=== PATIENT | male | born 1940 | race Caucasian/White ===

== ENCOUNTER 2023-10-11 22:02 | Emergency (ER) | payer OTHER, MEDICARE, BC, SELFPAY ==
[2023-10-11] VITALS (17 sets, daily range): BP systolic 117–148; BP diastolic 44–71; PULSE 60–65; RESP 18–20; TEMP 36.6; O2SAT 95–98; BMI 27.8
--- NOTE | 2023-10-11 22:11 | US_ITS ---
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 Patient ID:?[id number] Site Patient ID:?[id number] Site :?[id number] Study:?US-Extremity LEFT GROIN ARTERIAL-10/12/2023 12:01:57 AM Ordering Physician:Pedro Cast MD Final Report: INDICATION: Bleeding from puncture site. TECHNIQUE: Grayscale and color imaging of the left inguinal region was performed with 2D and spectral analysis and color Doppler Imaging of the femoral vessels. COMPARISON: None. FINDINGS/IMPRESSION: No sonographic evidence of pseudoaneurysm, arteriovenous fistula, or hematoma in the left inguinal region. Triphasic waveforms in the left common femoral, proximal superficial femoral, and proximal deep femoral arteries. No evidence of deep venous thrombosis in the left common femoral and deep femoral veins. Dictated by Tuan Phelps MD @ 10/12/2023 12:51:03 AM Signed by:?Tuan Phelps MD @10/12/2023 12:51:03 AM (Electronic Signature)
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
[2023-10-11 22:39] LABS: Basophils Absolute Auto 0.01 K/uL (0.00-0.30); Basophils Percent Auto 0.1 % (0.0-3.0); Eosinophils Absolute Auto 0.15 K/uL (0.00-0.50); Eosinophils Percent Auto 2.2 % (0.0-7.0); Hematocrit 38.4 % (37.0-53.0); Hemoglobin* 12.3 gm/dL (13.5-17.5); Immature Granulocytes Abs Auto 0.05 K/uL (0.00-0.30); Immature Granulocytes Pct Auto 0.7 %; Lymphocytes Absolute Auto 2.32 K/uL (0.90-2.90); Lymphocytes Percent Auto 34.5 % (20-44); Mean Corpuscular HGB Conc 32 gm/dL (32-36); Mean Corpuscular Hemoglobin 30 pg (26-34); Mean Corpuscular Volume 93 fL (80-100); Monocytes Percent Auto 7.7 % (0.0-11.0); Neutrophils Absolute Auto 3.67 K/uL (1.7-7.0); Neutrophils Percent Auto 54.8 % (42.0-72.0); Platelet Count* 142 K/uL (140-440); RDW Coefficient of Variation % 13.1 % (11.5-15.5); Red Blood Count 4.12 m/uL (4.30-5.90); Slide Review Reflex No; White Blood Count* 6.72 K/uL (4.50-11.00)
--- OUTSIDE RECORDS SUMMARY | 2023-10-11 23:42 | XMS_ITS | Clinical Summary ---
Author Name Unknown Organization [facility] Address [place], [place] [address] Care Team Providers Care Trimmer Climber Name Role Phone Val Leyva MD Primary Care Provider [phone] Allergies Active Allergy Reactions Criticality Noted Date Comments Atorvastatin Myalgia Low 05/18/2007 Clindamycin *Unknown Medium 10/05/2020 Reported per pt (has list with verified allergies) - thought this may have been the one that stopped his heart. Metoprolol Dizziness,*Unknown - Pt Doesn't Remember Medium 05/01/2019 Reported per pt list of verified allergies. Pravastatin Myalgia Low 10/09/2021 Simvastatin Myalgia Low 03/13/2012 Tolerates rosuvastatin, taking currently. Medications Medication Sig Dispensed Refills Start Date End Date Status insulin glargine, U-100, 100 unit/mL (3 mL) pen Inject 16 units subcutaneous once daily. 05/03/2021 Active amiodarone (Pacerone) 200 mg tablet Take 1 Tablet by mouth once daily. 11/06/2021 Active isosorbide mononitrate (IMDUR) 60 mg extended release tablet 24 hour 60 mg. 10/24/2021 Active rosuvastatin (CRESTOR) 20 mg tablet 10 mg. 10/24/2021 Active methotrexate (RHEUMATREX) 2.5 mg tablet 25 mg. 11/01/2021 Active aspirin 81 mg cap aspirin Active folic acid 1 mg tablet Take 1 Tablet by mouth once daily. 11/01/2021 Active hydrOXYchloroQUINE (PLAQUENIL) 200 mg tablet 200 mg. 11/01/2021 Active cholecalciferol (VITAMIN D3) 1,000 unit tablet Take 2,000 units by mouth. Active apixaban (ELIQUIS) 5 mg tablet Take 5 mg by mouth 2 times daily. 10/25/2021 Active acetaminophen (TYLENOL) 325 mg tablet Take 975 mg by mouth. 10/10/2021 Act paul HYDROcodone-acetami nophen (NORCO) 5-325 mg per tablet TAKE 1 TABLET BY MOUTH TWICE A DAY NEEDED FOR SEVERE PAIN *DO NOT EXCEED 4000MG OF ACETAMINOPHEN IN 24 HOURS FROM ALL SOURCES-- 10/24/2021 Active Active Problems Problem Noted Date Diagnosed Date DEPRESSION 03/10/2003 HYPERLIPIDEMIA 06/05/2002 DIABETES TYPE II WITHOUT COMPLICATIONS OR UNSPEC IFIED 06/13/2001 Social History Tobacco Use Types Packs/Day Years Used Date Smoking Tobacco: Former Smokeless Tobacco: Never Tobacco Cessation:Counseling Given: Yes Alcohol Use Standard Drinks/Week Comments Not Currently 0 (1 standard drink = 0.6 oz pur e alcohol) Alcoholic Drinks/day: 0 Social Connections Answer Date Recorded Frequency of Communication with Friends and Fami ly Not on file 11/13/2021 Sex and Gender Information Value Date Recorded Sex Assigned at Not on file Gender Identity Not on file Sexual Orientation Not on file Obstetrics History Last Filed Vital Signs Vital Sign Reading Time Taken Comments Blood Pressure 135/67 11/13/2021 1:07 PM CDT Pulse 53 11/13/2021 1:07 PM CDT Temperature 36.4 ??C (97.5 ??F) 11/13/2021 1:07 PM CD T Respiratory Rate - - Oxygen Saturation 99% 11/13/2021 1:07 PM CDT Inhaled Oxygen Concentration - - Weight 95.1 kg (209 lb 9.6 oz) 11/13/2021 1:07 P M CDT Height 180.3 cm (5' 11) 05/30/2001 12:00 AM 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
--- OUTSIDE RECORDS SUMMARY | 2023-10-11 23:42 | XMS_ITS | Continuity of Care Document ---
Author Name [facility] Organization [facility] Care Team Providers Care Sagger Soak Name Role Phone [facility] Unavailable Unavailable Problems Combined list of problems from Department of Defense and Veterans Affairs facilities. It does not include entries that were removed or entered in error. Problem Status Onset Date Problem Type Date of Resolution Comments Source Exposure to potentially hazardous substance ([facility] [id number]) Active 09/12/19 24 Condition Sep 12, 2023 Entered By: AMARILIS RAMIREZ Comment: [facility] [place] Documentation Initiative [facility] Acute bronchitis Active Condition [facility] Aneurysm of iliac artery Active Condition [facility] Arthritis Active Condition [facility] Atrial Fibrillation Active Condition [facility] Atrial fibrillation (SNOMED CT 88036506) Active Condition [facility] Atrial Fibrillation * (ICD-9-CM 427.31) Active Condition ISATU Olivo Sravani [facility] Benign hypertension (SNOMED CT 93914293) Active Condition [facility] Chronic kidney disease (SNOMED CT 840555238) Active Condition [facility] 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 Dec 12 Entered By: NEYMAR HONG Comment: -microalbuminur ia, BP not tolerating MARCELLO-I 2021 [facility] Coronary artery disease (SNOMED CT 67765269) Active Condition [facility] 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 (SNOMED CT 9646183741291) Active Condition [facility] Essential tremor Active Condition [facility] Gout Active Condition [facility] Hyperlipidemia (SNOMED CT 26909786) Active Condition [facility] insulin pump present Active Condition [facility] intermediate manager methotrexate user Active Condition [facility] Long-term current use of anticoagulant (SNOMED CT 554371667) Active Condition [facility] Obstructive sleep apnea syndrome Active Condition [facility] Rheumatoid arthritis (SNOMED CT 80989567) Active Condition [facility] Steatosis of liver Active Condition [facility] Type 2 diabetes mellitus well controlled Active Condition [facility] Dysfunction of Eustachian tube (ICD-9-CM 381.81) Inactive Condition 11/26/2017 [facility] Diagnosis: ICD-10-CM I48.91 Unspecified atrial fibrillation Active Diagnosis [facility] Diagnosis: ICD-10-CM Z01.818 Encounter for other preprocedural examination Active Diagnosis [facility] Diagnosis: ICD-10-CM Z13.6 Encounter for screening for cardiovascular disorders Active Diagnosis [facility] Diagnosis: ICD-10-CM 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, right eye, with actv chrdl neovas Active Diagnosis [facility] Diagnosis: ICD-10-CM Z46.1 Encounter for fitting and adjustment of hearing aid Active Diagnosis [facility] Diagnosis: ICD-10-CM L30.9 Dermatitis, unspecified Active Diagnosis [facility] Diagnosis: ICD-10-CM L98.9 Disorder of the skin and subcutaneous tissue, unspecified Active Diagnosis [facility] Diagnosis: ICD-10-CM Z79.01 intermediate manager (current) use of anticoagulants Active Diagnosis [facility] Diagnosis: ICD-10-CM M06.9 Rheumatoid arthritis, unspecified Active Diagnosis [facility] Diagnosis: ICD-10-CM H35.3193 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, unsp, adv atrpc w/o sbfvl invl Active Diagnosis [facility] Diagnosis: ICD-10-CM 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 [facility] Diagnosis: ICD-10-CM I12.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 Active Diagnosis [facility] Diagnosis: ICD-10-CM G25.0 Essential tremor Active Diagnosis [facility] Diagnosis: ICD-10-CM E11.40 Type 2 diabetes mellitus with diabetic neuropathy, unsp Active Diagnosis [facility] Diagnosis: ICD-10-CM Z79.899 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 Medication Details Route Status Patient Instructions Prescription Expires Prescription Number Last Dispense Date Ordering Provider Order Date Source AMIODARONE HCL (PACERONE) 200MG TAB TAKE ONE TABLET BY MOUTH EVERY DAY FOR HEART RHYTHM ORALLY ACTIVE 04/16/2024 [id number] DESIRAE MCCARTY 2022 [facility] AMIODARONE HCL (PACERONE) 200MG TAB TAKE ONE TABLET BY MOUTH EVERY DAY ORALLY 04/10/2023 [id number] 3 DESIRAE MCCARTY 2021 [facility] APIXABAN 2.5MG TAB TAKE ONE TABLET BY MOUTH EVERY 12 HOURS TO PREVENT STROKES ORALLY SUSPEND ED 02/29/2024 [id number] 4 DIANE DONG 2022 [facility] APIXABAN 2.5MG TAB TAKE ONE TABLET BY MOUTH EVERY 12 HOURS TO PREVENT STROKES ORALLY DISCONT INUED 03/20/2023 [id number] 3 IRENE MIKE 2021 [facility] CAMPHOR 0.5%/MENTHO L 0.5% LOTION APPLY THIN LAYER TOPICALL Y FOUR TIMES A DAY NEEDED FOR ITCHING TOPICA LLY 07/18/2023 [id number] 3 MICHAEL CHO 2022 [facility] CHOLECALCIF LAURA 25MCG (1,000UNIT) TAB TAKE ONE TABLET BY MOUTH EVERY DAY ORALLY ACTIVE CASH KONG 2018 [facility] DICLOFENAC NA 1% GEL,TOP APPLY 4 GRAMS FOUR TIMES A DAY NEEDED FOR PAIN -USE DOSE CARD IN BOX TO MEASURE DOSE -MAXIMUM OF 32 TOTAL GRAMS PER DAY. ACTIVE 01/03/2024 [id number] 3 MARITZA HONG 2022 [facility] DICLOFENAC NA 1% GEL,TOP APPLY 4 GRAMS FOUR TIMES A DAY NEEDED FOR PAIN -USE DOSE CARD IN BOX TO MEASURE DOSE -MAXIMUM OF 32 TOTAL GRAMS PER DAY. DISCONT INUED 12/13/2022 [id number] [address] [facility] FOLIC ACID 1MG TAB TAKE ONE TABLET BY MOUTH DAILY ORALLY DISCONT INUED 11/02/2022 [id number] [address] JO[address]AM[address]IA [address] [facility] GABAPENTIN 100MG CAP TAKE ONE CAPSULE BY MOUTH TWICE A DAY FOR [facility] TREMOR ORALLY ACTIVE 01/03/2024 [id number] [address] [facility] HYDROXYCHLO ROQUINE SO4 200MG TAB TAKE ONE TABLET BY MOUTH TWICE A DAY FOR RHEUMATO ID ARTHRITI S ORALLY DISCONT INUED 05/10/2023 [id number] [address] [facility] INSULIN,GLA RGINE-YFGN 100UNIT/ML INJ PEN,3ML INJECT 9 UNITS UNDER THE SKIN EVERY DAY FOR DIABETES SUBCUT ANEOUS ACTIVE 10/30/2023 [id number] 4 MELISSA-MONICA G,NACIDE [address] [facility] ISOSORBIDE MONONITRATE 60MG TAB,SA TAKE ONE TABLET BY MOUTH EVERY DAY FOR CHEST PAIN ORALLY ACTIVE 01/03/2024 [id number] [address] [facility] ISOSORBIDE MONONITRATE 60MG TAB,SA TAKE ONE TABLET BY MOUTH EVERY DAY FOR CHEST PAIN ORALLY DISCONT INUED 10/26/2023 [id number] [address] [facility] ISOSORBIDE MONONITRATE 60MG TAB,SA TAKE ONE TABLET BY MOUTH EVERY DAY FOR CHEST PAIN ORALLY DISCONT INUED 10/25/2022 [id number] [address] [facility] LIRAGLUTIDE (VICTOZA) 6MG/ML INJ,SOLN,PE N,3ML INJECT 0.6 MG UNDER THE SKIN EVERY DAY FOR DIABETES SUBCUT ANEOUS SUSPEND ED 03/28/2024 [id number] 4 [facility]ELAND [facility] LIRAGLUTIDE (VICTOZA) 6MG/ML INJ,SOLN,PE N,3ML INJECT 0.6 MG UNDER THE SKIN EVERY DAY FOR DIABETES SUBCUT ANEOUS DISCONT INUED 01/03/2024 [id number] 3 MARITZA HONG 2022 [facility] LIRAGLUTIDE (VICTOZA) 6MG/ML INJ,SOLN,PE N,3ML INJECT 0.6 MG UNDER THE SKIN EVERY DAY FOR DIABETES SUBCUT ANEOUS DISCONT INUED 03/26/2023 [id number] 3 ANABELL BLISS 2021 [facility] LORATADINE 10MG TAB TAKE ONE TABLET BY MOUTH EVERY DAY FOR ALLERGIE S ORALLY ACTIVE 01/03/2024 [id number] 4 MARITZA HONG 2022 [facility] LORATADINE 10MG TAB TAKE ONE TABLET BY MOUTH EVERY DAY FOR ALLERGIE S ORALLY DISCONT INUED 10/25/2022 [id number] 3 MARITZA HONG 2021 [facility] MULTIVIT/OP HTH AREDS2/LUTE IN/ZEAXANTH IN CAP/TAB TAKE 1 CAP/TAB BY MOUTH TWICE A DAY FOR EYE HEALTH ORALLY ACTIVE 04/16/2024 [id number] 4 PORTER CLEANING 2022 [facility] PANTOPRAZOL E NA 40MG TAB,EC TAKE ONE TABLET BY MOUTH EVERY DAY FOR HEARTBUR N POST ATRIAL FIBRILLA TION ABLATION . ORALLY ACTIVE 11/10/2023 [id number] ANABELL MAS ARMA B 2023 [facility] POLYETHYLEN E GLYCOL 3350 PWDR,ORAL TAKE 17 GRAMS BY MOUTH EVERY DAY WHILE USING NARCOTIC *MIX IN 4 TO 8 OUNCES OF LIQUID DIRECTED *USE COVER TO MEASURE POWDER* ORALLY 12/13/2022 [id number] 3 MARITZA HONG 2021 [facility] ROSUVASTATI N CA 20MG TAB TAKE ONE-HALF TABLET BY MOUTH EVERY DAY FOR CHOLESTE ROL (DO NOT CONVERT/ APPROVED 04/2013) ORALLY ACTIVE 01/03/2024 [id number] 4 HONGMARITZA 2022 [facility] ROSUVASTATI N CA 20MG TAB TAKE ONE-HALF TABLET BY MOUTH EVERY DAY FOR CHOLESTE ROL (DO NOT CONVERT/ APPROVED 04/2013) ORALLY DISCONT INUED 10/26/2023 [id number] 3 HONGMARITZA 2022 [facility] ROSUVASTATI N CA 20MG TAB TAKE ONE-HALF TABLET BY MOUTH EVERY DAY FOR CHOLESTE ROL (DO NOT CONVERT/ APPROVED 04/2013) ORALLY DISCONT INUED 10/25/2022 [id number] 3 HONGMARITZA 2021 [facility] Allergies, Adverse Reactions, Alerts Combined list of allergies from Department of [facility] and Veterans [facility] facilities. It does not include entries that were removed or entered in error. Substance Category Reaction Severity Reaction type Status Date Reported Comments Source ATORVASTATIN Propensity to adverse reactions to drug (finding) Muscle pain active 7 [facility] CLINDAMYCIN Propensity to adverse reactions to drug (finding) active 1 [facility] HYDROXYCHLOR OQUINE Propensity to adverse reactions to drug (finding) Retinal disorder MODERATE active 3 [facility] METOPROLOL Propensity to adverse reactions to drug (finding) Dizziness active 9 [facility] SIMVASTATIN Propensity to adverse reactions to drug (finding) Muscle pain active 2 [facility] Immunizations Combined list of available immunizations from the Department of [facility] and Veterans Affairs facilities. Immunization Series Date Given Administered By Site Reaction Lot Number CVX Code Drug Oxidation Operator Status Comments Source INFLUENZA, HIGH DOSE SEASONAL 2015 135 complet ed [facility] PNEUMOCOCCAL CONJUGATE PCV 13 2015 133 complet ed Wytanvir [id number] 12/22 [facility] INFLUENZA, HIGH DOSE SEASONAL 2014 135 complet ed [facility] INFLUENZA, UNSPECIFIED FORMULATION 2013 88 complet ed [facility] INFLUENZA, UNSPECIFIED FORMULATION 2012 88 complet ed [facility] TDAP 2012 115 complet ed [place] Lot# Exp [facility] INFLUENZA, UNSPECIFIED FORMULATION 2011 88 complet ed [facility] INFLUENZA, UNSPECIFIED FORMULATION 2010 88 complet ed [facility] INFLUENZA, UNSPECIFIED FORMULATION 2009 88 complet ed [facility] NOVEL INFLUENZA-H1N 1-09, ALL FORMULATIONS 2008 128 complet ed [facility] TD(ADULT) UNSPECIFIED FORMULATION 2008 139 complet ed [facility] INFLUENZA, UNSPECIFIED FORMULATION 2008 88 complet ed [facility] ZOSTER LIVE 2008 121 complet ed [place] INFLUENZA, UNSPECIFIED FORMULATION 2007 88 complet ed [facility] INFLUENZA, UNSPECIFIED FORMULATION 2006 88 complet ed [facility] PNEUMOCOCCAL, UNSPECIFIED FORMULATION 2006 109 complet ed [facility] PNEUMOCOCCAL POLYSACCHARID E PPV23 2006 33 complet ed [facility] TD (ADULT), 2 LF TETANUS TOXOID, PRESERVATIVE FREE, ADSORBED 2003 09 complet ed [facility] TD(ADULT) UNSPECIFIED FORMULATION 1999 139 complet ed [facility] Results Combined list of recent chemistry, hematology and other laboratory results from Department of Defense and Veterans Affairs, ranging from 15 months to all on record, depending upon the facility. Order Name Results Value Reference Range Date Interpretation Specimen Comments Source POC ACT ACTIVATED CLOTTING TIME (ACT) OF BLOOD BY COAGULATION ASSAY 199 84 - 139 10/10 H Specimen Type: BLOOD No comment entered. Ordering Provider: AIDA HONG Report Released Date/Time: Oct 11, 2023 12:32 PM Reporting Lab: [facility] [address] Performing Lab: [facility] [address] [facility] POC ACT ACTIVATED CLOTTING TIME (ACT) OF BLOOD BY COAGULATION ASSAY 384 84 - 139 10/10 H Specimen Type: BLOOD No comment entered. Ordering Provider: AIDA HONG Report Released Date/Time: Oct 11, 2023 12:20 PM Reporting Lab: [facility] [address] Performing Lab: [facility] [address] [place] [facility] FINGERSTI CK GLUCOSE GLUCOSE [MASS/VOLUM E] IN CAPILLARY BLOOD 161 70 - 100 10/10 H Specimen Type: BLOOD No comment entered. Ordering Provider: AIDA HONG Report Released Date/Time: Oct 11, 2023 01:30 PM Reporting Lab: [facility] [address] Performing Lab: [facility] [address] [place] [facility] POC ACT ACTIVATED CLOTTING TIME (ACT) OF BLOOD BY COAGULATION ASSAY 407 84 - 139 10/10 H Specimen Type: BLOOD No comment entered. Ordering Provider: AIDA HONG Report Released Date/Time: Oct 11, 2023 12:00 PM Reporting Lab: [facility] [address] Performing Lab: [place] [address] [place] [facility] POC ACT ACTIVATED CLOTTING TIME (ACT) OF BLOOD BY COAGULATION ASSAY 345 84 - 139 10/10 H Specimen Type: BLOOD No comment entered. Ordering Provider: AIDA HONG Report Released Date/Time: Oct 11, 2023 11:47 AM Reporting Lab: [facility] [address] Performing Lab: [facility] [address] [place] [facility] FINGERSTI CK GLUCOSE GLUCOSE [MASS/VOLUM E] IN CAPILLARY BLOOD 167 70 - 100 10/10 H Specimen Type: BLOOD No comment entered. Ordering Provider: AIDA HONG Report Released Date/Time: Oct 11, 2023 01:30 PM Reporting Lab: [facility] [address] Performing Lab: [facility] [address] [place] [facility] POC ACT ACTIVATED CLOTTING TIME (ACT) OF BLOOD BY COAGULATION ASSAY 334 84 - 139 10/10 H Specimen Type: BLOOD No comment entered. Ordering Provider: AIDA HONG Report Released Date/Time: Oct 11, 2023 11:20 AM Reporting Lab: [facility] [address] Performing Lab: [facility] [address] [place] [facility] POC ACT ACTIVATED CLOTTING TIME (ACT) OF BLOOD BY COAGULATION ASSAY 310 84 - 139 10/10 H Specimen Type: BLOOD No comment entered. Ordering Provider: AIDA HONG Report Released Date/Time: Oct 11, 2023 11:04 AM Reporting Lab: [facility] [address] Performing Lab: [facility] [address] [place] [facility] POC ABG/ELECT ROLYTES PH OF ARTERIAL BLOOD 7.396 7.35 - 7.45 10/10 Specimen Type: ARTERIAL BLOOD Comment: FIO2 = 55% Patient Temp: 35.5 C Sample Type = ARTERIAL Ordering Provider: AIDA HONG Report Released Date/Time: Oct 11, 2023 01:20 PM Reporting Lab: [facility] [address] Performing Lab: [facility] [address] [place] [facility] POC ABG/ELECT ROLYTES CARBON DIOXIDE [PARTIAL PRESSURE] IN ARTERIAL BLOOD 36.1 35.00 - 45.00 10/10 Specimen Type: ARTERIAL BLOOD Comment: FIO2 = 55% Patient Temp: 35.5 C Sample Type = ARTERIAL Ordering Provider: AIDA HONG Report Released Date/Time: Oct 11, 2023 01:20 PM Reporting Lab: [facility] [address] Performing Lab: [facility] [address] [place] [facility] POC ABG/ELECT ROLYTES OXYGEN [PARTIAL PRESSURE] IN ARTERIAL BLOOD 222 80.0 - 105.0 10/10 H Specimen Type: ARTERIAL BLOOD Comment: FIO2 = 55% Patient Temp: 35.5 C Sample Type = ARTERIAL Ordering Provider: AIDA HONG Report Released Date/Time: Oct 11, 2023 01:20 PM Reporting Lab: [facility] [address] Performing Lab: [facility] [address] [place] [facility] POC ABG/ELECT ROLYTES CARBON DIOXIDE, TOTAL [MOLES/VOLU ME] IN ARTERIAL BLOOD 23 23.0 - 27.0 10/10 Specimen Type: ARTERIAL BLOOD Comment: FIO2 = 55% Patient Temp: 35.5 C Sample Type = ARTERIAL Ordering Provider: AIDA HONG Report Released Date/Time: Oct 11, 2023 01:20 PM Reporting Lab: [facility] [address] Performing Lab: [facility] [address] [place] [facility] POC ABG/ELECT ROLYTES BICARBONATE [MOLES/VOLU ME] IN ARTERIAL BLOOD 22.1 22.0 - 26.0 10/10 Specimen Type: ARTERIAL BLOOD Comment: FIO2 = 55% Patient Temp: 35.5 C Sample Type = ARTERIAL Ordering Provider: AIDA HONG Report Released Date/Time: Oct 11, 2023 01:20 PM Reporting Lab: [facility] [address] Performing Lab: [facility] [address] [place] [facility] POC ABG/ELECT ROLYTES BASE EXCESS IN ARTERIAL BLOOD BY CALCULATION -3 - 2 10/10 L Specimen Type: ARTERIAL BLOOD Comment: FIO2 = 55% Patient Temp: 35.5 C Sample Type = ARTERIAL Ordering Provider: AIDA HONG Report Released Date/Time: Oct 11, 2023 01:20 PM Reporting Lab: [facility] [address] Performing Lab: [facility] [address] [place] [facility] POC ABG/ELECT ROLYTES FRACTIONAL OXYHEMOGLOB IN IN ARTERIAL BLOOD 100 95 - 98 10/10 H Specimen Type: ARTERIAL BLOOD Comment: FIO2 = 55% Patient Temp: 35.5 C Sample Type = ARTERIAL Ordering Provider: AIDA HONG Report Released Date/Time: Oct 11, 2023 01:20 PM Reporting Lab: [facility] [address] Performing Lab: [facility] [address] [place] [facility] POC ABG/ELECT ROLYTES SODIUM [MOLES/VOLU ME] IN ARTERIAL BLOOD 138 138.0 - 146.0 10/10 Specimen Type: ARTERIAL BLOOD Comment: FIO2 = 55% Patient Temp: 35.5 C Sample Type = ARTERIAL Ordering Provider: AIDA HONG Report Released Date/Time: Oct 11, 2023 01:20 PM Reporting Lab: [facility] [address] Performing Lab: [facility] [address] [place] [facility] POC ABG/ELECT ROLYTES POTASSIUM [MOLES/VOLU ME] IN ARTERIAL BLOOD 4.9 3.50 - 4.90 10/10 Specimen Type: ARTERIAL BLOOD Comment: FIO2 = 55% Patient Temp: 35.5 C Sample Type = ARTERIAL Ordering Provider: AIDA HONG Report Released Date/Time: Oct 11, 2023 01:20 PM Reporting Lab: [facility] [address] Performing Lab: [facility] [address] [place] [facility] POC ABG/ELECT ROLYTES HEMOGLOBIN [MASS/VOLUM E] IN ARTERIAL BLOOD 10.9 12.00 - 17.00 10/10 L Specimen Type: ARTERIAL BLOOD Comment: FIO2 = 55% Patient Temp: 35.5 C Sample Type = ARTERIAL Ordering Provider: AIDA HONG Report Released Date/Time: Oct 11, 2023 01:20 PM Reporting Lab: [facility] [address] Performing Lab: [facility] [address] [place] [facility] POC ABG/ELECT ROLYTES HEMATOCRIT [VOLUME FRACTION] OF ARTERIAL BLOOD 32 38.0 - 51.0 10/10 L Specimen Type: ARTERIAL BLOOD Comment: FIO2 = 55% Patient Temp: 35.5 C Sample Type = ARTERIAL Ordering Provider: AIDA HONG Report Released Date/Time: Oct 11, 2023 01:20 PM Reporting Lab: [facility] [address] Performing Lab: [facility] [address] [place] [facility] POC ABG/ELECT ROLYTES CALCIUM.ION IZED [MOLES/VOLU ME] IN ARTERIAL BLOOD 4.7 4.50 - 5.30 10/10 Specimen Type: ARTERIAL BLOOD Comment: FIO2 = 55% Patient Temp: 35.5 C Sample Type = ARTERIAL Ordering Provider: AIDA HONG Report Released Date/Time: Oct 11, 2023 01:20 PM Reporting Lab: [facility] [address] Performing Lab: [facility] [address] [place] [facility] POC ABG/ELECT ROLYTES PH OF ARTERIAL BLOOD ADJUSTED TO PATIENT'S ACTUAL TEMPERATURE 7.418 7.35 - 7.45 10/10 Specimen Type: ARTERIAL BLOOD Comment: FIO2 = 55% Patient Temp: 35.5 C Sample Type = ARTERIAL Ordering Provider: AIDA HONG Report Released Date/Time: Oct 11, 2023 01:20 PM Reporting Lab: [facility] [address] Performing Lab: [facility] [address] [facility] [facility] POC ABG/ELECT ROLYTES CARBON DIOXIDE [PARTIAL PRESSURE] ADJUSTED TO PATIENT'S ACTUAL TEMPERATURE IN ARTERIAL BLOOD 33.8 35.00 - 45.00 10/10 L Specimen Type: ARTERIAL BLOOD Comment: FIO2 = 55% Patient Temp: 35.5 C Sample Type = ARTERIAL Ordering Provider: AIDA HONG Report Released Date/Time: Oct 11, 2023 01:20 PM Reporting Lab: [facility] [address] Performing Lab: [facility] [address] [facility] [facility] POC ABG/ELECT ROLYTES OXYGEN [PARTIAL PRESSURE] ADJUSTED TO PATIENT'S ACTUAL TEMPERATURE IN ARTERIAL BLOOD 215 80.0 - 105.0 10/10 H Specimen Type: ARTERIAL BLOOD Comment: FIO2 = 55% Patient Temp: 35.5 C Sample Type = ARTERIAL Ordering Provider: AIDA HONG Report Released Date/Time: Oct 11, 2023 01:20 PM Reporting Lab: [facility] [address] Performing Lab: [facility] [address] [place] [facility] CK GLUCOSE GLUCOSE [MASS/VOLUM E] IN CAPILLARY BLOOD 163 70 - 100 10/10 H Specimen Type: BLOOD No comment entered. Ordering Provider: AIDA HONG Report Released Date/Time: Oct 11, 2023 01:30 PM Reporting Lab: [facility] [address] Performing Lab: [facility] [address] [facility] [address] [place] [facility] Vital Signs Combined list of inpatient and outpatient Vital Signs from Department of Defense and Veterans Affairs, ranging from 12 months to all on record, depending upon the facility. Vital Sign Value Date Comments Source SYSTOLIC BLOOD PRESSURE 117 10/11/2023 14:44:00 [facility]CS DIASTOLIC BLOOD PRESSURE 61 10/11/2023 14:44:00 [facility] PULSE OXIMETRY 97 10/11/2023 14:44:00 [facility] PAIN 0 10/11/2023 14:44:00 [facility] TEMPERATURE 97.5 10/11/2023 14:44:00 [facility] PULSE 59 10/11/2023 14:44:00 [facility] RESPIRATION 18 10/11/2023 14:44:00 [facility] SYSTOLIC BLOOD PRESSURE 106 06/18/2023 10:32:26 [facility] DIASTOLIC BLOOD PRESSURE 59 06/18/2023 10:32:26 [facility] PULSE OXIMETRY 98% 06/18/2023 10:32:26 [facility] WEIGHT 209.3 06/18/2023 10:32:26 [facility] BMI 29kg/m2 06/18/2023 10:32:26 [facility] PAIN 0 06/18/2023 10:32:26 [facility] TEMPERATURE 97.5 06/18/2023 10:32:26 [facility] PULSE 54 06/18/2023 10:32:26 [facility] RESPIRATION 16 06/18/2023 10:32:26 [facility] SYSTOLIC BLOOD PRESSURE 156 04/17/2023 10:19:01 [facility]CS DIASTOLIC BLOOD PRESSURE 69 04/17/2023 10:19:01 [facility] PULSE OXIMETRY 98% 04/17/2023 10:19:01 [facility] WEIGHT 211.8 04/17/2023 10:19:01 [facility] BMI 30kg/m2 04/17/2023 10:19:01 [facility] PAIN 0 04/17/2023 10:19:01 [facility] TEMPERATURE 97.9 04/17/2023 10:19:01 [facility] PULSE 57 04/17/2023 10:19:01 [facility] RESPIRATION 16 04/17/2023 10:19:01 [facility] SYSTOLIC BLOOD PRESSURE 102 03/28/2023 09:57:29 [facility] DIASTOLIC BLOOD PRESSURE 58 03/28/2023 09:57:29 [facility] PULSE OXIMETRY 95% 03/28/2023 09:57:29 [facility] WEIGHT 209.7 03/28/2023 09:57:29 [facility] BMI 29kg/m2 03/28/2023 09:57:29 [facility] TEMPERATURE 97 03/28/2023 09:57:29 [facility] PULSE 55 03/28/2023 09:57:29 [facility] RESPIRATION 16 03/28/2023 09:57:29 [facility] SYSTOLIC BLOOD PRESSURE 103 03/18/2023 14:01:19 [facility] DIASTOLIC BLOOD PRESSURE 55 03/18/2023 14:01:19 [facility] PULSE OXIMETRY 96% 03/18/2023 14:01:19 [facility] WEIGHT 210.5 03/18/2023 14:01:19 [facility] BMI 29kg/m2 03/18/2023 14:01:19 [facility] PAIN 0 03/18/2023 14:01:19 [facility] PULSE 57 03/18/2023 14:01:19 [facility] RESPIRATION 18 03/18/2023 14:01:19 [facility] Encounters Combined list of: 1) Encounters from Department of Veterans Affairs facilities going back up to thelast 18 months. 2) Encounters from the Department of Defense facilities going back up to 280 months. Location Location Details Encounter Type Encounter Number Reason For Visit Attending Provider ADM Date DC Date Status Disposition Source [facility] Outpatient Encounter [id number] ARELIS ALVAREZ SA 04/12 [place] [facility] CONFORMITY EVALUATION [id number] Diagnos is: ICD-10- CM Z46.1 Encount er for fitting and adjustm ent of hearing aid<br/ > JOSE DAVIDSON 04/24 [facility] Outpatient Encounter [id number] 05/07 [facility] HEMOGLOBIN [id number] Diagnos is: ICD-10- CM I48.91 Unspeci fied atrial fibrill ation<b r/> SALENA CHILDS E 05/07 [facility] OFFICE O/P EST MOD 30-39 MIN [id number] Diagnos is: ICD-10- CM M06.9 Rheumat oid arthrit is, unspeci fied
MERCEDES,ROSE RRY A 05/09 [facility] Outpatient Encounter [id number] Diagnos is: ICD-10- CM I48.91 Unspeci fied atrial fibrill ation<b r/> Teofilo MCCARTY 05/11 [facility] QNHP OL DIG ASSMT&MGMT 05-27 [id number] Diagnos is: ICD-10- CM Z79.01 [facility] (curren t) use of anticoa gulants
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
GURU BLISS 10/18 [facility] ELECTROCAR DIOGRAM COMPLETE [id number] Diagnos is: ICD-10- CM Z13.6 Encount er for screeni ng for cardiov ascular disorde rs
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
Anastacio ROWLEY M 10/22 [facility] DIABETIC MANAGEMENT PROGRAM, [id number] Diagnos is: ICD-10- CM E11.9 Type 2 diabete s mellitu s without complic ations< br/> SYLVIA HARRIS 10/29 [place] [facility] [place] [facility] OFFICE O/P NEW HI 60-74 MIN [id number] [id number] Diagnos is: ICD-10- CM I12.9 Hyperte nsive chronic kidney disease w stg 1-4/uns p chr kdny
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
Teofilo CLEANING 11/15 [place] [facility] Outpatient Encounter [id number] KARLEY BEAN SA 11/16 [place] [facility] [place] [facility] Outpatient Encounter [id number] 11/20 [place] [facility] OFFICE O/P EST MOD 30-39 MIN [id number] Diagnos is: ICD-10- CM M06.9 Rheumat oid arthrit is, unspeci fied
ROBERT TINOCO T 11/21 [facility] PRO PHONE CALL 5-10 MIN [id number] Diagnos is: ICD-10- CM M06.9 Rheumat oid arthrit is, unspeci fied
GREGTeofilo MANGO 12/06 [facility] OFFICE O/P EST HI 40-54 MIN [id number] [id number] Diagnos is: ICD-10- CM E11.40 Type 2 diabete s mellitu s with diabeti c neuropa thy, unsp
RANDY HONG W 01/02 [facility] OT EVAL LOW COMPLEX 30 MIN [id number] [id number] Diagnos is: ICD-10- CM G25.0 Essenti al tremor< br/> HARPER MEDINA B 02/11 [facility] IS [facility] Outpatient Encounter [id number] 02/27 [facility] ELECTROCAR DIOGRAM COMPLETE [id number] [id number] Diagnos is: ICD-10- CM Z13.6 Encount er for screeni ng for cardiov ascular disorde rs
KASHIF FAUSTY S 03/18 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
MAXIME KONG 03/18 [facility] OFFICE O/P EST MOD 30-39 MIN [id number] [id number] Diagnos is: ICD-10- CM I48.91 Unspeci fied atrial fibrill ation<b r/> GURU MAS [facility] B 03/18 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
MICHEL SARGENT 03/28 [facility] Outpatient Encounter [id number] Diagnos is: ICD-10- CM Z01.818 Encount er for other preproc edural examina tion
NAYA GUILLEN 04/03 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
ARMBRUST,K AREN R 04/16 [facility] Outpatient Encounter [id number] REENA SHAH 04/16 [facility] OFFICE O/P EST LOW 20-29 MIN [id number] [id number] Diagnos is: ICD-10- CM M06.9 Rheumat oid arthrit is, unspeci fied
ROBERT TINOCO 04/17 [facility] QNHP OL DIG ASSMT&MGMT 11-20 [id number] [id number] Diagnos is: ICD-10- CM Z79.01 [facility] (curren t) use of anticoa gulants
IRENE MIKE 04/23 [facility] Outpatient Encounter [id number] 06/11 [facility] Outpatient Encounter [id number] DEVORA BERNABE 06/17 [facility] OFFICE O/P EST LOW 20-29 MIN [id number] Diagnos is: ICD-10- CM L98.9 Disorde r of the skin and subcuta neous tissue, unspeci fied
BONILLA CHO 06/18 [facility] UNLISTED SPEC DERM SVC/PX [id number] [id number] Diagnos is: ICD-10- CM L98.9 Disorde r of the skin and subcuta neous tissue, unspeci fied
PARAMJIT HARRY 06/18 [facility] Outpatient Encounter [id number] Diagnos is: ICD-10- CM L30.9 Dermati tis, unspeci fied
WILBUR KNAPP RA 06/20 [facility] Outpatient Encounter [id number] Elsa NICOLE 07/04 [place] [facility] HEARING AID CHECK BOTH EARS [id number] [id number] Diagnos is: ICD-10- CM Z46.1 Encount er for fitting and adjustm ent of hearing aid<br/ > ROSE CAPPS 07/10 [place] [facility] Outpatient Encounter [id number] 10/06 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, right eye, with actv chrdl neovas< br/> BLACKK AREN R 10/07 [facility] [place] [facility] Outpatient Encounter [id number] 10/07 [place] [facility] [place] [facility] Outpatient Encounter [id number] 10/08 [place] [facility] [place] [facility] Outpatient Encounter [id number] 10/10 [place] [facility] [place] [facility] ELECTROCAR DIOGRAM REPORT [id number] Diagnos is: ICD-10- CM Z13.6 Encount er for screeni ng for cardiov ascular disorde rs
Jacqueline SNEED 10/10 [facility] [place] [facility] Outpatient Encounter [id number] Mohamud [place] 10/10 [place] [facility] [place] [facility] Outpatient Encounter [id number] 10/10 [facility] [place] [facility] OFFICE O/P NEW LOW 30 MIN [id number] Diagnos is: ICD-10- CM Z01.818 Encount er for other preproc edural examina tion
FAITH,TO RY L 10/10 [facility] [place] [facility] Outpatient Encounter [id number] CUEVAS,TO RY L 10/10 [place] [facility] [place] [facility] Outpatient Encounter [id number] 10/10 [facility] [place] [facility] Outpatient Encounter [id number] SYSTEM,CIS -ARK 10/10 [facility] [place] [facility] OFFICE O/P EST MOD 30 MIN [id number] Diagnos is: ICD-10- CM I48.91 Unspeci fied atrial fibrill ation<b r/> KATTEL,SHA RMA B 10/10 [facility] [place] [facility] INSERTION CATHETER ARTERY [id number] Diagnos is: ICD-10- CM I48.91 Unspeci fied atrial fibrill ation<b r/> CUEVAS,TO RY L 10/10 [facility] [place] [facility] CLOSURE DEV, VASC [id number] Diagnos is: ICD-10- CM I48.91 Unspeci fied atrial fibrill ation<b r/> KATTEL,SHA RMA B 10/10 [facility] ANESTH CARDIAC ELECTROPHY S [id number] Diagnos is: ICD-10- CM I48.91 Unspeci fied atrial fibrill ation<b r/> CUEVAS,TO RY L 10/10 [facility] [place] [facility] Outpatient Encounter [id number] 10/10 [facility] [place] [facility] Outpatient Encounter [id number] 10/10 [facility] [place] [facility] Outpatient Encounter [id number] MARTHA JOYNER 10/10 [facility] Social History Combined list of available smoking, tobacco, and other 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 Social History Type Response Date Comment Sourc e Tobacco smoking status [place] FOR[place] US[place] 01/02/2023 [facility] History of tobacco use [place] QU[place] 1 5 YRS OR MORE 01/02/2023 [facility] History of tobacco use [place] QUIT 1 5 YRS OR MORE 10/24/2021 [facility] History of tobacco use [place] FORMER US[place] 04/27/2020 [facility] History of tobacco use INPT NO TOBACCO U SE IN LAST 30 DAYS 04/23/2019 [facility] History of tobacco use [place]-TO[place] QUIT 1 5 YRS OR MORE 10/15/2018 [facility] History of tobacco use FORMER TOBACCO US ER 7Y OR GREATER 11/13/2017 [facility] History of tobacco use FORMER TOBACCO US ER 7Y OR GREATER 11/22/2016 [facility] History of tobacco use FORMER TOBACCO US ER 7Y OR GREATER 10/21/2015 [facility] History of tobacco use FORMER TOBACCO US ER 7Y OR GREATER 10/21/2014 [facility] History of tobacco use FORMER TOBACCO US ER 7Y OR GREATER 10/29/2013 [facility] History of tobacco use FORMER TOBACCO US ER 7Y OR GREATER 03/11/2007 [facility] Plan of Care List of future care activities from Department of [facility] Affairs facilities. Additional future care activities may be listed in the Assessment and Plan section. Date/Time Care Activity Care Activity Detail Facili ty 10/11/2023 AMBULATORY - NONE AMBULATORY - NONE [facility] 10/11/2023 AMBULATORY - MEDICINE AMBULATORY - MEDICI NE [facility] 10/11/2023 AMBULATORY - MEDICINE AMBULATORY - MEDICI [facility] 10/11/2023 AMBULATORY - MEDICINE AMBULATORY - MEDICI [facility] 10/11/2023 AMBULATORY - NONE AMBULATORY - NONE [facility] 10/11/2023 AMBULATORY - MEDICINE AMBULATORY - MEDICI [facility] 10/28/2023 AMBULATORY - MEDICINE AMBULATORY - MEDICI [facility] 10/28/2023 AMBULATORY - MEDICINE AMBULATORY - MEDICI [facility] 11/18/2023 AMBULATORY - SURGERY AMBULATORY - SURGERY [facility] 11/28/2023 AMBULATORY - MEDICINE AMBULATORY - MEDICI [facility] 12/16/2023 AMBULATORY - SURGERY AMBULATORY - SURGERY [facility] 12/16/2023 AMBULATORY - SURGERY AMBULATORY - SURGERY [facility] 09/15/2023 Laboratory - Chemistry Order KING CTROLYTES/ANION GAP PLASMA SP ONCE [facility] 09/15/2023 Laboratory - Chemistry Order CRE ATININE(INCLUDES EGFR) PLASMA SP [facility] 09/15/2023 Laboratory - Chemistry Order CALCIUM PLAS MA SP [facility] 09/15/2023 Laboratory - Chemistry Order URE A NITROGEN PLASMA SP ONCE [facility] 09/15/2023 Laboratory - Chemistry Order PHOSPHORUS P LASMA SP [facility] 09/15/2023 Laboratory - Chemistry Order ALBUMIN PLAS MA SP [facility] 09/15/2023 Laboratory - Chemistry Order CBC BLOOD SP [facility] 09/15/2023 Laboratory - Chemistry Order PTH-N-TACT P LASMA SP [facility] 09/15/2023 Laboratory - Chemistry Order GLUCOSE PLAS MA [facility] 10/11/2023 Laboratory - Blood B ank Order ABO/RH - LAB BLOOD [facility] 10/11/2023 Laboratory - Blood B ank Order TYPE and SCREEN - LAB BLOOD [facility]
--- OUTSIDE RECORDS SUMMARY | 2023-10-11 23:45 | XMS_ITS | Encounter Summary ---
Author Name [facility] Organization [facility] Address [address] [place] [address] Support Name Relationship Address Phone JOHN STOCKTONINE Next of Kin [address] [place] [phone] JUDE STOCKTON Emergency Contact [address] [address] JUDE STOCKTON Next of Kin [address] [place] [phone] JUDE STOCKTON Emergency Contact [address] [place] [address] Insurance Providers: All historical and current Section Date Range: From patient's date of to the date document was created. This section includes the names of all active insurance providers for the patient. Insurance Provider Type of Coverage Plan Name Start of Policy Coverage End of Policy Coverage Group Number Member ID Insurance Provider's Telephone Number Policy Dinero's Name Patient's Relationship to Policy Dinero [place] SUPPLEGANESH MAHAN IDU Jul 08, 2016 [id number] [phone] KRISTOFER STOCKTON PATIENT MEDICARE (WNR) MEDICARE (M) PART B Jun 07, 2007 PART B [id number] [phone] KRISTOFER STOCKTON PATIENT MEDICARE (WNR) MEDICARE (M) PART B Jun 07, 2007 PART B [id number] [phone] KRISTOFER STOCKTON PATIENT MEDICARE (WNR) MEDICARE (M) PART B Jun 07, 2007 PART B [id number] [phone] KRISTOFER STOCKTON PATIENT MEDICARE (WNR) MEDICARE (M) PART B Jun 07, 2007 PART B [id number] [phone] KRISTOFER STOCKTON PATIENT MEDICARE (WNR) MEDICARE (M) PART A Mar 08, 2007 PART A [id number] [phone] KRISTOFER STOCKTON PATIENT MEDICARE (WNR) MEDICARE (M) PART A Mar 08, 2007 PART A [id number] [phone] KRISTOFER STOCKTON PATIENT MEDICARE (WNR) MEDICARE (M) PART A Mar 08, 2007 PART A [id number] [phone] KRISTOFER STOCKTON PATIENT MEDICARE (WNR) MEDICARE (M) PART A Mar 08, 2007 PART A [id number] KRISTOFER STOCKTON PATIENT Selected Encounter This section includes the information on record at [place] for the Encounter. Date/Time Encounter Type Encounter Description Reason Pro vider Source Oct 11, 2023 07:30 AM Outpatient Encounter CARDIAC CATHETERIZATION Mohamud SOLOMON Encounter Template Text not used by [place] Plan of Treatment: Future Appointments (+ 6 months) and Future Tests (+/- 45 days) The Plan of Treatment section includes future care activities for the patient from all [place] [facility]. This section includes future appointments and future orders which are active, pending or scheduled. Future Appointments This section includes appointments that were scheduled to occur 6 months from the date of the Encounter, up to a maximum of 20 appointments. The data comes from all [facility]. Appointment Date/Time Appointment Type Appointme nt Facility Name Oct 28, 2023 02:15 PM AMBULATORY - MEDICINE [facility] Oct 28, 2023 03:30 PM AMBULATORY - MEDICINE [facility] November 18, 2023 12:40 PM AMBULATORY - SURGERY [facility] November 28, 2023 09:20 AM AMBULATORY - MEDICINE [facility] Dec 16, 2023 01:00 PM AMBULATORY - SURGERY [facility] Dec 16, 2023 02:00 PM AMBULATORY - SURGERY [facility] Active, Pending, and Scheduled Orders This section includes a listing of several types of active, pending, and scheduled orders, including clinic medications orders, diagnostic test orders, procedure orders and consult orders; where the start date of the order is 45 days before the date of the Encounter or 45 days after the date of theEncounter. The data comes from all [facility]. Test Date/Time Test Type Test Details Facility Name Sep 15, 2023 12:00 AM Laboratory - Chemi stry Order ELECTROLYTES/ANION GAP PLASMA SP ONCE [facility] Sep 15, 2023 12:00 AM Laboratory - Chemi stry Order CREATININE(INCLUDES EGFR) PLASMA [facility] Sep 15, 2023 12:00 AM Laboratory - Chemi stry Order CALCIUM PLASMA [facility] Sep 15, 2023 12:00 AM Laboratory - Chemi stry Order PHOSPHORUS PLASMA [facility] Sep 15, 2023 12:00 AM Laboratory - Chemi stry Order UREA NITROGEN PLASMA SP ONCE [facility] Sep 15, 2023 12:00 AM Laboratory - Chemi stry Order ALBUMIN PLASMA [facility] Sep 15, 2023 12:00 AM Laboratory - Chemi stry Order CBC BLOOD [facility] Sep 15, 2023 12:00 AM Laboratory - Chemi stry Order PTH-N-TACT PLASMA [facility] Sep 15, 2023 12:00 AM Laboratory - Chemi stry Order GLUCOSE PLASMA [facility] Oct 11, 2023 12:00 AM Laboratory - Blood Bank Order ABO/RH - LAB BLOOD [facility] Oct 11, 2023 06:45 AM Laboratory - Blood Bank Order TYPE & SCREEN - LAB BLOOD [facility] Lab Results: +/- 30 days of the encounter This section includes the Chemistry and Hematology Lab Results on record with [place] for the patient. Radiology Reports and Pathology Reports are provided separately, in subsequent sections. Lab Results This section contains the Chemistry/Hematology Results that were resulted 30 days before or 30 daysafter the date of the Encounter. Date/Time Source Result Type Result - Unit Interpretation Reference Range Comment Oct 11, 2023 12:27 PM [facility] POC ACT Specimen Type: BLOOD No comment entered. Ordering Provider: LORETO HONG Report Released Date/Time: Oct 11, 2023 12:32 PM Reporting Lab: [facility] [phone] Performing Lab: [facility] [address] POC ACT 199 H 84-139 Oct 11, 2023 12:13 PM [facility] POC ACT Specimen Type: BLOOD No comment entered. Ordering Provider: LORETO HONG Report Released Date/Time: Oct 11, 2023 12:20 PM Reporting Lab: [facility] [phone] Performing Lab: [facility] [address] POC ACT 384 H 84-139 Oct 11, 2023 11:50 AM [facility] POC ACT Specimen Type: BLOOD No comment entered. Ordering Provider: LORETO HONG Report Released Date/Time: Oct 11, 2023 12:00 PM Reporting Lab: [facility] [phone] Performing Lab: [facility] [address] POC ACT 407 H 84-139 Oct 11, 2023 11:50 AM [facility] FINGERSTICK GLUCOSE Specimen Type: BLOOD No comment entered. Ordering Provider: LORETO HONG Report Released Date/Time: Oct 11, 2023 01:30 PM Reporting Lab: [facility] [address] Performing Lab: [facility] [address] F[place]ERSTICK GLUCOSE 161 H 70-100 Oct 11, 2023 11:32 AM [facility] POC ACT Specimen Type: BLOOD No comment entered. Ordering Provider: LORETO HONG Report Released Date/Time: Oct 11, 2023 11:47 AM Reporting Lab: [facility] [address] Performing Lab: [facility] [address] POC ACT 345 H 84-139 Oct 11, 2023 11:11 AM [facility] POC ACT Specimen Type: BLOOD No comment entered. Ordering Provider: LORETO HONG Report Released Date/Time: Oct 11, 2023 11:20 AM Reporting Lab: [facility] [address] Performing Lab: [facility] [address] POC ACT 334 H 84-139 Oct 11, 2023 11:11 AM [facility] FINGERSTICK GLUCOSE Specimen Type: BLOOD No comment entered. Ordering Provider: LORETO HONG Report Released Date/Time: Oct 11, 2023 01:30 PM Reporting Lab: [facility] [phone] Performing Lab: [facility] [address] [place] GLUCOSE 167 H 70-100 Oct 11, 2023 10:56 AM [facility] POC ACT Specimen Type: BLOOD No comment entered. Ordering Provider: LORETO HONG Report Released Date/Time: Oct 11, 2023 11:04 AM Reporting Lab: [facility] [phone] Performing Lab: [facility] [address] POC ACT 310 H 84-139 Oct 11, 2023 10:40 AM [facility] POC ABG/ELECTROLYTES Specimen Type: ARTERIAL BLOOD Comment: FIO2 = 55% Patient Temp: 35.5 C Sample Type = ARTERIAL Ordering Provider: LORETO HONG Report Released Date/Time: Oct 11, 2023 01:20 PM Reporting Lab: [facility] [address] Performing Lab: [facility] [address] POC PH 7.396 7.35-7.45 POC PCO2 36.1 35.00-45.00 POC PO2 222 H 80.0-105.0 POC TCO2 23 23.0-27.0 POC HCO3 22.1 22.0-26.0 POC BE ECT -3 L -2-3 POC SO2 100 H 95-98 POC SODIUM 138 138.0-146.0 POC POTASSIUM 4.9 3.50-4.90 POC HGB 10.9 L 12.00-17.00 POC HCT 32 L 38.0-51.0 POC IONIZED CALCIUM 4.7 4.50-5.30 POC PH AT PAT TEMP 7.418 7.35-7.45 POC PCO2 AT PAT TEMP 33.8 L 35.00-45.00 POC PO2 AT PAT TEMP 215 H 80.0-105.0 Oct 11, 2023 10:37 AM [facility] FINGERSTICK GLUCOSE Specimen Type: BLOOD No comment entered. Ordering Provider: LORETO HONG Report Released Date/Time: Oct 11, 2023 01:30 PM Reporting Lab: [facility] [address] Performing Lab: [facility] [address] [place] GLUCOSE 163 H 70-100 Oct 11, 2023 10:36 AM [facility] POC ACT Specimen Type: BLOOD No comment entered. Ordering Provider: LORETO HONG Report Released Date/Time: Oct 11, 2023 10:41 AM Reporting Lab: [facility] [address] Performing Lab: [facility] [address] POC ACT 255 H 84-139 Oct 11, 2023 09:16 AM [facility] POC ABG/ELECTROLYTES Specimen Type: ARTERIAL BLOOD Comment: FIO2 = 56% Patient Temp: 35.2 C Sample Type = ARTERIAL Ordering Provider: LORETO HONG Report Released Date/Time: Oct 11, 2023 01:20 PM Reporting Lab: [facility] [address] Performing Lab: [facility] [address] POC PH 7.374 7.35-7.45 POC PCO2 38.9 35.00-45.00 POC PO2 371 H 80.0-105.0 POC TCO2 24 23.0-27.0 POC HCO3 22.7 22.0-26.0 POC BE ECT -2 -2-3 POC SO2 100 H 95-98 POC SODIUM 139 138.0-146.0 POC POTASSIUM 4.6 3.50-4.90 POC HGB 11.2 L 12.00-17.00 POC HCT 33 L 38.0-51.0 POC IONIZED CALCIUM 4.7 4.50-5.30 POC PH AT PAT TEMP 7.400 7.35-7.45 POC PCO2 AT PAT TEMP 36.0 35.00-45.00 POC PO2 AT PAT TEMP 361 H 80.0-105.0 Oct 11, 2023 09:15 AM [facility] FINGERSTICK GLUCOSE Specimen Type: BLOOD No comment entered. Ordering Provider: LORETO HONG Report Released Date/Time: Oct 11, 2023 01:30 PM Reporting Lab: [facility] [address] Performing Lab: [facility] [address] [place] GLUCOSE 170 H 70-100 Oct 11, 2023 09:10 AM [facility] POC ACT Specimen Type: BLOOD No comment entered. Ordering Provider: LORETO HONG Report Released Date/Time: Oct 11, 2023 09:16 AM Reporting Lab: [facility] [address] Performing Lab: [facility] [address] POC ACT 147 H 84-139 Oct 11, 2023 06:35 AM [facility] ACT PART THROMBO TIME Specimen Type: PLASMA No comment entered. Ordering Provider: RONALDO MAS Report Released Date/Time: Apr 16, 2023 01:48 PM Reporting Lab: [facility] [address] Performing Lab: [facility] [address] APTT 29.9 25.1-36.5 Oct 11, 2023 06:35 AM [facility] PROTHROMBIN TIME/INR Specimen Type: PLASMA No comment entered. Ordering Provider: RONALDO MAS Report Released Date/Time: Apr 16, 2023 01:48 PM Reporting Lab: [facility] [address] Performing Lab: [facility] [address] .INR 1.0 0.8-1.1 .PT 11.9 9.4-12.5 Oct 11, 2023 06:35 AM [facility] BASIC METABOLIC PANEL+MG Specimen Type: PLASMA No comment entered. Ordering Provider: RONALDO MAS Report Released Date/Time: Apr 16, 2023 01:48 PM Reporting Lab: [facility] [address] Performing Lab: [facility] [address] CREATININE 3.0 H 0.7-1.2 UREA NITROGEN 38 H 8-26 GLUCOSE 151 H 70-100 SODIUM 142 136-145 POTASSIUM 4.9 3.5-5.1 CHLORIDE 108 H 98-107 CO2 27 22-29 CALCIUM 8.8 8.4-10.2 MAGNESIUM 2.0 1.6-2.6 ANION GAP 7 5-15 .CREAT EGFR(CKD-EPI) 20 L >60 Oct 11, 2023 06:35 AM [facility] CBC Specimen Type: BLOOD No comment entered. Ordering Provider: RONALDO MAS Report Released Date/Time: Apr 16, 2023 01:48 PM Reporting Lab: [facility] [address] Performing Lab: [facility] [address] WBC 6.09 4.0-11.0 RBC 4.07 L 4.6-6.2 HGB 12.6 L 13.5-17.9 HCT 37.7 L 41-54 MCV 92.6 80-100 MCH 31.0 27-33 MCHC 33.4 32.0-37.5 PLT 144 L 150-400 MPV 10.7 H 7.4-10.4 RDW 13.2 11.5-14.5 Vital Signs: All taken on the encounter date This section contains inpatient and outpatient Vital Signs collected on the date of the Encounter. Date/Time Temperature Pulse Blood Pressure Respiratory Rate SP02 Pain Height Weight Body Mass Index Source Oct 11, 2023 03:15 PM 58 126/[address] [facility] Oct 11, 2023 03:00 PM 58 118/[address] [facility] Oct 11, 2023 02:45 PM 60 118/[address] [facility] Oct 11, 2023 02:44 PM 97.5 59 117/[address] [facility] Social History: Smoking Status (Most current) and Tobacco Use (All prior to encounter date) This section includes the most current, and the historical, smoking and tobacco- related health factors from the [place] facility where the Encounter took place. Current Smoking Status This section includes the most current smoking, or tobacco-related health factor, from the [place] facility where the Encounter took place. Date/Time Current Smoking Status Comment Facil ity Jan 02, 2023 01:15 PM VA-TOBACCO FORMER USER [facility] Tobacco Use History This section includes a history of the smoking, or tobacco-related health factors, that were collected on or before the date of the Encounter. The data comes from the [place] facility where the Encounter took place. Date/Time Smoking Status/Tobacco Use Comment F acility Jan 02, 2023 01:15 PM VA-TOBACCO QUIT 15 YRS OR MORE [facility] Oct 24, 2021 08:45 AM VA-TOBACCO FORMER USER [facility] Oct 24, 2021 08:45 AM VA-TOBACCO QUIT 15 YRS OR MORE [facility] Apr 27, 2020 03:00 PM VA-TOBACCO FORMER USER [facility] Apr 27, 2020 03:00 PM VA-TOBACCO QUIT 15 YRS OR MORE [facility] Apr 23, 2019 05:29 PM INPT NO TOBACCO USE IN LAST 30 D AYS [facility] Oct 15, 2018 09:08 AM VA-TOBACCO FORMER USER [facility] Oct 15, 2018 09:08 AM VA-TOBACCO QUIT 15 YRS OR MORE [facility] November 13, 2017 09:05 AM FORMER TOBACCO USER 7Y OR GREATE R [facility] November 22, 2016 03:15 PM FORMER TOBACCO USER 7Y OR [facility] Oct 21, 2015 08:37 AM FORMER TOBACCO USER 7Y OR [facility] Oct 21, 2014 01:32 PM FORMER TOBACCO USER 7Y OR [facility] Oct 29, 2013 08:29 AM FORMER TOBACCO USER 7Y OR [facility] Mar 11, 2007 08:07 AM FORMER TOBACCO USER 7Y OR [facility]
--- OUTSIDE RECORDS SUMMARY | 2023-10-11 23:46 | XMS_ITS | Encounter Summary ---
Author Name [facility] [employer] Organization [facility] Address [address] [place] [address] Support Name Relationship Address Phone JOHN STOCKTONINE Next of Kin [address] [place] [phone] JUDE STOCKTON Emergency Contact [id number] [place] [address] JUDE STOCKTON Next of Kin [address] [place] [phone] JUDE STOCKTON Emergency Contact [phone] [place], [place] [phone] Insurance Providers: All historical and current Section [...] MEDICARE SUPPLEGANESH MAHAN IDU Jul 08, 2016 [id number] [phone] KRISTOFER STOCKTON PATIENT MEDICARE (WNR) MEDICARE (M) PART B Jun 07, 2007 PART B [id number] KRISTOFER STOCKTON PATIENT MEDICARE (WNR) MEDICARE (M) PART B Jun 07, 2007 PART B [id number] [phone] KRISTOFER STOCKTON PATIENT MEDICARE (WNR) MEDICARE (M) PART B Jun 07, 2007 PART B [id number] KRISTOFER STOCKTON PATIENT MEDICARE (WNR) MEDICARE (M) PART B Jun 07, 2007 PART B [id number] KRISTOFER STOCKTON PATIENT MEDICARE (WNR) MEDICARE (M) PART A Mar 08, 2007 PART A [id number] KRISTOFER STOCKTON PATIENT MEDICARE (WNR) MEDICARE (M) PART A Mar 08, 2007 PART A [id number] KRISTOFER STOCKTON PATIENT MEDICARE (WNR) MEDICARE (M) PART A Mar 08, 2007 PART A [id number] KRISTOFER STOCKTON PATIENT MEDICARE (WNR) MEDICARE (M) PART A Mar 08, 2007 PART A [id number] KRISTOFER STOCKTON PATIENT Selected Encounter This section includes the information on record at [place] for the Encounter. Date/Time Encounter Type Encounter Description Reason Pro vider Source Oct 11, 2023 03:10 PM Outpatient Encounter GENERAL INTERNAL MEDICINE I[facility] Encounter Template Text not used by [place] Plan of Treatment: Future Appointments (+ 6 months) and Future Tests (+/- 45 days) The Plan of Treatment section includes future care activities for the [facility] [place] [facility] This section includes future appointments and future orders which are active, pending or scheduled. Future Appointments This section includes appointments that were scheduled to occur 6 months from the date of the Encounter, up to a maximum of 20 appointments. The data comes from all [facility]. Appointment Date/Time Appointment Type Appointme nt Facility Name Oct 28, 2023 02:15 PM AMBULATORY - MEDICINE [facility] Oct 28, 2023 03:30 PM AMBULATORY - MEDICINE [facility] November 18, 2023 12:40 PM AMBULATORY - SURGERY [facility] November 28, 2023 09:20 AM AMBULATORY - MEDICINE [facility] Dec 16, 2023 01:00 PM AMBULATORY - SURGERY [facility] Dec 16, 2023 02:00 PM AMBULATORY - SURGERY [facility] Active, Pending, and Scheduled Orders This section includes a listing of several types of active, pending, and scheduled orders, including clinic medications orders, diagnostic test orders, procedure orders and consult orders; where the start date of the order is 45 days before the date of the Encounter or 45 days after the date of theEncounter. The data comes from all [facility]. Test Date/Time Test Type Test Details Facility Name Sep 15, 2023 12:00 AM Laboratory - Chemi stry Order CREATININE(INCLUDES EGFR) PLASMA SP [facility] Sep 15, 2023 12:00 AM Laboratory - Chemi stry Order PHOSPHORUS PLASMA [facility] Sep 15, 2023 12:00 AM Laboratory - Chemi stry Order ELECTROLYTES/ANION GAP PLASMA SP ONCE [facility] Sep 15, 2023 12:00 AM Laboratory - Chemi stry Order CALCIUM PLASMA [facility] Sep 15, 2023 12:00 AM Laboratory - Chemi stry Order UREA NITROGEN PLASMA SP ONCE [facility] Sep 15, 2023 12:00 AM Laboratory - Chemi stry Order ALBUMIN PLASMA [facility] Sep 15, 2023 12:00 AM Laboratory - Chemi stry Order CBC BLOOD [facility] Sep 15, 2023 12:00 AM Laboratory - Chemi stry Order PTH-N-TACT PLASMA [facility] Sep 15, 2023 12:00 AM Laboratory - Chemi stry Order GLUCOSE PLASMA [facility] Oct 11, 2023 12:00 AM Laboratory - Blood Bank Order ABO/RH - LAB BLOOD [facility] Oct 11, 2023 06:45 AM Laboratory - Blood Bank Order TYPE & SCREEN - LAB BLOOD [facility] Lab Results: +/- 30 days of the encounter This section includes the Chemistry and Hematology Lab Results on record with [place] for the patient. Radiology Reports and Pathology Reports are provided separately, in subsequent sections. Lab Results This section contains the Chemistry/Hematology Results that were resulted 30 days before or 30 daysafter the date of the Encounter. Date/Time Source Result Type Result - Unit Interpretation Reference Range Comment Oct 11, 2023 12:27 PM [facility] POC ACT Specimen Type: BLOOD No comment entered. Ordering Provider: LORETO HONG Report Released Date/Time: Oct 11, 2023 12:32 PM Reporting Lab: [facility] [phone] Performing Lab: [facility] [phone] POC ACT 199 H 84-139 Oct 11, 2023 12:13 PM [facility] POC ACT Specimen Type: BLOOD No comment entered. Ordering Provider: LORETO HONG Report Released Date/Time: Oct 11, 2023 12:20 PM Reporting Lab: [facility] [phone] Performing Lab: [facility] [address] POC ACT 384 H 84-139 Oct 11, 2023 11:50 AM [facility] POC ACT Specimen Type: BLOOD No comment entered. Ordering Provider: LORETO HONG Report Released Date/Time: Oct 11, 2023 12:00 PM Reporting Lab: [facility] [address] Performing Lab: [facility] [phone] POC ACT 407 H 84-139 Oct 11, 2023 11:50 AM [facility] FINGERSTICK GLUCOSE Specimen Type: BLOOD No comment entered. Ordering Provider: LORETO HONG Report Released Date/Time: Oct 11, 2023 01:30 PM Reporting Lab: [facility] [phone] Performing Lab: [facility] [address] FINGERSTICK GLUCOSE 161 H 70-100 Oct 11, 2023 11:32 AM [facility] POC ACT Specimen Type: BLOOD No comment entered. Ordering Provider: LORETO HONG Report Released Date/Time: Oct 11, 2023 11:47 AM Reporting Lab: [facility] [address] Performing Lab: [facility] [address] POC ACT 345 H 84-139 Oct 11, 2023 11:11 AM [facility] POC ACT Specimen Type: BLOOD No comment entered. Ordering Provider: LORETO HONG Report Released Date/Time: Oct 11, 2023 11:20 AM Reporting Lab: [facility] [address] Performing Lab: [facility] [address] POC ACT 334 H 84-139 Oct 11, 2023 11:11 AM [facility] FINGERSTICK GLUCOSE Specimen Type: BLOOD No comment entered. Ordering Provider: LORETO HONG Report Released Date/Time: Oct 11, 2023 01:30 PM Reporting Lab: [facility] [phone] Performing Lab: [facility] [address] FINGERSTICK GLUCOSE 167 H 70-100 Oct 11, 2023 10:56 AM [facility] POC ACT Specimen Type: BLOOD No comment entered. Ordering Provider: LORETO HONG Report Released Date/Time: Oct 11, 2023 11:04 AM Reporting Lab: [facility] [address] Performing Lab: [facility] [address] POC ACT 310 H 84-139 Oct 11, 2023 10:40 AM [facility] POC ABG/ELECTROLYTES Specimen Type: ARTERIAL BLOOD Comment: FIO2 = 55% Patient Temp: 35.5 C Sample Type = ARTERIAL Ordering Provider: LORETO HONG Report Released Date/Time: Oct 11, 2023 01:20 PM Reporting Lab: [facility] [address] Performing Lab: [facility] [address] POC PH 7.396 7.35-7.45 POC PCO2 36.1 [...] H 80.0-105.0 Oct 11, 2023 10:37 AM [facility] FINGERSTICK GLUCOSE Specimen Type: BLOOD No comment entered. Ordering Provider: LORETO HONG Report Released Date/Time: Oct 11, 2023 01:30 PM Reporting Lab: [facility] [address] Performing Lab: [facility] [address] FINGERSTICK GLUCOSE 163 H 70-100 Oct 11, 2023 10:36 AM [facility] POC ACT Specimen Type: BLOOD No comment entered. Ordering Provider: LORETO HONG Report Released Date/Time: Oct 11, 2023 10:41 AM Reporting Lab: [facility] [phone] Performing Lab: [facility] [address] POC ACT 255 H 84-139 Oct 11, 2023 09:16 AM [facility] POC ABG/ELECTROLYTES Specimen Type: ARTERIAL BLOOD Comment: FIO2 = 56% Patient Temp: 35.2 C Sample Type = ARTERIAL Ordering Provider: LORETO HONG Report Released Date/Time: Oct 11, 2023 01:20 PM Reporting Lab: [facility] [address] Performing Lab: [facility] [address] POC PH 7.374 7.35-7.45 POC PCO2 38.9 [...] H 80.0-105.0 Oct 11, 2023 09:15 AM [facility] FINGERSTICK GLUCOSE Specimen Type: BLOOD No comment entered. Ordering Provider: LORETO HONG Report Released Date/Time: Oct 11, 2023 01:30 PM Reporting Lab: [facility] [address] Performing Lab: [facility] [address] FINGERSTICK GLUCOSE 170 H 70-100 Oct 11, 2023 09:10 AM [facility] POC ACT Specimen Type: BLOOD No comment entered. Ordering Provider: LORETO HONG Report Released Date/Time: Oct 11, 2023 09:16 AM Reporting Lab: [facility] [phone] Performing Lab: [facility] [address] POC ACT 147 H 84-139 Oct 11, 2023 06:35 AM [facility] PROTHROMBIN TIME/INR Specimen Type: PLASMA No comment entered. Ordering Provider: RONALDO MAS Report Released Date/Time: Apr 16, 2023 01:48 PM Reporting Lab: [facility] [address] Performing Lab: [facility] [address] .INR 1.0 0.8-1.1 .PT 11.9 9.4-12.5 Oct 11, 2023 06:35 AM [facility] ACT PART THROMBO TIME Specimen Type: PLASMA No comment entered. Ordering Provider: RONALDO MAS Report Released Date/Time: Apr 16, 2023 01:48 PM Reporting Lab: [facility] [address] Performing Lab: [facility] [address] APTT 29.9 25.1-36.5 Oct 11, 2023 06:35 AM [facility] CBC Specimen Type: BLOOD No comment entered. Ordering Provider: RONALDO MAS Report Released Date/Time: Apr 16, 2023 01:48 PM Reporting Lab: [facility] [address] Performing Lab: [facility] [address] WBC 6.09 4.0-11.0 RBC 4.07 L 4.6-6.2 HGB 12.6 L 13.5-17.9 HCT 37.7 L 41-54 MCV 92.6 80-100 MCH 31.0 27-33 MCHC 33.4 32.0-37.5 PLT 144 L 150-400 MPV 10.7 H 7.4-10.4 RDW 13.2 11.5-14.5 Oct 11, 2023 06:35 AM [facility] BASIC METABOLIC PANEL+MG Specimen Type: PLASMA No comment entered. Ordering Provider: RONALDO MAS Report Released Date/Time: Apr 16, 2023 01:48 PM Reporting Lab: [facility] [address] Performing Lab: [facility] [address] CREATININE 3.0 H 0.7-1.2 UREA NITROGEN 38 H 8-26 GLUCOSE 151 H 70-100 SODIUM 142 136-145 POTASSIUM 4.9 3.5-5.1 CHLORIDE 108 H 98-107 CO2 27 22-29 CALCIUM 8.8 8.4-10.2 MAGNESIUM 2.0 1.6-2.6 ANION GAP 7 5-15 .CREAT EGFR(CKD-EPI) 20 L >60 Vital Signs: All taken on the encounter date This section contains inpatient and outpatient Vital Signs collected on the date of the Encounter. Date/Time Temperature Pulse Blood Pressure Respiratory Rate SP02 Pain Height Weight Body Mass Index Source Oct 11, 2023 03:15 PM 58 126/61 96 [facility] Oct 11, 2023 03:00 PM 58 118/56 95 [facility] Oct 11, 2023 02:45 PM 60 118/62 97 [facility] Oct 11, 2023 02:44 PM 97.5 59 117/61 18 97 0 [facility] Social History: Smoking Status (Most current) and Tobacco Use (All prior to encounter date) This section includes the most current, and the historical, smoking and tobacco- related health factors from the [place] facility where the Encounter took place. Current Smoking Status This section includes the most current smoking, or tobacco-related health factor, from the [place] facility where the Encounter took place. Date/Time Current Smoking Status Comment Facil ity Jan 02, 2023 01:15 PM VA-TOBACCO FORMER USER [facility] Tobacco Use History This section includes a history of the smoking, or tobacco-related health factors, that were collected on or before the date of the Encounter. The data comes from the [place] facility where the Encounter took place. Date/Time Smoking Status/Tobacco Use Comment F acility Jan 02, 2023 01:15 PM VA-TOBACCO QUIT 15 YRS OR MORE [facility] Oct 24, 2021 08:45 AM VA-TOBACCO FORMER USER [facility] Oct 24, 2021 08:45 AM VA-TOBACCO QUIT 15 YRS OR MORE [facility] Apr 27, 2020 03:00 PM VA-TOBACCO FORMER USER [facility] Apr 27, 2020 03:00 PM VA-TOBACCO QUIT 15 YRS OR MORE [facility] Apr 23, 2019 05:29 PM INPT NO TOBACCO USE IN LAST 30 D AYS [facility] Oct 15, 2018 09:08 AM VA-TOBACCO FORMER USER [facility] Oct 15, 2018 09:08 AM VA-TOBACCO QUIT 15 YRS OR MORE [facility] November 13, 2017 09:05 AM FORMER TOBACCO USER 7Y OR GREATE R [facility] November 22, 2016 03:15 PM FORMER TOBACCO USER 7Y OR GREATE R [facility] Oct 21, 2015 08:37 AM FORMER TOBACCO USER 7Y OR [facility] Oct 21, 2014 01:32 PM FORMER TOBACCO USER 7Y OR [facility] Oct 29, 2013 08:29 AM FORMER TOBACCO USER 7Y OR [facility] Mar 11, 2007 08:07 AM FORMER TOBACCO USER 7Y OR [facility]
--- OUTSIDE RECORDS SUMMARY | 2023-10-11 23:46 | XMS_ITS | Encounter Summary ---
Author Name Department of Vetera Affairs Organization [employer] Address [address] [place] [address] Support Name Relationship Address Phone JUDE STOCKTON Next of Kin [address] [place] [phone] JUDE STOCKTON Emergency Contact [address] [place] [address] JUDE STOCKTON Next of Kin [address] [place] [phone] JUDE STOCKTON Emergency Contact [address] [place], [place] [phone] Insurance Providers: All historical and current Section [...] MEDICARE SUPPLEGANESH MAHAN IDU Jul 08, 2016 [id number] KRISTOFER STOCKTON PATIENT MEDICARE (WNR) MEDICARE (M) PART B Jun 07, 2007 PART B [id number] KRISTOFER STOCKTON PATIENT MEDICARE (WNR) MEDICARE (M) PART B Jun 07, 2007 PART B [id number] KRISTOFER STOCKTON PATIENT MEDICARE (WNR) MEDICARE (M) PART B Jun 07, 2007 PART B [id number] KRISTOFER STOCKTON PATIENT MEDICARE (WNR) MEDICARE (M) PART B Jun 07, 2007 PART B [id number] KRISTOFER STOCKTON PATIENT MEDICARE (WNR) MEDICARE (M) PART A Mar 08, 2007 PART A [id number] KRISTOFER STOCKTON PATIENT MEDICARE (WNR) MEDICARE (M) PART A Mar 08, 2007 PART A [id number] KRISTOFER STOCKTON PATIENT MEDICARE (WNR) MEDICARE (M) PART A Mar 08, 2007 PART A [id number] KRISTOFER STOCKTON PATIENT MEDICARE (WNR) MEDICARE (M) PART A Mar 08, 2007 PART A [id number] KRISTOFER STOCKTON PATIENT Selected Encounter This section includes the information on record at NE for the Encounter. Date/Time Encounter Type Encounter Description Reason Provider Source Oct 11, 2023 10:48 PM Outpatient Encounter TELEPHONE TRIAGE MENA JOYNER Encounter Template Text not used by NE Plan of Treatment: Future Appointments (+ 6 months) and Future Tests (+/- 45 days) The Plan of Treatment section includes future care activities for the patient from [facility]. This section includes future appointments and future orders which are active, pending or scheduled. Future Appointments This section includes appointments that were scheduled to occur 6 months from the date of the Encounter, up to a maximum of 20 appointments. The data comes from all [facility]. Appointment Date/Time Appointment Type Appointme nt Facility Name Oct 28, 2023 02:15 PM AMBULATORY - MEDICINE [facility] Oct 28, 2023 03:30 PM AMBULATORY - MEDICINE [facility] November 18, 2023 12:40 PM AMBULATORY - SURGERY [facility] November 28, 2023 09:20 AM AMBULATORY - MEDICINE [facility] Dec 16, 2023 01:00 PM AMBULATORY - SURGERY [facility] Dec 16, 2023 02:00 PM AMBULATORY - SURGERY [facility] Active, Pending, and Scheduled Orders This section includes a listing of several types of active, pending, and scheduled orders, including clinic medications orders, diagnostic test orders, procedure orders and consult orders; where the start date of the order is 45 days before the date of the Encounter or 45 days after the date of theEncounter. The data comes from all [facility]. Test Date/Time Test Type Test Details Facility Name Sep 15, 2023 12:00 AM Laboratory - Chemi stry Order ELECTROLYTES/ANION GAP PLASMA SP ONCE [facility] Sep 15, 2023 12:00 AM Laboratory - Chemi stry Order CREATININE(INCLUDES EGFR) PLASMA [facility] Sep 15, 2023 12:00 AM Laboratory - Chemi stry Order UREA NITROGEN PLASMA SP [facility] Sep 15, 2023 12:00 AM Laboratory - Chemi stry Order PHOSPHORUS PLASMA SP [facility] Sep 15, 2023 12:00 AM Laboratory - Chemi stry Order CALCIUM PLASMA SP [facility] Sep 15, 2023 12:00 AM Laboratory - Chemi stry Order ALBUMIN PLASMA [facility] Sep 15, 2023 12:00 AM Laboratory - Chemi stry Order GLUCOSE PLASMA [facility] Sep 15, 2023 12:00 AM Laboratory - Chemi stry Order PTH-N-TACT PLASMA [facility] Sep 15, 2023 12:00 AM Laboratory - Chemi stry Order CBC BLOOD [facility] Oct 11, 2023 12:00 AM Laboratory - Blood Bank Order ABO/RH - LAB BLOOD [facility] Oct 11, 2023 06:45 AM Laboratory - Blood Bank Order TYPE & SCREEN - LAB BLOOD [facility] Lab Results: +/- 30 days of the encounter This section includes the Chemistry and Hematology Lab Results on record with NE for the patient. Radiology Reports and Pathology Reports are provided separately, in subsequent sections. Lab Results This section contains the Chemistry/Hematology Results that were resulted 30 days before or 30 daysafter the date of the Encounter. Date/Time Source Result Type Result - Unit Interpretation Reference Range Comment Oct 11, 2023 12:27 PM [facility] POC ACT Specimen Type: BLOOD No comment entered. Ordering Provider: LORETO HONG Report Released Date/Time: Oct 11, 2023 12:32 PM Reporting Lab: [facility] [id number] Performing Lab: [facility] [address] POC ACT 199 H 84-139 Oct 11, 2023 12:13 PM [facility] POC ACT Specimen Type: BLOOD No comment entered. Ordering Provider: LORETO HONG Report Released Date/Time: Oct 11, 2023 12:20 PM Reporting Lab: [facility] [address] Performing Lab: [facility] [address] POC ACT 384 H 84-139 Oct 11, 2023 11:50 AM [facility] POC ACT Specimen Type: BLOOD No comment entered. Ordering Provider: LORETO HONG Report Released Date/Time: Oct 11, 2023 12:00 PM Reporting Lab: [facility] [address] Performing Lab: [facility] [address] POC ACT 407 H 84-139 Oct 11, 2023 11:50 AM [facility] FINGERSTICK GLUCOSE Specimen Type: BLOOD No comment entered. Ordering Provider: LORETO HONG Report Released Date/Time: Oct 11, 2023 01:30 PM Reporting Lab: [facility] [address] Performing Lab: [facility] [address] FINGERSTICK GLUCOSE 161 H 70-100 Oct 11, 2023 11:32 AM [facility] POC ACT Specimen Type: BLOOD No comment entered. Ordering Provider: LORETO HONG Report Released Date/Time: Oct 11, 2023 11:47 AM Reporting Lab: [facility] [address] Performing Lab: [facility] [address] POC ACT 345 H 84-139 Oct 11, 2023 11:11 AM [facility] POC ACT Specimen Type: BLOOD No comment entered. Ordering Provider: LORETO HONG Report Released Date/Time: Oct 11, 2023 11:20 AM Reporting Lab: [facility] [address] Performing Lab: [facility] [address] POC ACT 334 H 84-139 Oct 11, 2023 11:11 AM [facility] FINGERSTICK GLUCOSE Specimen Type: BLOOD No comment entered. Ordering Provider: LORETO HONG Report Released Date/Time: Oct 11, 2023 01:30 PM Reporting Lab: [facility] [address] Performing Lab: [facility] [address] FINGERSTICK GLUCOSE 167 H 70-100 Oct 11, 2023 10:56 AM [facility] POC ACT Specimen Type: BLOOD No comment entered. Ordering Provider: LORETO HONG Report Released Date/Time: Oct 11, 2023 11:04 AM Reporting Lab: [facility] [address] Performing Lab: [facility] [address] POC ACT 310 H 84-139 Oct 11, 2023 10:40 AM [facility] POC ABG/ELECTROLYTES Specimen Type: ARTERIAL BLOOD Comment: FIO2 = 55% Patient Temp: 35.5 C Sample Type = ARTERIAL Ordering Provider: LORETO HONG Report Released Date/Time: Oct 11, 2023 01:20 PM Reporting Lab: [facility] [address] Performing Lab: [facility] [address] POC PH 7.396 7.35-7.45 POC PCO2 36.1 [...] H 80.0-105.0 Oct 11, 2023 10:37 AM [facility] FINGERSTICK GLUCOSE Specimen Type: BLOOD No comment entered. Ordering Provider: LORETO HONG Report Released Date/Time: Oct 11, 2023 01:30 PM Reporting Lab: [facility] [address] Performing Lab: [facility] [address] FINGERSTICK GLUCOSE 163 H 70-100 Oct 11, 2023 10:36 AM [facility] POC ACT Specimen Type: BLOOD No comment entered. Ordering Provider: LORETO HONG Report Released Date/Time: Oct 11, 2023 10:41 AM Reporting Lab: [facility] [address] Performing Lab: [facility] [address] POC ACT 255 H 84-139 Oct 11, 2023 09:16 AM [facility] POC ABG/ELECTROLYTES Specimen Type: ARTERIAL BLOOD Comment: FIO2 = 56% Patient Temp: 35.2 C Sample Type = ARTERIAL Ordering Provider: LORETO HONG Report Released Date/Time: Oct 11, 2023 01:20 PM Reporting Lab: [facility] [address] Performing Lab: [facility] [address] POC PH 7.374 7.35-7.45 POC PCO2 38.9 [...] H 80.0-105.0 Oct 11, 2023 09:15 AM [facility] FINGERSTICK GLUCOSE Specimen Type: BLOOD No comment entered. Ordering Provider: LORETO HONG Report Released Date/Time: Oct 11, 2023 01:30 PM Reporting Lab: [facility] [address] Performing Lab: [facility] [address] FINGERSTICK GLUCOSE 170 H 70-100 Oct 11, 2023 09:10 AM [facility] POC ACT Specimen Type: BLOOD No comment entered. Ordering Provider: LORETO HONG Report Released Date/Time: Oct 11, 2023 09:16 AM Reporting Lab: [facility] [address] Performing Lab: [facility] [address] POC ACT 147 H 84-139 Oct 11, 2023 06:35 AM [facility] ACT PART THROMBO TIME Specimen Type: PLASMA No comment entered. Ordering Provider: RONALDO MAS Report Released Date/Time: Apr 16, 2023 01:48 PM Reporting Lab: [facility] [address] Performing Lab: [facility] [address] APTT 29.9 25.1-36.5 Oct 11, 2023 06:35 AM [facility] PROTHROMBIN TIME/INR Specimen Type: PLASMA No comment entered. Ordering Provider: RONALDO MAS Report Released Date/Time: Apr 16, 2023 01:48 PM Reporting Lab: [facility] [address] Performing Lab: [facility] [address] .INR 1.0 0.8-1.1 .PT 11.9 9.4-12.5 Oct 11, 2023 06:35 AM [facility] CBC Specimen Type: BLOOD No comment entered. Ordering Provider: RONALDO MAS Report Released Date/Time: Apr 16, 2023 01:48 PM Reporting Lab: [facility] [address] Performing Lab: [facility] [address] WBC 6.09 4.0-11.0 RBC 4.07 L 4.6-6.2 HGB 12.6 L 13.5-17.9 HCT 37.7 L 41-54 MCV 92.6 80-100 MCH 31.0 27-33 MCHC 33.4 32.0-37.5 PLT 144 L 150-400 MPV 10.7 H 7.4-10.4 RDW 13.2 11.5-14.5 Oct 11, 2023 06:35 AM [facility] BASIC METABOLIC PANEL+MG Specimen Type: PLASMA No comment entered. Ordering Provider: RONALDO MAS Report Released Date/Time: Apr 16, 2023 01:48 PM Reporting Lab: [facility] [address] Performing Lab: [facility] [address] CREATININE 3.0 H 0.7-1.2 UREA NITROGEN 38 [...] 11, 2023 03:15 PM 58 126/61 96 [facility] Oct 11, 2023 03:00 PM 58 118/56 95 [facility] Oct 11, 2023 02:45 PM 60 118/62 97 [facility] Oct 11, 2023 02:44 PM 97.5 59 117/61 18 97 0 [facility] Social History: Smoking Status (Most current) and Tobacco Use (All prior to encounter date) This section includes the most current, and the historical, smoking and tobacco- related health factors from the NE facility where the Encounter took place. Current Smoking Status This section includes the most current smoking, or tobacco-related health factor, from the NE facility where the Encounter took place. Date/Time Current Smoking Status Comment Facil ity Jan 02, 2023 01:15 PM VA-TOBACCO FORMER USER [facility] Tobacco Use History This section includes a history of the smoking, or tobacco-related health factors, that were collected on or before the date of the Encounter. The data comes from the NE facility where the Encounter took place. Date/Time Smoking Status/Tobacco Use Comment F acility Jan 02, 2023 01:15 PM VA-TOBACCO QUIT 15 YRS OR MORE [facility] Oct 24, 2021 08:45 AM VA-TOBACCO FORMER USER [facility] Oct 24, 2021 08:45 AM VA-TOBACCO QUIT 15 YRS OR MORE [facility] Apr 27, 2020 03:00 PM VA-TOBACCO FORMER USER [facility] Apr 27, 2020 03:00 PM VA-TOBACCO QUIT 15 YRS OR MORE [facility] Apr 23, 2019 05:29 PM INPT NO TOBACCO USE IN LAST 30 D AYS [facility] Oct 15, 2018 09:08 AM VA-TOBACCO FORMER USER [facility] Oct 15, 2018 09:08 AM VA-TOBACCO QUIT 15 YRS OR MORE [facility] November 13, 2017 09:05 AM FORMER TOBACCO USER 7Y OR GREATE R [facility] November 22, 2016 03:15 PM FORMER TOBACCO USER 7Y OR GREATE R [facility] Oct 21, 2015 08:37 AM FORMER TOBACCO USER 7Y OR GREATE R [facility] Oct 21, 2014 01:32 PM FORMER TOBACCO USER 7Y OR GREATE R [facility] Oct 29, 2013 08:29 AM FORMER TOBACCO USER 7Y OR GREATE R [facility] Mar 11, 2007 08:07 AM FORMER TOBACCO USER 7Y OR JOHNE R [facility] Encounter Notes: All associated encounter notes This section contains the clinical notes associated to the Encounter. Date/Time Encounter Note(s) Provider Source Oct 11, 2023 09:48 PM RN PROGRESS NOTE: LOCAL TITLE: CCC: CLINICAL TRIAGE STANDARD TITLE: RN PROGRESS NOTE DATE OF NOTE: OCT 11, 2023@21:48:34 ENTRY DATE: OCT 11, 2023@21:48:34 AUTHOR: MENA JOYNER EXP COSIGNER: URGENCY: STATUS: COMPLETED Patient Demographics Patient Name: KRISTOFER STOCKTON Patient Primary Address[address] [address] [place] [address] [place] [address] Patient Primary Phone: [phone] Patient : 1940 Patient Age: 83 Caller/Recipient Relation to Patient: Other If Other Describe Relation to Patient: spouse Caller Name: Mrs. Stockton Emergency Contact: JUDE STOCKTON Triage Summary Utilized the Triage Tool: No Nurse's Recommendation / WHEN: Now Nurse's Recommendation / WHERE: ED [place] Patient Disposition Patient/Caregiver agrees to plan of care: Yes Nursing Plan and Disposition Referred patient to higher level of care Instructed to go to Emergency Room (ER) Nurse Summary Nurse Summary: Call initiated by spouse Mrs. Stockton who reports the had an ablation done today. His procedure site on the left groin is bleeding through patch that was placed. was advised to hold pressure in which he was actively doing. Triage deferred, d/t continuous active bleeding. He was advised to be seen in the ER now. reports the VAER is 45 minutes away. He was advised to be seen in the nearest non-VAER. Dillon verbalized understanding. Non-Triage/Non-Symptom Call Generated msg to PACT/Provider-NonTriage Clinical Contact Center Codes Clinic/Location: 3 [facility] PHONE [facility] RN /igor/ MENA CISNEROS, RN Signed: 10/11/2023 21:48 Receipt Acknowledged By: * AWAITING SIGNATURE * DIMAS BARKSDALE * AWAITING SIGNATURE * NEYMAR HONG KEYWAINA A [facility]
--- OUTSIDE RECORDS SUMMARY | 2023-10-11 23:46 | XMS_ITS | Encounter Summary ---
Author Name Department of Vetera Affairs Organization [employer] of [employer] Address [address] [place] [address] Support Name Relationship Address Phone JUDE STOCKTON Next of Kin [address] [place] [phone] JUDE STOCKTON Emergency Contact [address] [address] JUDE STOCKTON Next of Kin [address] [place] [phone] JUDE STOCKTON Emergency Contact [phone] [place] [address] Insurance Providers: All historical and [...] Dinero's Name Patient's Relationship to Policy Dinero [facility] MEDICARE SUPPLEGANESH MAHAN IDU Jul 08, 2016 [id number] [phone] KRISTOFER STOCKTON PATIENT MEDICARE (WNR) MEDICARE (M) PART B Jun 07, 2007 PART B [id number] [phone] KRISTOFER STOCKTON PATIENT MEDICARE (WNR) MEDICARE (M) PART B Jun 07, 2007 PART B [id number] [phone] KRISTOFER STOCKTON PATIENT MEDICARE (WNR) MEDICARE (M) PART B Jun 07, 2007 PART B [id number] KRISTOFER STOCKTON PATIENT MEDICARE (WNR) MEDICARE (M) PART B Jun 07, 2007 PART B [id number] KRISTOFER STOCKTON PATIENT MEDICARE (WNR) MEDICARE (M) PART A Mar 08, 2007 PART A [id number] KRISTOFER STOCKTON PATIENT MEDICARE (WNR) MEDICARE (M) PART A Mar 08, 2007 PART A [id number] KRISTOFER STOCKTON PATIENT MEDICARE (WNR) MEDICARE (M) PART A Mar 08, 2007 PART A [id number] KRISTOFER STOCKTON PATIENT MEDICARE (WNR) MEDICARE (M) PART A Mar 08, 2007 PART A [id number] KRISTOFER STOCKTON PATIENT Selected Encounter This section includes the information on record at [place] for the Encounter. Date/Time Encounter Type Encounter Description Reason Provider Source Jul 04, 2023 11:17 AM Outpatient Encounter EYE TELE SCREENING CASSIE NICOLE Judah Encounter Template Text not used by [place] Plan of Treatment: Future Appointments (+ 6 months) and Future Tests (+/- 45 days) The Plan of Treatment section includes future care activities for the patient from all [facility] This section includes future appointments and future orders which are active, pending or scheduled. Future Appointments This section includes appointments that were scheduled to occur 6 months from the date of the Encounter, up to a maximum of 20 appointments. The data comes from all [place] treatment facilities. Appointment Date/Time Appointment Type Appointme nt Facility Name Jul 10, 2023 10:30 AM AMBULATORY - [facility]ICINE [facility] Oct 08, 2023 01:00 PM AMBULATORY - SURGERY [facility] Oct 11, 2023 06:45 AM [facility] Oct 11, 2023 07:15 AM AM[place]UL[place]IC[place] [facility] Oct 11, 2023 07:30 AM AMBUL[place]ORY - [place]IC[place] [facility] Oct 11, 2023 08:00 AM AMBULATORY - [place]ICINE [place] [facility] Oct 11, 2023 03:00 PM [facility] Oct 11, 2023 03:10 PM AMBULATORY - [place]ICINE [place] [facility] Oct 28, 2023 02:15 PM AMBULATORY - [place]ICINE [place] [facility] Oct 28, 2023 03:30 PM AMBULATORY - [place]ICINE [place] [facility] November 18, 2023 12:40 PM AMBULATORY - SUR[facility]ERY [facility] November 28, 2023 09:20 AM AMBULATORY - MEDICINE [facility] Dec 16, 2023 01:00 PM [facility] Dec 16, 2023 02:00 PM AMBULATORY - SURGERY [facility] Encounter Notes: All associated encounter notes This section contains the clinical notes associated to the Encounter. Date/Time Encounter Note(s) Provider Source Jul 04, 2023 11:17 AM TELEHEALTH NOTE: LOCAL TITLE: THT (EYE/DERM/SLEEP) HISTORICAL NOTE STANDARD TITLE: TELEHEALTH NOTE DATE OF NOTE: JUL 04, 2023@11:17 ENTRY DATE: JUL 04, 2023@11:17:17 AUTHOR: CASSIE NICOLE EXP COSIGNER: URGENCY: STATUS: COMPLETED Teleretinal Chart Check Patient identified to be at risk for the following eye condition(s): DIABETIC RETINOPATHY: Diabetes Diagnosis Information: Hospitalization Diagnosis 09/07/2020@18:00 E11.65 (ICD-10-CM) Type 2 Diabetes Mellitus with Hyperglycemia; data node: M ICD4; (Fee) Action: No Referral Ordered: The patient declined/refused referral for Tele-Eye screening and Eye Clinic appointment. Comment: PATIENT REFUSED WANTING TO STAY WITH EYE CARE IN [place] // CASSIE NICOLE [facility] [employer]AY OPERATOR Signed: 07/04/2023 11:17 CASSIE NICOLE [facility]
--- OUTSIDE RECORDS SUMMARY | 2023-10-11 23:47 | XMS_ITS | Encounter Summary ---
Author Name [employer] [facility] [employer] Organization [facility] Address [address] [place] [address] Support Name Relationship Address Phone JOHN STOCKTONINE Next of Kin [address] [facility] LESILE LOCKWOOD [phone] JUDE STOCKTON Emergency Contact [phone] [address] JUDE STOCKTON Next of Kin [address] [facility] LESLIE LOCKWOOD [phone] JUDE STOCKTON Emergency Contact [phone] [address] [place], [place] [id number] Insurance Providers: All historical and current Section [...] Relationship to Policy Dinero [employer] [place] [facility] ASYA MAHAN IDU Jul 08, 2016 [id number] [phone] KRISTOFER STOCKTON PATIENT MEDICARE (WNR) MEDICARE (M) PART B Jun 07, 2007 PART B [id number] [phone] KRISTOFER STOCKTON PATIENT MEDICARE (WNR) MEDICARE (M) PART B Jun 07, 2007 PART B [id number] KRISTOFER STOCKTON PATIENT MEDICARE (WNR) MEDICARE (M) PART B Jun 07, 2007 PART B [id number] [phone] KRISTOFER STOCKTON PATIENT MEDICARE (WNR) MEDICARE (M) PART B Jun 07, 2007 PART B [id number] KRISTOFER STOCKTON PATIENT MEDICARE (WNR) MEDICARE (M) PART A Mar 08, 2007 PART A [id number] [phone] KRISTOFER STOCKTON PATIENT MEDICARE (WNR) MEDICARE (M) PART A Mar 08, 2007 PART A [id number] KRISTOFER STOCKTON PATIENT MEDICARE (WNR) MEDICARE (M) PART A Mar 08, 2007 PART A [id number] [id number] KRISTOFER STOCKTON PATIENT MEDICARE (WNR) MEDICARE (M) PART A Mar 08, 2007 PART A [id number] KRISTOFER STOCKTON PATIENT Selected Encounter This section includes the information on record at ID for the Encounter. Date/Time Encounter Type Encounter Description Reason Provider Source Jul 10, 2023 10:30 AM HEARING AID CHECK BOTH EARS AUDIOLOGY ICD-10-CM Z46.1 Encounter for fitting and adjustment of hearing aid MYLA CAPPS I[facility] Encounter Template Text not used by ID Assessments - Encounter Diagnoses This section includes the primary and secondary diagnoses documented for the Encounter. Date/Time Primary/Secondary Diagnosis Diagnosis Name Provider Source Jul 10, 2023 10:22 AM PRIMARY Encounter for fitting and adjustment of hearing aid AMANDA LIMON [facility] Plan of Treatment: Future Appointments (+ 6 months) and Future Tests (+/- 45 days) The Plan of Treatment section includes future care activities for the patient from all ID treatmentfacilities. This section includes future appointments and future orders which are active, pending or scheduled. Future Appointments This section includes appointments that were scheduled to occur 6 months from the date of the Encounter, up to a maximum of 20 appointments. The data comes from all ID treatment facilities. Appointment Date/Time Appointment Type Appointme nt Facility Name Oct 08, 2023 01:00 PM AM[facility] [place] [facility] Oct 11, 2023 06:45 AM [facility] Oct 11, 2023 07:15 [facility] Oct 11, [facility]23 07[facility]30 [facility] Oct 11, 2023 08:00 [facility] Oct 11, 2023 03:00 PM [facility] [facility] Oct 11, 2023 03:10 [facility] Oct 28, 2023 02:15 PM AMBULATORY - MEDICINE [facility] Oct 28, 2023 03:30 PM AMBULATORY - MEDICINE [facility] November 18, 2023 12:40 PM AMBULATORY - SURGERY [facility] November 28, 2023 09:20 AM AMBULATORY - MEDICINE [facility] Dec 16, 2023 01:00 PM AMBULATORY - SURGERY [facility] Dec 16, 2023 02:00 PM AMBULATORY - SURGERY [facility] Encounter Notes: All associated encounter notes This section contains the clinical notes associated to the Encounter. Date/Time Encounter Note(s) Provider Source Jul 10, 2023 10:16 AM AUDIOLOGY NOTE: LOCAL TITLE: AUDIOLOGY REPAIR NOTE STANDARD TITLE: AUDIOLOGY NOTE DATE OF NOTE: JUL 10, 2023@10:16 ENTRY DATE: JUL 10, 2023@10:16:40 AUTHOR: AMANDA LIMON COSIGNER: CHON CAPPS URGENCY: STATUS: COMPLETED AUDIOLOGY REPAIR NOTE Has ADDENDA KRISTOFER STOCKTON MELISSA was seen for follow-up appointment: presents self to clinic with his , states hearing aids are not working properly, noisy and don't keep charge. RESULTS: Otoscopy: normal anatomic structures were visualized on the Left ear canal and tympanic membrane normal anatomic structures were visualized on the Right ear canal and tympanic membrane IMPRESSIONS AND RECOMMENDATIONS: Left/Right hearing aids will be sent out to elevator dispatcher for repair; INTERMITTENT, NOISY, DISTORTED, MOISTURE DAMAGE, DOES NOT HOLD CHARGE. Pt will be contacted 3-4 wks. upon arrival to clinic for potato picker. pt satisfied, verbalized understanding. TARUN ROMO JENNIFER R R [phone] TARUN ROMO JENNIFER R L [phone] PLAN: will be contacted upon repair arrival to clinic [place] should contact the clinic as needed with hearing or hearing aid concerns should monitor hearing status with a re-evaluation every 2 years, or sooner if a change in hearing is noted /bri LIMON [facility] Academic Interventionist Signed: 07/10/2023 10:22 /igor/ CHON CAPPS FLORIST [employer]PPLIES SALESPERSON Cosigned: 07/10/2023 10:24 07/16/2023 ADDENDUM STATUS: COMPLETED Hearing aids received from elevator dispatcher (repair), phone called pt states will be in this week for potato picker between 8-12noon or 1-4pm /igor/ AMANDA LIMON Health Academic Interventionist Signed: 07/16/2023 15:21 /igor/ CHON CAPPS FLORIST SUPPLIES SALESPERSON Cosigned: 07/17/2023 16:40 07/19/2023 ADDENDUM STATUS: COMPLETED Hearing aid (repair) received & certified by [facility] Audiology clinic. [place] contacted via phone, request mail to address on file. Pt satisfied, verbalized understanding. [facility] Tracking Number:Tracking Number:[id number] Service: Tour Counselor replacements Pts' settings restored. TARUN Hunter [id number] TARUN Olivo [id number] /igor/ AMANDA LIMON Health Academic Interventionist Signed: 07/19/2023 13:27 /igor/ CHON CAPPS FLORIST SUPPLIES SALESPERSON Cosigned: 07/19/2023 14:18 AMANDA LIMON
--- OUTSIDE RECORDS SUMMARY | 2023-10-11 23:47 | XMS_ITS | Encounter Summary ---
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 proximal-mid LAD, IC adenosine: 144 mcg. Mid LAD Mild diffuse disease Distal LAD Luminal irregularities 1st Diagonal 50% Jailed by LAD stent Proximal Circumflex minimal disease Mid Circumflex minimal disease 1st Obtuse Marginal 30% Proximal disease, large caliber vessel Proximal RCA mild diffuse disease. Mid RCA 30% focal lesion proximal to RCA stent Distal RCA Widely patent stent, Luminal irregularities 50% crux lesion at the bifircation of RPDA, RPLA both with mild diffuse disease. FINAL DIAGNOSIS CAD with mild to moderate instent restenosis of proximal LAD and mild diffuse disease of mid LAD. FFR of proximal and mid LAD: 0.84 at maximal hyperemia. Moderate distal RCA disease with patent stent in the distal RCA. LVEDP of 15 mm hg. - EKGs (10/18/22): Sinus bradycardia @ 53 bpm (04/09/22): Sinus bradycardia @ 54 bpm (11/06/21): Sinus bradycardia @ 56 bpm (05/02/21): Sinus rhythm with occasional PVCs @ 79 bpm (04/23/19): Atrial fibrillation @ 98 bpm (04/23/19): Sinus bradycardia @ 51 bpm Allergies: ATORVASTATIN, SIMVASTATIN, METOPROLOL, CLINDAMYCIN Active Medications: Outpatient Medications Status 1) ACCU-CHEK GUIDE (GLUCOSE) TEST STRIP USE 1 STRIP HOLD EVERY DAY NEEDED TO CHECK BLOOD SUGAR IF GLUCOSE SENSOR FAILS -USE WITHIN 3 MINUTES OF REMOVING FROM CONTAINER -TEST AT DIFFERENT TIMES OF THE DAY, OR DIRECTED 2) AMIODARONE HCL (PACERONE) 200MG TAB TAKE ONE TABLET ACTIVE (S) BY MOUTH EVERY DAY 3) APIXABAN 2.5MG TAB TAKE ONE TABLET BY MOUTH EVERY 12 ACTIVE (S) HOURS TO PREVENT STROKES 4) DICLOFENAC NA 1% TOP GEL APPLY 4 GRAMS FOUR TIMES A ACTIVE DAY NEEDED FOR PAIN -USE DOSE CARD IN BOX TO MEASURE DOSE -MAXIMUM OF 32 TOTAL GRAMS PER DAY. 5) FOLIC ACID 1MG TAB TAKE ONE TABLET BY MOUTH DAILY ACTIVE 6) HYDROPHILIC (EQV AQUAPHOR) TOP OINT APPLY TO AFFECTED HOLD AREA DIRECTED 7) HYDROXYCHLOROQUINE SULFATE 200MG TAB TAKE ONE TABLET ACTIVE BY MOUTH TWICE A DAY FOR RHEUMATOID ARTHRITIS 8) ISOSORBIDE MONONITRATE 60MG SA TAB TAKE ONE TABLET BY ACTIVE MOUTH EVERY DAY FOR CHEST PAIN 9) LIRAGLUTIDE (VICTOZA) 6MG/ML INJ PEN 3ML INJECT 0.6 ACTIVE (S) MG UNDER THE SKIN EVERY DAY FOR DIABETES 10) LORATADINE 10MG TAB TAKE ONE TABLET BY MOUTH EVERY ACTIVE DAY FOR ALLERGIES 11) METHOTREXATE NA 2.5MG TAB TAKE TEN TABLETS BY MOUTH ACTIVE EVERY WEEK FOR RHEUMATOID ARTHRITIS -TAKE THE TOTAL WEEKLY DOSE ON THE SAME DAY EVERY WEEK 12) POLYETHYLENE GLYCOL 3350 ORAL PWDR TAKE 17 GRAMS BY ACTIVE MOUTH EVERY DAY WHILE USING NARCOTIC *MIX IN 4 TO 8 OUNCES OF LIQUID DIRECTED*USE COVER TO MEASURE POWDER* 13) ROSUVASTATIN CA 20MG TAB TAKE ONE-HALF TABLET BY ACTIVE MOUTH EVERY DAY FOR CHOLESTEROL (DO NOT CONVERT/APPROVED 04/2013) Non-VA Medications Status 1) Non-VA CHOLECALCIF 25MCG (D3-1,000UNIT) TAB 1000UNIT ACTIVE MOUTH EVERY DAY 14 Total Medications Vital Signs: Temperature: 96.8 F [36.0 C] (10/18/2022 09:16) Blood Pressure: 114/58 (10/18/2022 09:16) Pulse: 52 (10/18/2022 09:16) Respiration: 18 (10/18/2022 09:16) Pain: 1 (10/18/2022 09:16) Pulse Oximetry: 98% (10/18/2022 09:16) Weight: 212.8 lb [96.52 kg] (10/18/2022 09:16) - Labs (10/18/22): TSH 1.42 uIU/mL 0.35 - 4.94 AST/SGOT 21 U/L Ref: <=34 ALT/SGPT 18 U/L Ref: <=55 PE: GA: very pleasant, well-appearing, elderly male in NAD; Lungs: CTAB, no crackles, wheezes, or rhonchi CV: RRR; no murmurs, rubs, or gallops; no JVD Abd: BS (+); protuberant, soft, nontender Ext: no edema Neuro: AOx4; using a walker w/ halting gait and fine tremors A/P: - Paroxysmal A.fib - pt with known history of paroxysmal atrial fibrillation dating back to 2004. A Zio monitor in 05/2021 revealed episodes of symptomatic, paroxysmal afib with RVR, a low PVC burden and 4 NSVT episodes. Pt was started on amiodarone to hopefully prevent episodes of afib. He has had signficant symptom improvement since starting the amiodarone. He prveviously wanted to continue on amiodarone as long as he tolerates it; however, now would like to proceed with PVI. Discussed PVI procedure, it's risks/benefits. He would like to proceed. - CVA prophylaxis - pt's CHADS-VASc score is 5 (d/t HTN, age++, DM, CAD) and he is taking apixaban 2.5 mg bid for CVA prophylaxis. Pt on reduced dose 2/2 age (> 82 y/o) and CKD (creat 2.4). - CAD/Chronic angina - previously had some accelerating angina so was sent for a cath in 2019 which revealed nonobstructive CAD - mild-mod in-stent restenosis of proximal LAD, mild diffuse disease of mid LAD, mod distal RCA disease w/ patent stent distal RCA. Pt taking isosorbide mononitrate 60 mg daily. Continue statin, on apixaban so not taking ASA. - f/u - will discuss PVI and get LOIS from EP . For EP coordinator: - please schedule patient for PVI in the next 6 months, he leaves for [place] in mid April and would like to have it done prior to this if possible. - he is taking amiodarone and apixaban. /bri MCCARTY CNP, [facility] Electrophysiology Nurse Practitioner Signed: 10/20/2022 10:32 12/06/2022 ADDENDUM STATUS: COMPLETED Late addendum: Had spoken with Dr. Agrawal who wanted to meet with pt in his clinic and discuss PVI with him d/t risks of PVI in pts over 75 yo. Order placed for clinic f/u for discussion with Dr. Agrawal. /bri MCCARTY CNP, MAYANK Electrophysiology Nurse Practitioner Signed: 12/06/2022 17:[address] [facility] Oct 18, 2022 09:21 AM INTERNAL MEDICINE OUTPATIENT NOTE: LOCAL TITLE: MEDICINE CLINIC NURSING NOTE STANDARD TITLE: INTERNAL MEDICINE OUTPATIENT NOTE DATE OF NOTE: OCT 18, 2022@09:21 ENTRY DATE: OCT 18, 2022@09:21:41 AUTHOR: DARIAN GASPAR EXP COSIGNER: URGENCY: STATUS: COMPLETED TYPE OF VISIT: Appointment Check In Type of appointment: In-person appointment REASON FOR VISIT: scheduled ALLERGIES: ATORVASTATIN (May 15, 2007) SIMVASTATIN (Mar 13, 2012) METOPROLOL (May 01, 2019) CLINDAMYCIN (Oct 05, 2020) VITAL SIGNS: Blood Pressure: 114/58 (10/18/2022 09:16) Pulse: 52 (10/18/2022 09:16) Respiration: 18 (10/18/2022 09:16) Temperature: 96.8 F [36.0 C] (10/18/2022 09:16) Weight: 212.8 lb [96.52 kg] (10/18/2022 09:16) Height: 71 in [180.3 cm] (10/18/2022 09:16) BMI: 29.7 O2 Sat: 98% (10/18/2022 09:16) Pain: 1 (10/18/2022 09:16) PAIN SCREEN: Patient is not having significant pain that they wish to discuss with their provider today. MEDICATION Over the Counter/Herbal Medications: The patient states that they take some outside medications and/or herbals. /igor/ DARIAN GASPAR LPN, LPN Signed: 10/18/2022 09:[address] [facility]
--- OUTSIDE RECORDS SUMMARY | 2023-10-11 23:48 | XMS_ITS | Encounter Summary ---
Author Name Department of [facility] Affairs Organization [facility] of [facility] Address [address] [place] [address] Support Name Relationship Address Phone JUDE STERN Next of Kin [address] [facility] [place] [phone] JUDE STERN Emergency Contact [address] [address] JUDE STERN Next of Kin [address] [facility] [place] [phone] JUDE STERN Emergency Contact [address] [place] [address] Insurance Providers: All historical and [...] Dinero's Name Patient's Relationship to Policy Dinero [facility] MEDICARE SUPPLEGANESH GERONIMO Jul 08, 2016 [id number] [phone] KRISTOFER STERN PATIENT MEDICARE (WNR) MEDICARE (M) PART B Jun 07, 2007 PART B [id number] KRISTOFER STERN PATIENT MEDICARE (WNR) MEDICARE (M) PART B Jun 07, 2007 PART B [id number] KRISTOFER STERN PATIENT MEDICARE (WNR) MEDICARE (M) PART B Jun 07, 2007 PART B [id number] KRISTOFER STERN PATIENT MEDICARE (WNR) MEDICARE (M) PART B Jun 07, 2007 PART B [id number] [phone] KRISTOFER STERN PATIENT MEDICARE (WNR) MEDICARE (M) PART A Mar 08, 2007 PART A [id number] [phone] KRISTOFER STERN PATIENT MEDICARE (WNR) MEDICARE (M) PART A Mar 08, 2007 PART A [id number] KRISTOFER STERN PATIENT MEDICARE (WNR) MEDICARE (M) PART A Mar 08, 2007 PART A [id number] KRISTOFER STERN PATIENT MEDICARE (WNR) MEDICARE (M) PART A Mar 08, 2007 PART A [id number] KRISTOFER STERN PATIENT Selected Encounter This section includes the information on record at [place] for the Encounter. 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 Oct 31, 2022 11:34 PM SECONDARY Anemia in chronic kidney disease ANAM KONG [facility] Oct 31, 2022 11:34 PM SECONDARY Contact with and exposure to other hazardous substances ANAM KONG [facility] Oct 31, 2022 11:34 PM SECONDARY Essential (primary) hypertension ANAM KONG [facility] Oct 31, 2022 11:34 PM SECONDARY Hyperkalemia ANAM KONG [facility] Oct 31, 2022 11:34 PM SECONDARY Rheumatoid arthritis, unspecified ANAM KONG [facility] Oct 31, 2022 11:34 PM SECONDARY Secondary hyperparathyroidism of renal origin ANAM KONG [facility] Oct 31, 2022 11:34 PM SECONDARY Type 2 diabetes mellitus without complications ANAM KONG [facility] Oct 31, 2022 11:34 PM SECONDARY Unspecified atrial fibrillation ANAM KONG [facility] Plan of Treatment: Future Appointments (+ 6 months) and Future Tests (+/- 45 days) The Plan of Treatment section includes future care activities for the patient from all [facility]. This section includes future appointments and future orders which are active, pending or scheduled. Future Appointments This section includes appointments that were scheduled to occur 6 months from the date of the Encounter, up to a maximum of 20 appointments. The data comes from all [facility]. Appointment Date/Time Appointment Type Appointme nt Facility Name November 15, 2022 09:15 AM [facility] November 15, 2022 10:20 AM AMBULATORY - SURGERY [facility] November 21, 2022 09:30 AM [facility] November 21, 2022 10:30 AM AMBULATORY - MEDICINE [facility] Jan 02, 2023 01:15 PM AMBULATORY - MEDICINE [facility] Feb 11, 2023 09:30 AM AMBULATORY - REHAB [facility] Feb 27, 2023 09:00 AM [facility] Mar 18, 2023 01:30 PM [facility] Mar 18, 2023 02:00 PM AMBULATORY - MEDICINE [facility] Mar 18, 2023 02:30 PM AMBULATORY - MEDICINE [facility] Mar 18, 2023 03:00 PM AMBULATORY - MEDICINE [facility] Mar 28, 2023 09:30 AM [facility] Mar 28, 2023 10:00 AM [facility] Apr 03, 2023 08:00 AM AMBULATORY - SURGERY [facility] Apr 16, 2023 02:00 PM AMBULATORY - SURGERY [facility] Apr 17, 2023 09:30 AM AMBULATORY - MEDICINE [facility] Apr 17, 2023 10:30 AM [facility] Active, Pending, and Scheduled Orders This section includes a listing of several types of active, pending, and scheduled orders, including clinic medications orders, diagnostic test orders, procedure orders and consult orders; where the start date of the order is 45 days before the date of the Encounter or 45 days after the date of theEncounter. The data comes from all [facility]. Test Date/Time Test Type Test Details Facility Name Oct 18, 2022 10:27 AM Laboratory - Chemi stry Order MICROALBUMIN/CREATIN INE RATIO URINE URINE WC ONCE [facility] November 21, 2022 12:00 AM Laboratory - Chemi stry Order MICROALBUMIN/CREATIN INE RATIO URINE URINE WC [facility] Lab Results: +/- 30 days of the encounter This section includes the Chemistry and Hematology Lab Results on record with [place] for the patient. Radiology Reports and Pathology Reports are provided separately, in subsequent sections. Lab Results This section contains the Chemistry/Hematology Results that were resulted 30 days before or 30 daysafter the date of the Encounter. Date/Time Source Result Type Result - Unit Interpretation Reference Range Comment November 21, 2022 09:[address] [facility] TSH W/REFLEX TO FREE T4 Specimen Type: PLASMA No comment entered. Ordering Provider: LORETO HONG Report Released Date/Time: Dec 12, 2021 11:52 AM Reporting Lab: [facility] [phone] Performing Lab: [facility] [address] TSH 1.69 0.35-4.94 November 21, 2022 09:[address] [facility] HEMOGLOBIN A1C Specimen Type: BLOOD Comment: Values obtained from A1C measurements can vary. For typical A1C assays, a reported value of 7.0 could actually be between 6.7 and 7.3 if measured by a reference method. A reported value of 9.0 could actually be between 8.7 and 9.3. Ref: http://www.ng sp.org/CAPdat a.asp Ordering Provider: LORETO HONG Report Released Date/Time: Dec 12, 2021 11:52 AM Reporting Lab: [facility] [phone] Performing Lab: [facility] [address] HEMOGLOBIN A1C 7.4 H 4.0-6.0 November 21, 2022 09:[address] [facility] LIPID PANEL,NON-FASTING Specimen Type: PLASMA No comment entered. Ordering Provider: LORETO HONG Report Released Date/Time: Dec 12, 2021 11:52 AM Reporting Lab: [facility] [address] Performing Lab: [facility] [address] CHOLESTEROL 121 <199 .HDL 48 >40 LDL CALCULATION 48 <99 VLDL CALCULATION 25 <29 NON HDL CHOLESTEROL 73 <129 TRIG(NON FASTING) 124 <149 November 21, 2022 09:[address] [facility] CBC Specimen Type: BLOOD No comment entered. Ordering Provider: LORETO HONG Report Released Date/Time: Dec 12, 2021 11:52 AM Reporting Lab: [facility] [address] Performing Lab: [facility] [address] WBC 6.92 4.0-11.0 RBC 4.02 L 4.6-6.2 HGB 12.7 L 13.5-17.9 HCT 39.8 L 41-54 MCV 99.0 80-100 MCH 31.6 27-33 MCHC 31.9 L 32.0-37.5 PLT 146 L 150-400 MPV 11.0 H 7.4-10.4 RDW 13.4 11.5-14.5 IPF 3.3 0-10 November 21, 2022 09:[address] [facility] COMPREHENSIVE METABOLIC PANEL+MG Specimen Type: PLASMA No comment entered. Ordering Provider: LORETO HONG Report Released Date/Time: Dec 12, 2021 11:52 AM Reporting Lab: [facility] [address] Performing Lab: [facility] [address] CREATININE 3.1 H 0.7-1.2 UREA NITROGEN 38 H 8-26 GLUCOSE 291 H 70-100 SODIUM 141 136-145 POTASSIUM 5.8 H 3.5-5.1 CHLORIDE 109 H 98-107 CO2 25 22-29 CALCIUM 8.8 8.4-10.2 PROTEIN,TOTAL 6.3 6.0-8.3 ALBUMIN 3.6 3.5-5.2 BILIRUBIN, TOTAL 0.5 0.2-1.2 MAGNESIUM 1.9 1.6-2.6 ANION GAP 7 5-15 ALKALINE PHOSPHATASE 95 40-150 ALT/SGPT 19 <55 AST/SGOT 27 <34 .CREAT EGFR(CKD-EPI) 20 L >60 November 21, 2022 09:[address] [facility] RHEUMATOLOGY HEME PANEL Specimen Type: BLOOD No comment entered. Ordering Provider: Makayla STAPLETON Report Released Date/Time: May 09, 2022 09:10 AM Reporting Lab: [facility] [address] Performing Lab: [facility] [address] SED RATE 2 L 5-15 November 21, 2022 09:[address] [facility] RHEUMATOLOGY CHEM PANEL Specimen Type: PLASMA No comment entered. Ordering Provider: Makayla STAPLETON Report Released Date/Time: May 09, 2022 09:10 AM Reporting Lab: [facility] [address] Performing Lab: [facility] [address] CREATININE 3.2 H 0.7-1.2 ALKALINE PHOSPHATASE 95 40-150 ALT/SGPT 20 <55 AST/SGOT 24 <34 C-REACTIVE PROTEIN 3.06 <5.00 .CREAT EGFR(CKD-EPI) 19 L >60 Oct 29, 2022 12:[address] [facility] MICROALBUMIN/CREATININE RATIO URINE Specimen Type: URINE No comment entered. Ordering Provider: CARROLL HERNANDEZ Report Released Date/Time: Mar 21, 2022 11:30 AM Reporting Lab: [facility] [address] Performing Lab: [facility] [address] CREATININE,UR RANDOM 104.1 58.0-161.0 ALB/CREAT RATIO,UR 263.0 H <29.9 MICROALBUMIN,UR 273.8 H <29.9 Oct 29, 2022 10:[address] [facility] RHEUMATOLOGY CHEM PANEL Specimen Type: PLASMA No comment entered. Ordering Provider: Makayla STAPLETON Report Released Date/Time: May 09, 2022 09:10 AM Reporting Lab: [facility] [address] Performing Lab: [facility] [address] CREATININE 2.3 H 0.7-1.2 ALKALINE PHOSPHATASE 86 40-150 ALT/SGPT 20 <55 AST/SGOT 20 <34 C-REACTIVE PROTEIN 2.59 <5.00 .CREAT EGFR(CKD-EPI) 28 L >60 Oct 29, 2022 10:[address] [facility] RHEUMATOLOGY HEME PANEL Specimen Type: BLOOD Comment: Automated Differential Performed Ordering Provider: Makayla STAPLETON Report Released Date/Time: May 09, 2022 09:10 AM Reporting Lab: [facility] [address] Performing Lab: [facility] [address] WBC 6.40 4.0-11.0 RBC 4.01 L 4.6-6.2 [...] 5-15 Oct 29, 2022 10:[address] [facility] TSH W/REFLEX TO FREE T4 Specimen Type: PLASMA No comment entered. Ordering Provider: DESIRAE MCCARTY Report Released Date/Time: Apr 11, 2022 02:47 PM Reporting Lab: [facility] [address] Performing Lab: [facility] [address] TSH 1.56 0.35-4.94 Oct 29, 2022 10:[address] [facility] COMPREHENSIVE METABOLIC PANEL+MG Specimen Type: PLASMA No comment entered. Ordering Provider: DESIRAE MCCARTY Report Released Date/Time: Apr 11, 2022 02:47 PM Reporting Lab: [facility] [address] Performing Lab: [facility] [address] CREATININE 2.3 H 0.7-1.2 UREA NITROGEN 29 [...] >60 Oct 29, 2022 10:[address] [facility] ELECTROLYTES/ANION GAP Specimen Type: PLASMA No comment entered. Ordering Provider: JOURDAN VILLALOBOS Report Released Date/Time: Oct 22, 2022 08:22 AM Reporting Lab: [facility] [address] Performing Lab: [facility] [address] SODIUM 140 136-145 POTASSIUM 5.3 H 3.5-5.1 CHLORIDE 109 H 98-107 CO2 27 22-29 ANION GAP 4 L 5-15 Oct 29, 2022 10:[address] [facility] UREA NITROGEN Specimen Type: PLASMA No comment entered. Ordering Provider: JOURDAN VILLALOBOS Report Released Date/Time: Oct 22, 2022 08:22 AM Reporting Lab: [facility] [address] Performing Lab: [facility] [address] UREA NITROGEN 30 H 8-26 Oct 29, 2022 10:[address] [facility] CREATININE(INCLUDES EGFR) Specimen Type: PLASMA No comment entered. Ordering Provider: JOURDAN VILLALOBOS Report Released Date/Time: Oct 22, 2022 08:22 AM Reporting Lab: [facility] [address] Performing Lab: [facility] [address] CREATININE 2.3 H 0.7-1.2 .CREAT EGFR(CKD-EPI) 28 L >60 Oct 29, 2022 10:[address] [facility] CALCIUM Specimen Type: PLASMA No comment entered. Ordering Provider: JOURDAN VILLALOBOS Report Released Date/Time: Oct 22, 2022 08:22 AM Reporting Lab: [facility] [address] Performing Lab: [facility] [address] CALCIUM 8.8 8.4-10.2 Oct 29, 2022 10:[address] [facility] ALBUMIN Specimen Type: PLASMA No comment entered. Ordering Provider: JOURDAN VILLALOBOS Report Released Date/Time: Oct 22, 2022 08:22 AM Reporting Lab: [facility] [address] Performing Lab: [facility] [address] ALBUMIN 3.6 3.5-5.2 Oct 29, 2022 10:[address] [facility] PHOSPHORUS Specimen Type: PLASMA No comment entered. Ordering Provider: JOURDAN VILLALOBOS Report Released Date/Time: Oct 22, 2022 08:22 AM Reporting Lab: [facility] [address] Performing Lab: [facility] [address] PHOSPHORUS 2.6 2.3-4.7 Oct 29, 2022 10:[address] [facility] PTH-N-TACT Specimen Type: PLASMA No comment entered. Ordering Provider: JOURDAN VILLALOBOS Report Released Date/Time: Oct 22, 2022 08:22 AM Reporting Lab: [facility] [address] Performing Lab: [facility] [address] PTH-N-TACT 187.8 H 8.7-77.1 Oct 29, 2022 10:[address] [facility] GLUCOSE Specimen Type: PLASMA No comment entered. Ordering Provider: JOURDAN VILLALOBOS Report Released Date/Time: Oct 22, 2022 08:22 AM Reporting Lab: [facility] [address] Performing Lab: [facility] [address] GLUCOSE 189 H 70-100 Oct 18, 2022 08:[address] [facility] HEMOGLOBIN A1C Specimen Type: BLOOD Comment: Values [...] Mar 21, 2022 11:30 AM Reporting Lab: [facility] [address] Performing Lab: [facility] [address] HEMOGLOBIN A1C 7.5 H 4.0-6.0 Oct 18, 2022 08:[address] [facility] LIPID PANEL,NON-FASTING Specimen Type: PLASMA No comment entered. Ordering Provider: CARROLL HERNANDEZ Report Released Date/Time: Mar 21, 2022 11:30 AM Reporting Lab: [facility] [address] Performing Lab: [facility] [address] CHOLESTEROL 109 <199 .HDL 45 >40 LDL CALCULATION 50 <99 VLDL CALCULATION 14 <29 NON HDL CHOLESTEROL 64 <129 TRIG(NON FASTING) 69 <149 Oct 18, 2022 08:[address] [facility] CBC Specimen Type: BLOOD No comment entered. Ordering Provider: CARROLL HERNANDEZ Report Released Date/Time: Mar 21, 2022 11:30 AM Reporting Lab: [facility] [address] Performing Lab: [facility] [address] WBC 6.21 4.0-11.0 RBC 3.72 L 4.6-6.2 HGB 11.9 L 13.5-17.9 HCT 36.6 L 41-54 MCV 98.4 80-100 MCH 32.0 27-33 MCHC 32.5 32.0-37.5 PLT 155 150-400 MPV 11.0 H 7.4-10.4 RDW 13.6 11.5-14.5 Oct 18, 2022 08:[address] [facility] BASIC METABOLIC PANEL+MG Specimen Type: PLASMA No comment entered. Ordering Provider: CARROLL HERNANDEZ Report Released Date/Time: Mar 21, 2022 11:30 AM Reporting Lab: [facility] [address] Performing Lab: [facility] [address] CREATININE 2.8 H 0.7-1.2 UREA NITROGEN 37 H 8-26 GLUCOSE 185 H 70-100 SODIUM 141 136-145 POTASSIUM 5.1 3.5-5.1 CHLORIDE 111 H 98-107 CO2 25 22-29 CALCIUM 8.3 L 8.4-10.2 MAGNESIUM 1.8 1.6-2.6 ANION GAP 5 5-15 .CREAT EGFR(CKD-EPI) 22 L >60 Oct 18, 2022 08:[address] [facility] ALT/SGPT Specimen Type: PLASMA No comment entered. Ordering Provider: DESIRAE MCCARTY Report Released Date/Time: Oct 18, 2022 02:09 PM Reporting Lab: [facility] [address] Performing Lab: [facility] [address] ALT/SGPT 18 <55 Oct 18, 2022 08:[address] [facility] AST/SGOT Specimen Type: PLASMA No comment entered. Ordering Provider: DESIRAE MCCARTY Report Released Date/Time: Oct 18, 2022 02:09 PM Reporting Lab: [facility] [address] Performing Lab: [facility] [address] AST/SGOT 21 <34 Oct 18, 2022 08:[address] [facility] TSH W/REFLEX TO FREE T4 Specimen Type: PLASMA No comment entered. Ordering Provider: DESIRAE MCCARTY Report Released Date/Time: Oct 18, 2022 02:09 PM Reporting Lab: [facility] [address] Performing Lab: [facility] [address] TSH 1.42 0.35-4.94 Vital Signs: All taken on the encounter date This section contains inpatient and outpatient Vital Signs collected on the date of the Encounter. Date/Time Temperature Pulse Blood Pressure Respiratory Rate SP02 Pain Height Weight Body Mass Index Source Oct 29, 2022 12:08 PM 96.9 F 62 /min 136/63 mm[Hg] 16 /min 98 % 4 211.8 lb 30 [facility] Social History: Smoking Status (Most current) and Tobacco Use (All prior to encounter date) This section includes the most current, and the historical, smoking and tobacco- related health factors from the [place] facility where the Encounter took place. Current Smoking Status This section includes the most current smoking, or tobacco-related health factor, from the [place] facility where the Encounter took place. Date/Time Current Smoking Status Comment Dany simon Oct 24, 2021 08:45 AM VA-TOBACCO FORMER USER [facility] Tobacco Use History This section includes a history of the smoking, or tobacco-related health factors, that were collected on or before the date of the Encounter. The data comes from the [place] facility where the Encounter took place. Date/Time Smoking Status/Tobacco Use Comment F acility Oct 24, 2021 08:45 AM VA-TOBACCO QUIT [address] [facility] Apr 27, 2020 03:00 PM VA-TOBACCO FORMER USER [facility] Apr 27, 2020 03:00 PM VA-TOBACCO QUIT [address] [facility] Apr 23, 2019 05:29 PM INPT NO TOBACCO USE IN LAST [address] [facility] Oct 15, 2018 09:08 AM VA-TOBACCO FORMER USER [facility] Oct 15, 2018 09:08 AM VA-TOBACCO QUIT [address] [facility] November 13, 2017 09:05 AM FORMER TOBACCO USER 7Y OR GREATE R [facility] November 22, 2016 03:15 PM FORMER TOBACCO USER 7Y OR GREATE R [facility] Oct 21, 2015 08:37 AM FORMER TOBACCO USER 7Y OR GREATE R [facility] Oct 21, 2014 01:32 PM FORMER TOBACCO USER 7Y OR GREATE R [facility] Oct 29, 2013 08:29 AM FORMER TOBACCO USER 7Y OR GREATE R [facility] Mar 11, 2007 08:07 AM FORMER TOBACCO USER 7Y OR GREATE R [facility] Radiology Reports: +/- 30 days of the [...] the Encounter. The data comes from all [facility] facilities. Date/Time Radiology Report Provider Source November 15, 2022 09:10 AM LNR INCIDENTAL NOD ULE LD FOLLOW UP: KRISTOFER STERN [id number] -[id number] M Exm Date: NOVEMBER 15, 2022@09:10 Req Phys: SUKI CHILDS Loc: [facility] PULM CHART CHECK LNT (Req' Img Loc: CT IMAGING Service: Unknown (Case [id number] COMPLETE) LNR INCIDENTAL NODULE LD FOLLOW U(CT Detailed) CPT:49699 Reason for Study: f/u lung nodules Clinical History: IS NOT under investigation for COVID-19 or is COVID-19 negative f/u small lung nodules Responsible provider name and phone number to notify for critical findings if other than user placing the order and pager listed below: User placing orders pager: [phone] Brad Childs MD LAST CREATININE 2.4 H (03/21/22) Report Status: Verified Date Reported: NOVEMBER 15, 2022 Date Verified: NOVEMBER 15, 2022 Crotch Breaker E-Sig: Report: LNR INCIDENTAL NODULE LD FOLLOW UP HISTORY: f/u lung nodules COMPARISON: Chest CT October 12, 2021 TECHNIQUE: Volumetric CT acquisition through the chest, with axial, coronal and sagittal reformats, was performed at the local [place] facility. 1756 images were received by the [place] National Teleradiology Program (NTP) for interpretation. RADIATION [...] one year READING PHYSICIAN: Sukhdev Breen M.D. -[phone] 11/15/2022 11:47 EDT [facility] National Teleradiology Program [phone] (For Medical Practitioner Use Only) Attention Patients / Veterans: If you have questions or concerns about these test results, please contact your ordering provider or primary care team. Primary Interpreting Staff: RADIOLOGY,OUTSIDE SERVICE, Staff Physician / RADIOLOGY,OUTSIDE SERVICE [facility] Encounter Notes: All associated encounter notes This section contains the clinical notes associated to the Encounter. Date/Time Encounter Note(s) Provider Source Oct 31, 2022 11:35 PM NEPHROLOGY ATTENDI HOLGER NOTE: LOCAL TITLE: RENAL CLINIC NOTE STANDARD TITLE: NEPHROLOGY ATTENDING NOTE DATE OF NOTE: OCT 31, 2022@23:35 ENTRY DATE: OCT 31, 2022@23:35:06 AUTHOR: CRISTOBAL KONG EXP COSIGNER: URGENCY: STATUS: COMPLETED Toxic Exposure Screening: The Nunez/caregiver was asked if they believe the experienced any toxic exposure(s), such as Airborne Hazards and Open Burn Pit, [place] War related exposures, Agent [place], Radiation, contaminated water at [place] or other such exposures, while serving in the [employer]. 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 /caregiver was made aware of educational resources and printed information was offered and provided if desired. /caregiver has health or medical concerns related to their concern of environmental exposure. Concern: see above. No questions at this time Nunez/caregiver was informed of local points of contact. Contact information for local resources: - Airborne Hazards and Burn Pit Exposures - Public Health ([place].gov) - Veterans Benefits for claims submission: Have the call or have them visit the following web address for online scheduling: [email or web address]/ - [place] Healthcare Enrollment: [phone] ([phone]) - Find a Nunez Database Administration Associate (VSO): Have the call [phone] or look up their VSO at: [email or web address].org/find-[email or web address] -cvso.html - [facility] Navigators: Dr. Jono Elder: [phone] [email or web address] Dr. Taras Baptiste: [phone] The following connections were provided to the /caregiver: No connections needed at this time as he is currently working with a VSO. /igor/ CRISTOBAL KONG APRN WEB SERVICES ARCHITECT Certified Nurse Practitioner Signed: 10/31/2022 23:[address] [facility] Oct 29, 2022 11:16 PM NEPHROLOGY CONSULT : LOCAL TITLE: RENAL/NEPHROLOGY CONSULT STANDARD TITLE: NEPHROLOGY CONSULT DATE OF NOTE: OCT 29, 2022@23:16 ENTRY DATE: OCT 29, 2022@23:16:26 AUTHOR: CRISTOBAL KONG EXP COSIGNER: URGENCY: STATUS: COMPLETED Nurse's Notes Reviewed. Chief Complaint: MR Stern is here is here on consultation for CKD. I saw him on consultation in 2013 and last saw him April 2019. HPI/ROS: 82y/o M with PMH HTN, DM2 with microalbuminuria, RA, hyperlipidemia, A. fib on A/c. He recently returned from wintering in [place]. He is here today with his spouse. Afib: rate controlled with amiodarone. Followed with cardiology. He will have an ablation with hopes of coming off amiodarone given its SE profile. He is tolerating thus far. He has had a total of 3 stents placed. Denies hx of ME. HTN: Bps 110s/50s. He does experience lightheadedness on occasion, more with position changes. DMII: hgb a1c 7.5% (10/28). Insulin and Victoza use. Followed with RN diabetic case educator and metabolic. CGM - carmela. Minor [employer]. Microalbuminuria with alb/creat 263 (10/28). -RA: methotrexate, folic acid, and hydroxychloroquin. He needs f/u with rheumatology as he is out of his methotrexate and is experiencing increased pain. He has an appt with rheumatology 11/21/22. -No NSAIDs other than Diclofenic gel. -No hx of kidney stones Past medical history/Active Problems: Active Problems: Active problems - Computerized Problem List is the source for the followin. 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 Hyperlipidemia (SNOMED CT 15262848) 3. Coronary artery disease (SNOMED CT 09144903) 4. Benign hypertension (SNOMED CT 58838685) 5. Atrial fibrillation (SNOMED CT 25510047) 6. Long-term current use of anticoagulant (SNOMED CT 398152146) 7. Obstructive sleep apnea syndrome 8. Gout 9. Rheumatoid arthritis (SNOMED CT 60273435) 10. Chronic kidney disease (SNOMED CT 071815980) 11. Chronic kidney disease due to type 2 diabetes mellitus (SNOMED CT 9922626064 12. Type 2 diabetes mellitus well controlled 13. Chronic kidney disease stage 3 due to type 2 diabetes mellitus 14. Steatosis of liver 15. 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 No fevers/nightsweats. No rashes/lesions. No Chest Pain. See above No Shortness of breath. No pulm. dz. Sleep apnea but does not use CPAP No orthopnea, PND, or peripheral edema. No abdominal pain, N/V, or change in bowel habits. No hepatitis or PUD. No diarrhea or constipation. No urinary hesitancy or frequency. No dysuria/hematuria. Physical Exam: VS: Temp: 96.9 F [36.1 C] (10/29/2022 12:08) BP: 136/63 (10/29/2022 12:08) Pulse:62 (10/29/2022 12:08) Resp: 16 (10/29/2022 12:08) Weight: 211.8 lb [96.07 kg] (10/29/2022 12:08) Pain: 4 (10/29/2022 12:08) O2 Sat: 98% (10/29/2022 12:08) BMI: 29.6 General NAD WDWN Cardiac: RRR with normal S1 and S2; without murmur, gallop, rub. Chest/Lungs: Bilaterally clear Extremities: No edema. Lab Data: Last 48 hours: CREATININE URINE RANDOM (02/08): 104.1 ALBUMIN/CREAT RATIO 10/11: 263.0 H MICROALBUMIN,UR: 273.8 H WESTERGREN ESR: 4 L WBC: 6.40 RBC: 4.01 L HGB: 12.8 L HCT: 39.3 L MCV: 98.0 MCH: 31.9 MCHC: 32.6 RDW: 13.1 PLT: 142 L MPV: 10.4 SEGS: 63.6 LYMPHS: 29.1 MONOCYTES: 5.0 EOSINO: 1.4 BASO: 0.6 NEUTROPHIL, ABSOLUTE: 4.07 EOSINO, ABSOLUTE: 0.09 BASO, ABSOLUTE: 0.04 MONOCYTE, ALTERNATE ABS: 0.32 LYMPHS, ALTERNATE ABS: 1.86 I.3 IG,ABSOLUTE: 0.02 CREATININE: 2.3 H ALKALINE PHOSPHATASE(37C): 86 SGOT(37C): 20 SGPT(37C): 20 C-REACTIVE PROTEIN (02/07): 2.59 CREATININE EGFR (CKD-EPI): 28 L GLUCOSE: 186 H UREA NITROGEN: 29 H CREATININE: 2.3 H SODIUM: 139 POTASSIUM: 5.4 H CHLORIDE: 108 H CO2: 26 CALCIUM: 8.9 PROTEIN,TOTAL: 6.2 ALBUMIN: 3.5 BILIRUBIN,TOTAL: 0.8 MAGNESIUM: 1.8 TSH: 1.56 ANION GAP: 5 ALKALINE PHOSPHATASE(37C): 87 SGOT(37C): 21 SGPT(37C): 20 CREATININE EGFR (CKD-EPI): 28 L PTH-N-tact(01/20/02): 187.8 H GLUCOSE: 189 H UREA NITROGEN: 30 H CREATININE: 2.3 H SODIUM: 140 POTASSIUM: 5.3 H CHLORIDE: 109 H CO2: 27 CALCIUM: 8.8 PO4: 2.6 ALBUMIN: 3.6 ANION GAP: 4 L CREATININE EGFR (CKD-EPI): 28 L Patient was informed of all the above labs during this visit with exception of his RA markers (these will be reviewed with rheumatology). 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 Creatinine 1.9-2.1 dating back to 2013. Prior to 2013, creatinine 1.5-1.8 dating back to 2006. Pt's CKD multifactorial - HTN, CVD, DM. There could be a component with chcf methotrexate and hydroxychloroquin use. -As for his diabetes, his hgb a1c is 7.5% which is at goal (goal <8.0% or lower as tolerated with treatment to avoid hypoglycemic events). He is on an insulin and Victoza and is managed with RN early childhood special educator. It is imperitive to keep bp and diabetes under very good control to prevent further decline of renal function. -HTN: Adequate control. BP goal <140/90 or lower as tolerated with treatment (JNC 8 recommendations). I have also stressed the importance of adequate daily hydration. -Lytes: hyperkalemia. No MARCELLO/ARB. We discussed low potassium diet. May need Lokelma if we cannot get potassium down with diet alone. -Mild anemia with hgb currently at 12.8gm/dl - no overt sign bleed. No need for LUIS. WIll continue to monitor. -bone health: ca/phos acceptable. PTH elevated at 187 although overall stable ->will obtain vitamin D with next set of lab; he will continue with daily cholecalciferol use. Will monitor for now. Could consider calcitriol or pt can add a daily calcium supplement. I will consider with next set of labs. -Refrain from NSAIDs. -Pt to stay adequately hydrated. 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 RA: Methotrexate and hydroxychloroquin. Followed with Rheumatology (11/21/22). I will see pt back in Mar 2023 w/labs prior to him leaving for [place] // CRISTOBAL KONG APRN [employer] ARCHITECT Certified Nurse Practitioner Signed: 10/31/2022 23:[address] [facility] Oct 29, 2022 12:12 PM INTERNAL MEDICINE OUTPATIENT NOTE: LOCAL TITLE: MEDICINE CLINIC NURSING NOTE STANDARD TITLE: INTERNAL MEDICINE OUTPATIENT NOTE DATE OF NOTE: OCT 29, 2022@12:12 ENTRY DATE: OCT 29, 2022@12:12:49 AUTHOR: SILVANA GUERRA EXP COSIGNER: URGENCY: STATUS: COMPLETED TYPE OF VISIT: Appointment Check In Type of appointment: In-person appointment REASON FOR VISIT: Scheduled Renal consult with labs and specimen collected. ALLERGIES: ATORVASTATIN (May 15, 2007) SIMVASTATIN (Mar 13, 2012) METOPROLOL (May 01, 2019) CLINDAMYCIN (Oct 05, 2020) VITAL SIGNS: Blood Pressure: 136/63 (10/29/2022 12:08) Pulse: 62 (10/29/2022 12:08) Respiration: 16 (10/29/2022 12:08) Temperature: 96.9 F [36.1 C] (10/29/2022 12:08) Weight: 211.8 lb. [96.07 kg] (10/29/2022 12:08) Height: 71 in [180.3 cm] (10/18/2022 09:16) BMI: 29.6 O2 Sat: 98% (10/29/2022 12:08) Pain: 4 (10/29/2022 12:08) PAIN SCREEN: Patient is not having significant pain that they wish to discuss with their provider today. MEDICATION Active Outpatient Medications (including Supplies): AMIODARONE HCL (PACERONE) 200MG TAB TAKE ONE TABLET BY ACTIVE (S) MOUTH EVERY DAY APIXABAN 2.5MG TAB TAKE ONE TABLET BY MOUTH EVERY 12 HOURS ACTIVE (S) TO PREVENT STROKES DICLOFENAC NA 1% TOP GEL APPLY 4 GRAMS FOUR TIMES A DAY ACTIVE NEEDED FOR PAIN -USE DOSE CARD IN BOX TO MEASURE DOSE -MAXIMUM OF 32 TOTAL GRAMS PER DAY. FOLIC ACID 1MG TAB TAKE ONE TABLET BY MOUTH DAILY ACTIVE GLUCOSE SENSOR FREESTYLE CARMELA 2 USE 1 SENSOR EVERY 14 ACTIVE DAYS TO MONITOR GLUCOSE HYDROXYCHLOROQUINE SULFATE 200MG TAB TAKE ONE TABLET BY ACTIVE (S) MOUTH TWICE A DAY FOR RHEUMATOID ARTHRITIS ISOSORBIDE MONONITRATE 60MG SA TAB TAKE ONE TABLET BY PENDING MOUTH EVERY DAY FOR CHEST PAIN LIRAGLUTIDE (VICTOZA) 6MG/ML INJ PEN 3ML INJECT 0.6 MG ACTIVE (S) UNDER THE SKIN EVERY DAY FOR DIABETES METHOTREXATE NA 2.5MG TAB TAKE TEN TABLETS BY MOUTH EVERY ACTIVE WEEK FOR RHEUMATOID ARTHRITIS -TAKE THE TOTAL WEEKLY DOSE ON THE SAME DAY EVERY WEEK NEEDLE,PEN 31G,5MM USE 1 NEEDLE UNDER THE SKIN DIRECTED ACTIVE *DISPOSE OF IN A HARD-PLASTIC CONTAINER WITH A SCREW-ON LID CONTACT GARBAGE HAULER FOR PROPER DISPOSAL POLYETHYLENE GLYCOL 3350 ORAL PWDR TAKE 17 GRAMS BY MOUTH ACTIVE EVERY DAY WHILE USING NARCOTIC *MIX IN 4 TO 8 OUNCES OF LIQUID DIRECTED*USE COVER TO MEASURE POWDER* ROSUVASTATIN CA 20MG TAB TAKE ONE-HALF TABLET BY MOUTH PENDING EVERY DAY FOR CHOLESTEROL (DO NOT CONVERT/APPROVED 04/2013) Non-VA CHOLECALCIF 25MCG (D3-1,000UNIT) TAB 1000UNIT MOUTH ACTIVE EVERY DAY Over the Counter/Herbal Medications: The patient states that they take some outside medications and/or herbals. Renal Clinic CREATININE 2.3 H (10/29/22) Dietary Assessment Has been seen by dietary in the past regarding a renal diet. Denies concerns eGFr is greater than 30. /es/ SILVANA GUERRA LPN LICENSED PRACTICAL NURSE Signed: 10/29/2022 12:17 SILVANA GUERRA [facility]
--- OUTSIDE RECORDS SUMMARY | 2023-10-11 23:48 | XMS_ITS | Encounter Summary ---
Author Name Department of Vetera Affairs Organization [facility] of Vetera ns Affairs Address [address] [place] [address] Support Name Relationship Address Phone JOHN STOCKTONINE Next of Kin [address] [place] [phone] JUDE STOCKTON Emergency Contact [phone] [address] [place] [address] JUDE STOCKTON Next of Kin [address] [place] [phone] JUDE STOCKTON Emergency Contact [phone] [place] [address] Insurance Providers: All historical and [...] MEDICARE SUPPLEGANESH MAHAN IDU Jul 08, 2016 [id number] [phone] KRISTOFER STOCKTON PATIENT MEDICARE (WNR) MEDICARE (M) PART B Jun 07, 2007 PART B [id number] [phone] KRISTOFER STOCKTON PATIENT MEDICARE (WNR) MEDICARE (M) PART B Jun 07, 2007 PART B [id number] KRISTOFER STOCKTON PATIENT MEDICARE (WNR) MEDICARE (M) PART B Jun 07, 2007 PART B [id number] KRISTOFER STOCKTON PATIENT MEDICARE (WNR) MEDICARE (M) PART B Jun 07, 2007 PART B [id number] KRISTOFER STOCKTON PATIENT MEDICARE (WNR) MEDICARE (M) PART A Mar 08, 2007 PART A [id number] KRISTOFER STOCKTON PATIENT MEDICARE (WNR) MEDICARE (M) PART A Mar 08, 2007 PART A [id number] KRISTOFER STOCKTON PATIENT MEDICARE (WNR) MEDICARE (M) PART A Mar 08, 2007 PART A [id number] KRISTOFER STOCKTON PATIENT MEDICARE (WNR) MEDICARE (M) PART A Mar 08, 2007 PART A [id number] KRISTOFER STOCKTON PATIENT Selected Encounter This section includes the information on record at [place] for the Encounter. 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 Date/Time Primary/Secondary Diagnosis Diagnosis Name Provider Source Oct 22, 2022 08:15 PM PRIMARY [facility]PC (current) use of anticoagulants PARAS ROWLEY [facility] Oct 22, 2022 08:15 PM SECONDARY Unspecified atrial fibrillation PARAS ROWLEY [facility] Plan of Treatment: Future Appointments (+ 6 months) and Future Tests (+/- 45 days) The Plan of Treatment section includes future care activities for the patient from all [place] [facility]. This section includes future appointments and future orders which are active, pending or scheduled. Future Appointments This section includes appointments that were scheduled to occur 6 months from the date of the Encounter, up to a maximum of 20 appointments. The data comes from all [place] treatment facilities. Appointment Date/Time Appointment Type Appointme nt Facility Name Oct 29, 2022 12:00 PM AM[place]ORY - NONE [place] [facility] Oct 29, 2022 12:30 PM AMBUL[place]ORY [place]IC[place] [facility] Oct 29, 2022 01:00 PM [place]IC[place] [facility] November 15, 2022 09:15 AM AMB[place]ORY - NONE [place] [facility] November 15, 2022 10:20 AM AM[place]ORY [place] [facility] November 21, 2022 09:30 AM [place] [facility] November 21, 2022 10:30 AM [place]ORY - [place]ICINE [place] [facility] Jan 02, 2023 01:15 PM [place]ORY - [place]ICINE [place] [facility] Feb 11, 2023 09:30 AM AMBULATORY - REHAB MEDICIN E [facility] Feb 27, 2023 09:00 AM AMBULATORY - NONE [place] [facility] Mar 18, 2023 01:30 PM [place]ORY - [place]ICINE [place] [facility] Mar 18, 2023 02:00 PM [place]ORY - [place]ICINE [place] [facility] Mar 18, 2023 02:30 PM [place] - [place]ICINE [place] [facility] Mar 18, 2023 03:00 PM [place]ORY - [place]ICINE [place] [facility] Mar 28, 2023 09:30 AM [place]ORY - [place]ICINE [place] [facility] Mar 28, 2023 10:00 AM [place]ORY - [place]ICINE [place] [facility] Apr 03, 2023 08:00 AM [place] [facility] Apr 16, 2023 02:00 PM [place] [facility] Apr 17, 2023 09:30 AM [place] [facility] Apr 17, 2023 10:30 AM [facility] Active, Pending, and Scheduled Orders This section includes a listing of several types of active, pending, and scheduled orders, including clinic medications orders, diagnostic test orders, procedure orders and consult orders; where the start date of the order is 45 days before the date of the Encounter or 45 days after the date of theEncounter. The data comes from all [place] treatment facilities. Test Date/Time Test Type Test Details Facility Name Oct 18, 2022 10:27 AM Laboratory - Chemi stry Order MICROALBUMIN/CREATIN INE RATIO URINE URINE WC ONCE [facility] November 21, 2022 12:00 AM Laboratory - Chemi stry Order MICROALBUMIN/CREATIN INE RATIO URINE URINE [facility] Lab Results: +/- 30 days of the [...] Range Comment November 21, 2022 09:07 AM [facility] HEMOGLOBIN A1C Specimen Type: BLOOD Comment: [...] Dec 12, 2021 11:52 AM Reporting Lab: [facility] [phone] Performing Lab: [facility] [phone] HEMOGLOBIN A1C 7.4 H 4.0-6.0 November 21, 2022 09:07 AM [facility] TSH W/REFLEX TO FREE T4 Specimen Type: PLASMA No comment entered. Ordering Provider: LORETO HONG Report Released Date/Time: Dec 12, 2021 11:52 AM Reporting Lab: [facility] [phone] Performing Lab: [facility] [address] TSH 1.69 0.35-4.94 November 21, 2022 09:07 AM [facility] LIPID PANEL,NON-FASTING Specimen Type: PLASMA No comment entered. Ordering Provider: LORETO HONG Report Released Date/Time: Dec 12, 2021 11:52 AM Reporting Lab: [facility] [address] Performing Lab: [facility] [address] CHOLESTEROL 121 <199 .HDL 48 >40 LDL CALCULATION 48 <99 VLDL CALCULATION 25 <29 NON HDL CHOLESTEROL 73 <129 TRIG(NON FASTING) 124 <149 November 21, 2022 09:07 AM [facility] COMPREHENSIVE METABOLIC PANEL+MG Specimen Type: PLASMA No comment entered. Ordering Provider: LORETO HONG Report Released Date/Time: Dec 12, 2021 11:52 AM Reporting Lab: [facility] [phone] Performing Lab: [facility] [phone] CREATININE 3.1 H 0.7-1.2 UREA NITROGEN 38 [...] EGFR(CKD-EPI) 20 L >60 November 21, 2022 09:07 AM [facility] CBC Specimen Type: BLOOD No comment entered. Ordering Provider: LORETO HONG Report Released Date/Time: Dec 12, 2021 11:52 AM Reporting Lab: [facility] [phone] Performing Lab: [facility] [address] WBC 6.92 4.0-11.0 RBC 4.02 L 4.6-6.2 HGB 12.7 L 13.5-17.9 HCT 39.8 L 41-54 MCV 99.0 80-100 MCH 31.6 27-33 MCHC 31.9 L 32.0-37.5 PLT 146 L 150-400 MPV 11.0 H 7.4-10.4 RDW 13.4 11.5-14.5 IPF 3.3 0-10 November 21, 2022 09:06 AM [facility] RHEUMATOLOGY HEME PANEL Specimen Type: BLOOD No comment entered. Ordering Provider: Makayla STAPLETON Report Released Date/Time: May 09, 2022 09:10 AM Reporting Lab: [facility] [phone] Performing Lab: [facility] [phone] SED RATE 2 L 5-15 November 21, 2022 09:06 AM [facility] RHEUMATOLOGY CHEM PANEL Specimen Type: PLASMA No comment entered. Ordering Provider: Makayla STAPLETON Report Released Date/Time: May 09, 2022 09:10 AM Reporting Lab: [facility] [phone] Performing Lab: [facility] [address] CREATININE 3.2 H 0.7-1.2 ALKALINE PHOSPHATASE 95 40-150 ALT/SGPT 20 <55 AST/SGOT 24 <34 C-REACTIVE PROTEIN 3.06 <5.00 .CREAT EGFR(CKD-EPI) 19 L >60 Oct 29, 2022 12:00 PM [facility] MICROALBUMIN/CREATININE RATIO URINE Specimen Type: URINE No comment entered. Ordering Provider: CARROLL HERNANDEZ Report Released Date/Time: Mar 21, 2022 11:30 AM Reporting Lab: [facility] [address] Performing Lab: [facility] [address] CREATININE,UR RANDOM 104.1 58.0-161.0 ALB/CREAT RATIO,UR 263.0 H <29.9 MICROALBUMIN,UR 273.8 H <29.9 Oct 29, 2022 10:34 AM [facility] RHEUMATOLOGY CHEM PANEL Specimen Type: PLASMA No comment entered. Ordering Provider: Makayla STAPLETON Report Released Date/Time: May 09, 2022 09:10 AM Reporting Lab: [facility] [address] Performing Lab: [facility] [address] CREATININE 2.3 H 0.7-1.2 ALKALINE PHOSPHATASE 86 40-150 ALT/SGPT 20 <55 AST/SGOT 20 <34 C-REACTIVE PROTEIN 2.59 <5.00 .CREAT EGFR(CKD-EPI) 28 L >60 Oct 29, 2022 10:34 AM [facility] RHEUMATOLOGY HEME PANEL Specimen Type: BLOOD Comment: Automated Differential Performed Ordering Provider: Makayla STAPLETON Report Released Date/Time: May 09, 2022 09:10 AM Reporting Lab: [facility] [phone] Performing Lab: [facility] [address] WBC 6.40 4.0-11.0 RBC 4.01 L 4.6-6.2 [...] L 5-15 Oct 29, 2022 10:33 AM [facility] TSH W/REFLEX TO FREE T4 Specimen Type: PLASMA No comment entered. Ordering Provider: DESIRAE MCCARTY Report Released Date/Time: Apr 11, 2022 02:47 PM Reporting Lab: [facility] [address] Performing Lab: [facility] [address] TSH 1.56 0.35-4.94 Oct 29, 2022 10:33 AM [facility] COMPREHENSIVE METABOLIC PANEL+MG Specimen Type: PLASMA No comment entered. Ordering Provider: DESIRAE MCCARTY Report Released Date/Time: Apr 11, 2022 02:47 PM Reporting Lab: [facility] [phone] Performing Lab: [facility] [address] CREATININE 2.3 H 0.7-1.2 UREA NITROGEN 29 [...] L >60 Oct 29, 2022 10:30 AM [facility] ELECTROLYTES/ANION GAP Specimen Type: PLASMA No comment entered. Ordering Provider: JOURDAN VILLALOBOS Report Released Date/Time: Oct 22, 2022 08:22 AM Reporting Lab: [facility] [address] Performing Lab: [facility] [phone] SODIUM 140 136-145 POTASSIUM 5.3 H 3.5-5.1 CHLORIDE 109 H 98-107 CO2 27 22-29 ANION GAP 4 L 5-15 Oct 29, 2022 10:30 AM [facility] UREA NITROGEN Specimen Type: PLASMA No comment entered. Ordering Provider: JOURDAN VILLALOBOS Report Released Date/Time: Oct 22, 2022 08:22 AM Reporting Lab: [facility] [phone] Performing Lab: [facility] [address] UREA NITROGEN 30 H 8-26 Oct 29, 2022 10:30 AM [facility] CREATININE(INCLUDES EGFR) Specimen Type: PLASMA No comment entered. Ordering Provider: JOURDAN VILLALOBOS Report Released Date/Time: Oct 22, 2022 08:22 AM Reporting Lab: [facility] [phone] Performing Lab: [facility] [phone] CREATININE 2.3 H 0.7-1.2 .CREAT EGFR(CKD-EPI) 28 L >60 Oct 29, 2022 10:30 AM [facility] CALCIUM Specimen Type: PLASMA No comment entered. Ordering Provider: JOURDAN VILLALOBOS Report Released Date/Time: Oct 22, 2022 08:22 AM Reporting Lab: [facility] [address] Performing Lab: [facility] [address] CALCIUM 8.8 8.4-10.2 Oct 29, 2022 10:30 AM [facility] PHOSPHORUS Specimen Type: PLASMA No comment entered. Ordering Provider: JOURDAN VILLALOBOS Report Released Date/Time: Oct 22, 2022 08:22 AM Reporting Lab: [facility] [phone] Performing Lab: [facility] [phone] PHOSPHORUS 2.6 2.3-4.7 Oct 29, 2022 10:30 AM [facility] PTH-N-TACT Specimen Type: PLASMA No comment entered. Ordering Provider: JOURDAN VILLALOBOS Report Released Date/Time: Oct 22, 2022 08:22 AM Reporting Lab: [facility] [phone] Performing Lab: [facility] [address] PTH-N-TACT 187.8 H 8.7-77.1 Oct 29, 2022 10:30 AM [facility] GLUCOSE Specimen Type: PLASMA No comment entered. Ordering Provider: JOURDAN VILLALOBOS Report Released Date/Time: Oct 22, 2022 08:22 AM Reporting Lab: [facility] [phone] Performing Lab: [facility] [address] GLUCOSE 189 H 70-100 Oct 29, 2022 10:30 AM [facility] ALBUMIN Specimen Type: PLASMA No comment entered. Ordering Provider: JOURDAN VILLALOBOS Report Released Date/Time: Oct 22, 2022 08:22 AM Reporting Lab: [facility] [phone] Performing Lab: [facility] [address] ALBUMIN 3.6 3.5-5.2 Oct 18, 2022 08:49 AM [facility] HEMOGLOBIN A1C Specimen Type: BLOOD Comment: Values obtained from A1C measurements can vary. For typical A1C assays, a reported value of 7.0 could actually be between 6.7 and 7.3 if measured by a reference method. A reported value of 9.0 could actually be between 8.7 and 9.3. Ref: http://www.ng sp.org/CAPdamicah a.asp Ordering Provider: CARROLL HERNANDEZ Report Released Date/Time: Mar 21, 2022 11:30 AM Reporting Lab: [facility] [address] Performing Lab: [facility] [address] HEMOGLOBIN A1C 7.5 H 4.0-6.0 Oct 18, 2022 08:49 AM [facility] LIPID PANEL,NON-FASTING Specimen Type: PLASMA No comment entered. Ordering Provider: CARROLL HERNANDEZ Report Released Date/Time: Mar 21, 2022 11:30 AM Reporting Lab: [facility] [address] Performing Lab: [facility] [address] CHOLESTEROL 109 <199 .HDL 45 >40 LDL CALCULATION 50 <99 VLDL CALCULATION 14 <29 NON HDL CHOLESTEROL 64 <129 TRIG(NON FASTING) 69 <149 Oct 18, 2022 08:49 AM [facility] BASIC METABOLIC PANEL+MG Specimen Type: PLASMA No comment entered. Ordering Provider: CARROLL HERNANDEZ Report Released Date/Time: Mar 21, 2022 11:30 AM Reporting Lab: [facility] [address] Performing Lab: [facility] [address] CREATININE 2.8 H 0.7-1.2 UREA NITROGEN 37 H 8-26 GLUCOSE 185 H 70-100 SODIUM 141 136-145 POTASSIUM 5.1 3.5-5.1 CHLORIDE 111 H 98-107 CO2 25 22-29 CALCIUM 8.3 L 8.4-10.2 MAGNESIUM 1.8 1.6-2.6 ANION GAP 5 5-15 .CREAT EGFR(CKD-EPI) 22 L >60 Oct 18, 2022 08:49 AM [facility] CBC Specimen Type: BLOOD No comment entered. Ordering Provider: CARROLL HERNANDEZ Report Released Date/Time: Mar 21, 2022 11:30 AM Reporting Lab: [facility] [address] Performing Lab: [facility] [address] WBC 6.21 4.0-11.0 RBC 3.72 L 4.6-6.2 HGB 11.9 L 13.5-17.9 HCT 36.6 L 41-54 MCV 98.4 80-100 MCH 32.0 27-33 MCHC 32.5 32.0-37.5 PLT 155 150-400 MPV 11.0 H 7.4-10.4 RDW 13.6 11.5-14.5 Oct 18, 2022 08:49 AM [facility] ALT/SGPT Specimen Type: PLASMA No comment entered. Ordering Provider: DESIRAE MCCARTY Report Released Date/Time: Oct 18, 2022 02:09 PM Reporting Lab: [facility] [address] Performing Lab: [facility] [address] ALT/SGPT 18 <55 Oct 18, 2022 08:49 AM [facility] AST/SGOT Specimen Type: PLASMA No comment entered. Ordering Provider: DESIRAE MCCARTY Report Released Date/Time: Oct 18, 2022 02:09 PM Reporting Lab: [facility] [address] Performing Lab: [facility] [phone] AST/SGOT 21 <34 Oct 18, 2022 08:49 AM [facility] TSH W/REFLEX TO FREE T4 Specimen Type: PLASMA No comment entered. Ordering Provider: DESIRAE MCCARTY Report Released Date/Time: Oct 18, 2022 02:09 PM Reporting Lab: [facility] [address] Performing Lab: [facility] [address] TSH 1.42 0.35-4.94 Social History: Smoking Status (Most current) and Tobacco Use (All prior to encounter date) This section includes the most current, and the historical, smoking and tobacco- related health factors from the [place] facility where the Encounter took place. Current Smoking Status This section includes the most current smoking, or tobacco-related health factor, from the [place] facility where the Encounter took place. Date/Time Current Smoking Status Comment Facil ity Oct 24, 2021 08:45 AM VA-TOBACCO FORMER USER [facility] Tobacco Use History This section includes a history of the smoking, or tobacco-related health factors, that were collected on or before the date of the Encounter. The data comes from the [place] facility where the Encounter took place. Date/Time Smoking Status/Tobacco Use Comment F acility Oct 24, 2021 08:45 AM VA-TOBACCO QUIT 15 YRS OR MORE [facility] Apr 27, 2020 03:00 PM VA-TOBACCO FORMER USER [facility] Apr 27, 2020 03:00 PM VA-TOBACCO QUIT 15 YRS OR MORE [facility] Apr 23, 2019 05:29 PM INPT NO TOBACCO USE IN LAST 30 D AYS [facility] Oct 15, 2018 09:08 AM VA-TOBACCO FORMER USER [facility] Oct 15, 2018 09:08 AM VA-TOBACCO QUIT 15 YRS OR MORE [facility] November 13, 2017 09:05 AM FORMER TOBACCO USER 7Y OR GREATE R [facility] November 22, 2016 03:15 PM FORMER TOBACCO USER 7Y OR GREATE R [facility] Oct 21, 2015 08:37 AM FORMER TOBACCO USER 7Y OR GREATE R [facility] Oct 21, 2014 01:32 PM FORMER TOBACCO USER 7Y OR GREATE R [facility] Oct 29, 2013 08:29 AM FORMER TOBACCO USER 7Y OR GREATE R [facility] Mar 11, 2007 08:07 AM FORMER TOBACCO USER 7Y OR [facility] R [facility] Radiology Reports: +/- 30 days of [...] the Encounter. The data comes from all [place] treatment facilities. Date/Time Radiology Report Provider Source November 15, 2022 09:10 AM LNR INCIDENTAL NOD ULE LD FOLLOW UP: KRISTOFER STOCKTON [id number] M Exm Date: NOVEMBER 15, 2022@09:10 Req Phys: SUKI CHILDS Loc: [facility] PULM CHART CHECK LNT (Req' Img Loc: CT IMAGING Service: Unknown (Case [id number] COMPLETE) LNR INCIDENTAL NODULE LD FOLLOW U(CT Detailed) CPT:04357 Reason for Study: f/u lung nodules Clinical History: [place] IS NOT under investigation for COVID-19 or is COVID-19 negative f/u small lung nodules Responsible provider name and phone number to notify for critical findings if other than user placing the order and pager listed below: User placing orders pager: [phone] Brad Childs MD LAST CREATININE 2.4 H (03/21/22) Report Status: Verified Date Reported: NOVEMBER 15, 2022 Date Verified: NOVEMBER 15, 2022 Blow Mold Machine Operator E-Sig: Report: LNR INCIDENTAL NODULE LD FOLLOW UP HISTORY: f/u lung nodules COMPARISON: Chest CT October 12, 2021 TECHNIQUE: Volumetric CT acquisition through the chest, with axial, coronal and sagittal reformats, was performed at the local [place] facility. 1756 images were received by the [place] National Teler[facility] Program (NTP) for interpretation. RADIATION [...] one year READING PHYSICIAN: Sukhdev Breen M.D. -[phone] 11/15/2022 11:47 EDT [facility] [phone] (For Medical Practitioner Use Only) Attention Patients / Veterans: If you have questions or concerns about these test results, please contact your ordering provider or primary care team. Primary Interpreting Staff: RADIOLOGY,OUTSIDE SERVICE, Staff Physician / RADIOLOGY,OUTSIDE SERVICE [facility] Encounter Notes: All associated encounter notes This section contains the clinical notes associated to the Encounter. Date/Time Encounter Note(s) Provider Source Oct 22, 2022 02:17 PM PHARMACY OUTPATIEN T MEDICATION MGT NOTE: LOCAL TITLE: PHARMACY ANTICOAGULATION CLINIC F/U STANDARD TITLE: PHARMACY OUTPATIENT MEDICATION MGT NOTE DATE OF NOTE: OCT 22, 2022@14:17 ENTRY DATE: OCT 22, 2022@14:17:31 AUTHOR: JUAN J MATIAS EXP COSIGNER: DAVID ROWLEY URGENCY: STATUS: COMPLETED PHARMACY ANTICOAGULATION CLINIC F/U Has ADDENDA DOAC DASHBOARD ALERT - Anticoagulant regimen: Apixaban 2.5mg q12H - Indication: A-fib - Relevant PMH: - CAD (stents 2006), CKD, steatosis of liver - Prior major bleeds: none - Prior anticoagulants: o warfarin (03/2009-10/2019) - Date started: 10/2019 - Anticipated duration of therapy: indefinite - CHADS2-VASC = 5 (age x2, HTN, DM, CAD) = moderate - HAS-BLED = 3 (age, CKD, hgb < 13) = high SUBJECTIVE/OBJECTIVE: Obtained from chart review. dashboard flags - A careful risk:benefit assessment is required when serum creatinine > 2.5 or CrCl < 25ml/min, as these patients were excluded from the trials that brought apixaban to market and prospective evidence is limited. Labs ==== Age: 82 Height: 71 in [180.3 cm] (10/18/2022 09:16) Weight: 212.8 lb [96.52 kg] (10/18/2022 09:16) Collection DT Specimen Test Name Result Units Ref Range 10/18/2022 08:49 PLASMA CREATININE 2.8 H mg/dL 0.7 - 1.2 05/09/2022 07:18 PLASMA CREATININE 2.7 H mg/dL 0.7 - 1.2 04/09/2022 12:44 PLASMA CREATININE 2.4 H mg/dL 0.7 - 1.2 03/21/2022 09:51 PLASMA CREATININE 2.4 H mg/dL 0.7 - 1.2 12/12/2021 08:09 PLASMA CREATININE 2.2 H mg/dL 0.7 - 1.2 11/15/2021 10:08 PLASMA CREATININE 2.3 H mg/dL 0.7 - 1.2 11/06/2021 13:38 PLASMA CREATININE 2.2 H mg/dL 0.7 - 1.2 11/01/2021 09:29 PLASMA CREATININE 2.1 H mg/dL 0.7 - 1.2 10/24/2021 09:48 PLASMA CREATININE 2.9 H mg/dL 0.7 - 1.2 10/12/2021 05:30 PLASMA CREATININE 2.4 H mg/dL 0.7 - 1.2 Collection DT Specimen Test Name Result Units Ref Range 02/16/2015 07:38 BLOOD POC CREATININE 2.1 H mg/dL 0.6 - 1.3 Cockcroft & Gault (Actual body weight) = 28.7 mL/min Non-VA Scr excluded from calculation: CrCl=28.73 (Wt: 10/18/2022 09:16) (Actual Body Weight) Collection DT Spec WBC HGB HCT PLT MCV NEUT LYMPHS 10/18/2022 08:49 BLOOD 6.21 11.9 L 36.6 L 155 98.4 05/09/2022 07:18 BLOOD 5.10 11.8 L 35.1 L 129 L 96.2 53.9 30.6 12/12/2021 08:09 BLOOD 6.04 12.1 L 36.8 L 128 L 96.3 Collection DT Specimen Test Name Result Units Ref Range 04/09/2022 12:44 PLASMA BILIRUBIN, TOTAL 0.4 mg/dL 0.2 - 1.2 05/09/2022 07:18 PLASMA ALKALINE PHOSPHAT 86 U/L 40 - 150 10/18/2022 08:49 PLASMA AST/SGOT 21 U/L Ref: <=34 10/18/2022 08:49 PLASMA ALT/SGPT 18 U/L Ref: <=55 10/24/2021 09:48 PLASMA GAMMA GTP 16 U/L Ref: <=64 ASSESSMENT/PLAN: Dosing - Continues to MEET 2 out of 3 criteria for apixaban dose reduction in A. fib. o YES: age >/= 80 years o YES: creatinine >/= 1.5 o NO: weight </= 60 kg - although SCr is >2.5, est CrCl remains >25ml/min so OK to continue AC without a Xa (apix) level at this time. - CBC is stable; HgB remains low; high bleed risk with no indication of bleeding events per chart review. - Continue anticoagulation at current dose. - Monitor dashboard for labs, drug interactions, and compliance. - Dashboard flags reviewed/cleared. - Lab monitoring frequency defined by dashboard or as clinically indicated. Time Spent:15min /igor/ JUAN J MATIAS Manager Drilling Signed: 10/22/2022 15:44 /es/ David Rowley PharmD. Pharmacist Cosigned: 10/22/2022 20:15 10/22/2022 ADDENDUM STATUS: COMPLETED In room supervision Agree with trainee note with comments below. Nature of encounter: DOAC monitoring; DDB flag for dosing Clinical thinking, assessment and treatment plan: appropriate chart review, appropriate plan. fixed dosing at top of header. good assessment of CBC; HgB remains low but stable. - dismissed flag, will not require a Xa level at this time d/t est CrCl still >25ml/min /igor/ Andie WilsonD. Pharmacist Signed: 10/22/2022 20:18 11/22/2022 ADDENDUM STATUS: COMPLETED Dashboard flags - A careful risk:benefit assessment is required when serum creatinine > 2.5 or CrCl < 25ml/min, as these patients were excluded from the trials that brought apixaban to market and prospective evidence is limited. Age: 82 Height: 71 in [180.3 cm] (11/21/2022 10:21) Weight: 213.5 lb [96.84 kg] (11/21/2022 10:21) Collection DT Specimen Test Name Result Units Ref Range 11/21/2022 09:07 PLASMA CREATININE 3.1 H mg/dL 0.7 - 1.2 11/21/2022 09:06 PLASMA CREATININE 3.2 H mg/dL 0.7 - 1.2 10/29/2022 10:34 PLASMA CREATININE 2.3 H mg/dL 0.7 - 1.2 10/29/2022 10:33 PLASMA CREATININE 2.3 H mg/dL 0.7 - 1.2 10/29/2022 10:30 PLASMA CREATININE 2.3 H mg/dL 0.7 - 1.2 10/18/2022 08:49 PLASMA CREATININE 2.8 H mg/dL 0.7 - 1.2 05/09/2022 07:18 PLASMA CREATININE 2.7 H mg/dL 0.7 - 1.2 04/09/2022 12:44 PLASMA CREATININE 2.4 H mg/dL 0.7 - 1.2 03/21/2022 09:51 PLASMA CREATININE 2.4 H mg/dL 0.7 - 1.2 12/12/2021 08:09 PLASMA CREATININE 2.2 H mg/dL 0.7 - 1.2 Cockcroft & Gault (Actual body weight) = 26.0 mL/min Yes - Age >/= 80 yrs No - Wt </= 60 kg Yes - Serum creatinine >/= 1.5 mg/dL SCr > 2.5 but CrCl remains > 25mL/min. No Xa level required at this time. Renal monitoring closely with next labs 03/2023 - Continue anticoagulation at current dose. - Monitor dashboard for labs, drug interactions, and compliance. - Dashboard flags reviewed/cleared. - Lab monitoring frequency defined by dashboard or as clinically indicated. /igor/ IRENE MIKE PHARMD CLINICAL JEWELRY ESTIMATOR Signed: 11/22/2022 11:00 [facility]
--- OUTSIDE RECORDS SUMMARY | 2023-10-11 23:48 | XMS_ITS | Encounter Summary ---
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 Receipt Acknowledged By: 10/22/2022 07:46 /igor/ NEYMAR HONG MD Staff Physician 10/22/2022 ADDENDUM STATUS: COMPLETED BP has not tolerated MARCELLO-I. Creatinine up to 2.8 from 2.2 range- will reconsult renal to f/u. /igor/ NEYMAR HONG MD Staff Physician Signed: 10/22/2022 07:48 ANTHONY BLISS [facility] Oct 18, 2022 09:18 AM INTERNAL MEDICINE OUTPATIENT NOTE: LOCAL TITLE: MEDICINE CLINIC NURSING NOTE STANDARD TITLE: INTERNAL MEDICINE OUTPATIENT NOTE DATE OF NOTE: OCT 18, 2022@09:18 ENTRY DATE: OCT 18, 2022@09:18:42 AUTHOR: DARIAN GASPAR EXP COSIGNER: URGENCY: STATUS: [...] they take some outside medications and/or herbals. Diabetes/Metabolic Clinic Continuous Glucose Monitor scanned and reports printed for the provider /igor/ DARIAN GASPAR LPN, LPN Signed: 10/18/2022 09:20 DARIAN GASPAR [facility]
--- OUTSIDE RECORDS SUMMARY | 2023-10-11 23:49 | XMS_ITS | Encounter Summary ---
Author Name [facility] Organization [facility] Address [address] [place] [address] Support Name Relationship Address Phone JUDE STOCKTON Next of Kin [address] [facility] [place] [phone] JUDE STOCKTON Emergency Contact [id number] [place] [address] JUDE STOCKTON Next of Kin [address] [facility] [place] [phone] JUDE STOCKTON Emergency Contact [phone] [address] Insurance Providers: All historical and [...] Dinero's Name Patient's Relationship to Policy Dinero [facility] MEDICARE SUPPLEGANESH GERONIMO Jul 08, 2016 [id number] [phone] KRISTOFER STOCKTON PATIENT MEDICARE (WNR) MEDICARE (M) PART B Jun 07, 2007 PART B [id number] [phone] KRISTOFER STOCKTON PATIENT MEDICARE (WNR) MEDICARE (M) PART B Jun 07, 2007 PART B [id number] [phone] KRISTOFER STOCKTON PATIENT MEDICARE (WNR) MEDICARE (M) PART B Jun 07, 2007 PART B [id number] KRISTOFER STOCKTON PATIENT MEDICARE (WNR) MEDICARE (M) PART B Jun 07, 2007 PART B [id number] KRISTOFER STOCKTON PATIENT MEDICARE (WNR) MEDICARE (M) PART A Mar 08, 2007 PART A [id number] [phone] KRISTOFER STOCKTON PATIENT MEDICARE (WNR) MEDICARE (M) PART A Mar 08, 2007 PART A [id number] [phone] KRISTOFER STOCKTON PATIENT MEDICARE (WNR) MEDICARE (M) PART A Mar 08, 2007 PART A [id number] KRISTOFER STOCKTON PATIENT MEDICARE (WNR) MEDICARE (M) PART A Mar 08, 2007 PART A [id number] KRISTOFER STOCKTON PATIENT Selected Encounter This section includes the information on record at [place] for the Encounter. Date/Time Encounter Type Encounter Description Reason Provider Source November 16, 2022 12:12 PM Outpatient Encounter ADMIN PAT ACTIVTIES (MASNONCT) CHAGO BEAN Encounter Template Text not used by [place] Plan of Treatment: Future Appointments (+ 6 months) and Future Tests (+/- 45 days) The Plan of Treatment section includes [facility] care activities [facility] the [facility] [place] [facility] This section includes future appointments and future orders which are active, pending or scheduled. Future Appointments This section includes appointments that were scheduled to occur 6 months from the date of the Encounter, up to a maximum of 20 appointments. The data comes from all [place] treatment facilities. Appointment Date/Time Appointment Type Appointme nt Facility Name November 21, 2022 09:30 AM AMBULATORY - NONE [facility] November 21, 2022 10:30 AM AMBULATORY - MEDICINE [facility] Jan 02, 2023 01:15 PM AMBULATORY - MEDICINE [facility] Feb 11, 2023 09:30 AM AMBULATORY - REHAB MEDICIN [facility] Feb 27, 2023 09:00 AM [facility] Mar 18, 2023 01:30 PM AMBULATORY - MEDICINE [facility] Mar 18, 2023 02:00 PM AMBULATORY - MEDICINE [facility] Mar 18, 2023 02:30 PM AMBULATORY - MEDICINE [facility] Mar 18, 2023 03:00 PM AMBULATORY - MEDICINE [facility] Mar 28, 2023 09:30 AM AMBULATORY - MEDICINE [facility] Mar 28, 2023 10:00 AM [facility] Apr 03, 2023 08:00 AM AMBULATORY - SURGERY [facility] Apr 16, 2023 02:00 PM AMBULATORY - SURGERY [facility] Apr 17, 2023 09:30 AM AMBULATORY - MEDICINE [facility] Apr 17, 2023 10:30 AM AMBULATORY MEDICINE [facility] Active, Pending, and Scheduled Orders This section includes a listing of several types of active, pending, and scheduled orders, including clinic medications orders, diagnostic test orders, procedure orders and consult orders; where the start date of the order is 45 days before the date of the Encounter or 45 days after the date of theEncounter. The data comes from all [place] treatment facilities. Test Date/Time Test Type Test Details Facility Name Oct 18, 2022 10:27 AM Laboratory - Chemi stry Order MICROALBUMIN/CREATIN INE RATIO URINE URINE WC ONCE [facility] November 21, 2022 12:00 AM Laboratory - Chemi stry Order MICROALBUMIN/CREATIN INE RATIO URINE URINE [facility] Lab Results: +/- 30 days of the encounter This section includes the Chemistry and Hematology Lab Results on record with [place] for the patient. Radiology Reports and Pathology Reports are provided separately, in subsequent sections. Lab Results This section contains the Chemistry/Hematology Results that were resulted 30 days before or 30 daysafter the date of the Encounter. Date/Time Source Result Type Result - Unit Interpretation Reference Range Comment November 21, 2022 09:[address] [facility] HEMOGLOBIN [...] Dec 12, 2021 11:52 AM Reporting Lab: [facility] [id number] Performing Lab: [facility] [address] HEMOGLOBIN A1C 7.4 H 4.0-6.0 November 21, 2022 09:[address] [facility] TSH W/REFLEX TO FREE T4 Specimen Type: PLASMA No comment entered. Ordering Provider: LORETO HONG Report Released Date/Time: Dec 12, 2021 11:52 AM Reporting Lab: [facility] [address] Performing Lab: [facility] [address] TSH 1.69 0.35-4.94 November 21, 2022 09:[address] [facility] LIPID PANEL,NON-FASTING Specimen Type: PLASMA No comment entered. Ordering Provider: LORETO HONG Report Released Date/Time: Dec 12, 2021 11:52 AM Reporting Lab: [facility] [address] Performing Lab: [facility] [address] CHOLESTEROL 121 <199 .HDL 48 >40 LDL CALCULATION 48 <99 VLDL CALCULATION 25 <29 NON HDL CHOLESTEROL 73 <129 TRIG(NON FASTING) 124 <149 November 21, 2022 09:[address] [facility] COMPREHENSIVE METABOLIC PANEL+MG Specimen Type: PLASMA No comment entered. Ordering Provider: LORETO HONG Report Released Date/Time: Dec 12, 2021 11:52 AM Reporting Lab: [facility] [address] Performing Lab: [facility] [address] CREATININE 3.1 H 0.7-1.2 UREA NITROGEN 38 [...] L >60 November 21, 2022 09:[address] [facility] CBC Specimen Type: BLOOD No comment entered. Ordering Provider: LORETO HONG Report Released Date/Time: Dec 12, 2021 11:52 AM Reporting Lab: [facility] [address] Performing Lab: [facility] [address] WBC 6.92 4.0-11.0 RBC 4.02 L 4.6-6.2 HGB 12.7 L 13.5-17.9 HCT 39.8 L 41-54 MCV 99.0 80-100 MCH 31.6 27-33 MCHC 31.9 L 32.0-37.5 PLT 146 L 150-400 MPV 11.0 H 7.4-10.4 RDW 13.4 11.5-14.5 IPF 3.3 0-10 November 21, 2022 09:[address] [facility] RHEUMATOLOGY CHEM PANEL Specimen Type: PLASMA No comment entered. Ordering Provider: Makayla STAPLETON Report Released Date/Time: May 09, 2022 09:10 AM Reporting Lab: [facility] [address] Performing Lab: [facility] [address] CREATININE 3.2 H 0.7-1.2 ALKALINE PHOSPHATASE 95 40-150 ALT/SGPT 20 <55 AST/SGOT 24 <34 C-REACTIVE PROTEIN 3.06 <5.00 .CREAT EGFR(CKD-EPI) 19 L >60 November 21, 2022 09:[address] [facility] RHEUMATOLOGY HEME PANEL Specimen Type: BLOOD No comment entered. Ordering Provider: Makayla STAPLETON Report Released Date/Time: May 09, 2022 09:10 AM Reporting Lab: [facility] [address] Performing Lab: [facility] [address] SED RATE 2 L 5-15 Oct 29, 2022 12:[address] [facility] MICROALBUMIN/CREATININE RATIO URINE Specimen Type: URINE No comment entered. Ordering Provider: CARROLL HERNANDEZ Report Released Date/Time: Mar 21, 2022 11:30 AM Reporting Lab: [facility] [address] Performing Lab: [facility] [address] CREATININE,UR RANDOM 104.1 58.0-161.0 ALB/CREAT RATIO,UR 263.0 H <29.9 MICROALBUMIN,UR 273.8 H <29.9 Oct 29, 2022 10:[address] [facility] RHEUMATOLOGY CHEM PANEL Specimen Type: PLASMA No comment entered. Ordering Provider: Makayla STAPLETON Report Released Date/Time: May 09, 2022 09:10 AM Reporting Lab: [facility] [address] Performing Lab: [facility] [address] CREATININE 2.3 H 0.7-1.2 ALKALINE PHOSPHATASE 86 40-150 ALT/SGPT 20 <55 AST/SGOT 20 <34 C-REACTIVE PROTEIN 2.59 <5.00 .CREAT EGFR(CKD-EPI) 28 L >60 Oct 29, 2022 10:[address] [facility] RHEUMATOLOGY HEME PANEL Specimen Type: BLOOD Comment: Automated Differential Performed Ordering Provider: Makayla STAPLETON Report Released Date/Time: May 09, 2022 09:10 AM Reporting Lab: [facility] [address] Performing Lab: [facility] [address] WBC 6.40 4.0-11.0 RBC 4.01 L 4.6-6.2 [...] Apr 11, 2022 02:47 PM Reporting Lab: [facility] [address] Performing Lab: [facility] [address] TSH 1.56 0.35-4.94 Oct 29, 2022 10:[address] [facility] COMPREHENSIVE METABOLIC PANEL+MG Specimen Type: PLASMA No comment entered. Ordering Provider: DESIRAE MCCARTY Report Released Date/Time: Apr 11, 2022 02:47 PM Reporting Lab: [facility] [address] Performing Lab: [facility] [address] CREATININE 2.3 H 0.7-1.2 UREA NITROGEN 29 [...] Oct 22, 2022 08:22 AM Reporting Lab: [facility] [address] Performing Lab: [facility] [address] UREA NITROGEN 30 H 8-26 Oct 29, 2022 10:[address] [facility] CREATININE(INCLUDES EGFR) Specimen Type: PLASMA No comment entered. Ordering Provider: JOURDAN VILLALOBOS Report Released Date/Time: Oct 22, 2022 08:22 AM Reporting Lab: [facility] [address] Performing Lab: [facility] [address] CREATININE 2.3 H 0.7-1.2 .CREAT EGFR(CKD-EPI) 28 L >60 Oct 29, 2022 10:[address] [facility] ELECTROLYTES/ANION GAP Specimen Type: PLASMA No comment entered. Ordering Provider: JOURDAN VILLALOBOS Report Released Date/Time: Oct 22, 2022 08:22 AM Reporting Lab: [facility] [address] Performing Lab: [facility] [address] SODIUM 140 136-145 POTASSIUM 5.3 H 3.5-5.1 CHLORIDE 109 H 98-107 CO2 27 22-29 ANION GAP 4 L 5-15 Oct 29, 2022 10:[address] [facility] CALCIUM Specimen Type: PLASMA No comment entered. Ordering Provider: JOURDAN VILLALOBOS Report Released Date/Time: Oct 22, 2022 08:22 AM Reporting Lab: [facility] [address] Performing Lab: [facility] [address] CALCIUM 8.8 8.4-10.2 Oct 29, 2022 10:[address] [facility] PHOSPHORUS Specimen Type: PLASMA No comment entered. Ordering Provider: JOURDAN VILLALOBOS Report Released Date/Time: Oct 22, 2022 08:22 AM Reporting Lab: [facility] [address] Performing Lab: [facility] [address] PHOSPHORUS 2.6 2.3-4.7 Oct 29, 2022 10:[address] [facility] ALBUMIN Specimen Type: PLASMA No comment entered. Ordering Provider: JOURDAN VILLALOBOS Report Released Date/Time: Oct 22, 2022 08:22 AM Reporting Lab: [facility] [address] Performing Lab: [facility] [address] ALBUMIN 3.6 3.5-5.2 Oct 29, 2022 10:[address] [facility] GLUCOSE Specimen Type: PLASMA No comment entered. Ordering Provider: JOURDAN VILLALOBOS Report Released Date/Time: Oct 22, 2022 08:22 AM Reporting Lab: [facility] [address] Performing Lab: [facility] [address] GLUCOSE 189 H 70-100 Oct 29, 2022 10:[address] [facility] PTH-N-TACT Specimen Type: PLASMA No comment entered. Ordering Provider: JOURDAN VILLALOBOS Report Released Date/Time: Oct 22, 2022 08:22 AM Reporting Lab: [facility] [address] Performing Lab: [facility] [address] PTH-N-TACT 187.8 H 8.7-77.1 Oct 18, 2022 08:[address] [facility] LIPID PANEL,NON-FASTING Specimen Type: PLASMA No comment entered. Ordering Provider: CARROLL HERNANDEZ Report Released Date/Time: Mar 21, 2022 11:30 AM Reporting Lab: [facility] [address] Performing Lab: [facility] [address] CHOLESTEROL 109 <199 .HDL 45 >40 LDL [...] Mar 21, 2022 11:30 AM Reporting Lab: [facility] [address] Performing Lab: [facility] [address] HEMOGLOBIN A1C 7.5 H 4.0-6.0 Oct 18, 2022 08:[address] [facility] BASIC METABOLIC PANEL+MG Specimen Type: PLASMA No comment entered. Ordering Provider: CARROLL HERNANDEZ Report Released Date/Time: Mar 21, 2022 11:30 AM Reporting Lab: [facility] [address] Performing Lab: [facility] [address] CREATININE 2.8 H 0.7-1.2 UREA NITROGEN 37 [...] Mar 21, 2022 11:30 AM Reporting Lab: [facility] [address] Performing Lab: [facility] [address] WBC 6.21 4.0-11.0 RBC 3.72 L 4.6-6.2 [...] Oct 18, 2022 02:09 PM Reporting Lab: [facility] [address] Performing Lab: [facility] [address] ALT/SGPT 18 <55 Oct 18, 2022 08:[address] [facility] TSH W/REFLEX TO FREE T4 Specimen Type: PLASMA No comment entered. Ordering Provider: DESIRAE MCCARTY Report Released Date/Time: Oct 18, 2022 02:09 PM Reporting Lab: [facility] [address] Performing Lab: [facility] [address] TSH 1.42 0.35-4.94 Oct 18, 2022 08:[address] [facility] AST/SGOT Specimen Type: PLASMA No comment entered. Ordering Provider: DESIRAE MCCARTY Report Released Date/Time: Oct 18, 2022 02:09 PM Reporting Lab: [facility] [address] Performing Lab: [facility] [address] AST/SGOT 21 <34 Social History: Smoking Status (Most current) and Tobacco Use (All prior to encounter date) This section includes the most current, and the historical, smoking and tobacco- related health factors from the [facility] where the Encounter took place. Current Smoking Status This section includes the most current smoking, or tobacco-related health factor, from the [place] facility where the Encounter took place. Date/Time Current Smoking Status Comment Facil ity Oct 24, 2021 08:45 AM VA-TOBACCO FORMER USER [facility] Tobacco Use History This section includes a history of the smoking, or tobacco-related health factors, that were collected on or before the date of the Encounter. The data comes from the [facility] where the Encounter took place. Date/Time Smoking [...] [facility] R [facility] Mar 11, 2007 08:07 AM FORMER TOBACCO USER 7Y OR [facility] Radiology Reports: [...] the Encounter. The data comes from all [place] treatment facilities. Date/Time Radiology Report Provider Source November 15, 2022 09:10 AM LNR INCIDENTAL NOD DARRELL LD FOLLOW UP: KRISTOFER STOCKTON [id number] M Exm Date: NOVEMBER 15, 2022@09:10 Req Phys: SUKI CHILDS Loc: [facility] PULM CHART CHECK LNT (Req' Img Loc: CT IMAGING Service: Unknown (Case [id number] COMPLETE) LNR INCIDENTAL NODULE LD FOLLOW U(CT Detailed) CPT:29118 Reason for Study: f/u lung nodules Clinical History: [place] IS NOT under investigation for COVID-19 or is COVID-19 negative f/u small lung nodules Responsible provider name and phone number to notify for critical findings if other than user placing the order and pager listed below: User placing orders pager: [phone] Brad Childs MD LAST CREATININE 2.4 H (03/21/22) Report Status: Verified Date Reported: NOVEMBER 15, 2022 Date Verified: NOVEMBER 15, 2022 Load Builder E-Sig: Report: LNR INCIDENTAL NODULE LD FOLLOW UP HISTORY: f/u lung nodules COMPARISON: Chest CT October 12, 2021 TECHNIQUE: Volumetric CT acquisition through the chest, with axial, coronal and sagittal reformats, [facility]. 1756 images were received by the [place] [facility] ([facility]) for interpretation. RADIATION [...] one year READING PHYSICIAN: Sukhdev Breen M.D. -[phone] 11/15/2022 11:47 EDT [facility] [phone] (For Medical Practitioner Use Only) Attention Patients [...] the Encounter. Date/Time Encounter Note(s) Provider Source November 16, 2022 12:13 PM LETTERS: LOCAL TITLE: FOLLOW UP RESULTS LETTER STANDARD TITLE: LETTERS DATE OF NOTE: NOVEMBER 16, 2022@12:13 ENTRY DATE: NOVEMBER 16, 2022@12:13:48 AUTHOR: CHAGO BEAN EXP COSIGNER: URGENCY: STATUS: COMPLETED [employer] [address] [place] [address] November KRISTOFER STOCKTON [address] [place] [address] [facility] [id number] Dear [place]: Your recent chest imaging on November showed: no lung nodules that require further follow up at this time. no change in the nodule(s) on your chest CT scans over a long enough period of time that we can now consider them to be benign (or cancer free). No further follow-up of the nodule(s) is necessary. CHAGO BEAN, RN REGISTERED NURSE CHAGO BEAN [facility] November 16, 2022 12:12 PM PULMONARY NOTE: LOCAL TITLE: PULMONARY LUNG NODULE NOTE STANDARD TITLE: PULMONARY NOTE DATE OF NOTE: NOVEMBER 16, 2022@12:12 ENTRY DATE: NOVEMBER 16, 2022@12:12:10 AUTHOR: CHAGO BEAN EXP COSIGNER: URGENCY: STATUS: COMPLETED Tracking ended. Date of initial imaging exam: 10/12/2021 Lnr Initial Image Date Date of current follow up image: November 15, 2022 Site: [facility] Reason nodule will no longer be tracked: Tracking completed per guidelines nodules stable for 1 year Plan: Patient will be discharged from lung nodule tracking. No further follow up is needed at this time. Results letter sent to patient. --->PCP FYI Lung Nodule Tracking has been completed. No further surveillance of these nodules is indicated per Fleischner Society Guidelines. 11/15/22 FINDINGS: The previous study of October 11, [...] Recommend follow-up chest CT examination one year /igor/ CHAGO M BEAN, RN REGISTERED NURSE Signed: 11/16/2022 12:13 Receipt Acknowledged By: 11/16/2022 12:15 /es/ NEYMAR HONG MD Staff Physician CHAGO BEAN [facility]
--- OUTSIDE RECORDS SUMMARY | 2023-10-11 23:49 | XMS_ITS | Encounter Summary ---
Author Name Department of Vetera ns Affairs Organization [facility] of [facility] Address [address] [place] [address] Support Name Relationship Address Phone JUDE STOCKTON Next of Kin [address] [facility] [place] [phone] JUDE STOCKTON Emergency Contact [id number] [place] [address] JUDE STOCKTON Next of Kin [address] [facility] [place] [phone] JUDE STOCKTON Emergency Contact [phone] [address] Insurance Providers: All historical and [...] Dinero's Name Patient's Relationship to Policy Dinero [facility] MEDICARE SUPPLEGANESH GERONIMO Jul 08, 2016 [id number] [phone] KRISTOFER STOCKTON PATIENT MEDICARE (WNR) MEDICARE (M) PART B Jun 07, 2007 PART B [id number] [phone] KRISTOFER STOCKTON PATIENT MEDICARE (WNR) MEDICARE (M) PART B Jun 07, 2007 PART B [id number] [phone] KRISTOFER STOCKTON PATIENT MEDICARE (WNR) MEDICARE (M) PART B Jun 07, 2007 PART B [id number] KRISTOFER STOCKTON PATIENT MEDICARE (WNR) MEDICARE (M) PART B Jun 07, 2007 PART B [id number] KRISTOFER STOCKTON PATIENT MEDICARE (WNR) MEDICARE (M) PART A Mar 08, 2007 PART A [id number] KRISTOFER STOCKTON PATIENT MEDICARE (WNR) MEDICARE (M) PART A Mar 08, 2007 PART A [id number] KRISTOFER STOCKTON PATIENT MEDICARE (WNR) MEDICARE (M) PART A Mar 08, 2007 PART A [id number] KRISTOFER STOCKTON PATIENT MEDICARE (WNR) MEDICARE (M) PART A Mar 08, 2007 PART A [id number] KRISTOFER STOCKTON PATIENT Selected Encounter This section includes the information on record at [place] for the Encounter. Date/Time Encounter Type Encounter Description Reason Provider Source November 15, 2022 10:20 AM OFFICE O/P EST HI 40-54 MIN OPHTHALMOLOGY ICD-10-CM Z79.899 Other alf (current) drug therapy [employer] Judah Encounter Template Text not used by [place] Assessments - Encounter Diagnoses This section includes the primary and secondary diagnoses documented for the Encounter. Date/Time Primary/Secondary Diagnosis Diagnosis Name Provider Source November 15, 2022 05:14 PM PRIMARY Other alf (current) drug therapy [employer] [facility] November 15, 2022 05:14 PM SECONDARY Age-related nuclear cataract, bilateral [employer] [facility] November 15, 2022 05:14 PM SECONDARY Presbyopia [employer] [facility] November 15, 2022 05:14 PM SECONDARY Type 2 diabetes mellitus without complications [employer]E [employer]AN[employer] [facility] Plan of Treatment: Future Appointments (+ 6 months) and Future Tests (+/- 45 days) The Plan of Treatment section includes [facility] care activities [facility] the [facility] [place] [facility] This section includes future appointments and future orders which are active, pending or scheduled. Future Appointments This section includes appointments that were scheduled to occur 6 months from the date of the Encounter, up to a maximum of 20 appointments. The data comes from all [place] treatment facilities. Appointment Date/Time Appointment Type Appointme nt Facility Name November 21, 2022 09:30 AM AMBULATORY - NONE IJEOMA AGRAWAL [facility] November 21, 2022 10:30 AM AMBULATORY - MEDICINE FRANCES CHOI [facility] Jan 02, 2023 01:15 PM AMBULATORY [place]IC[place] [facility] Feb 11, 2023 09:30 AM AMBULATORY - REHAB MEDICIN E [facility] Feb 27, 2023 09:00 AM AMBULATORY - NONE [place] [facility] Mar 18, 2023 01:30 PM AMBULATORY - [place]ICINE [place] [facility] Mar 18, 2023 02:00 PM AMBULATORY - [place]ICINE [place] [facility] Mar 18, 2023 02:30 PM AMBULATORY - MEDICINE [place] [facility] Mar 18, 2023 03:00 PM AMBULATORY - [place]ICINE [place] [facility] Mar 28, 2023 09:30 AM AMBULATORY - MEDICINE [place] [facility] Mar 28, 2023 10:00 AM AMBULATORY - MEDICINE [place] [facility] Apr 03, 2023 08:00 AM AMBULATORY - SURGERY [place] [facility] Apr 16, 2023 02:00 PM AMBULATORY - SURGERY [place] [facility] Apr 17, 2023 09:30 AM AMBULATORY - MEDICINE [place] [facility] Apr 17, 2023 10:30 AM [facility] Active, Pending, and Scheduled Orders This section includes a listing of several types of active, pending, and scheduled orders, including clinic medications orders, diagnostic test orders, procedure orders and consult orders; where the start date of the order is 45 days before the date of the Encounter or 45 days after the date of theEncounter. The data comes from all [place] treatment facilities. Test Date/Time Test Type Test Details Facility Name Oct 18, 2022 10:27 AM Laboratory - Chemi stry Order MICROALBUMIN/CREATIN INE RATIO URINE URINE WC ONCE [facility] November 21, 2022 12:00 AM Laboratory - Chemi stry Order MICROALBUMIN/CREATIN INE RATIO URINE URINE [facility] Lab Results: +/- 30 days of the encounter This section includes the Chemistry and Hematology Lab Results on record with [place] for the patient. Radiology Reports and Pathology Reports are provided separately, in subsequent sections. Lab Results This section contains the Chemistry/Hematology Results that were resulted 30 days before or 30 daysafter the date of the Encounter. Date/Time Source Result Type Result - Unit Interpretation Reference Range Comment November 21, 2022 09:07 AM [facility] TSH W/REFLEX TO FREE T4 Specimen Type: PLASMA No comment entered. Ordering Provider: LORETO HONG Report Released Date/Time: Dec 12, 2021 11:52 AM Reporting Lab: [facility] [address] Performing Lab: [facility] [address] TSH 1.69 0.35-4.94 November 21, 2022 09:07 AM [facility] HEMOGLOBIN A1C Specimen Type: BLOOD Comment: Values [...] Dec 12, 2021 11:52 AM Reporting Lab: [facility] [address] Performing Lab: [facility] [address] HEMOGLOBIN A1C 7.4 H 4.0-6.0 November 21, 2022 09:07 AM [facility] LIPID PANEL,NON-FASTING Specimen Type: PLASMA No comment entered. Ordering Provider: LORETO HONG Report Released Date/Time: Dec 12, 2021 11:52 AM Reporting Lab: [facility] [address] Performing Lab: [facility] [address] CHOLESTEROL 121 <199 .HDL 48 >40 LDL CALCULATION 48 <99 VLDL CALCULATION 25 <29 NON HDL CHOLESTEROL 73 <129 TRIG(NON FASTING) 124 <149 November 21, 2022 09:07 AM [facility] CBC Specimen Type: BLOOD No comment entered. Ordering Provider: LORETO HONG Report Released Date/Time: Dec 12, 2021 11:52 AM Reporting Lab: [facility] [address] Performing Lab: [facility] [address] WBC 6.92 4.0-11.0 RBC 4.02 L 4.6-6.2 HGB 12.7 L 13.5-17.9 HCT 39.8 L 41-54 MCV 99.0 80-100 MCH 31.6 27-33 MCHC 31.9 L 32.0-37.5 PLT 146 L 150-400 MPV 11.0 H 7.4-10.4 RDW 13.4 11.5-14.5 IPF 3.3 0-10 November 21, 2022 09:07 AM [facility] COMPREHENSIVE METABOLIC PANEL+MG Specimen Type: PLASMA No comment entered. Ordering Provider: LORETO HONG Report Released Date/Time: Dec 12, 2021 11:52 AM Reporting Lab: [facility] [address] Performing Lab: [facility] [address] CREATININE 3.1 H 0.7-1.2 UREA NITROGEN 38 [...] L >60 November 21, 2022 09:06 AM [facility] RHEUMATOLOGY HEME PANEL Specimen Type: BLOOD No comment entered. Ordering Provider: Makayla STAPLETON Report Released Date/Time: May 09, 2022 09:10 AM Reporting Lab: [facility] [address] Performing Lab: [facility] [address] SED RATE 2 L 5-15 November 21, 2022 09:06 AM [facility] RHEUMATOLOGY CHEM PANEL Specimen Type: PLASMA No comment entered. Ordering Provider: Makayla STAPLETON Report Released Date/Time: May 09, 2022 09:10 AM Reporting Lab: [facility] [address] Performing Lab: [facility] [address] CREATININE 3.2 H 0.7-1.2 ALKALINE PHOSPHATASE 95 40-150 ALT/SGPT 20 <55 AST/SGOT 24 <34 C-REACTIVE PROTEIN 3.06 <5.00 .CREAT EGFR(CKD-EPI) 19 L >60 Oct 29, 2022 12:00 PM [facility] MICROALBUMIN/CREATININE RATIO URINE Specimen Type: URINE No comment entered. Ordering Provider: CARROLL HERNANDEZ Report Released Date/Time: Mar 21, 2022 11:30 AM Reporting Lab: [facility] [address] Performing Lab: [facility] [address] CREATININE,UR RANDOM 104.1 58.0-161.0 ALB/CREAT RATIO,UR 263.0 H <29.9 MICROALBUMIN,UR 273.8 H <29.9 Oct 29, 2022 10:34 AM [facility] RHEUMATOLOGY CHEM PANEL Specimen Type: PLASMA No comment entered. Ordering Provider: Makayla STAPLETON Report Released Date/Time: May 09, 2022 09:10 AM Reporting Lab: [facility] [address] Performing Lab: [facility] [address] CREATININE 2.3 H 0.7-1.2 ALKALINE PHOSPHATASE 86 40-150 ALT/SGPT 20 <55 AST/SGOT 20 <34 C-REACTIVE PROTEIN 2.59 <5.00 .CREAT EGFR(CKD-EPI) 28 L >60 Oct 29, 2022 10:34 AM [facility] RHEUMATOLOGY HEME PANEL Specimen Type: BLOOD Comment: Automated Differential Performed Ordering Provider: Makayla STAPLETON Report Released Date/Time: May 09, 2022 09:10 AM Reporting Lab: [facility] [address] Performing Lab: [facility] [address] WBC 6.40 4.0-11.0 RBC 4.01 L 4.6-6.2 [...] L 5-15 Oct 29, 2022 10:33 AM [facility] TSH W/REFLEX TO FREE T4 Specimen Type: PLASMA No comment entered. Ordering Provider: DESIRAE MCCARTY Report Released Date/Time: Apr 11, 2022 02:47 PM Reporting Lab: [facility] [address] Performing Lab: [facility] [address] TSH 1.56 0.35-4.94 Oct 29, 2022 10:33 AM [facility] COMPREHENSIVE METABOLIC PANEL+MG Specimen Type: PLASMA No comment entered. Ordering Provider: DESIRAE MCCARTY Report Released Date/Time: Apr 11, 2022 02:47 PM Reporting Lab: [facility] [address] Performing Lab: [facility] [address] CREATININE 2.3 H 0.7-1.2 UREA NITROGEN 29 [...] L >60 Oct 29, 2022 10:30 AM [facility] ELECTROLYTES/ANION GAP Specimen Type: PLASMA No comment entered. Ordering Provider: JOUDRAN VILLALOBOS Report Released Date/Time: Oct 22, 2022 08:22 AM Reporting Lab: [facility] [address] Performing Lab: [facility] [address] SODIUM 140 136-145 POTASSIUM 5.3 H 3.5-5.1 CHLORIDE 109 H 98-107 CO2 27 22-29 ANION GAP 4 L 5-15 Oct 29, 2022 10:30 AM [facility] UREA NITROGEN Specimen Type: PLASMA No comment entered. Ordering Provider: JOURDAN VILLALOBOS Report Released Date/Time: Oct 22, 2022 08:22 AM Reporting Lab: [facility] [address] Performing Lab: [facility] [address] UREA NITROGEN 30 H 8-26 Oct 29, 2022 10:30 AM [facility] CREATININE(INCLUDES EGFR) Specimen Type: PLASMA No comment entered. Ordering Provider: JOURDAN VILLALOBOS Report Released Date/Time: Oct 22, 2022 08:22 AM Reporting Lab: [facility] [address] Performing Lab: [place] [phone] CREATININE 2.3 H 0.7-1.2 .CREAT EGFR(CKD-EPI) 28 L >60 Oct 29, 2022 10:30 AM [facility] CALCIUM Specimen Type: PLASMA No comment entered. Ordering Provider: JOURDAN VILLALOBOS Report Released Date/Time: Oct 22, 2022 08:22 AM Reporting Lab: [facility] [address] Performing Lab: [facility] [address] CALCIUM 8.8 8.4-10.2 Oct 29, 2022 10:30 AM [facility] PHOSPHORUS Specimen Type: PLASMA No comment entered. Ordering Provider: JOURDAN VILLALOBOS Report Released Date/Time: Oct 22, 2022 08:22 AM Reporting Lab: [facility] [address] Performing Lab: [facility] [address] PHOSPHORUS 2.6 2.3-4.7 Oct 29, 2022 10:30 AM [facility] PTH-N-TACT Specimen Type: PLASMA No comment entered. Ordering Provider: JOURDAN VILLALOBOS Report Released Date/Time: Oct 22, 2022 08:22 AM Reporting Lab: [facility] [address] Performing Lab: [facility] [address] PTH-N-TACT 187.8 H 8.7-77.1 Oct 29, 2022 10:30 AM [facility] ALBUMIN Specimen Type: PLASMA No comment entered. Ordering Provider: JOURDAN VILLALOBOS Report Released Date/Time: Oct 22, 2022 08:22 AM Reporting Lab: [facility] [address] Performing Lab: [facility] [address] ALBUMIN 3.6 3.5-5.2 Oct 29, 2022 10:30 AM [facility] GLUCOSE Specimen Type: PLASMA No comment entered. Ordering Provider: JOURDAN VILLALOBOS Report Released Date/Time: Oct 22, 2022 08:22 AM Reporting Lab: [facility] [address] Performing Lab: [facility] [address] GLUCOSE 189 H 70-100 Oct 18, 2022 08:49 AM [facility] HEMOGLOBIN A1C Specimen Type: BLOOD Comment: Values [...] Mar 21, 2022 11:30 AM Reporting Lab: [facility] [address] Performing Lab: [facility] [address] HEMOGLOBIN A1C 7.5 H 4.0-6.0 Oct 18, 2022 08:49 AM [facility] LIPID PANEL,NON-FASTING Specimen Type: PLASMA No comment entered. Ordering Provider: CARROLL HERNANDEZ Report Released Date/Time: Mar 21, 2022 11:30 AM Reporting Lab: [facility] [address] Performing Lab: [facility] [address] CHOLESTEROL 109 <199 .HDL 45 >40 LDL CALCULATION 50 <99 VLDL CALCULATION 14 <29 NON HDL CHOLESTEROL 64 <129 TRIG(NON FASTING) 69 <149 Oct 18, 2022 08:49 AM [facility] CBC Specimen Type: BLOOD No comment entered. Ordering Provider: CARROLL HERNANDEZ Report Released Date/Time: Mar 21, 2022 11:30 AM Reporting Lab: [facility] [address] Performing Lab: [facility] [address] WBC 6.21 4.0-11.0 RBC 3.72 L 4.6-6.2 HGB 11.9 L 13.5-17.9 HCT 36.6 L 41-54 MCV 98.4 80-100 MCH 32.0 27-33 MCHC 32.5 32.0-37.5 PLT 155 150-400 MPV 11.0 H 7.4-10.4 RDW 13.6 11.5-14.5 Oct 18, 2022 08:49 AM [facility] BASIC METABOLIC PANEL+MG Specimen Type: PLASMA No comment entered. Ordering Provider: CARROLL HERNANDEZ Report Released Date/Time: Mar 21, 2022 11:30 AM Reporting Lab: [facility] [address] Performing Lab: [facility] [address] CREATININE 2.8 H 0.7-1.2 UREA NITROGEN 37 H 8-26 GLUCOSE 185 H 70-100 SODIUM 141 136-145 POTASSIUM 5.1 3.5-5.1 CHLORIDE 111 H 98-107 CO2 25 22-29 CALCIUM 8.3 L 8.4-10.2 MAGNESIUM 1.8 1.6-2.6 ANION GAP 5 5-15 .CREAT EGFR(CKD-EPI) 22 L >60 Oct 18, 2022 08:49 AM [facility] ALT/SGPT Specimen Type: PLASMA No comment entered. Ordering Provider: DESIRAE MCCARTY Report Released Date/Time: Oct 18, 2022 02:09 PM Reporting Lab: [facility] [address] Performing Lab: [facility] [address] ALT/SGPT 18 <55 Oct 18, 2022 08:49 AM [facility] AST/SGOT Specimen Type: PLASMA No comment entered. Ordering Provider: DESIRAE MCCARTY Report Released Date/Time: Oct 18, 2022 02:09 PM Reporting Lab: [facility] [address] Performing Lab: [facility] [address] AST/SGOT 21 <34 Oct 18, 2022 08:49 AM [facility] TSH W/REFLEX TO FREE T4 Specimen Type: PLASMA No comment entered. Ordering Provider: DESIRAE MCCARTY Report Released Date/Time: Oct 18, 2022 02:09 PM Reporting Lab: [facility] [address] Performing Lab: [facility] [address] TSH 1.42 0.35-4.94 Social History: Smoking Status (Most current) and Tobacco Use (All prior to encounter date) This section includes the most current, and the historical, smoking and tobacco- related health factors from the [facility] where the Encounter took place. Current Smoking Status This section includes the most current smoking, or tobacco-related health factor, from the [place] facility where the Encounter took place. Date/Time Current Smoking Status Comment Facil ity Oct 24, 2021 08:45 AM VA-TOBACCO FORMER USER [facility] Tobacco Use History This section includes a history of the smoking, or tobacco-related health factors, that were collected on or before the date of the Encounter. The data comes from the [place] facility where the Encounter took place. Date/Time Smoking Status/Tobacco Use Comment F acility Oct 24, 2021 08:45 AM VA-TOBACCO QUIT 15 YRS OR MORE [facility] Apr 27, 2020 03:00 PM VA-TOBACCO FORMER USER [facility] Apr 27, 2020 03:00 PM VA-TOBACCO QUIT 15 YRS OR MORE [facility] Apr 23, 2019 05:29 PM INPT NO TOBACCO USE IN LAST 30 D AYS [facility] Oct 15, 2018 09:08 AM VA-TOBACCO FORMER USER [facility] Oct 15, 2018 09:08 AM VA-TOBACCO QUIT 15 YRS OR MORE [facility] November 13, 2017 09:05 AM FORMER TOBACCO USER 7Y OR GREATE R [facility] November 22, 2016 03:15 PM FORMER TOBACCO USER 7Y OR GREATE R [facility] Oct 21, 2015 08:37 AM FORMER TOBACCO USER 7Y OR GREATE R [facility] Oct 21, 2014 01:32 PM FORMER TOBACCO USER 7Y OR GREATE R [facility] Oct 29, 2013 08:29 AM FORMER TOBACCO USER 7Y OR GREATE R [facility] Mar 11, 2007 08:07 AM FORMER TOBACCO USER 7Y OR GREATE R [facility] Radiology Reports: +/- 30 days of the [...] the Encounter. The data comes from all [place] treatment facilities. Date/Time Radiology Report Provider Source November 15, 2022 09:10 AM LNR INCIDENTAL NOD ULE LD FOLLOW UP: KRISTOFER STOCKTON [id number] -[id number] M Exm Date: NOVEMBER 15, 2022@09:10 Req Phys: SUKI CHILDS Loc: [facility] PULM CHART CHECK LNT (Req' Img Loc: CT IMAGING Service: Unknown (Case [id number] COMPLETE) LNR INCIDENTAL NODULE LD FOLLOW U(CT Detailed) CPT:77062 Reason for Study: f/u lung nodules Clinical History: [place] IS NOT under investigation for COVID-19 or is COVID-19 negative f/u small lung nodules Responsible provider name and phone number to notify for critical findings if other than user placing the order and pager listed below: User placing orders pager: [phone] Brad Childs MD LAST CREATININE 2.4 H (03/21/22) Report Status: Verified Date Reported: NOVEMBER 15, 2022 Date Verified: NOVEMBER 15, 2022 Calciner Operator Helper E-Sig: Report: LNR INCIDENTAL NODULE LD FOLLOW UP HISTORY: f/u lung nodules COMPARISON: Chest CT October 12, 2021 TECHNIQUE: Volumetric CT acquisition through the chest, with axial, coronal and sagittal reformats, was performed at the local [place] facility. 1756 images were received by the [facility] (NTP) for interpretation. RADIATION [...] one year READING PHYSICIAN: Sukhdev Breen M.D. -[phone] 11/15/2022 11:47 EDT [facility] National Teleradiology Program [phone] (For Medical Practitioner Use Only) Attention Patients / Veterans: If you have questions or concerns about these test results, please contact your ordering provider or primary care team. Primary Interpreting Staff: RADIOLOGY,OUTSIDE SERVICE, Staff Physician / RADIOLOGY,OUTSIDE SERVICE [facility] Encounter Notes: All associated encounter notes This section contains the clinical notes associated to the Encounter. 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 Patient reports that his vision seems to be doing well. No eye concerns today. POH: See Impression Tech exam today: Vision: OD:CC(with glasses) 20/100 Pinhole: 20/40-2 Vision: OS:CC(with glasses) 20/60-2 Pinhole: 20/50+1 Refraction: Manifest: YES OD:plano +1.75X20 20/40 slowly OS:-0.75 +2.59Z920 20/40 slowly Add: +2.75 Near vision: OU 20/20 BAT OD: 200 OS: 100 Intra-ocular pressure (IOP): OD: 18 OS: 20 iCare Pupils: see tech exam. I have reviewed the mortuary technician's note and agree with their findings. Patient is alert and oriented x 3. SLE, both eyes: lids/lashes: no abnormality conjunctiva/sclera: white and quiet cornea: clear anterior chamber: deep and quiet iris: round and flat lens: 3+ brunescent NSC anterior vitreous: clear DFE, both eyes: vitreous: clear optic nerve: 0.2 cup/disc, pink and healthy macula: diffuse pigmentary changes vessels: normal caliber and distribution periphery: normal without holes or tears Impression/Plan: 1.Hydroxychloroquine use with retinopathy OU. Evidence of progressive retinopathy OU today on both visual field and structural (OCT) testing. - Current dose: 400 mg daily - Start date: January 2013 - Dose by weight: 4.2 mg/kg/day - Macular Optical Coherence Tomography 11.15.22: OD: drusen, reticular pseudodrusen, noncentral GA, thinning of outer nuclear layer, progressive retinal thinning vs 11/2021 OS: drusen, reticular pseudodrusen, noncentral GA, pronounced thinning of ONL, progressive retinal thinning vs 11/2021 - 10-2 Mejia Visual Field 11.15.22: OD: parafoveal scotoma OS: parafoveal scotoma - Adding rheumatology team as cosigners on this note; patient has clear evidence of HCQ retinopathy, so I recommend stopping HCQ 2. Age-related nuclear sclerotic cataract OU, visually significant but pt happy with his vision. - Monitor 3. Non-exudative AMD OU. - Discuss AREDS2 and Amsler monitoring next visit 4. Diabetes mellitus, most recent HbA1c 7.5 (10/2022). - No diabetic retinopathy - BP/BG/lipids control - Yearly dilated eye exams 5. Refractive error / presbyopia OU. - Manifest refraction today RTC medical retina in 5 months, V/T/D/mac OCT/Optos photos and FAF, sooner with changes I spent a total of 45 minutes today reviewing the medical record, personally obtaining the history, examining the patient, reviewing test results, counseling the patient, and documenting the visit. The patient needs glasses to read medicine bottles. The patient is photophobic and may require tinted glasses. /igor/ P[employer]TER CLEAN[employer] MD STAFF SURGEON, OPHTHALMOLOGY Signed: 11/15/2022 17:14 Receipt Acknowledged By: * AWAITING SIGNATURE * EMA LONG * AWAITING SIGNATURE * SUMA STAPLETON KAREN R [facility] November 15, 2022 11:36 AM OPHTHALMOLOGY TECH ELEIAN NOTE: LOCAL TITLE: SHIFT MGR NOTE STANDARD TITLE: SHIFT MGR NOTE DATE OF NOTE: NOVEMBER 15, 2022@11:36 ENTRY DATE: NOVEMBER 15, 2022@11:37:02 AUTHOR: JOSÉ LUIS SALMERON EXP COSIGNER: URGENCY: STATUS: COMPLETED Preformed OCT mac ou, images ready for viewing. /igor/ JOSÉ LUIS SALMERON HEALTH DECISION ANALYST Signed: 11/15/2022 11:38 JOSÉ LUIS SALMERON [facility] November 15, 2022 11:09 AM OPHTHALMOLOGY TECH ROSAMARIA NOTE: LOCAL TITLE: SHIFT MGR NOTE STANDARD TITLE: SHIFT MGR NOTE DATE OF NOTE: NOVEMBER 15, 2022@11:09 ENTRY DATE: NOVEMBER 15, 2022@11:09:32 AUTHOR: JOSÉ LUIS SALMERON EXP COSIGNER: URGENCY: STATUS: COMPLETED Eye Start Exam Patient: KRISTOFER STOCKTON Sex: MALE SSN: [id number] Birthdate: [birth year] Chief complaint: ANNUAL DM2 EXAM - unsure of any va changes, no ocular discomfort History of Present Illness: Location: Intensity: Duration: BSL UNKNOWN TODAY, LAST A1C 7.4 Active problems - Computerized Problem List is the source for the followin. 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 Hyperlipidemia (SNOMED CT 13569569) 3. Coronary artery disease (SNOMED CT 83626316) 4. Benign hypertension (SNOMED CT 78236682) 5. Atrial fibrillation (SNOMED CT 55126693) 6. Long-term current use of anticoagulant (SNOMED CT [id number]) 7. Obstructive sleep apnea syndrome 8. Gout 9. Rheumatoid arthritis (SNOMED CT 72143088) 10. Chronic kidney disease (SNOMED CT 841723746) 11. Type 2 diabetes mellitus well controlled 12. 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 Steatosis of liver 14. 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 Allergies: ATORVASTATIN (May 15, 2007) SIMVASTATIN (Mar 13, 2012) METOPROLOL (May 01, 2019) CLINDAMYCIN (Oct 05, 2020) No new Allergies. Past Medical History: Diabetes Collection DT Specimen Test Name Result Units Ref Range 10/18/2022 08:49 BLOOD !! HEMOGLOBIN A1C 7.5 H % 4.0 - 6.0 !! Indicates COMMENTS AVAILABLE...Refer to Interim Lab Report. Hypertension High cholesterol Past eye history: Denies all Past eye surgeries: Denies all Social History: Alcohol use - No Tobacco use - No Family History: Last refraction: 11/06/21 Vision: OD:CC(with glasses) OD: 20/100 Pinhole: 20/40-2 Near: 20/ Vision: OS:CC(with glasses) 0S: 20/60-2 Pinhole: 20/50+1 Near: 20/ Refraction: Manifest: YES Automated: NO OD:plano +1.75X20 20/40 slowly OS:-0.75 +2.32Z612 20/40 slowly Balance: Add: +2.75 Near vision: OD : OS : OU 20/20 Comment: Confrontational Downing: Full to finger counting: Right: Yes Left: Yes Extra Ocular Movement: Normal Pupils: Right: Round Left: Round Size: Right: 4 Left: 4 React to light: Right: Yes Left: Yes Afferent pupil defect: Right:No Grade: Left: No Grade: Note: BAT OD: 200 OS: 100 Intra-ocular pressure (IOP): OD: 18 OS: 20 iCare Dilation: mydriacyl 1% and neosynephrine OU November@11:26 /igor/ JOSÉ LUIS SALMERON [facility] DECISION ANALYST Signed: 11/15/2022 11:29 JOSÉ LUIS SALMERON [facility] November 15, 2022 11:08 AM OPHTHALMOLOGY TECH NICIAN NOTE: LOCAL TITLE: SHIFT MGR NOTE STANDARD TITLE: SHIFT MGR NOTE DATE OF NOTE: NOVEMBER 15, 2022@11:08 ENTRY DATE: NOVEMBER 15, 2022@11:08:45 AUTHOR: ILAN HERRERA EXP COSIGNER: URGENCY: STATUS: COMPLETED HVF 10-2 Carmella standard OU done. Report uploaded for review. /igor/ STEPHANIE [facility]k Filler Signed: 11/15/2022 11:09 ILAN HERRERA [facility]
--- OUTSIDE RECORDS SUMMARY | 2023-10-11 23:49 | XMS_ITS | Encounter Summary ---
Author Name [facility] Organization [facility] Address [address] [place] [address] Support Name Relationship Address Phone JUDE STOCKTON Next of Kin [address] [facility] [place] [phone] JUDE STOCKTON Emergency Contact [phone] [address] JUDE STOCKTON Next of Kin [address] [facility] [place] [phone] JUDE STOCKTON Emergency Contact [phone] [address] Insurance Providers: All historical and [...] Dinero's Name Patient's Relationship to Policy Dinero [facility] MEDICARE SUPPLEGANESH GERONIMO Jul 08, 2016 [id number] KRISTOFER STOCKTON PATIENT MEDICARE (WNR) MEDICARE (M) PART B Jun 07, 2007 PART B [id number] [phone] KRISTOFER STOCKTON PATIENT MEDICARE (WNR) MEDICARE (M) PART B Jun 07, 2007 PART B [id number] KRISTOFER STOCKTON PATIENT MEDICARE (WNR) MEDICARE (M) PART B Jun 07, 2007 PART B [id number] [phone] KRISTOFER STOCKTON PATIENT MEDICARE (WNR) MEDICARE (M) PART B Jun 07, 2007 PART B [id number] KRISTOFER STOCKTON PATIENT MEDICARE (WNR) MEDICARE (M) PART A Mar 08, 2007 PART A [id number] KRISTOFER STOCKTON PATIENT MEDICARE (WNR) MEDICARE (M) PART A Mar 08, 2007 PART A [id number] KRISTOFER STOCKTON PATIENT MEDICARE (WNR) MEDICARE (M) PART A Mar 08, 2007 PART A [id number] [phone] KRISTOFER STOCKTON PATIENT MEDICARE (WNR) MEDICARE (M) PART A Mar 08, 2007 PART A [id number] KRISTOFER STOCKTON PATIENT Selected Encounter This section includes the information on record at [place] for the [place]counter. Date/Time Encounter Type Encounter Description Reason Provider Source November 21, 2022 10:30 AM OFFICE O/P EST MOD 30-39 MIN RHEUMATOLOGY/ARTH RITIS ICD-10-CM M06.9 Rheumatoid arthritis, unspecified GUMARO ALMEIDA [facility] Encounter Template Text not used by [place] Assessments - Encounter Diagnoses This section includes the primary and secondary diagnoses documented for the Encounter. Date/Time Primary/Secondary Diagnosis Diagnosis Name Provider Source November 23, 2022 08:47 AM PRIMARY Rheumatoid arthritis, unspecified GUMARO ALMEIDA [facility] November 23, 2022 08:47 AM SECONDARY Other long term care social worker (current) drug therapy GUMARO ALMEIDA [facility] Plan of Treatment: Future Appointments (+ 6 months) and Future Tests (+/- 45 days) The Plan of Treatment section includes future care activities for the patient from all [facility] This section includes future appointments and future orders which are active, pending or scheduled. Future Appointments This section includes appointments that were scheduled to occur 6 months from the date of the Encounter, up to a maximum of 20 appointments. The data comes from all [place] treatment facilities. Appointment Date/Time Appointment Type Appointme nt Facility Name Jan 02, 2023 01:15 PM AMBULATORY - MEDICINE [facility] Feb 11, 2023 09:30 AM AMBULATORY - REHAB MEDICIN E [facility] Feb 27, 2023 09:00 AM AMBULATORY - NONE [facility] Mar 18, 2023 01:30 PM [facility] Mar 18, 2023 02:00 PM [facility] Mar 18, 2023 02:30 PM [facility] Mar 18, 2023 03:00 PM AMBULATORY - MEDICINE [facility] Mar 28, 2023 09:30 AM AM[facility]UL[facility]ORY [facility] Mar 28, 2023 10:00 AM [facility] Apr 03, 2023 08:00 AM AMBULATORY - SURGERY [facility] Apr 16, 2023 02:00 PM AMBULATORY - SURGERY [facility] Apr 17, 2023 09:30 AM AMBULATORY - MEDICINE [facility] Apr 17, 2023 10:30 AM AMBULATORY - MEDICINE [facility] Active, Pending, and Scheduled Orders This section includes a listing of several types of active, pending, and scheduled orders, including clinic medications orders, diagnostic test orders, procedure orders and consult orders; where the start date of the order is 45 days before the date of the Encounter or 45 days after the date of theEncounter. The data comes from all [place] treatment facilities. Test Date/Time Test Type Test Details Facility Name Oct 18, 2022 10:27 AM Laboratory - Chemi stry Order MICROALBUMIN/CREATIN INE RATIO URINE URINE WC ONCE [facility] November 21, 2022 12:00 AM Laboratory - Chemi stry Order MICROALBUMIN/CREATIN INE RATIO URINE URINE [facility] Lab Results: +/- 30 days [...] Range Comment November 21, 2022 09:07 AM [facility] HEMOGLOBIN A1C Specimen Type: BLOOD Comment: [...] Dec 12, 2021 11:52 AM Reporting Lab: [facility] [phone] Performing Lab: [facility] [address] HEMOGLOBIN A1C 7.4 H 4.0-6.0 November 21, 2022 09:07 AM [facility] TSH W/REFLEX TO FREE T4 Specimen Type: PLASMA No comment entered. Ordering Provider: LORETO HONG Report Released Date/Time: Dec 12, 2021 11:52 AM Reporting Lab: [facility] [phone] Performing Lab: [facility] [address] TSH 1.69 0.35-4.94 November 21, 2022 09:07 AM [facility] LIPID PANEL,NON-FASTING Specimen Type: PLASMA No comment entered. Ordering Provider: LORETO HONG Report Released Date/Time: Dec 12, 2021 11:52 AM Reporting Lab: [facility] [address] Performing Lab: [facility] [address] CHOLESTEROL 121 <199 .HDL 48 >40 LDL CALCULATION 48 <99 VLDL CALCULATION 25 <29 NON HDL CHOLESTEROL 73 <129 TRIG(NON FASTING) 124 <149 November 21, 2022 09:07 AM [facility] CBC Specimen Type: BLOOD No comment entered. Ordering Provider: LORETO HONG Report Released Date/Time: Dec 12, 2021 11:52 AM Reporting Lab: [facility] [phone] Performing Lab: [facility] [address] WBC 6.92 4.0-11.0 RBC 4.02 L 4.6-6.2 HGB 12.7 L 13.5-17.9 HCT 39.8 L 41-54 MCV 99.0 80-100 MCH 31.6 27-33 MCHC 31.9 L 32.0-37.5 PLT 146 L 150-400 MPV 11.0 H 7.4-10.4 RDW 13.4 11.5-14.5 IPF 3.3 0-10 November 21, 2022 09:07 AM [facility] COMPREHENSIVE METABOLIC PANEL+MG Specimen Type: PLASMA No comment entered. Ordering Provider: LORETO HONG Report Released Date/Time: Dec 12, 2021 11:52 AM Reporting Lab: [facility] [phone] Performing Lab: [facility] [address] CREATININE 3.1 H 0.7-1.2 UREA NITROGEN 38 [...] L >60 November 21, 2022 09:06 AM [facility] RHEUMATOLOGY HEME PANEL Specimen Type: BLOOD No comment entered. Ordering Provider: Makayla STAPLETON Report Released Date/Time: May 09, 2022 09:10 AM Reporting Lab: [facility] [address] Performing Lab: [facility] [address] SED RATE 2 L 5-15 November 21, 2022 09:06 AM [facility] RHEUMATOLOGY CHEM PANEL Specimen Type: PLASMA No comment entered. Ordering Provider: Makayla STAPLETON Report Released Date/Time: May 09, 2022 09:10 AM Reporting Lab: [facility] [phone] Performing Lab: [facility] [address] CREATININE 3.2 H 0.7-1.2 ALKALINE PHOSPHATASE 95 40-150 ALT/SGPT 20 <55 AST/SGOT 24 <34 C-REACTIVE PROTEIN 3.06 <5.00 .CREAT EGFR(CKD-EPI) 19 L >60 Oct 29, 2022 12:00 PM [facility] MICROALBUMIN/CREATININE RATIO URINE Specimen Type: URINE No comment entered. Ordering Provider: CARROLL HERNANDEZ Report Released Date/Time: Mar 21, 2022 11:30 AM Reporting Lab: [facility] [address] Performing Lab: [facility] [address] CREATININE,UR RANDOM 104.1 58.0-161.0 ALB/CREAT RATIO,UR 263.0 H <29.9 MICROALBUMIN,UR 273.8 H <29.9 Oct 29, 2022 10:34 AM [facility] RHEUMATOLOGY CHEM PANEL Specimen Type: PLASMA No comment entered. Ordering Provider: Makayla STAPLETON Report Released Date/Time: May 09, 2022 09:10 AM Reporting Lab: [facility] [address] Performing Lab: [facility] [address] CREATININE 2.3 H 0.7-1.2 ALKALINE PHOSPHATASE 86 40-150 ALT/SGPT 20 <55 AST/SGOT 20 <34 C-REACTIVE PROTEIN 2.59 <5.00 .CREAT EGFR(CKD-EPI) 28 L >60 Oct 29, 2022 10:34 AM [facility] RHEUMATOLOGY HEME PANEL Specimen Type: BLOOD Comment: Automated Differential Performed Ordering Provider: Makayla STAPLETON Report Released Date/Time: May 09, 2022 09:10 AM Reporting Lab: [facility] [phone] Performing Lab: [facility] [address] WBC 6.40 4.0-11.0 RBC 4.01 L 4.6-6.2 [...] L 5-15 Oct 29, 2022 10:33 AM [facility] TSH W/REFLEX TO FREE T4 Specimen Type: PLASMA No comment entered. Ordering Provider: DESIRAE MCCARTY Report Released Date/Time: Apr 11, 2022 02:47 PM Reporting Lab: [facility] [address] Performing Lab: [facility] [address] TSH 1.56 0.35-4.94 Oct 29, 2022 10:33 AM [facility] COMPREHENSIVE METABOLIC PANEL+MG Specimen Type: PLASMA No comment entered. Ordering Provider: DESIRAE MCCARTY Report Released Date/Time: Apr 11, 2022 02:47 PM Reporting Lab: [facility] [address] Performing Lab: [facility] [address] CREATININE 2.3 H 0.7-1.2 UREA NITROGEN 29 [...] L >60 Oct 29, 2022 10:30 AM [facility] CREATININE(INCLUDES EGFR) Specimen Type: PLASMA No comment entered. Ordering Provider: JOURDAN VILLALOBOS Report Released Date/Time: Oct 22, 2022 08:22 AM Reporting Lab: [facility] [address] Performing Lab: [facility] [address] CREATININE 2.3 H 0.7-1.2 .CREAT EGFR(CKD-EPI) 28 L >60 Oct 29, 2022 10:30 AM [facility] UREA NITROGEN Specimen Type: PLASMA No comment entered. Ordering Provider: JOURDAN VILLALOBOS Report Released Date/Time: Oct 22, 2022 08:22 AM Reporting Lab: [facility] [address] Performing Lab: [facility] [phone] UREA NITROGEN 30 H 8-26 Oct 29, 2022 10:30 AM [facility] ELECTROLYTES/ANION GAP Specimen Type: PLASMA No comment entered. Ordering Provider: JOURDAN VILLALOBOS Report Released Date/Time: Oct 22, 2022 08:22 AM Reporting Lab: [facility] [address] Performing Lab: [facility] [address] SODIUM 140 136-145 POTASSIUM 5.3 H 3.5-5.1 CHLORIDE 109 H 98-107 CO2 27 22-29 ANION GAP 4 L 5-15 Oct 29, 2022 10:30 AM [facility] CALCIUM Specimen Type: PLASMA No comment entered. Ordering Provider: JOURDAN VILLALOBOS Report Released Date/Time: Oct 22, 2022 08:22 AM Reporting Lab: [facility] [address] Performing Lab: [facility] [address] CALCIUM 8.8 8.4-10.2 Oct 29, 2022 10:30 AM [facility] PHOSPHORUS Specimen Type: PLASMA No comment entered. Ordering Provider: JOURDAN VILLALOBOS Report Released Date/Time: Oct 22, 2022 08:22 AM Reporting Lab: [facility] [address] Performing Lab: [facility] [address] PHOSPHORUS 2.6 2.3-4.7 Oct 29, 2022 10:30 AM [facility] PTH-N-TACT Specimen Type: PLASMA No comment entered. Ordering Provider: JOURDAN VILLALOBOS Report Released Date/Time: Oct 22, 2022 08:22 AM Reporting Lab: [facility] [address] Performing Lab: [facility] [address] PTH-N-TACT 187.8 H 8.7-77.1 Oct 29, 2022 10:30 AM [facility] ALBUMIN Specimen Type: PLASMA No comment entered. Ordering Provider: JOURDAN VILLALOBOS Report Released Date/Time: Oct 22, 2022 08:22 AM Reporting Lab: [facility] [address] Performing Lab: [facility] [address] ALBUMIN 3.6 3.5-5.2 Oct 29, 2022 10:30 AM [facility] GLUCOSE Specimen Type: PLASMA No comment entered. Ordering Provider: JOURDAN VILLALOBOS Report Released Date/Time: Oct 22, 2022 08:22 AM Reporting Lab: [facility] [address] Performing Lab: [facility] [address] GLUCOSE 189 H 70-100 Vital Signs: All taken on the encounter date This section contains inpatient and outpatient Vital Signs collected on the date of the Encounter. Date/Time Temperature Pulse Blood Pressure Respiratory Rate SP02 Pain Height Weight Body Mass Index Source November 21, 2022 10:25 AM 148/74 mm[Hg] [facility] November 21, 2022 10:21 AM 98 F 61 /min 163/71 mm[Hg] 98 % 6 [address] [facility] Social History: Smoking Status (Most current) and Tobacco Use (All prior to encounter date) This section includes the most current, and the historical, smoking and tobacco- related health factors from the [place] facility where the Encounter took place. Current Smoking Status This section includes the most current smoking, or tobacco-related health factor, from the [place] facility where the Encounter took place. Date/Time Current Smoking Status Comment Facil ity Oct 24, 2021 08:45 AM VA-TOBACCO FORMER USER [facility] Tobacco Use History This section includes a history of the smoking, or tobacco-related health factors, that were collected on or before the date of the Encounter. The data comes from the [place] facility where the Encounter took place. Date/Time Smoking Status/Tobacco Use Comment F acility Oct 24, 2021 08:45 AM VA-TOBACCO QUIT 15 YRS OR MORE [facility] Apr 27, 2020 03:00 PM VA-TOBACCO FORMER USER [facility] Apr 27, 2020 03:00 PM VA-TOBACCO QUIT 15 YRS OR MORE [facility] Apr 23, 2019 05:29 PM INPT NO TOBACCO USE IN LAST 30 D AYS [facility] Oct 15, 2018 09:08 AM VA-TOBACCO FORMER USER [facility] Oct 15, 2018 09:08 AM VA-TOBACCO QUIT 15 YRS OR MORE [facility] November 13, 2017 09:05 AM FORMER TOBACCO USER 7Y OR GREATE R [facility] November 22, 2016 03:15 PM FORMER TOBACCO USER 7Y OR GREATE R [facility] Oct 21, 2015 08:37 AM FORMER TOBACCO USER 7Y OR GREATE R [facility] Oct 21, 2014 01:32 PM FORMER TOBACCO USER 7Y OR GREATE R [facility] Oct 29, 2013 08:29 AM FORMER TOBACCO USER 7Y OR GREATE R [facility] Mar 11, 2007 08:07 AM FORMER TOBACCO USER 7Y OR GREATE R [facility] Radiology Reports: +/- 30 days of [...] the Encounter. The data comes from all [place] treatment facilities. Date/Time Radiology Report Provider Source November 15, 2022 09:10 AM LNR INCIDENTAL NOD ULE LD FOLLOW UP: KRISTOFER STOCKTON [id number] M Exm Date: NOVEMBER 15, 2022@09:10 Req Phys: SUKI CHILDS Loc: [facility] PULM CHART CHECK LNT (Req' Img Loc: CT IMAGING Service: Unknown (Case [id number] COMPLETE) LNR INCIDENTAL NODULE LD FOLLOW U(CT Detailed) CPT:11903 Reason for Study: f/u lung nodules Clinical History: [place] IS NOT under investigation for COVID-19 or is COVID-19 negative f/u small lung nodules Responsible provider name and phone number to notify for critical findings if other than user placing the order and pager listed below: User placing orders pager: [phone] Brad Childs MD LAST CREATININE 2.4 H (03/21/22) Report Status: Verified Date Reported: NOVEMBER 15, 2022 Date Verified: NOVEMBER 15, 2022 Lapper E-Sig: Report: LNR INCIDENTAL NODULE LD FOLLOW UP HISTORY: f/u lung nodules COMPARISON: Chest CT October 12, 2021 TECHNIQUE: Volumetric CT acquisition through the chest, with axial, coronal and sagittal reformats, was performed at the local [place] facility. 1756 images were received by the [...] one year READING PHYSICIAN: Sukhdev Breen M.D. -[id number] 11/15/2022 11:47 EDT [facility] National Teler[facility] Program [phone] (For Medical Practitioner Use Only) Attention Patients / Veterans: If you have questions or concerns about these test results, please contact your ordering provider or primary care team. Primary Interpreting Staff: RADIOLOGY,OUTSIDE SERVICE, Staff Physician / RADIOLOGY,OUTSIDE SERVICE [facility] Encounter Notes: All associated encounter notes This section contains the clinical notes associated to the Encounter. 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 Had previoulsy been on MTX 20mg and Enbrel with HCQ added in January 2013. In October of 2015 he was diagnosed with squamous cell carcinoma of the left neck and his Enbrel dosing interval was increased and subsequently stopped in February 2016 along with MTX. MTX was then restarted in April 2016, but at a decreased dose of 7.5mg. Due to increased disease activity, his methotrexate dose was increased to 17.5mg weekly. He was last seen in clinic in . Disease had been quiet except for acute flare at the time of that visit. Was prescribed a 9 day prednisone taper and continued on his MTX and HCQ. Reports that the prednisone taper did not cause a noticable change in his symptoms. Interval History: Patient was last seen in the clinic in May 2022. However, it looks like his methotrexate prescriptions in June and he has not been on methotrexate since June. 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 Patient reports today that he did not notice significant change since discontinuing the methotrexate in June. He continues to report his pain is primarily located in the cervical spine wearing a prior MRI done in 2021 showed significant DJD. Otherwise he reports some low back pain. Otherwise he denies any significant episodes of swelling or tenderness in the hand joints. Reports morning stiffness throughout the day but is limited to upper back and lower back. Denies any fever, chills or night sweats. Denies any chest pain, shortness of breath and abdominal pain. Allergies: ATORVASTATIN (May 15, 2007) SIMVASTATIN (Mar 13, 2012) METOPROLOL (May 01, 2019) CLINDAMYCIN (Oct 05, 2020) HYDROXYCHLOROQUINE (November 20, 2022) Current Medications: Active Outpatient Medications (including Supplies): ACCU-CHEK GUIDE (GLUCOSE) TEST STRIP USE 1 STRIP EVERY DAY ACTIVE NEEDED TO CHECK BLOOD SUGAR IF GLUCOSE SENSOR FAILS -USE WITHIN 3 MINUTES OF REMOVING FROM CONTAINER -TEST AT DIFFERENT TIMES OF THE DAY, OR DIRECTED AMIODARONE HCL (PACERONE) 200MG TAB TAKE ONE TABLET BY ACTIVE (S) MOUTH EVERY DAY APIXABAN 2.5MG TAB TAKE ONE TABLET BY MOUTH EVERY 12 HOURS ACTIVE TO PREVENT STROKES DICLOFENAC NA 1% TOP GEL APPLY 4 GRAMS FOUR TIMES A DAY ACTIVE NEEDED FOR PAIN -USE DOSE CARD IN BOX TO MEASURE DOSE -MAXIMUM OF 32 TOTAL GRAMS PER DAY. GLUCOSE SENSOR FREESTYLE CARMELA 2 USE 1 SENSOR EVERY 14 ACTIVE DAYS TO MONITOR GLUCOSE HYDROXYCHLOROQUINE SULFATE 200MG TAB TAKE ONE TABLET BY ACTIVE (S) MOUTH TWICE A DAY FOR RHEUMATOID ARTHRITIS INSULIN,GLARGINE-YFGN 100UNIT/ML PEN 3ML INJECT 9 UNITS ACTIVE (S) UNDER THE SKIN EVERY DAY FOR DIABETES ISOSORBIDE MONONITRATE 60MG SA TAB TAKE ONE TABLET BY ACTIVE MOUTH EVERY DAY FOR CHEST PAIN LIRAGLUTIDE (VICTOZA) 6MG/ML INJ PEN 3ML INJECT 0.6 MG ACTIVE UNDER THE SKIN EVERY DAY FOR DIABETES METHOTREXATE NA 2.5MG TAB TAKE TEN TABLETS BY MOUTH EVERY ACTIVE WEEK FOR RHEUMATOID ARTHRITIS -TAKE THE TOTAL WEEKLY DOSE ON THE SAME DAY EVERY WEEK NEEDLE,PEN 31G,5MM USE 1 NEEDLE UNDER THE SKIN DIRECTED ACTIVE (S) *DISPOSE OF IN A HARD-PLASTIC CONTAINER WITH A SCREW-ON LID CONTACT GARBAGE HAULER FOR PROPER DISPOSAL POLYETHYLENE GLYCOL 3350 ORAL PWDR TAKE 17 GRAMS BY MOUTH ACTIVE EVERY DAY WHILE USING NARCOTIC *MIX IN 4 TO 8 OUNCES OF LIQUID DIRECTED*USE COVER TO MEASURE POWDER* ROSUVASTATIN CA 20MG TAB TAKE ONE-HALF TABLET BY MOUTH ACTIVE (S) EVERY DAY FOR CHOLESTEROL (DO NOT CONVERT/APPROVED 04/2013) Non-VA CHOLECALCIF 25MCG (D3-1,000UNIT) TAB 1000UNIT MOUTH ACTIVE EVERY DAY Review of Systems: 12 point ROS done and negative exept mentioned above. Past medical history to include co-morbid medical problems: Active problems - Computerized Problem List is the source for the followin. 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 Hyperlipidemia (SNOMED CT 16139138) 3. Coronary artery disease (SNOMED CT 52977629) 4. Benign hypertension (SNOMED CT 89227618) 5. Atrial fibrillation (SNOMED CT 69030893) 6. Long-term current use of anticoagulant (SNOMED CT 742342927) 7. Obstructive sleep apnea syndrome 8. Gout 9. Rheumatoid arthritis (SNOMED CT 04506077) 10. Chronic kidney disease (SNOMED CT 857186132) 11. Type 2 diabetes mellitus well controlled 12. 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 Steatosis of liver 14. 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 ROM normal in bilateral elbows, shoulders, hips, knees and ankles. His cervical range of motion is decreased. Latest Labs: HGB 12.7 L (11/21/22) MCV 99.0 (11/21/22) WBC 6.92 (11/21/22) PLT 146 L (11/21/22) GLUCOSE 291 H (11/21/22) WESTERGREN 2 L (11/21/22) C-REACTIVE PROTEIN 3.06 (11/21/22) BILIRUBIN, TOTAL 0.5 (11/21/22) SGOT 27 (11/21/22) SGPT 19 (11/21/22) ALK PHOSPHATASE 95 (11/21/22) ALBUMIN 3.6 (11/21/22) CALCIUM 8.8 (11/21/22) MAGNESIUM 1.9 (11/21/22) PO4 2.6 (10/29/22) CREATININE 3.1 H (11/21/22) UREA NITROGEN 38 H (11/21/22) Assessment and Recommendations: #Seropositive RA -Patient was overall doing well on methotrexate and Plaquenil but has not refilled methotrexate since June and continues to do well. Plaquenil was discontinued this month due to concerns of retinopathy on ophthalmology examination. On examination today, patient does not have any signs of inflammatory active synovitis or tenderness to palpation. His cervical pain is likely coming from DJD based on the prior CT scan. #Plan --Discussed about continue to monitor without any medications for now as patient does not have any signs of inflammatory arthropathy and overall at baseline pain otherwise. Patient is agreeable. -- Return to clinic in 6 months. Patient seen, examined and discussed with staff Staffing Operations Manager Dr. Almeida /igor/ SUMA STAPLETON RHEUMATOLOGY FELLOW Signed: 11/23/2022 08:15 Receipt Acknowledged By: * AWAITING SIGNATURE * GUMARO ALMEIDA VINAY KUMAR [facility] November 21, 2022 10:22 AM INTERNAL MEDICINE OUTPATIENT NOTE: LOCAL TITLE: MEDICINE CLINIC NURSING NOTE STANDARD TITLE: INTERNAL MEDICINE OUTPATIENT NOTE DATE OF NOTE: NOVEMBER 21, 2022@10:22 ENTRY DATE: NOVEMBER 21, 2022@10:23:02 AUTHOR: GUNNER AVILA EXP COSIGNER: URGENCY: STATUS: COMPLETED TYPE OF VISIT: Appointment Check In Type of appointment: In-person appointment REASON FOR VISIT: RTC ALLERGIES: ATORVASTATIN (May 15, 2007) SIMVASTATIN (Mar 13, 2012) METOPROLOL (May 01, 2019) CLINDAMYCIN (Oct 05, 2020) HYDROXYCHLOROQUINE (November 20, 2022) VITAL SIGNS: Blood Pressure: 163/71 (11/21/2022 10:21) Pulse: 61 (11/21/2022 10:21) Respiration: 16 (10/29/2022 12:08) Temperature: 98 F [36.7 C] (11/21/2022 10:21) Weight: 213.5 lb [96.84 kg] (11/21/2022 10:21) Height: 71 in [180.3 cm] (11/21/2022 10:21) BMI: 29.8 O2 Sat: 98% (11/21/2022 10:21) Pain: 6 (11/21/2022 10:21) BP Recheck: 148/74 PAIN SCREEN: Patient is having significant pain that they would like to talk to their provider about today. Old (Chronic) (began more than 6 months ago) Patient states their average pain this past week is 6 Patient states the average number on how the chronic pain affects their enjoyment of life the past week is 5 Patient states during the past week the average number on how the pain has interfered with their general activity is 8 MEDICATION Over the Counter/Herbal Medications: The patient states that they take some outside medications and/or herbals. /igor/ GUNNER AVILA LPN [facility] Signed: 11/21/2022 10:27 GUNNER AVILA [facility]
--- OUTSIDE RECORDS SUMMARY | 2023-10-11 23:50 | XMS_ITS | Encounter Summary ---
Author Name Department of Vetera Affairs Organization [facility] of Vetera ns Affairs Address [address] [place] [address] Support Name Relationship Address Phone JOHN STOCKTONINE Next of Kin [address] [place] [id number] JUDE STOCKTON Emergency Contact [id number] [place] [address] JUDE STOCKTON Next of Kin [address] [place] [phone] JUDE STOCKTON Emergency Contact [phone] [address] [address] Insurance Providers: All historical and [...] MEDICARE SUPPLEGANESH MAHAN IDU Jul 08, 2016 [id number] [phone] KRISTOFER STOCKTON PATIENT MEDICARE (WNR) MEDICARE (M) PART B Jun 07, 2007 PART B [id number] KRISTOFER STOCKTON PATIENT MEDICARE (WNR) MEDICARE (M) PART B Jun 07, 2007 PART B [id number] [phone] KRISTOFER STOCKTON PATIENT MEDICARE (WNR) MEDICARE (M) PART B Jun 07, 2007 PART B [id number] KRISTOFER STOCKTON PATIENT MEDICARE (WNR) MEDICARE (M) PART B Jun 07, 2007 PART B [id number] KRISTOFER STOCKTON PATIENT MEDICARE (WNR) MEDICARE (M) PART A Mar 08, 2007 PART A [id number] KRISTOFER STOCKTON PATIENT MEDICARE (WNR) MEDICARE (M) PART A Mar 08, 2007 PART A [id number] KRISTOFER STOCKTON PATIENT MEDICARE (WNR) MEDICARE (M) PART A Mar 08, 2007 PART A [id number] KRISTOFER STOCKTON PATIENT MEDICARE (WNR) MEDICARE (M) PART A Mar 08, 2007 PART A [id number] KRISTOFER STOCKTON PATIENT Selected Encounter This section includes the information on record at PA for the Encounter. Date/Time Encounter Type Encounter Description Reason Provider Source Feb 11, 2023 09:30 AM OT EVAL LOW COMPLEX 30 MIN OCCUPATIONAL THERAPY ICD-10-CM G25.0 [address] CHELSEA MEDINA [facility] Encounter Template Text not used by PA Assessments - Encounter Diagnoses This section includes the primary and secondary diagnoses documented for the Encounter. Date/Time Primary/Secondary Diagnosis Diagnosis Name Provider Source Feb 11, 2023 03:48 PM PRIMARY Essential tremor CHELSEA MEDINA [facility] Plan of Treatment: Future Appointments (+ 6 months) and Future Tests (+/- 45 days) The Plan of Treatment section includes future care activities for the patient from all PA treatmentfacilities. This section includes future appointments and future orders which are active, pending or scheduled. Future Appointments This section includes appointments that were scheduled to occur 6 months from the date of the Encounter, up to a maximum of 20 appointments. The data comes from all PA treatment facilities. Appointment Date/Time Appointment Type Appointme nt Facility Name Feb 27, 2023 09:00 AM AMBULATORY - NONE [place] [facility] Mar 18, 2023 01:30 PM AM[place]UL[place]IC[place] [facility] Mar 18, 2023 02:00 PM [place]IC[place] [facility] Mar 18, 2023 02:30 [facility] Mar 18, 2023 03:00 PM [place] [place]IC[place] [facility] Mar 28, 2023 09:30 AM AM[place]UL[place]ORY [place]IC[place] [facility] Mar 28, 2023 10:00 AM AMBUL[place]ORY [place]IC[place] [facility] Apr 03, 2023 08:00 AM AMBULATORY - SURGERY [facility] Apr 16, 2023 02:00 PM [facility] Apr 17, 2023 09:30 [facility] Apr 17, 2023 10:30 AM [facility] Jun 18, 2023 10:30 AM [facility] Jul 10, 2023 10:30 AM AMBULATORY - MEDICINE [facility] Social History: Smoking Status (Most current) and Tobacco Use (All prior to encounter date) This section includes the most current, and the historical, smoking and tobacco- related health factors from the PA facility where the Encounter took place. Current Smoking Status This section includes the most current smoking, or tobacco-related health factor, from the PA facility where the Encounter took place. Date/Time Current Smoking Status Comment Facil ity Jan 02, 2023 01:15 PM VA-TOBACCO QUIT 15 YRS OR MORE [facility] Tobacco Use History This section includes a history of the smoking, or tobacco-related health factors, that were collected on or before the date of the Encounter. The data comes from the PA facility where the Encounter took place. Date/Time Smoking Status/Tobacco Use Comment F acility Jan 02, 2023 01:15 PM VA-TOBACCO QUIT 15 YRS OR MORE [facility] Oct 24, 2021 08:45 AM VA-TOBACCO FORMER USER [facility] Oct 24, 2021 08:45 AM VA-TOBACCO QUIT 15 YRS OR MORE [facility] Apr 27, 2020 03:00 PM VA-TOBACCO FORMER USER [facility] Apr 27, 2020 03:00 PM VA-TOBACCO QUIT 15 YRS OR MORE [facility] Apr 23, 2019 05:29 PM INPT NO TOBACCO USE IN LAST 30 D AYS [facility] Oct 15, 2018 09:08 AM VA-TOBACCO FORMER USER [facility] Oct 15, 2018 09:08 AM VA-TOBACCO QUIT 15 YRS OR MORE [facility] November 13, 2017 09:05 AM FORMER TOBACCO USER 7Y OR GREATE R [facility] November 22, 2016 03:15 PM FORMER TOBACCO USER 7Y OR GREATE R [facility] Oct 21, 2015 08:37 AM FORMER TOBACCO USER 7Y OR GREATE R [facility] Oct 21, 2014 01:32 PM FORMER TOBACCO USER 7Y OR GREATE R [facility] Oct 29, 2013 08:29 AM FORMER TOBACCO USER 7Y OR GREATE R [facility] Mar 11, 2007 08:07 AM FORMER TOBACCO USER 7Y OR DIONISIO R [facility] Radiology Reports: +/- 30 days of the [...] the Encounter. The data comes from all PA treatment facilities. Date/Time Radiology Report Provider Source Feb 27, 2023 08:36 AM US AORTA (P): KRISTOFER STOCKTON [id number] -[id number] M Exm Date: FEB 27, 2023@08:36 Req Phys: NEYMAR HONG Loc: [facility] 4D (Req'g Loc Img Loc: Ultrasound Imaging Service: Unknown (Case [id number] COMPLETE) US RETROPERITONEAL LIMITED (US Detailed) CPT:43433 Reason for Study: f/u iliac artery aneurysms Clinical History: Please note that this study requires a 45min apt. time. [place] IS NOT under investigation for COVID-19 or is COVID-19 negative iliac art aneurysms Responsible provider name and phone number to notify for critical findings if other than user placing the order and pager listed below: User placing orders pager: [phone] LAST CREATININE 3.1 H (11/21/22) Report Status: Verified Date Reported: FEB 27, 2023 Date Verified: FEB 27, 2023 Case Fitter E-Sig:/ES/YOLANDA CALI MD Report: Abdominal Aorta Ultrasound Examination (follow-up) Comparison study: Ultrasound 12/29/2018 History: Reason for Study: f/u iliac artery aneurysms Findings: AP measurements obtained on the longitudinal images Transverse measurements obtained on the transverse images Proximal (suprarenal): 2.8 cm Mid (infrarenal): 2.2 cm Distal: 1.8 cm Right JAYY: 1.8 cm Left JAYY: 1.8 cm Impression: 1. Maximum infrarenal aortic diameter is 2.2 cm, previously 2.1 cm. This is not aneurysmal. 2. Maximum right JAYY diameter is 1.8 cm, previously 1.8 cm. This is aneurysmal. 3. Maximum left JAYY diameter is 1.8 cm, previously 1.8 cm. This is aneurysmal. THE REPORT OF THE PATIENT'S FINDINGS ENDS HERE. Recommendations from the PA Vascular Surgery Department: Small infrarenal abdominal aortic aneurysms (AAA), less than 5.0 cm in diameter, should be followed by the primary provider until the aneurysm reaches 5.0 cm. AAA 3.0 cm - 3.9 cm Ultrasound every 2 years AAA 4.0 cm - 4.9 cm Ultrasound every 6 months AAA 5.0 cm or greater, CTA with contrast and vascular consult Iliac artery aneurysms: Iliac aneurysms should be followed by the primary provider until they reach 3.5 cm. Iliac aneurysm - < 3.0 cm ultrasound every 12 months Iliac aneurysm - 3.0 - 3.5 cm ultrasound every 6 months Iliac aneurysm - 3.5 cm or greater, CTA with contrast and refer to Vascular Surgery * Ascending aneurysms are managed by cardiothoracic surgery * The presence of thrombus in the aneurysm is expected and does not change the recommendations Primary Interpreting Staff: YOLANDA CALI MD, STAFF NUCLEAR RADIOLOGIST (Case Fitter) /CPD YOLANDA CALI [facility] Encounter Notes: All associated encounter notes This section contains the clinical notes associated to the Encounter. Date/Time Encounter Note(s) Provider Source Feb 11, 2023 02:53 PM OCCUPATIONAL THERA PY CONSULT: [facility] TITLE: OCCUPATIONAL THERAPY CONSULT STANDARD TITLE: OCCUPATIONAL THERAPY CONSULT DATE OF NOTE: FEB 11, 2023@14:53 ENTRY DATE: FEB 11, 2023@14:53:47 AUTHOR: CHELSEA MEDINA EXP COSIGNER: URGENCY: STATUS: COMPLETED OCCUPATIONAL THERAPY CONSULT Has ADDENDA OCCUPATIONAL THERAPY TELEHEALTH EQUIPMENT CONSULT Ordering provider:NEYMAR HONG Consult request: AE: Diagnosis:Essential Tremor(ICD-10-CM G25.0) Encounter: -OT Evaluation: Low complexity (1):60 - min. Subjective: I think I'd like to try some of that equipment. Assessment/recommendations: Vet is an 82 yom seen via telehealth today, Feb, to discuss adaptive equipment to increase safety and independence. Vet arrives to clinic with and is agreeable to tx. Vet reports 3 falls in the last 3 months, one of which occured in the bathroom, trying to get out of shower. Juliannt reports otherwise being Ind with all adl's but reports being sedentary, partly due to difficulty in tasks caused by essential tremor. Loki's completes all IADL's, while Vet reports he enjoys watching tv. Loki and live in 2 level home with entrance onto main floor with 12 steps to basement, which Vet reports he doesn't use. There are 4 steps to enter the house at the front and 4 from the garage. The garage entrance has a rail. In the bathroom Vet reports having a walk-in shower with built in seat. Juliannt reports difficulty getting in/out of shower, due to weakness and dec balance, despite having a safety bar on the exterior of the shower. Juliannt also reports difficulty getting off the toilet, which is located next to shower and does not have any handholds available. Therefore, Juliannt would benefit from instalation of safety bars to maintain safe mobility in the bathroom, including one bar by toilet, and one bar inside the shower. See detailed recomendation below. Juliannt also reports increasing difficulty with self-feeding, carrying cups of liquid, handwriting, and using computer due to essential tremor. Vet reports food will fall off of spoon/fork and food will slide off plate when he eats. Vet reports spilling his drinks frequently, and vet reports that his handwriting is now illegible. Vet educated on adaptive utensils and would benefit from weighted utensils, weighted cup, and scoop plate for self-feeding, and a weighted pen for handwrighting. Vet also educated on bracing/stabilization techniques to decrease effects of tremor on fxnl tasks and Vet reports understanding. Identified the following barriers: -Generalized weakness -Hx of falls -Tremors impacting daily function Vet will benefit from adaptive equipment to increase safety and functional independence and was provided education on features and benefits of equipment. Vet will benefit from the following adaptive equipment: -Vendor to install: -1 16-18 grab bar running Horizontal on wall to Right of the toilet. -1 24-32 grab bar running Vertical on the inside long wall of the tub/shower. - 1 PT flip down bar or vertical grab bar (16-24) at the front entrance. - Ordered on this date: - EZ Large Implementation Consultant Weighted Utensils: [employer] - Item # [id number] - Weighted Pen: [employer] - Item #[id number] - [employer] Deluxe Shower [place]: [employer] - Item # [id number] - [employer] Sure Tread Bath Mat: [employer] - Item # [id number] - Rolyan 12oz Weighted Cup: [employer] - Item #[id number] - Round Scoop [facility]: [employer] - Item #[id number] Education:[place] indicates readiness to learn, verbalizes understanding, agreement and satisfaction with the treatment plan. Denies further questions. P: No other OT needs at this time. D/C from telehealth OT. GOALS: 1.Vet will identify areas of concern in the home to assist with equipment selection in order to maximize safety and (I). MET CVT Documentation- Confirmed the following prior to start of visit: - identified by Full name and Full Social Security number. -[place]ma has provided verbal consent to use [employer] (Coup[employer]) and was informed of their right to request a [id number] visit instead at any time. -Selma states he/she is in a safe and private environment suitable for the Telehealth encounter. Visit conducted by synchronous telehealth. [place] verbal consent obtained. Location/emergency number confirmed. Environment surveyed and all participants identified. Virtual conference room locked. -Visit conducted by telehealth into the home using:desktop computer Email: Troubleshooting required during visit:None Others present: Pt's Present Location of patient during session: [address] [place], [place] [address] Emergency phone number (e911): [phone] Veterans Crisis Line: & press #[id number] [facility] [employer] Help Desk (NTTHD): [phone] or [phone]. OCCUPATIONAL THERAPY EVALUATION COMPLEXITY Identifying and reporting the complexity level of an evaluation focuses on the first three of these factors--profile and history, assessment and determination of deficts, and clinical decision making. These three factors must be scored and defensible documentation written to support the choice of a level. (Information taken from: https://www.aota.org) PROFILE AND HISTORY (including chart view) Brief history of medical and/or therapy records relating to the presenting problem (low complexity) ASSESSMENT & PERFORMANCE DEFICITS (select all that apply): Inability to complete activities due to the lack of skills in one or more of the categories (physical, cognitive, or psychosocial skills). Physical: strength,weakness, h/o falls, essential tremor Cognition: Intact THOMAS: 1-3 performance deficits = Low Complexity LEVEL OF CLINICAL DECISION MAKING Commorbidities affect occupational performance: Yes (moderate or high complexity) Modifications of tasks or assistance to enable completion of evaluation: Not necessary (Low complexity) Level of Clinical Decision Making: Problem-focused assessment(s), consideration of a limited number of treatment options, presents with no comorbidities and modification of tasks or assistance is not necessary.(Low complexity) OVERALL EVALUATION COMPLEXITY: Overall rating is the lowest of the three components (Profile & History, Assessment of Occupational Performance & Performance Deficits, and Level of Clinical Decision Making). In order to move to a higher level of evalaution, all three components must be of the higher level. LOW COMPLEXITY Brief history of medical/or therapy records relating to the presenting problem. An assessement(s) that identifies 1-3 performance deficits that result in activity limitation and/or participating restrictions. Includes analysis of the occupational profile, analysis of date from problem- focused assessment(s), and consideration of a limited number of treatment options. Patient presents with no comorbidities that affect occupational performance. Modification of tasks or assistance with assessment(s) is not necessary to enable completion of evaluation component. /bri MEDINA Occupational Therapist Signed: 02/11/2023 15:52 02/27/2023 ADDENDUM STATUS: COMPLETED Request that Prosthetics also arrange with Vendor to install hand held shower head for Vet if needed. /igor/ CHELSEA MEDINA Occupational Therapist Signed: 02/27/2023 08:29 03/01/2023 ADDENDUM STATUS: COMPLETED Spoke with Vet on 03/01/23 and discussed recomendations from Vendor for safety rail on the stairs. Vet reports that the previously ordered drop rail would not work due to limited insertion space on the front of the house. Therefore, he continues to need a support to maximize his safety and prevent falls. A hand rail going up the stairs would address his issues. This therapist will submit a new prosthetics order for vendor installation of a hand rail on the Left of the stairs extending approximately 5 feet from top of the steps to the bottom (3 steps in total). All of Vet's questions answered and Vet has no further skilled OT needs. /igor/ CHELSEA MEDINA Occupational Therapist Signed: 03/01/2023 11:14 CHELSEA MEDINA [facility]
--- OUTSIDE RECORDS SUMMARY | 2023-10-11 23:50 | XMS_ITS | Encounter Summary ---
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 unplanned weight loss or gain greater than 10 pounds over the last 2 months? No Is patient's Hgb A1C (Glycosylated Hemoglobin) greater than 9.5? Information not available Is patient receiving Total Parenteral Nutrition (TPN) or Tube Feedings? No Patient Health Education Screen BARRIERS/SPECIAL NEEDS: No barriers identified PREFERRED STYLE OF LEARNING: Watching something Client Assistive Service (ZEE) Screen Does the patient require assistance with outpatient visit? No Depression Screening: Perform PHQ-2 A PHQ-2 screen was performed. The score was 0 which is a negative screen for depression. Over the past two weeks, how often have you been bothered by the following problems? 1. Little interest or pleasure in doing things Not at all 2. Feeling down, depressed, or hopeless Not at all COVID-19 Immunization: Refused Moderna Bivalent COVID-19 booster Immunization: COVID-19 (MODERNA), MRNA, LNP-S, BIVALENT, PF, 50 MCG/0.5 ML OR 25MCG/0.25 ML DOSE Refusal Reason: PATIENT DECISION Patient refuses all immunization(s) in the group Date Documented: 01/02/23 13:09 Herpes Zoster (Shingles) Vaccine: The patient declines to receive the recommended dose of zoster (shingles) vaccine. Immunization: ZOSTER RECOMBINANT Refusal Reason: PATIENT DECISION Patient refuses all immunization(s) in the ZOSTER group Date Documented: 01/02/23 13:09 Td / Tdap Immunization: The patient declines to receive the recommended dose of Td/Tdap vaccine. Immunization: TD(ADULT) UNSPECIFIED FORMULATION Refusal Reason: PATIENT DECISION Patient refuses all immunization(s) in the Td group Date Documented: 01/02/23 13:10 /igor/ DANDRE LÓPEZ LPN Signed: 01/02/2023 13:10 DANDRE LÓPEZ [facility]
--- OUTSIDE RECORDS SUMMARY | 2023-10-11 23:51 | XMS_ITS | Encounter Summary ---
Author Name [facility] of [facility] Organization [facility] Address [address] [place] [address] Support Name Relationship Address Phone JUDE STOCKTON Next of Kin [address] [facility] [place] [phone] JUDE STOCKTON Emergency Contact [address] [place] [address] JUDE STOCKTON Next of Kin [address] [facility] [place] [phone] JUDE STOCKTON Emergency Contact [address] [address] Insurance Providers: All historical and [...] Dinero's Name Patient's Relationship to Policy Dinero [facility] MEDICARE SUPPLEGANESH GERONIMO Jul 08, 2016 [id number] [phone] KRISTOFER STOCKTON PATIENT MEDICARE (WNR) MEDICARE (M) PART B Jun 07, 2007 PART B [id number] [phone] KRISTOFER STOCKTON PATIENT MEDICARE (WNR) MEDICARE (M) PART B Jun 07, 2007 PART B [id number] [phone] KRISTOFER STOCKTON PATIENT MEDICARE (WNR) MEDICARE (M) PART B Jun 07, 2007 PART B [id number] [phone] KRISTOFER STOCKTON PATIENT MEDICARE (WNR) MEDICARE (M) PART B Jun 07, 2007 PART B [id number] KRISTOFER STOCKTON PATIENT MEDICARE (WNR) MEDICARE (M) PART A Mar 08, 2007 PART A [id number] [phone] KRISTOFER STOCKTON PATIENT MEDICARE (WNR) MEDICARE (M) PART A Mar 08, 2007 PART A [id number] [phone] KRISTFOER STOCKTON PATIENT MEDICARE (WNR) MEDICARE (M) PART A Mar 08, 2007 PART A [id number] [phone] KRISTOFER STOCKTON PATIENT MEDICARE (WNR) MEDICARE (M) PART A Mar 08, 2007 PART A [id number] [phone] KRISTOFER STOCKTON PATIENT Selected Encounter This section includes the information on record at [place] for the Encounter. 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/unsp [facility] ANAM Leon [facility] Mar 19, 2023 11:34 AM SECONDARY Chronic kidney disease, stage 4 (severe) ANAM KONG [facility] Mar 19, 2023 11:34 AM SECONDARY Essential (primary) hypertension ANAM KONG [facility] Mar 19, 2023 11:34 AM SECONDARY Secondary hyperparathyroidism of renal origin ANAM KONG [facility] Mar 19, 2023 11:34 AM SECONDARY Type 2 diabetes mellitus without complications ANAM KONG [facility] Mar 19, 2023 11:34 AM SECONDARY Unspecified atrial fibrillation ANAM KONG [facility] Plan of Treatment: Future Appointments (+ 6 months) and Future Tests (+/- 45 days) The Plan of Treatment section includes future care activities for the patient from all [place] treatmentfacilities. This section includes future appointments and future orders which are active, pending or scheduled. Future Appointments This section includes appointments that were scheduled to occur 6 months from the date of the Encounter, up to a maximum of 20 appointments. The data comes from all [place] treatment facilities. Appointment Date/Time Appointment Type Appointme nt Facility Name Mar 28, 2023 09:30 AM AMBULATORY [facility] Mar 28, 2023 10:00 AM AMBULATORY - MED[facility] Apr 03, 2023 08:00 AM AMBULATORY - SURGERY [facility] Apr 16, 2023 02:00 PM AMBULATORY - SURGERY [facility] Apr 17, 2023 09:30 AM AMBULATORY - MEDICINE [facility] Apr 17, 2023 10:30 AM AMBULATORY - MEDICINE [facility] Jun 18, 2023 10:30 AM AMBULATORY - MEDICINE [facility] Jul 10, 2023 10:30 AM AMBULATORY - MEDICINE [facility] Lab Results: +/- 30 days of the [...] Result - Unit Interpretation Reference Range Comment Apr 17, 2023 08:34 AM [facility] RHEUMATOLOGY CHEM PANEL Specimen Type: PLASMA No comment entered. Ordering Provider: JAYSON STAPLETON Report Released Date/Time: November 21, 2022 10:55 AM Reporting Lab: [facility] [phone] Performing Lab: [facility] [address] CREATININE 2.8 H 0.7-1.2 ALKALINE PHOSPHATASE 90 40-150 ALT/SGPT 20 <55 AST/SGOT 21 <34 C-REACTIVE PROTEIN 2.19 <5.00 .CREAT EGFR(CKD-EPI) 22 L >60 Apr 17, 2023 08:34 AM [facility] RHEUMATOLOGY HEME PANEL Specimen Type: BLOOD Comment: Automated Differential Performed Ordering Provider: JAYSON STAPLETON Report Released Date/Time: November 21, 2022 10:55 AM Reporting Lab: [facility] [address] Performing Lab: [facility] [address] WBC 6.01 4.0-11.0 RBC 4.10 L 4.6-6.2 HGB 12.3 L 13.5-17.9 HCT 38.1 L 41-54 MCV 92.9 80-100 MCH 30.0 27-33 MCHC 32.3 32.0-37.5 PLT 146 L 150-400 MPV 10.8 H 7.4-10.4 NEUT 51.3 40.0-80.0 LYMPHS 35.6 15.0-45.0 MONO 9.2 2.0-12.0 EOSINO 3.0 0.0-6.0 BASO 0.7 0.0-2.0 RDW 13.2 11.5-14.5 ABS LYMPH 2.14 1.0-4.0 ABS MONO 0.55 0.1-1.0 ABS NEUT 3.09 2.0-7.7 ABS EOS 0.18 0-0.5 ABS BASO 0.04 0-0.2 IG(META,MYELO, PRO) 0.2 ABS IMMATURE GRAN 0.01 0-0.1 SED RATE 6 5-15 Mar 28, 2023 09:14 AM [facility] PROTEIN/CREATININE RATIO URINE Specimen Type: URINE No comment entered. Ordering Provider: JOURDAN VILLALOBOS Report Released Date/Time: Oct 22, 2022 08:22 AM Reporting Lab: [facility] [address] Performing Lab: [facility] [address] PROTEIN/CREATI NINE RATIO 0.22 H <0.19 CREATININE,UR RANDOM 145.0 58.0-161.0 PROTEIN,T. RANDOM UR 31.8 H <14.0 Mar 28, 2023 09:14 AM [facility] URINALYSIS Specimen Type: URINE No comment entered. Ordering Provider: JOURDAN VILLALOBOS Report Released Date/Time: Oct 22, 2022 08:22 AM Reporting Lab: [facility] [phone] Performing Lab: [facility] [address] URINE COLOR LIGHT-YELLOW SPECIFIC GRAVITY 1.015 1.003-1.03 5 URINE BILIRUBIN NEGATIVE NEGATIVE URINE KETONES NEGATIVE NEGATIVE URINE GLUCOSE 30 See_Co mmen t URINE PROTEIN 30 See_Co mmen t URINE PH 5.5 5.0-8.0 URINE WBC/HPF <1 0-7 URINE BACTERIA NONE SEEN URINE RBC/HPF 1 0-3 APPEARANCE CLEAR SQUAMOUS EPITHELIAL NONE SEEN URINE BLOOD NEGATIVE NEGATIVE URINE NITRITE NEGATIVE NEGATIVE LEUKOCYTE ESTERASE NEGATIVE NEGATIVE Mar 28, 2023 09:13 AM [facility] MICROALBUMIN/CREATININE RATIO URINE Specimen Type: URINE No comment entered. Ordering Provider: ADELINA BLISS Report Released Date/Time: Oct 18, 2022 10:29 AM Reporting Lab: [facility] [phone] Performing Lab: [facility] [phone] CREATININE,UR RANDOM 145.2 58.0-161.0 ALB/CREAT RATIO,UR 131.2 H <29.9 MICROALBUMIN,U R 190.5 H <29.9 Mar 18, 2023 01:10 PM [facility] TSH W/REFLEX TO FREE T4 Specimen Type: PLASMA No comment entered. Ordering Provider: ADELINA BLISS Report Released Date/Time: Oct 18, 2022 10:29 AM Reporting Lab: [facility] [phone] Performing Lab: [facility] [address] TSH 1.32 0.35-4.94 Mar 18, 2023 01:10 PM [facility] LIPID PANEL,NON-FASTING Specimen Type: PLASMA No comment entered. Ordering Provider: ADELINA BLISS Report Released Date/Time: Oct 18, 2022 10:29 AM Reporting Lab: [facility] [phone] Performing Lab: [facility] [address] CHOLESTEROL 120 <199 .HDL 46 >40 LDL CALCULATION 57 <99 VLDL CALCULATION 17 <29 NON HDL CHOLESTEROL 74 <129 TRIG(NON FASTING) 87 <149 Mar 18, 2023 01:10 PM [facility] HEMOGLOBIN A1C Specimen Type: BLOOD Comment: Values obtained from A1C measurements can vary. For typical A1C assays, a reported value of 7.0 could actually be between 6.7 and 7.3 if measured by a reference method. A reported value of 9.0 could actually be between 8.7 and 9.3. Ref: http://www.ngs p.org/CAPdata. asp Ordering Provider: ADELINA BLISS Report Released Date/Time: Oct 18, 2022 10:29 AM Reporting Lab: [place] [phone] Performing Lab: [facility] [phone] HEMOGLOBIN A1C 7.5 H 4.0-6.0 Mar 18, 2023 01:10 PM [facility] BASIC METABOLIC PANEL+MG Specimen Type: PLASMA No comment entered. Ordering Provider: ADELINA BLISS Report Released Date/Time: Oct 18, 2022 10:29 AM Reporting Lab: [facility] [address] Performing Lab: [facility] [phone] CREATININE 2.5 H 0.7-1.2 UREA NITROGEN 31 H 8-26 GLUCOSE 192 H 70-100 SODIUM 142 136-145 POTASSIUM 4.8 3.5-5.1 CHLORIDE 111 H 98-107 CO2 26 22-29 CALCIUM 8.7 8.4-10.2 MAGNESIUM 1.9 1.6-2.6 ANION GAP 5 5-15 .CREAT EGFR(CKD-EPI) 25 L >60 Mar 18, 2023 01:10 PM [facility] CBC Specimen Type: BLOOD No comment entered. Ordering Provider: ADELINA BLISS Report Released Date/Time: Oct 18, 2022 10:29 AM Reporting Lab: [facility] [phone] Performing Lab: [facility] [address] WBC 5.35 4.0-11.0 RBC 4.33 L 4.6-6.2 HGB 12.9 L 13.5-17.9 HCT 40.0 L 41-54 MCV 92.4 80-100 MCH 29.8 27-33 MCHC 32.3 32.0-37.5 PLT 146 L 150-400 MPV 10.4 7.4-10.4 RDW 13.1 11.5-14.5 Mar 18, 2023 01:08 PM [facility] UREA NITROGEN Specimen Type: PLASMA No comment entered. Ordering Provider: BOGDAN KONG Report Released Date/Time: Oct 29, 2022 01:57 PM Reporting Lab: [facility] [phone] Performing Lab: [facility] [phone] UREA NITROGEN 31 H 8-26 Mar 18, 2023 01:08 PM [facility] ELECTROLYTES/ANION GAP Specimen Type: PLASMA No comment entered. Ordering Provider: BOGDAN KONG Report Released Date/Time: Oct 29, 2022 01:57 PM Reporting Lab: [facility] [address] Performing Lab: [facility] [address] SODIUM 139 136-145 POTASSIUM 4.8 3.5-5.1 CHLORIDE 111 H 98-107 CO2 25 22-29 ANION GAP 3 L 5-15 Mar 18, 2023 01:08 PM [facility] CREATININE(INCLUDES EGFR) Specimen Type: PLASMA No comment entered. Ordering Provider: BOGDAN KONG Report Released Date/Time: Oct 29, 2022 01:57 PM Reporting Lab: [facility] [phone] Performing Lab: [facility] [address] CREATININE 2.4 H 0.7-1.2 .CREAT EGFR(CKD-EPI) 26 L >60 Mar 18, 2023 01:08 PM [facility] CALCIUM Specimen Type: PLASMA No comment entered. Ordering Provider: BOGDAN KONG Report Released Date/Time: Oct 29, 2022 01:57 PM Reporting Lab: [facility] [phone] Performing Lab: [facility] [phone] CALCIUM 8.6 8.4-10.2 Mar 18, 2023 01:08 PM [facility] ALBUMIN Specimen Type: PLASMA No comment entered. Ordering Provider: BOGDAN KONG Report Released Date/Time: Oct 29, 2022 01:57 PM Reporting Lab: [facility] [address] Performing Lab: [facility] [phone] ALBUMIN 3.6 3.5-5.2 Mar 18, 2023 01:08 PM [facility] PHOSPHORUS Specimen Type: PLASMA No comment entered. Ordering Provider: BOGDAN KONG Report Released Date/Time: Oct 29, 2022 01:57 PM Reporting Lab: [facility] [phone] Performing Lab: [facility] [address] PHOSPHORUS 2.1 L 2.3-4.7 Mar 18, 2023 01:08 PM [facility] PTH-N-TACT Specimen Type: PLASMA No comment entered. Ordering Provider: BOGDAN KONG Report Released Date/Time: Oct 29, 2022 01:57 PM Reporting Lab: [facility] [address] Performing Lab: [facility] [phone] PTH-N-TACT 153.4 H 8.7-77.1 Mar 18, 2023 01:08 PM [facility] GLUCOSE Specimen Type: PLASMA No comment entered. Ordering Provider: BOGDAN KONG Report Released Date/Time: Oct 29, 2022 01:57 PM Reporting Lab: [facility] [address] Performing Lab: [facility] [address] GLUCOSE 194 H 70-100 Mar 18, 2023 01:08 PM [facility] VIT D 25-OH,TOTAL Specimen Type: SERUM No comment entered. Ordering Provider: BOGDAN KONG Report Released Date/Time: Oct 29, 2022 01:57 PM Reporting Lab: [facility] [address] Performing Lab: [facility] [address] VIT D 25-OH,TOTAL 35 12-50 Mar 18, 2023 01:08 PM [facility] CBC Specimen Type: BLOOD No comment entered. Ordering Provider: BOGDAN KONG Report Released Date/Time: Oct 29, 2022 01:57 PM Reporting Lab: [facility] [address] Performing Lab: [facility] [address] WBC 5.47 4.0-11.0 RBC 4.33 L 4.6-6.2 HGB 13.2 L 13.5-17.9 HCT 39.3 L 41-54 MCV 90.8 80-100 MCH 30.5 27-33 MCHC 33.6 32.0-37.5 PLT 152 150-400 MPV 11.0 H 7.4-10.4 RDW 13.0 11.5-14.5 Vital Signs: All taken on the encounter date This section contains inpatient and outpatient Vital Signs collected on the date of the Encounter. Date/Time Temperature Pulse Blood Pressure Respiratory Rate SP02 Pain Height Weight Body Mass Index Source Mar 18, 2023 02:01 PM 57 /min 103/55 mm[Hg] 18 /min 96 % 0 210.5 lb 29 [facility] Social History: Smoking Status (Most current) and Tobacco Use (All prior to encounter date) This section includes the most current, and the historical, smoking and tobacco- related health factors from the [facility] where the Encounter took place. Current Smoking Status This section includes the most current smoking, or tobacco-related health factor, from the [place] facility where the Encounter took place. Date/Time Current Smoking Status Comment Facil ity Jan 02, 2023 01:15 PM VA-TOBACCO FORMER USER [facility] Tobacco Use History This section includes a history of the smoking, or tobacco-related health factors, that were collected on or before the date of the Encounter. The data comes from the [place] facility where the Encounter took place. Date/Time Smoking Status/Tobacco Use Comment F acility Jan 02, 2023 01:15 PM VA-TOBACCO QUIT 15 YRS OR MORE [facility] Oct 24, 2021 08:45 AM VA-TOBACCO FORMER USER [facility] Oct 24, 2021 08:45 AM VA-TOBACCO QUIT 15 YRS OR MORE [facility] Apr 27, 2020 03:00 PM VA-TOBACCO FORMER USER [facility] Apr 27, 2020 03:00 PM VA-TOBACCO QUIT 15 YRS OR MORE [facility] Apr 23, 2019 05:29 PM INPT NO TOBACCO USE IN LAST 30 D AYS [facility] Oct 15, 2018 09:08 AM VA-TOBACCO FORMER USER [facility] Oct 15, 2018 09:08 AM VA-TOBACCO QUIT 15 YRS OR MORE [facility] November 13, 2017 09:05 AM FORMER TOBACCO USER 7Y OR GREATE R [facility] November 22, 2016 03:15 PM FORMER TOBACCO USER 7Y OR GREATE R [facility] Oct 21, 2015 08:37 AM FORMER TOBACCO USER 7Y OR GREATE R [facility] Oct 21, 2014 01:32 PM FORMER TOBACCO USER 7Y OR GREATE R [facility] Oct 29, 2013 08:29 AM FORMER TOBACCO USER 7Y OR GREATE R [facility] Mar 11, 2007 08:07 AM FORMER TOBACCO USER 7Y OR GREATE R [facility] Radiology Reports: +/- 30 days of [...] the Encounter. The data comes from all [place] treatment facilities. Date/Time Radiology Report Provider Source Feb 27, 2023 08:36 AM US AORTA (P): KRISTOFER STOCKTON [id number] -[id number] M Exm Date: FEB 27, 2023@08:36 Req Phys: NEYMAR HONG Loc: [facility] PACT CRIMSON 4D (Req'g Loc Img Loc: Ultrasound Imaging Service: Unknown (Case [id number] COMPLETE) US RETROPERITONEAL LIMITED (US Detailed) CPT:30459 Reason for Study: f/u iliac artery aneurysms Clinical History: Please note that this study requires a 45min apt. time. [place] IS NOT under investigation for COVID-19 or is COVID-19 negative iliac art aneurysms Responsible provider name and phone number to notify for critical findings if other than user placing the order and pager listed below: User placing orders pager: [phone] LAST CREATININE 3.1 H (11/21/22) Report Status: Verified Date Reported: FEB 27, 2023 Date Verified: FEB 27, 2023 [employer] E-Sig:/ES/YOLANDA CALI MD Report: Abdominal Aorta Ultrasound [...] PATIENT'S FINDINGS ENDS HERE. Recommendations from the [place] Vascular Surgery Department: Small infrarenal abdominal aortic [...] Staff: YOLANDA CALI MD, STAFF NUCLEAR RADIOLOGIST ([employer]) /CPD YOLANDA CALI [facility] Encounter Notes: All associated encounter notes This section contains the clinical notes associated to the Encounter. Date/Time Encounter Note(s) Provider Source Mar 18, 2023 04:16 PM NEPHROLOGY ATTENDI NOTE: LOCAL TITLE: RENAL CLINIC NOTE STANDARD TITLE: NEPHROLOGY ATTENDING NOTE DATE OF NOTE: MAR 18, 2023@16:16 ENTRY DATE: MAR 18, 2023@16:16:39 AUTHOR: CRISTOBAL KONG EXP COSIGNER: URGENCY: STATUS: COMPLETED Nurse's Notes Reviewed. Chief Complaint: MR Stockton is here is here for scheduled follow up, CKD. HPI/ROS: 83 y/o M with PMH HTN, DM2 with microalbuminuria, RA, hyperlipidemia, -A. fib on A/c: He is here today with his spouse. No acute issues. Afib: rate controlled with amiodarone. Followed with cardiology and scheduled to see after this appointment. He will have an ablation with hopes of coming off amiodarone given its SE profile. He has has a hx of stents placed within 3 separate vessels along with PTCA. No history of TN. -HTN: Bps 110s/50s. He does experience lightheadedness on occasion, more with position changes. -DMII: hgb a1c 7.5% (03/30). Insulin and Victoza use. Followed with RN diabetic case educator and metabolic. CGM - evelina. Minor [employer] FELLOWSHIP. Microalbuminuria with alb/creat 263 (10/28). -RA: methotrexate, folic acid, and hydroxychloroquin. Follows with rheumatology. -No NSAIDs other than Diclofenic gel. -No hx of kidney stones Past medical history/Active Problems: Active Problems: Active problems - Computerized Problem List is the source for the followin. 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 Hyperlipidemia (SNOMED CT 35976613) 3. Coronary artery disease (SNOMED CT 37868171) 4. Benign hypertension (SNOMED CT 59283052) 5. Atrial fibrillation (SNOMED CT 45331608) 6. Long-term current use of anticoagulant (SNOMED CT 786231122) 7. Obstructive sleep apnea syndrome 8. Gout 9. Rheumatoid arthritis (SNOMED CT 46262793) 10. Chronic kidney disease (SNOMED CT 482708788) 11. Chronic kidney disease due to type 2 diabetes mellitus (SNOMED CT 7665983913 12. Type 2 diabetes mellitus well controlled 13. Chronic kidney disease stage 3 due to type 2 diabetes mellitus 14. Steatosis of liver 15. 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 No fevers/nightsweats. No rashes/lesions. No Chest Pain. No Shortness of breath. Sleep apnea but does not use CPAP No orthopnea, PND, or peripheral edema. No abdominal pain, N/V, or change in bowel habits. No diarrhea or constipation. No urinary hesitancy or frequency. No dysuria/hematuria. Physical Exam: VS: Temp: 97.5 F [36.4 C] (01/02/2023 13:00) BP: 103/55 (03/18/2023 14:01) Pulse:57 (03/18/2023 14:01) Resp: 18 (03/18/2023 14:01) Weight: 210.5 lb [95.48 kg] (03/18/2023 14:) Pain: 0 (03/18/2023 14:) O2 Sat: 96% (03/18/2023 14:) BMI: 29.4 General NAD WDWN Cardiac: RRR with normal S1 and S2; without murmur, gallop, rub. Chest/Lungs: Bilaterally clear Extremities: No edema. No lesions. Sparse hair growth Lab Data: Last 48 hours: HGB A1C: 7.5 H WBC: 5.35 RBC: 4.33 L HGB: 12.9 L HCT: 40.0 L MCV: 92.4 MCH: 29.8 MCHC: 32.3 RDW: 13.1 PLT: 146 L MPV: 10.4 GLUCOSE: 192 H UREA NITROGEN: 31 H CREATININE: 2.5 H SODIUM: 142 POTASSIUM: 4.8 CHLORIDE: 111 H CO2: 26 CALCIUM: 8.7 CHOLESTEROL: 120 MAGNESIUM: 1.9 HDL: 46 TSH: 1.32 ANION GAP: 5 LDL CHOL: 57 VLDL CHOL: 17 NON HDL CHOLESTEROL: 74 TRIG(NON FASTING): 87 CREATININE EGFR (CKD-EPI): 25 L VITAMIN D,TOTAL: 35 PTH-N-tact(01/20/02): 153.4 H WBC: 5.47 RBC: 4.33 L HGB: 13.2 L HCT: 39.3 L MCV: 90.8 MCH: 30.5 MCHC: 33.6 RDW: 13.0 PLT: 152 MPV: 11.0 H GLUCOSE: 194 H UREA NITROGEN: 31 H CREATININE: 2.4 H SODIUM: 139 POTASSIUM: 4.8 CHLORIDE: 111 H CO2: 25 CALCIUM: 8.6 PO4: 2.1 L ALBUMIN: 3.6 ANION GAP: 3 L CREATININE EGFR (CKD-EPI): 26 L Patient was informed of all the above labs during this visit. A/P: CKD stage 3/4 with egfr 28-30s with creatinine currently 2.5. Creatinine 1.9-2.1 dating back to 2013. Prior to 2013, creatinine 1.5-1.8 dating back to 2006. Pt's CKD multifactorial - HTN, CVD, DM. There could be a component with residential methotrexate and hydroxychloroquin use. -As for his diabetes, his hgb a1c is 7.5% which is at goal (goal <8.0% or lower as tolerated with treatment to avoid hypoglycemic events). He is on an insulin and Victoza and is managed with RN rn diabetes educator. It is imperitive to keep bp and diabetes under very good control to prevent further decline of renal function. -HTN: Adequate control. BP goal <140/90 or lower as tolerated with treatment (JNC 8 recommendations). I have also stressed the importance of adequate daily hydration. -Lytes: Acceptable. No MARCELLO/ARB. -Mild anemia with hgb currently at 13.2gm/dl - no overt sign bleed. No need for LUIS. WIll continue to monitor. -bone health: ca/phos acceptable. PTH down to 153, acceptable at this time given bone minerals normalized. Vitamin D 35 - continue with cholecalciferol. -Refrain from NSAIDs. -Pt to stay adequately hydrated. 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 To see cardiology after this appt. RA: Methotrexate and hydroxychloroquin. Followed with Rheumatology. F/u: 6 months with renal panel /igor/ CRISTOBAL KONG DNP APRN RN SANE Certified Nurse Practitioner Signed: 03/19/2023 11:34 CRISTOBAL KONG [facility] Mar 18, 2023 02:02 PM INTERNAL MEDICINE OUTPATIENT NOTE: LOCAL TITLE: MEDICINE CLINIC NURSING NOTE STANDARD TITLE: INTERNAL MEDICINE OUTPATIENT NOTE DATE OF NOTE: MAR 18, 2023@14:02 ENTRY DATE: MAR 18, 2023@14:02:21 AUTHOR: ESTEFANY DAVISON EXP COSIGNER: URGENCY: STATUS: COMPLETED TYPE OF VISIT: Appointment Check In Type of appointment: In-person appointment REASON FOR VISIT: scheduled visit ALLERGIES: ATORVASTATIN (May 15, 2007) SIMVASTATIN (Mar 13, 2012) METOPROLOL (May 01, 2019) CLINDAMYCIN (Oct 05, 2020) HYDROXYCHLOROQUINE (November 20, 2022) VITAL SIGNS: Blood Pressure: 103/55 (03/18/2023 14:01) Pulse: 57 (03/18/2023 14:01) Respiration: 18 (03/18/2023 14:01) Temperature: 97.5 F [36.4 C] (01/02/2023 13:00) Weight: 210.5 lb [95.48 kg] (03/18/2023 14:01) Height: 71 in [180.3 cm] (11/21/2022 10:21) BMI: 29.4 O2 Sat: 96% (03/18/2023 14:01) Pain: 0 (03/18/2023 14:) PAIN SCREEN: Patient is not having significant pain that they wish to discuss with their provider today. MEDICATION Over the Counter/Herbal Medications: The patient states that they take some outside medications and/or herbals. Renal Clinic CREATININE 3.1 H (11/21/22) Dietary Assessment Has been seen by dietary in the past regarding a renal diet. Denies concerns eGFr is greater than 30. /igor/ ESTEFANY DAVISON LPN LPN Signed: 03/18/2023 14:04 ESTEFANY DAVISON [facility]
--- OUTSIDE RECORDS SUMMARY | 2023-10-11 23:51 | XMS_ITS | Encounter Summary ---
Author Name [facility] Organization [facility] Address [address] [place] [address] Support Name Relationship Address Phone JUDE STOCKTON Next of Kin [address] [facility] [place] [phone] JUDE STOCKTON Emergency Contact [address] [place] [address] JUDE STOCKTON Next of Kin [address] [facility] [place] [phone] JUDE STOCKTON Emergency Contact [address] [place] [address] Insurance Providers: All historical and [...] Dinero's Name Patient's Relationship to Policy Dinero [facility] MEDICARE SUPPLEGANESH GERONIMO Jul 08, 2016 [id number] KRISTOFER STOCKTON PATIENT MEDICARE (WNR) MEDICARE (M) PART B Jun 07, 2007 PART B [id number] KRISTOFER STOCKTON PATIENT MEDICARE (WNR) MEDICARE (M) PART B Jun 07, 2007 PART B [id number] KRISTOFER STOCKTON PATIENT MEDICARE (WNR) MEDICARE (M) PART B Jun 07, 2007 PART B [id number] KRISTOFER STOCKTON PATIENT MEDICARE (WNR) MEDICARE (M) PART B Jun 07, 2007 PART B [id number] KRISTOFER STOCKTON PATIENT MEDICARE (WNR) MEDICARE (M) PART A Mar 08, 2007 PART A [id number] KRISTOFER STOCKTON PATIENT MEDICARE (WNR) MEDICARE (M) PART A Mar 08, 2007 PART A [id number] KRISTOFER STOCKTON PATIENT MEDICARE (WNR) MEDICARE (M) PART A Mar 08, 2007 PART A [id number] KRISTOFER STOCKTON PATIENT MEDICARE (WNR) MEDICARE (M) PART A Mar 08, 2007 PART A [id number] [phone] KRISTOFER STOCKTON PATIENT Selected Encounter This section includes the information on record at ID for the Encounter. Date/Time Encounter Type Encounter Description Reason Provider Source Apr 17, 2023 10:30 AM OFFICE O/P EST LOW 20-29 MIN RHEUMATOLOGY/ARTH RITIS ICD-10-CM M06.9 Rheumatoid arthritis, unspecified GUMARO ALMEIDA Judah Encounter Template Text not used by ID Assessments - Encounter Diagnoses This section includes the primary and secondary diagnoses documented for the Encounter. Date/Time Primary/Secondary Diagnosis Diagnosis Name Provider Source Apr 17, 2023 02:49 PM PRIMARY Rheumatoid arthritis, unspecified GUMARO ALMEIDA [facility] Plan of Treatment: Future Appointments (+ [...] Date/Time Appointment Type Appointme nt Facility Name Jun 18, 2023 10:30 AM AMBULATORY - [place]ICINE [place] [facility] Jul 10, 2023 10:30 AM AMBULATORY - MEDICINE [facility] Oct 08, 2023 01:00 PM AMBULATORY - SURGERY [place] [facility] Oct 11, 2023 06:45 AM AMBULATORY - NONE [place] [facility] Oct 11, 2023 07:15 AM AMBULATORY - [place]ICINE [place] [facility] Oct 11, 2023 07:30 AM AMBULATORY - [place]ICINE [place] [facility] Oct 11, 2023 08:00 AM AMBULATORY - [place]ICINE [place] [facility] Oct 11, 2023 03:00 PM AMBULATORY - NONE IJEOMA AGRAWAL [facility] Oct 11, 2023 03:10 PM AMBULATORY - MED[facility] Lab Results: +/- 30 days of the encounter This section includes the Chemistry and Hematology Lab Results on record with ID for the patient. Radiology Reports and Pathology Reports are provided separately, in subsequent sections. Lab Results This section contains the Chemistry/Hematology Results that were resulted 30 days before or 30 daysafter the date of the Encounter. Date/Time Source Result Type Result - Unit Interpretation Reference Range Comment Apr 17, 2023 08:34 AM [facility] RHEUMATOLOGY CHEM PANEL Specimen Type: PLASMA No comment entered. Ordering Provider: JAYSON STAPLETON Report Released Date/Time: November 21, 2022 10:55 AM Reporting Lab: [facility] [id number] Performing Lab: [facility] [id number] CREATININE 2.8 H 0.7-1.2 ALKALINE PHOSPHATASE 90 40-150 ALT/SGPT 20 <55 AST/SGOT 21 <34 C-REACTIVE PROTEIN 2.19 <5.00 .CREAT EGFR(CKD-EPI) 22 L >60 Apr 17, 2023 08:34 AM [facility] RHEUMATOLOGY HEME PANEL Specimen Type: BLOOD Comment: Automated Differential Performed Ordering Provider: JAYSON STAPLETON Report Released Date/Time: November 21, 2022 10:55 AM Reporting Lab: [facility] [id number] Performing Lab: [facility] [id number] WBC 6.01 4.0-11.0 RBC 4.10 L 4.6-6.2 [...] 6 5-15 Mar 28, 2023 09:14 AM [facility] PROTEIN/CREATININE RATIO URINE Specimen Type: URINE No comment entered. Ordering Provider: JOURDAN VILLALOBOS Report Released Date/Time: Oct 22, 2022 08:22 AM Reporting Lab: [facility] [id number] Performing Lab: [facility] [id number] PROTEIN/CREATI NINE RATIO 0.22 H <0.19 CREATININE,UR RANDOM 145.0 58.0-161.0 PROTEIN,T. RANDOM UR 31.8 H <14.0 Mar 28, 2023 09:14 AM [facility] URINALYSIS Specimen Type: URINE No comment entered. Ordering Provider: JOURDAN VILLALOBOS Report Released Date/Time: Oct 22, 2022 08:22 AM Reporting Lab: [facility] [id number] Performing Lab: [facility] [id number] URINE COLOR LIGHT-YELLOW SPECIFIC GRAVITY 1.015 1.003-1.03 [...] NEGATIVE NEGATIVE Mar 28, 2023 09:13 AM [facility] MICROALBUMIN/CREATININE RATIO URINE Specimen Type: URINE No comment entered. Ordering Provider: ADELINA BILSS Report Released Date/Time: Oct 18, 2022 10:29 AM Reporting Lab: [facility] [id number] Performing Lab: [facility] [phone] CREATININE,UR RANDOM 145.2 58.0-161.0 ALB/CREAT RATIO,UR 131.2 H <29.9 MICROALBUMIN,U R 190.5 H <29.9 Vital Signs: All taken on the encounter date This section contains inpatient and outpatient Vital Signs collected on the date of the Encounter. Date/Time Temperature Pulse Blood Pressure Respiratory Rate SP02 Pain Height Weight Body Mass Index Source Apr 17, 2023 10:25 AM 158/72 mm[Hg] [facility] Apr 17, 2023 10:19 AM 97.9 F 57 /min 156/69 mm[Hg] 16 /min 98 % 0 211.8 lb 30 [facility] Social History: Smoking Status (Most current) and Tobacco Use (All prior to encounter date) This section includes the most current, and the historical, smoking and tobacco- related health factors from the ID facility where the Encounter took place. Current Smoking Status This section includes the most current smoking, or tobacco-related health factor, from the ID facility where the Encounter took place. Date/Time Current Smoking Status Comment Facil ity Jan 02, 2023 01:15 PM VA-TOBACCO FORMER USER [facility] Tobacco Use History This section includes a history of the smoking, or tobacco-related health factors, that were collected on or before the date of the Encounter. The data comes from the ID facility where the Encounter took place. Date/Time Smoking Status/Tobacco Use Comment F acility Jan 02, 2023 01:15 PM VA-TOBACCO QUIT 15 YRS OR MORE [facility] Oct 24, 2021 08:45 AM VA-TOBACCO FORMER USER [facility] Oct 24, 2021 08:45 AM VA-TOBACCO QUIT 15 YRS OR MORE [facility] Apr 27, 2020 03:00 PM VA-TOBACCO FORMER USER [facility] Apr 27, 2020 03:00 PM VA-TOBACCO QUIT 15 YRS OR MORE [facility] Apr 23, 2019 05:29 PM INPT NO TOBACCO USE IN LAST 30 D AYS [facility] Oct 15, 2018 09:08 AM VA-TOBACCO FORMER USER [facility] Oct 15, 2018 09:08 AM VA-TOBACCO QUIT 15 YRS OR MORE [facility] November 13, 2017 09:05 AM FORMER TOBACCO USER 7Y OR GREATE R [facility] November 22, 2016 03:15 PM FORMER TOBACCO USER 7Y OR GREATE R [facility] Oct 21, 2015 08:37 AM FORMER TOBACCO USER 7Y OR GREATE R [facility] Oct 21, 2014 01:32 PM FORMER TOBACCO USER 7Y OR GREATE R [facility] Oct 29, 2013 08:29 AM FORMER TOBACCO USER 7Y OR DIONISIO Hunter [facility] Mar 11, 2007 08:07 AM FORMER TOBACCO USER 7Y OR DIONISIO Hunter [facility] Encounter Notes: All associated encounter notes This section contains the clinical notes associated to the Encounter. Date/Time Encounter Note(s) Provider Source Apr 17, 2023 12:52 PM RHEUMATOLOGY ATTENDING NOTE: LOCAL TITLE: RHEUMATOLOGY CLINIC NOTE STANDARD TITLE: RHEUMATOLOGY ATTENDING NOTE DATE OF NOTE: APR 17, 2023@12:52 ENTRY DATE: APR 17, 2023@12:52:40 AUTHOR: SUMA STAPLETON COSIGNER: URGENCY: STATUS: COMPLETED Rheumatology Clinic Note Chief Complaint: Follow-up of inflammatory arthritis History of Present Illnes: Rheum History: [...] cause a noticable change in his symptoms. 11/23/2022: Patient was last seen in the clinic [...] Otherwise he reports some low back pain. 04/17/2023: Patient reports that he continues to do well. Denies any significant flareups or interval changes since last visit. Denies any significant morning stiffness. Denies using any pain medications. Continues to be off all medications for rheumatoid arthritis. Allergies: ATORVASTATIN (May 15, 2007) SIMVASTATIN (Mar [...] (PACERONE) 200MG TAB TAKE ONE TABLET BY PENDING MOUTH EVERY DAY APIXABAN 2.5MG TAB TAKE ONE TABLET BY MOUTH EVERY 12 HOURS ACTIVE (S) TO PREVENT STROKES DICLOFENAC NA 1% TOP GEL APPLY 4 GRAMS FOUR TIMES A DAY ACTIVE NEEDED FOR PAIN -USE DOSE CARD IN BOX TO MEASURE DOSE -MAXIMUM OF 32 TOTAL GRAMS PER DAY. GABAPENTIN 100MG CAP TAKE ONE CAPSULE BY MOUTH TWICE A DAY ACTIVE FOR ESSENTIAL TREMOR GLUCOSE SENSOR FREESTYLE CARMELA 2 USE 1 SENSOR EVERY 14 ACTIVE DAYS TO MONITOR GLUCOSE INSULIN,GLARGINE-YFGN 100UNIT/ML PEN 3ML INJECT 9 UNITS ACTIVE UNDER THE SKIN EVERY DAY FOR DIABETES ISOSORBIDE MONONITRATE 60MG SA TAB TAKE ONE TABLET BY ACTIVE MOUTH EVERY DAY FOR CHEST PAIN LIRAGLUTIDE (VICTOZA) 6MG/ML INJ PEN 3ML INJECT 0.6 MG ACTIVE (S) UNDER THE SKIN EVERY DAY FOR DIABETES LORATADINE 10MG TAB TAKE ONE TABLET BY MOUTH EVERY DAY FOR ACTIVE ALLERGIES MULTIVIT/OPHTH AREDS2/LUTE/ZEAX CAP/TAB TAKE 1 CAP/TAB BY PENDING MOUTH TWICE A DAY NEEDLE,PEN 31G,5MM USE 1 NEEDLE UNDER THE SKIN DIRECTED ACTIVE *DISPOSE OF IN A HARD-PLASTIC CONTAINER WITH A SCREW-ON LID CONTACT GARBAGE HAULER FOR PROPER DISPOSAL ROSUVASTATIN CA 20MG TAB TAKE ONE-HALF TABLET BY MOUTH ACTIVE (S) EVERY DAY FOR CHOLESTEROL (DO NOT CONVERT/APPROVED 04/2013) Non-VA CHOLECALCIF 25MCG (D3-1,000UNIT) TAB 1000UNIT MOUTH ACTIVE EVERY DAY Review of Systems: 12 point review of system done and negative except mentioned above. Past medical history to include co-morbid medical problems: Active problems - Computerized Problem List is the source for the followin. 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 Hyperlipidemia (SNOMED CT 46719234) 3. Coronary artery disease (SNOMED CT 23323661) 4. Benign hypertension (SNOMED CT 80888236) 5. Atrial fibrillation (SNOMED CT 72424842) 6. Long-term current use of anticoagulant (SNOMED CT 273064510) 7. Obstructive sleep apnea syndrome 8. Gout 9. Rheumatoid arthritis (SNOMED CT 33546513) 10. Chronic kidney disease (SNOMED CT 640220026) 11. Type 2 diabetes mellitus well controlled 12. 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 Steatosis of liver 14. 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 half-way methotrexate user 17. Essential tremor Physical Exam: Latest Vital Signs: Pain Score: 0 (04/17/2023 10:19) Temperature: 97.9 F [36.6 C] (04/17/2023 10:19) Pulse: 57 (04/17/2023 10:19) Blood Pressure: 158/72 (04/17/2023 10:25) Weight: 211.8 lb [96.07 kg] (04/17/2023 10:19) Height: 71 in [180.3 cm] (11/21/2022 10:21) Pulse Oximetry:98% (04/17/2023 10:19) General: Alert, NAD Head: Normal Eyes: Normal, PERRLA, EOMI Neck/Thyroid: Normal, No Adenopathy Cardiac: RRR Chest/Lungs: Bilaterally clear with no respiratory distress Extremities: Normal, No Edema Joint Exam: Swelling (S), Tenderness (T) S0 T0 bilateral PIP, DIP and MCP joints. ROM normal bilateral wrists, shoulders, hips, knees and ankles. Latest Labs: HGB 12.3 L (04/17/23) MCV 92.9 (04/17/23) WBC 6.01 (04/17/23) PLT 146 L (04/17/23) GLUCOSE 192 H (03/18/23) WESTERGREN 6 (04/17/23) C-REACTIVE PROTEIN 2.19 (04/17/23) BILIRUBIN, TOTAL 0.5 (11/21/22) SGOT 21 (04/17/23) SGPT 20 (04/17/23) ALK PHOSPHATASE 90 (04/17/23) ALBUMIN 3.6 (03/18/23) CALCIUM 8.7 (03/18/23) MAGNESIUM 1.9 (03/18/23) PO4 2.1 L (03/18/23) CREATININE 2.8 H (04/17/23) UREA NITROGEN 31 H (03/18/23) Assessment and Recommendations: #Seropositive RA -Patient was overall doing well on methotrexate and Plaquenil but has not refilled methotrexate since June and continues to do well. Plaquenil was discontinued this month due to concerns of retinopathy on ophthalmology examination. On examination today, patient does not have any signs of inflammatory active synovitis or tenderness to palpation. #Plan --Discussed about continue to monitor without any medications for now as patient does not have any signs of inflammatory arthropathy and overall at baseline pain otherwise. Patient is agreeable. -- Return to clinic in 12 months. Patient seen, examined and discussed with staff Auction Clerk Dr. Almeida /igor/ SUMA STAPLETON RHEUMATOLOGY FELLOW Signed: 04/17/2023 13:00 Receipt Acknowledged By: 04/17/2023 14:50 /igor/ GUMARO ALMEIDA MD PHYSICIAN SUMA STAPLETON [facility] Apr 17, 2023 10:22 AM INTERNAL MEDICINE OUTPATIENT NOTE: LOCAL TITLE: MEDICINE CLINIC NURSING NOTE STANDARD TITLE: INTERNAL MEDICINE OUTPATIENT NOTE DATE OF NOTE: APR 17, 2023@10:22 ENTRY DATE: APR 17, 2023@10:22:16 AUTHOR: SILVANA GUERRA EXP COSIGNER: URGENCY: STATUS: COMPLETED TYPE OF VISIT: Appointment Check In Type of appointment: In-person appointment REASON FOR VISIT: Rheumatology visit with labs drawn ALLERGIES: ATORVASTATIN (May 15, 2007) SIMVASTATIN (Mar 13, 2012) METOPROLOL (May 01, 2019) CLINDAMYCIN (Oct 05, 2020) HYDROXYCHLOROQUINE (November 20, 2022) VITAL SIGNS: Blood Pressure: 156/69 (04/17/2023 10:19) 158/72 Pulse: 57 (04/17/2023 10:19) Respiration: 16 (04/17/2023 10:19) Temperature: 97.9 F [36.6 C] (04/17/2023 10:19) Weight: 211.8 lb [96.07 kg] (04/17/2023 10:19) Height: 71 in [180.3 cm] (11/21/2022 10:21) BMI: 29.6 O2 Sat: 98% (04/17/2023 10:19) Pain: 0 (04/17/2023 10:19) PAIN SCREEN: Patient is not having significant pain that they wish to discuss with their provider today. MEDICATION Active Outpatient Medications (including Supplies): ACCU-CHEK GUIDE (GLUCOSE) TEST STRIP USE 1 STRIP EVERY DAY ACTIVE NEEDED TO CHECK BLOOD SUGAR IF GLUCOSE SENSOR FAILS -USE WITHIN 3 MINUTES OF REMOVING FROM CONTAINER -TEST AT DIFFERENT TIMES OF THE DAY, OR DIRECTED AMIODARONE HCL (PACERONE) 200MG TAB TAKE ONE TABLET BY PENDING MOUTH EVERY DAY APIXABAN 2.5MG TAB TAKE ONE TABLET BY MOUTH EVERY 12 HOURS ACTIVE (S) TO PREVENT STROKES DICLOFENAC NA 1% TOP GEL APPLY 4 GRAMS FOUR TIMES A DAY ACTIVE NEEDED FOR PAIN -USE DOSE CARD IN BOX TO MEASURE DOSE -MAXIMUM OF 32 TOTAL GRAMS PER DAY. GABAPENTIN 100MG CAP TAKE ONE CAPSULE BY MOUTH TWICE A DAY ACTIVE FOR ESSENTIAL TREMOR GLUCOSE SENSOR FREESTYLE CARMELA 2 USE 1 SENSOR EVERY 14 ACTIVE DAYS TO MONITOR GLUCOSE INSULIN,GLARGINE-YFGN 100UNIT/ML PEN 3ML INJECT 9 UNITS ACTIVE UNDER THE SKIN EVERY DAY FOR DIABETES ISOSORBIDE MONONITRATE 60MG SA TAB TAKE ONE TABLET BY ACTIVE MOUTH EVERY DAY FOR CHEST PAIN LIRAGLUTIDE (VICTOZA) 6MG/ML INJ PEN 3ML INJECT 0.6 MG ACTIVE (S) UNDER THE SKIN EVERY DAY FOR DIABETES LORATADINE 10MG TAB TAKE ONE TABLET BY MOUTH EVERY DAY FOR ACTIVE ALLERGIES MULTIVIT/OPHTH AREDS2/LUTE/ZEAX CAP/TAB TAKE 1 CAP/TAB BY PENDING MOUTH TWICE A DAY NEEDLE,PEN 31G,5MM USE 1 NEEDLE UNDER THE SKIN DIRECTED ACTIVE *DISPOSE OF IN A HARD-PLASTIC CONTAINER WITH A SCREW-ON LID CONTACT GARBAGE HAULER FOR PROPER DISPOSAL ROSUVASTATIN CA 20MG TAB TAKE ONE-HALF TABLET BY MOUTH ACTIVE (S) EVERY DAY FOR CHOLESTEROL (DO NOT CONVERT/APPROVED 04/2013) Non-VA CHOLECALCIF 25MCG (D3-1,000UNIT) TAB 1000UNIT MOUTH ACTIVE EVERY DAY Over the Counter/Herbal Medications: The patient states that they take some outside medications and/or herbals. /igor/ SILVANA GUERRA LPN LICENSED PRACTICAL NURSE Signed: 04/17/2023 10:25 SILVANA GUERRA [facility]
--- OUTSIDE RECORDS SUMMARY | 2023-10-11 23:51 | XMS_ITS | Encounter Summary ---
Author Name Department of Vetera ns Affairs Organization [facility] Address [address] [place] [address] Support Name Relationship Address Phone JUDE STOCKTON Next of Kin [address] [facility] [place] [phone] JUDE STOCKTON Emergency Contact [phone] [place] [address] JUDE STOCKTON Next of Kin [address] [facility] [place] [phone] JUDE STOCKTON Emergency Contact [address] [address] Insurance Providers: All historical and [...] Dinero's Name Patient's Relationship to Policy Dinero [facility] MEDICARE SUPPLEGANESH GERONIMO Jul 08, 2016 [id number] [phone] KRISTOFER STOCKTON PATIENT MEDICARE (WNR) MEDICARE (M) PART B Jun 07, 2007 PART B [id number] KRISTOFER STOCKTON PATIENT MEDICARE (WNR) MEDICARE (M) PART B Jun 07, 2007 PART B [id number] [phone] KRISTOFER STOCKTON PATIENT MEDICARE (WNR) MEDICARE (M) PART B Jun 07, 2007 PART B [id number] KRISTOFER STOCKTON PATIENT MEDICARE (WNR) MEDICARE (M) PART B Jun 07, 2007 PART B [id number] KRISTOFER STOCKTON PATIENT MEDICARE (WNR) MEDICARE (M) PART A Mar 08, 2007 PART A [id number] KRISTOFER STOCKTON PATIENT MEDICARE (WNR) MEDICARE (M) PART A Mar 08, 2007 PART A [id number] KRISTOFER STOCKTON PATIENT MEDICARE (WNR) MEDICARE (M) PART A Mar 08, 2007 PART A [id number] KRISTOFER STOCKTON PATIENT MEDICARE (WNR) MEDICARE (M) PART A Mar 08, 2007 PART A [id number] KRISTOFER STOCKTON PATIENT Selected Encounter This section includes the information on record at [place] for the Encounter. 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 Plan of Treatment: Future Appointments (+ 6 months) and Future Tests (+/- 45 days) The Plan of Treatment section includes future care activities for the patient from all [place] treatmentfacilities. This section includes future appointments and future orders which are active, pending or scheduled. Future Appointments This section includes appointments that were scheduled to occur 6 months from the date of the Encounter, up to a maximum of 20 appointments. The data comes from all [place] treatment facilities. Appointment Date/Time Appointment Type Appointme nt Facility Name Apr 17, 2023 09:30 AM AM[place]ORY [place] [facility] Apr 17, 2023 10:30 AM [place] [facility] Jun 18, 2023 10:30 AM [place]ORY [place]IC[place] [facility] Jul 10, 2023 10:30 AM AMBULATORY - MEDICINE [facility] Oct 08, 2023 01:00 PM AMBUL[place]ORY [place]GERY [place] [facility] Oct 11, 2023 06:45 AM AMBULATORY - NONE [place] [facility] Oct 11, 2023 07:15 AM [place]ORY [place]IC[place] [facility] Oct 11, 2023 07:30 AM [place]ORY [place]IC[place] [facility] Oct 11, 2023 08:00 AM [place]ORY [place]IC[place] [facility] Oct 11, 2023 03:00 PM AMBUL[place]ORY - NONE [place] [facility] Oct 11, 2023 03:10 PM [place]ORY - [place]ICINE [place] [facility] Lab Results: +/- 30 days of the encounter This section includes the Chemistry and Hematology Lab Results on record with [place] for the patient. Radiology Reports and Pathology Reports are provided separately, in subsequent sections. Lab Results This section contains the Chemistry/Hematology Results that were resulted 30 days before or 30 daysafter the date of the Encounter. Date/Time Source Result Type Result - Unit Interpretation Reference Range Comment Apr 17, 2023 08:34 AM [facility] RHEUMATOLOGY CHEM PANEL Specimen Type: PLASMA No comment entered. Ordering Provider: JAYSON STAPLETON Report Released Date/Time: November 21, 2022 10:55 AM Reporting Lab: [facility] [address] Performing Lab: [facility] [address] CREATININE 2.8 H 0.7-1.2 ALKALINE PHOSPHATASE 90 40-150 ALT/SGPT 20 <55 AST/SGOT 21 <34 C-REACTIVE PROTEIN 2.19 <5.00 .CREAT EGFR(CKD-EPI) 22 L >60 Apr 17, 2023 08:34 AM [facility] RHEUMATOLOGY HEME PANEL Specimen Type: BLOOD Comment: Automated Differential Performed Ordering Provider: JAYSON STAPLETON Report Released Date/Time: November 21, 2022 10:55 AM Reporting Lab: [facility] [address] Performing Lab: [facility] [address] WBC 6.01 4.0-11.0 RBC 4.10 L 4.6-6.2 [...] 6 5-15 Mar 28, 2023 09:14 AM [facility] PROTEIN/CREATININE RATIO URINE Specimen Type: URINE No comment entered. Ordering Provider: JOURDAN VILLALOBOS Report Released Date/Time: Oct 22, 2022 08:22 AM Reporting Lab: [facility] [address] Performing Lab: [facility] [address] PROTEIN/CREATI NINE RATIO 0.22 H <0.19 CREATININE,UR RANDOM 145.0 58.0-161.0 PROTEIN,T. RANDOM UR 31.8 H <14.0 Mar 28, 2023 09:14 AM [facility] URINALYSIS Specimen Type: URINE No comment entered. Ordering Provider: JOURDAN VILLALOBOS Report Released Date/Time: Oct 22, 2022 08:22 AM Reporting Lab: [facility] [address] Performing Lab: [facility] [address] URINE COLOR LIGHT-YELLOW SPECIFIC GRAVITY 1.015 1.003-1.03 [...] NEGATIVE NEGATIVE Mar 28, 2023 09:13 AM [facility] MICROALBUMIN/CREATININE RATIO URINE Specimen Type: URINE No comment entered. Ordering Provider: ADELINA BLISS Report Released Date/Time: Oct 18, 2022 10:29 AM Reporting Lab: [facility] [address] Performing Lab: [facility] [address] CREATININE,UR RANDOM 145.2 58.0-161.0 ALB/CREAT RATIO,UR 131.2 H <29.9 MICROALBUMIN,U R 190.5 H <29.9 Mar 18, 2023 01:10 PM [facility] TSH W/REFLEX TO FREE T4 Specimen Type: PLASMA No comment entered. Ordering Provider: ADELINA BLISS Report Released Date/Time: Oct 18, 2022 10:29 AM Reporting Lab: [facility] [address] Performing Lab: [facility] [address] TSH 1.32 0.35-4.94 Mar 18, 2023 01:10 PM [facility] LIPID PANEL,NON-FASTING Specimen Type: PLASMA No comment entered. Ordering Provider: ADELINA BLISS Report Released Date/Time: Oct 18, 2022 10:29 AM Reporting Lab: [facility] [address] Performing Lab: [facility] [address] CHOLESTEROL 120 <199 .HDL 46 >40 LDL CALCULATION 57 <99 VLDL CALCULATION 17 <29 NON HDL CHOLESTEROL 74 <129 TRIG(NON FASTING) 87 <149 Mar 18, 2023 01:10 PM [facility] HEMOGLOBIN A1C Specimen Type: BLOOD Comment: Values [...] Oct 18, 2022 10:29 AM Reporting Lab: [facility] [phone] Performing Lab: [facility] [address] HEMOGLOBIN A1C 7.5 H 4.0-6.0 Mar 18, 2023 01:10 PM [facility] CBC Specimen Type: BLOOD No comment entered. Ordering Provider: ADELINA BLISS Report Released Date/Time: Oct 18, 2022 10:29 AM Reporting Lab: [facility] [address] Performing Lab: [facility] [address] WBC 5.35 4.0-11.0 RBC 4.33 L 4.6-6.2 HGB 12.9 L 13.5-17.9 HCT 40.0 L 41-54 MCV 92.4 80-100 MCH 29.8 27-33 MCHC 32.3 32.0-37.5 PLT 146 L 150-400 MPV 10.4 7.4-10.4 RDW 13.1 11.5-14.5 Mar 18, 2023 01:10 PM [facility] BASIC METABOLIC PANEL+MG Specimen Type: PLASMA No comment entered. Ordering Provider: ADELINA BLISS Report Released Date/Time: Oct 18, 2022 10:29 AM Reporting Lab: [facility] [address] Performing Lab: [facility] [address] CREATININE 2.5 H 0.7-1.2 UREA NITROGEN 31 H 8-26 GLUCOSE 192 H 70-100 SODIUM 142 136-145 POTASSIUM 4.8 3.5-5.1 CHLORIDE 111 H 98-107 CO2 26 22-29 CALCIUM 8.7 8.4-10.2 MAGNESIUM 1.9 1.6-2.6 ANION GAP 5 5-15 .CREAT EGFR(CKD-EPI) 25 L >60 Mar 18, 2023 01:08 PM [facility] UREA NITROGEN Specimen Type: PLASMA No comment entered. Ordering Provider: BOGDAN KONG Report Released Date/Time: Oct 29, 2022 01:57 PM Reporting Lab: [facility] [address] Performing Lab: [facility] [address] UREA NITROGEN 31 H 8-26 Mar 18, 2023 01:08 PM [facility] ELECTROLYTES/ANION GAP Specimen Type: PLASMA No comment entered. Ordering Provider: BOGDAN KONG Report Released Date/Time: Oct 29, 2022 01:57 PM Reporting Lab: [facility] [address] Performing Lab: [facility] [address] SODIUM 139 136-145 POTASSIUM 4.8 3.5-5.1 CHLORIDE 111 H 98-107 CO2 25 22-29 ANION GAP 3 L 5-15 Mar 18, 2023 01:08 PM [facility] CREATININE(INCLUDES EGFR) Specimen Type: PLASMA No comment entered. Ordering Provider: BOGDAN KONG Report Released Date/Time: Oct 29, 2022 01:57 PM Reporting Lab: [facility] [address] Performing Lab: [facility] [address] CREATININE 2.4 H 0.7-1.2 .CREAT EGFR(CKD-EPI) 26 L >60 Mar 18, 2023 01:08 PM [facility] CALCIUM Specimen Type: PLASMA No comment entered. Ordering Provider: BOGDAN KONG Report Released Date/Time: Oct 29, 2022 01:57 PM Reporting Lab: [facility] [address] Performing Lab: [facility] [address] CALCIUM 8.6 8.4-10.2 Mar 18, 2023 01:08 PM [facility] PHOSPHORUS Specimen Type: PLASMA No comment entered. Ordering Provider: BOGDAN KONG Report Released Date/Time: Oct 29, 2022 01:57 PM Reporting Lab: [facility] [address] Performing Lab: [facility] [address] PHOSPHORUS 2.1 L 2.3-4.7 Mar 18, 2023 01:08 PM [facility] ALBUMIN Specimen Type: PLASMA No comment entered. Ordering Provider: BOGDAN KONG Report Released Date/Time: Oct 29, 2022 01:57 PM Reporting Lab: [facility] [address] Performing Lab: [facility] [address] ALBUMIN 3.6 3.5-5.2 Mar 18, 2023 01:08 PM [facility] PTH-N-TACT Specimen Type: PLASMA No comment entered. Ordering Provider: BOGDAN KONG Report Released Date/Time: Oct 29, 2022 01:57 PM Reporting Lab: [facility] [address] Performing Lab: [facility] [address] PTH-N-TACT 153.4 H 8.7-77.1 Mar 18, 2023 01:08 PM [facility] GLUCOSE Specimen Type: PLASMA No comment entered. Ordering Provider: BOGDAN KONG Report Released Date/Time: Oct 29, 2022 01:57 PM Reporting Lab: [facility] [address] Performing Lab: [facility] [address] GLUCOSE 194 H 70-100 Mar 18, 2023 01:08 PM [facility] VIT D 25-OH,TOTAL Specimen Type: SERUM No comment entered. Ordering Provider: BOGDAN KONG Report Released Date/Time: Oct 29, 2022 01:57 PM Reporting Lab: [facility] [address] Performing Lab: [facility] [address] VIT D 25-OH,TOTAL 35 12-50 Mar 18, 2023 01:08 PM [facility] CBC Specimen Type: BLOOD No comment entered. Ordering Provider: BOGDAN KONG Report Released Date/Time: Oct 29, 2022 01:57 PM Reporting Lab: [facility] [address] Performing Lab: [facility] [address] WBC 5.47 4.0-11.0 RBC 4.33 L 4.6-6.2 HGB 13.2 L 13.5-17.9 HCT 39.3 L 41-54 MCV 90.8 80-100 MCH 30.5 27-33 MCHC 33.6 32.0-37.5 PLT 152 150-400 MPV 11.0 H 7.4-10.4 RDW 13.0 11.5-14.5 Social History: Smoking Status (Most current) and Tobacco Use (All prior to encounter date) This section includes the most current, and the historical, smoking and tobacco- related health factors from the [facility] where the Encounter took place. Current Smoking Status This section includes the most current smoking, or tobacco-related health factor, from the [place] facility where the Encounter took place. Date/Time Current Smoking Status Comment Facil ity Jan 02, 2023 01:15 PM VA-TOBACCO FORMER USER [facility] Tobacco Use History This section includes a history of the smoking, or tobacco-related health factors, that were collected on or before the date of the Encounter. The data comes from the [place] facility where the Encounter took place. Date/Time Smoking Status/Tobacco Use Comment F acility Jan 02, 2023 01:15 PM VA-TOBACCO QUIT 15 YRS OR MORE [facility] Oct 24, 2021 08:45 AM VA-TOBACCO FORMER USER [facility] Oct 24, 2021 08:45 AM VA-TOBACCO QUIT 15 YRS OR MORE [facility] Apr 27, 2020 03:00 PM VA-TOBACCO FORMER USER [facility] Apr 27, 2020 03:00 PM VA-TOBACCO QUIT 15 YRS OR MORE [facility] Apr 23, 2019 05:29 PM INPT NO TOBACCO USE IN LAST 30 D AYS [facility] Oct 15, 2018 09:08 AM VA-TOBACCO FORMER USER [facility] Oct 15, 2018 09:08 AM VA-TOBACCO QUIT 15 YRS OR MORE [facility] November 13, 2017 09:05 AM FORMER TOBACCO USER 7Y OR GREATE R [facility] November 22, 2016 03:15 PM FORMER TOBACCO USER 7Y OR GREATE R [facility] Oct 21, 2015 08:37 AM FORMER TOBACCO USER 7Y OR GREATE R [facility] Oct 21, 2014 01:32 PM FORMER TOBACCO USER 7Y OR GREATE R [facility] Oct 29, 2013 08:29 AM FORMER TOBACCO USER 7Y OR GREATE R [facility] Mar 11, 2007 08:07 AM FORMER TOBACCO USER 7Y OR GREATE R [facility] Encounter Notes: All associated encounter notes This section contains the clinical notes associated to the Encounter. Date/Time Encounter Note(s) Provider Source Apr 16, 2023 03:27 PM STAFFING ACCOUNT MANAGER NOTE: LOCAL TITLE: STAFFING ACCOUNT MANAGER NOTE STANDARD TITLE: STAFFING ACCOUNT MANAGER NOTE DATE OF NOTE: APR 16, 2023@15:27 ENTRY DATE: APR 16, 2023@15:27:46 AUTHOR: TRIVEDI,THERESA E EXP COSIGNER: URGENCY: STATUS: COMPLETED oxt of the macula + optos FAF, R/G completed / uploaded for review. /igor/ THERESA TRIVEDI [facility] Signed: 04/16/2023 15:28 THERESA TRIVEDI [facility] Apr 16, 2023 02:56 PM OPHTHALMOLOGY ATTENDING NOTE: LOCAL TITLE: OPHTHALMOLOGY CLINIC NOTE STANDARD TITLE: OPHTHALMOLOGY ATTENDING NOTE DATE OF NOTE: APR 16, 2023@14:56 ENTRY DATE: APR 16, 2023@14:56:09 AUTHOR: [employer] EXP COSIGNER: URGENCY: STATUS: COMPLETED Eye Clinic Progress Note HPI: 83 yo M here for 6 mo f/u of HCQ retinopathy. Patient reports that he needs to bring reading material closer to his eyes with current glasses; distance vision is ok. He would like to wait until October for deciding on cataract surgery (goes to [place] for the winter; leaves in 1 week). POH: See Impression Tech exam today: Vision: OD:CC (with glasses) 20/50-2+2 Pinhole: 20/40-2 Vision: OS:CC (with glasses) 20/30-2 Pinhole: 20/NI Intra-ocular pressure (IOP): OD: 15 OS: 19 iCare Pupils: see tech exam. I have reviewed the video game technician's note and agree with their findings. Patient is alert and oriented x 3. SLE, both eyes: lids/lashes: no abnormality conjunctiva/sclera: white and quiet cornea: whorl keratopathy anterior chamber: deep and quiet iris: round and flat, no NVI lens: 3+ brunescent NSC anterior vitreous: clear DFE, both eyes: vitreous: clear optic nerve: 0.2/0.3 cup/disc, pink and healthy, no NVD macula: diffuse pigmentary changes, no heme or exudates vessels: normal caliber and distribution periphery: normal without holes or tears OU, no diabetic retinopathy, flat choroidal nevus inferiorly OD [facility] OCT 04.16.23: OD: drusen, reticular pseduodrusen, broad central PED without IRF/SRF, inferonasal patch of outer retinal loss; retinal thinning 11/2021 -> 11/2022 with stable retinal thickness 11/2022 -> 04/2023 OS: drusen, reticular pseduodrusen, broad central PED without IRF/SRF; retinal thinning 11/2021 -> 11/2022 and continued thinning 11/2022 -> 04/2023 Impression/Plan: 1. 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 - Start AREDS2 bid - Start monocular Amsler grid monitoring - q6mo dilated eye exam/mac OCT 2. Hydroxychloroquine use with retinopathy OU. Evidence of progressive retinopathy OU 11/2022 on both visual field and structural (OCT) testing; now off HCQ. - January 2013 - November 2022, 400 mg daily (~4.2 mg/kg/day) - Macular Optical Coherence Tomography 11.15.22: OD: drusen, reticular pseudodrusen, noncentral GA, thinning of outer nuclear layer, progressive retinal thinning vs 11/2021 OS: drusen, reticular pseudodrusen, noncentral GA, pronounced thinning of ONL, progressive retinal thinning vs 11/2021 - 10-2 [place] Visual Field 11.15.22: OD: parafoveal scotoma OS: parafoveal scotoma - Continue off HCQ 3. Age-related nuclear sclerotic cataract OU, visually significant but pt happy with his vision. - Monitor; likely will schedule CEIOL after next retina visit 4. Diabetes mellitus, most recent HbA1c 7.5 (03/2023). - No diabetic retinopathy - BP/BG/lipids control - Yearly dilated eye exams RTC medical retina in 6 months, V/T/MR/D/mac OCT/Spectralis FAF, sooner with changes I spent a total of 35 minutes today reviewing the medical record, personally obtaining the history, examining the patient, reviewing test results, counseling the patient, and documenting the visit. The patient needs glasses to read medicine bottles. The patient is photophobic and may require tinted glasses. /igor/ P[employer]TER CLEAN[employer] MD STAFF SURGEON, OPHTHALMOLOGY Signed: 04/16/2023 15:23 P[employer]TER CLE[employer]ING [facility] Apr 16, 2023 01:57 PM STAFFING ACCOUNT MANAGER NOTE: LOCAL TITLE: STAFFING ACCOUNT MANAGER NOTE STANDARD TITLE: STAFFING ACCOUNT MANAGER NOTE DATE OF NOTE: APR 16, 2023@13:57 ENTRY DATE: APR 16, 2023@13:58:03 AUTHOR: COOPER BROWN EXP COSIGNER: URGENCY: STATUS: COMPLETED Eye Start Exam Patient: KRISTOFER STOCKTON Sex: MALE SSN: [id number] Birthdate: [birth year] Chief complaint:h/o HCQ retinopathy, here for 4 month follow up - per patient has discontined Hydroxycholorquine. History of Present Illness: Patient feels he has to bring reading material slightly closer - otherwise feels vision is stable. Denies flashes/floaters/curtains. No eye pain or discomfort. h/o DM2, Blood sugar this AM was 166 this AM - unsure of last A1C. Drops using: None Discontinued Hydroxycholoroquine per patient Active problems - Computerized Problem List is the source for the followin. 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 Hyperlipidemia (SNOMED CT 75932827) 3. Coronary artery disease (SNOMED CT 90839941) 4. Benign hypertension (SNOMED CT 73699370) 5. Atrial fibrillation (SNOMED CT 96919996) 6. Long-term current use of anticoagulant (SNOMED CT 770324062) 7. Obstructive sleep apnea syndrome 8. Gout 9. Rheumatoid arthritis (SNOMED CT 22027856) 10. Chronic kidney disease (SNOMED CT 336823937) 11. Type 2 diabetes mellitus well controlled 12. 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 Steatosis of liver 14. 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 Essential tremor Surgeries: SURGERIES - NONE FOUND Eye History: Social History: Alcohol use - None Tobacco use - None Last refraction: Vision: OD:CC (with glasses) OD: 20/50-2+2 Pinhole: 20/40-2 Vision: OS:CC (with glasses) 0S: 20/30-2 Pinhole: 20/NI Confrontational Downing: Full to finger counting: Right: Yes Left: Yes Extra Ocular Movement: Normal Pupils: Right: Round Left: Round Size: Right: 3 Left: 3 React to light: Right: Yes Left: Yes Afferent pupil defect: Right:No Grade: Left: No Grade: Note: Intra-ocular pressure (IOP): OD: 15 OS: 19 iCare Dilation: Phenylephrine 2.5% and Tropicamide 1% @ // COOPER BROWN Airplane Pilot Supervisor, Eye Clinic Signed: 04/16/2023 14:15 COOPER BROWN [facility]
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
--- OUTSIDE RECORDS SUMMARY | 2023-10-11 23:51 | XMS_ITS | Encounter Summary ---
Author Name [facility] of [facility] Organization [facility] Address [address] [place] [address] Support Name Relationship Address Phone JUDE STOCKTON Next of Kin [address] [facility] [place]IE [place] [phone] JUDE STOCKTON Emergency Contact [id number] [address] JUDE STOCKTON Next of Kin [address] [facility] [place] [phone] JUDE STOCKTON Emergency Contact [id number] [address] Insurance Providers: All historical and [...] Dinero's Name Patient's Relationship to Policy Dinero [facility] MEDICARE SUPPLEGANESH GERONIMO Jul 08, 2016 [id number] [phone] KRISTOFER STOCKTON PATIENT MEDICARE (WNR) MEDICARE (M) PART B Jun 07, 2007 PART B [id number] [phone] KRISTOFER STOCKTON PATIENT MEDICARE (WNR) MEDICARE (M) PART B Jun 07, 2007 PART B [id number] [phone] KRISTOFER STOCKTON PATIENT MEDICARE (WNR) MEDICARE (M) PART B Jun 07, 2007 PART B [id number] [phone] KRISTOFER STOCKTON PATIENT MEDICARE (WNR) MEDICARE (M) PART B Jun 07, 2007 PART B [id number] [phone] KRISTOFER STOCKTON PATIENT MEDICARE (WNR) MEDICARE (M) PART A Mar 08, 2007 PART A [id number] [phone] KRISTOFER STOCKTON PATIENT MEDICARE (WNR) MEDICARE (M) PART A Mar 08, 2007 PART A [id number] KRISTOFER STOCKTON PATIENT MEDICARE (WNR) MEDICARE (M) PART A Mar 08, 2007 PART A [id number] KRISTOFER STOCKTON PATIENT MEDICARE (WNR) MEDICARE (M) PART A Mar 08, 2007 PART A [id number] KRISTOFER STOCKTON PATIENT Selected Encounter This section includes the information on record at [place] for the Encounter. Date/Time Encounter Type Encounter Description Reason Provider Source Jun 18, 2023 10:30 AM OFFICE O/P EST LOW 20-29 MIN PRIMARY CARE/MEDICINE ICD-10-CM L98.9 Disorder of the skin and subcutaneous tissue, unspecified ALBERT CHO Encounter Template Text not used by [place] Assessments - Encounter Diagnoses This section includes the primary and secondary diagnoses documented for the Encounter. Date/Time Primary/Secondary Diagnosis Diagnosis Name Provider Source Jun 18, 2023 11:22 AM PRIMARY Disorder of the skin and subcutaneous tissue, unspecified ALBERT CHO [facility] Plan of Treatment: Future Appointments (+ 6 months) and Future Tests (+/- 45 days) The Plan of Treatment section includes future care activities for the patient from all [place] treatmentfacilities. This section includes future appointments and future orders which are active, pending or scheduled. Future Appointments This section includes appointments that were scheduled to occur 6 months from the date of the Encounter, up to a maximum of 20 appointments. The data comes from all [place] treatment facilities. Appointment Date/Time Appointment Type Appointme nt Facility Name Jul 10, 2023 10:30 AM AMBULATORY - MEDICINE [facility] Oct 08, 2023 01:00 PM AMBULATORY [place] [facility] Oct 11, 2023 06:45 AM AMBUL[place]ORY - NONE [place] [facility] Oct 11, 2023 07:15 AM AM[place]UL[place]ORY [place]ICINE [place] [facility] Oct 11, 2023 07:30 AM [place]ORY [place]IC[place] [facility] Oct 11, 2023 08:00 AM AM[place]UL[place]ORY - MEDICINE [place] [facility] Oct 11, 2023 03:00 PM AMBULATORY - NONE [place] [facility] Oct 11, 2023 03:10 PM AMBULATORY - MEDICINE [place] [facility] Oct 28, 2023 02:15 PM AMBULATORY - MEDICINE [place] [facility] Oct 28, 2023 03:30 PM AM[place]UL[place]ORY - MEDICINE [place] [facility] November 18, 2023 12:40 PM AMBUL[facility]ORY - [facility] [place] [facility] November 28, 2023 09:20 AM [place] [facility] Dec 16, 2023 01:00 PM AMBULATORY - SURGERY [facility] [place] [facility] Dec 16, 2023 02:00 PM AMBULATORY - SURGERY [facility] Vital Signs: All taken on the encounter date This section contains inpatient and outpatient Vital Signs collected on the date of the Encounter. Date/Time Temperature Pulse Blood Pressure Respiratory Rate SP02 Pain Height Weight Body Mass Index Source Jun 18, 2023 10:32 AM 97.5 F 54 /min 106/59 mm[Hg] 16 /min 98 % 0 209.3 lb [facility] Social History: Smoking Status (Most current) and Tobacco Use (All prior to encounter date) This section includes the most current, and the historical, smoking and tobacco- related health factors from the [place] facility where the Encounter took place. Current Smoking Status This section includes the most current smoking, or tobacco-related health factor, from the [place] facility where the Encounter took place. Date/Time Current Smoking Status Comment Facil ity Jan 02, 2023 01:15 PM VA-TOBACCO FORMER USER [facility] Tobacco Use History This section includes a history of the smoking, or tobacco-related health factors, that were collected on or before the date of the Encounter. The data comes from the [place] facility where the Encounter took place. Date/Time Smoking Status/Tobacco Use Comment F acility Jan 02, 2023 01:15 PM VA-TOBACCO QUIT 15 YRS OR MORE [facility] Oct 24, 2021 08:45 AM VA-TOBACCO FORMER USER [facility] Oct 24, 2021 08:45 AM VA-TOBACCO QUIT 15 YRS OR MORE [facility] Apr 27, 2020 03:00 PM VA-TOBACCO FORMER USER [facility] Apr 27, 2020 03:00 PM VA-TOBACCO QUIT 15 YRS OR MORE [facility] Apr 23, 2019 05:29 PM INPT NO TOBACCO USE IN LAST 30 D AYS [facility] Oct 15, 2018 09:08 AM VA-TOBACCO FORMER USER [facility] Oct 15, 2018 09:08 AM VA-TOBACCO QUIT 15 YRS OR MORE [facility] November 13, 2017 09:05 AM FORMER TOBACCO USER 7Y OR GREATE R [facility] November 22, 2016 03:15 PM FORMER TOBACCO USER 7Y OR GREATE R [facility] Oct 21, 2015 08:37 AM FORMER TOBACCO USER 7Y OR GREATE R [facility] Oct 21, 2014 01:32 PM FORMER TOBACCO USER 7Y OR GREATE R [facility] Oct 29, 2013 08:29 AM FORMER TOBACCO USER 7Y OR GREATE R [facility] Mar 11, 2007 08:07 AM FORMER TOBACCO USER 7Y OR GREATE R [facility] Encounter Notes: All associated encounter notes This section contains the clinical notes associated to the Encounter. Date/Time Encounter Note(s) Provider Source Jun 18, 2023 10:50 AM INTERNAL MEDICINE NOTE: LOCAL TITLE: MEDICINE CLINIC NOTE STANDARD TITLE: INTERNAL MEDICINE NOTE DATE OF NOTE: JUN 18, 2023@10:50 ENTRY DATE: JUN 18, 2023@10:50:41 AUTHOR: CHARLY CHO COSIGNER: URGENCY: STATUS: COMPLETED Nurses noted reviewed. Patient seen today in [facility]. CC: rash MANAGER OF CASE MANAGEMENT NOTE 06/17 - c/o rash to his back for 2 weeks. Describes red, raised hives to entire backside, very itchy for and worse when taking a hot shower ''feels like my back is on fire but after awhile the hot water seems to soothe the itch'' Denies new medications, home care products. No difficulty swallowing or breathing, no fever, chills, drainage from rash. S: Kristofer Stockton is a 83 year-old MALE who presents with (Jude) to [facility]. Clarifies above history that onset actually 4-6 months ago. Started on gabapentin end of December 2022, however had been on it 15 years ago and doesn't recall reaction. Started back of neck then spread to both shoulders, then his back, inner thighs, lower R leg. Bilateral arms, anterior thighs, chest, and feet are spared from pruritis. Oscillates between low and high intensitity of pruritis. Gets relief with very hot shower. Tried vanicream without much relief. Of note, wakes up with phlegm in throat for the last 2 months as well. Hx BCC or SCC scalp. No melanoma. 12 Review of Systems completed and unremarkable unless otherwise noted in HPI. --- PMHx: Active problems - Computerized Problem List is the source for the followin. 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 Hyperlipidemia (SNOMED CT 57605689) 3. Coronary artery disease (SNOMED CT 95651437) 4. Benign hypertension (SNOMED CT 29039098) 5. Atrial fibrillation (SNOMED CT 14037263) 6. Long-term current use of anticoagulant (SNOMED CT 993179356) 7. Obstructive sleep apnea syndrome 8. Gout 9. Rheumatoid arthritis (SNOMED CT 00229992) 10. Chronic kidney disease (SNOMED CT 340183966) 11. Type 2 diabetes mellitus well controlled 12. 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 Steatosis of liver 14. 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 FPC methotrexate user 17. Essential tremor Active Outpatient Medications (including Supplies): Active Outpatient Medications Status 1) ACCU-CHEK GUIDE (GLUCOSE) TEST STRIP USE 1 STRIP ACTIVE (S) EVERY DAY NEEDED TO CHECK BLOOD SUGAR IF GLUCOSE SENSOR FAILS -USE WITHIN 3 MINUTES OF REMOVING FROM CONTAINER -TEST AT DIFFERENT TIMES OF THE DAY, OR DIRECTED 2) AMIODARONE HCL (PACERONE) 200MG TAB TAKE ONE TABLET ACTIVE (S) BY MOUTH EVERY DAY FOR HEART RHYTHM 3) APIXABAN 2.5MG TAB TAKE ONE TABLET BY MOUTH EVERY 12 ACTIVE (S) HOURS TO PREVENT STROKES 4) DICLOFENAC NA 1% TOP GEL APPLY 4 GRAMS FOUR TIMES A ACTIVE DAY NEEDED FOR PAIN -USE DOSE CARD IN BOX TO MEASURE DOSE -MAXIMUM OF 32 TOTAL GRAMS PER DAY. 5) GABAPENTIN 100MG CAP TAKE ONE CAPSULE BY MOUTH TWICE ACTIVE A DAY FOR ESSENTIAL TREMOR 6) GLUCOSE SENSOR FREESTYLE CARMELA 2 USE 1 SENSOR EVERY ACTIVE 14 DAYS TO MONITOR GLUCOSE 7) INSULIN,GLARGINE-YFGN 100UNIT/ML PEN 3ML INJECT 9 ACTIVE (S) UNITS UNDER THE SKIN EVERY DAY FOR DIABETES 8) ISOSORBIDE MONONITRATE 60MG SA TAB TAKE ONE TABLET BY ACTIVE (S) MOUTH EVERY DAY FOR CHEST PAIN 9) LIRAGLUTIDE (VICTOZA) 6MG/ML INJ PEN 3ML INJECT 0.6 ACTIVE (S) MG UNDER THE SKIN EVERY DAY FOR DIABETES 10) LORATADINE 10MG TAB TAKE ONE TABLET BY MOUTH EVERY ACTIVE DAY FOR ALLERGIES 11) MULTIVIT/OPHTH AREDS2/LUTE/ZEAX CAP/TAB TAKE 1 ACTIVE (S) CAP/TAB BY MOUTH TWICE A DAY FOR EYE HEALTH 12) NEEDLE,PEN 31G,5MM USE 1 NEEDLE UNDER THE SKIN ACTIVE DIRECTED *DISPOSE OF IN A HARD-PLASTIC CONTAINER WITH A SCREW-ON LID CONTACT GARBAGE HAULER FOR PROPER DISPOSAL 13) ROSUVASTATIN CA 20MG TAB TAKE ONE-HALF TABLET BY ACTIVE MOUTH EVERY DAY FOR CHOLESTEROL (DO NOT CONVERT/APPROVED 04/2013) Active Non-VA Medications Status 1) Non-VA CHOLECALCIF 25MCG (D3-1,000UNIT) TAB 1000UNIT ACTIVE MOUTH EVERY DAY 14 Total Medications Vitals: Temperature: 97.5 F [36.4 C] (06/18/2023 10:32) Blood Pressure: 106/59 (06/18/2023 10:32) Pulse: 54 (06/18/2023 10:32) Respiration: 16 (06/18/2023 10:32) PO2: 98% (06/18/2023 10:32) Pain: 0 (06/18/2023 10:32) BMI: 29.3 Wt: 209.3 lb [94.94 kg] (06/18/2023 10:32) EXAM: gen geriatric male in nad skin scattered blanchable erythematous papules and excoritations upper back and shoulders, some also on posterior left thigh neuro A&Ox4, ambulates 4WW Diagnostics Imaging: n/a Labs: n/a A/P: # Rash Question possible exanthematous drug reaction, however was on gabapentin 15 years ago without reaction... - telederm - rx sarna in interim Return to clinic: as outlined above Total time of 25 minutes spent reviewing patient's records, assessing patient, and documenting in patient's chart. Medication Reconciliation: Education Evaluations *Was medication education provided for NEW medications or CHANGES to medications? (including medication name, dose, route, reason for use, and potential side effects). Yes. Verbal education was provided to patient/caregiver and patient/caregiver verbalized understanding. TERATOGENIC MED & CONTRACEPTION REVIEW (Optional)... = [...] were also reviewed/updated for accuracy. Allergies/ADR from [facility] may not display in CPRS. Use JLV MRT5 - Allergies/ADRs FACILITY ALLERGY/ADR -------- [facility]U CR[facility] NO KNOWN ALLERGIES [facility] NO KNOWN ALLERGIES [facility] ATORVASTATIN [facility] CLINDAMYCIN [facility] HYDROXYCHLOROQUINE [facility] METOPROLOL [facility] SIMVASTATIN Active and Recently Outpatient Medications (including Supplies): Issue Date Status Last Fill Active Outpatient Medications Refills Expiration 1) ACCU-CHEK GUIDE (GLUCOSE) TEST STRIP ACTIVE (S) Issu:01-02-23 Qty: 100 for 90 days Sig: USE 1 STRIP Refills: 2 Last:07-08-23 EVERY DAY NEEDED TO CHECK BLOOD Expr:01-03-24 SUGAR IF GLUCOSE SENSOR FAILS -USE WITHIN 3 MINUTES OF REMOVING FROM CONTAINER -TEST AT DIFFERENT TIMES OF THE DAY, OR DIRECTED 2) AMIODARONE HCL (PACERONE) 200MG TAB ACTIVE (S) Issu:04-16-23 Qty: 90 for 90 days Sig: TAKE ONE Refills: 2 Last:07-07-23 TABLET BY MOUTH EVERY DAY FOR HEART Expr:04-16-24 RHYTHM 3) APIXABAN 2.5MG TAB Qty: 180 for 90 days ACTIVE (S) Issu:02-28-23 Sig: TAKE ONE TABLET BY MOUTH EVERY 12 Refills: 1 Last:08-21-23 HOURS TO PREVENT STROKES Expr:02-29-24 4) DICLOFENAC NA 1% TOP GEL Qty: 300 for ACTIVE Issu:01-02-23 30 days Sig: APPLY 4 GRAMS FOUR TIMES Refills: 0 Last:05-13-23 A DAY NEEDED FOR PAIN -USE DOSE Expr:01-03-24 CARD IN BOX TO MEASURE DOSE -MAXIMUM OF 32 TOTAL GRAMS PER DAY. 5) GABAPENTIN 100MG CAP Qty: 60 for 30 ACTIVE Issu:01-02-23 days Sig: TAKE ONE CAPSULE BY MOUTH Refills: 5 Last:06-22-23 TWICE A DAY FOR ESSENTIAL TREMOR Expr:01-03-24 6) GLUCOSE SENSOR FREESTYLE CARMELA 2 Qty: 2 ACTIVE Issu:03-28-23 for 28 days Sig: USE 1 SENSOR EVERY Refills: 2 Last:06-22-23 14 DAYS TO MONITOR GLUCOSE Expr:03-28-24 7) INSULIN,GLARGINE-YFGN 100UNIT/ML PEN 3ML ACTIVE (S) Issu:10-29-22 Qty: 5 for 90 days Sig: INJECT 9 Refills: 0 Last:07-16-23 UNITS UNDER THE SKIN EVERY DAY FOR Expr:10-30-23 DIABETES 8) ISOSORBIDE MONONITRATE 60MG SA TAB Qty: ACTIVE (S) Issu:01-02-23 90 for 90 days Sig: TAKE ONE TABLET Refills: 1 Last:07-24-23 BY MOUTH EVERY DAY FOR CHEST PAIN Expr:01-03-24 9) LIRAGLUTIDE (VICTOZA) 6MG/ML INJ PEN 3ML ACTIVE (S) Issu:03-28-23 Qty: 3 for 90 days Sig: INJECT 0.6 MG Refills: 2 Last:08-19-23 UNDER THE SKIN EVERY DAY FOR DIABETES Expr:03-28-24 10) LORATADINE 10MG TAB Qty: 30 for 30 days ACTIVE Issu:01-02-23 Sig: TAKE ONE TABLET BY MOUTH EVERY Refills: 9 Last:04-11-23 DAY FOR ALLERGIES Expr:01-03-24 11) MULTIVIT/OPHTH AREDS2/LUTE/ZEAX CAP/TAB ACTIVE (S) Issu:04-16-23 Qty: 240 for 90 days Sig: TAKE 1 Refills: 2 Last:07-07-23 CAP/TAB BY MOUTH TWICE A DAY FOR EYE Expr:04-16-24 HEALTH 12) NEEDLE,PEN 31G,5MM Qty: 200 for 90 days ACTIVE Issu:03-28-23 Sig: USE 1 NEEDLE UNDER THE SKIN Refills: 2 Last:06-17-23 DIRECTED *DISPOSE OF IN A HARD-PLASTIC Expr:03-28-24 CONTAINER WITH A SCREW-ON LID CONTACT GARBAGE HAULER FOR PROPER DISPOSAL 13) ROSUVASTATIN CA 20MG TAB Qty: 45 for 90 ACTIVE Issu:01-02-23 days Sig: TAKE ONE-HALF TABLET BY Refills: 2 Last:06-25-23 MOUTH EVERY DAY FOR CHOLESTEROL (DO Expr:01-03-24 NOT CONVERT/APPROVED 04/2013) Issue Date Status Last Fill Pending Outpatient Medications Refills Expiration 1) CAMPHOR 0.5/MENTHOL 0.5% LOTION Qty: PENDING 225 Sig: APPLY THIN LAYER TOPICALLY Refills: 0 FOUR TIMES A DAY NEEDED Issue Date Status Last Fill Inactive Outpatient Medications Refills Expiration 1) ACCU-CHEK GUIDE (GLUCOSE) TEST STRIP DISCONTINUED Issu:10-30-22 Qty: 100 for 90 days Sig: USE 1 STRIP Refills: 2 Last:01-19-23 EVERY DAY NEEDED TO CHECK BLOOD Expr:10-31-23 SUGAR IF GLUCOSE SENSOR FAILS -USE WITHIN 3 MINUTES OF REMOVING FROM CONTAINER -TEST AT DIFFERENT TIMES OF THE DAY, OR DIRECTED 2) AMIODARONE HCL (PACERONE) 200MG TAB Issu:04-09-22 Qty: 90 for 90 days Sig: TAKE ONE Refills: 0 Last:12-11-22 TABLET BY MOUTH EVERY DAY Expr:04-10-23 3) APIXABAN 2.5MG TAB Qty: 180 for 90 days DISCONTINUED Issu:03-19-22 Sig: TAKE ONE TABLET BY MOUTH EVERY 12 Refills: 0 Last:12-04-22 HOURS TO PREVENT STROKES Expr:03-20-23 4) GLUCOSE SENSOR FREESTYLE CARMELA 2 Qty: 2 DISCONTINUED Issu:10-29-22 for 28 days Sig: USE 1 SENSOR EVERY Refills: 0 Last:03-22-23 14 DAYS TO MONITOR GLUCOSE Expr:10-30-23 5) HYDROXYCHLOROQUINE SULFATE 200MG TAB DISCONTINUED Issu:05-09-22 Qty: 180 for 90 days Sig: TAKE ONE Refills: 2 Last:10-09-22 TABLET BY MOUTH TWICE A DAY FOR Expr:05-10-23 RHEUMATOID ARTHRITIS 6) ISOSORBIDE MONONITRATE 60MG SA TAB Qty: DISCONTINUED Issu:10-25-22 90 for 90 days Sig: TAKE ONE TABLET Refills: 3 Last:11-16-22 BY MOUTH EVERY DAY FOR CHEST PAIN Expr:10-26-23 7) LIRAGLUTIDE (VICTOZA) 6MG/ML INJ PEN 3ML DISCONTINUED Issu:01-02-23 Qty: 3 for 90 days Sig: INJECT 0.6 MG Refills: 3 Last:03-12-23 UNDER THE SKIN EVERY DAY FOR DIABETES Expr:01-03-24 8) METHOTREXATE NA 2.5MG TAB Qty: 40 for DISCONTINUED Issu:05-09-22 28 days Sig: TAKE TEN TABLETS BY Refills: 0 Last:05-29-22 MOUTH EVERY WEEK FOR RHEUMATOID Expr:05-10-23 ARTHRITIS -TAKE THE TOTAL WEEKLY DOSE ON THE SAME DAY EVERY WEEK 9) NEEDLE,PEN 31G,5MM Qty: 100 for 90 days DISCONTINUED Issu:10-29-22 Sig: USE 1 NEEDLE UNDER THE SKIN Refills: 2 Last:01-24-23 DIRECTED *DISPOSE OF IN A HARD-PLASTIC Expr:10-30-23 CONTAINER WITH A SCREW-ON LID CONTACT GARBAGE HAULER FOR PROPER DISPOSAL 10) ROSUVASTATIN CA 20MG TAB Qty: 45 for 90 DISCONTINUED Issu:10-25-22 days Sig: TAKE ONE-HALF TABLET BY Refills: 3 Last:01-16-23 MOUTH EVERY DAY FOR CHOLESTEROL (DO Expr:10-26-23 NOT CONVERT/APPROVED 04/2013) Start Date Active Non-VA Medications Refills Expiration 1) Non-VA CHOLECALCIF 25MCG (D3-1,000UNIT) ACTIVE TAB SiUNIT MOUTH EVERY DAY 25 Total Medications /es/ CHARLY CHO PA-C PHYSICIAN ASSEMBLY MACHINE OFFBEARER Signed: 06/18/2023 11:23 CHARLY CHO [facility] Jun 18, 2023 10:35 AM INTERNAL MEDICINE OUTPATIENT NOTE: LOCAL TITLE: MEDICINE CLINIC NURSING NOTE STANDARD TITLE: INTERNAL MEDICINE OUTPATIENT NOTE DATE OF NOTE: JUN 18, 2023@10:35 ENTRY DATE: JUN 18, 2023@10:36:06 AUTHOR: JOANN ABDI EXP COSIGNER: URGENCY: STATUS: COMPLETED TYPE OF VISIT: Appointment Check In Type of appointment: In-person appointment REASON FOR VISIT: Concerns related to new itching ALLERGIES: ATORVASTATIN (May 15, 2007) SIMVASTATIN (Mar 13, 2012) METOPROLOL (May 01, 2019) CLINDAMYCIN (Oct 05, 2020) HYDROXYCHLOROQUINE (November 20, 2022) VITAL SIGNS: Blood Pressure: 106/59 (06/18/2023 10:32) Pulse: 54 (06/18/2023 10:32) Respiration: 16 (06/18/2023 10:32) Temperature: 97.5 F [36.4 C] (06/18/2023 10:32) Weight: 209.3 lb [94.94 kg] (06/18/2023 10:32) Height: 71 in [180.3 cm] (11/21/2022 10:21) BMI: 29.3 O2 Sat: 98% (06/18/2023 10:32) Pain: 0 (06/18/2023 10:32) PAIN SCREEN: Patient is not having significant [...] BY ACTIVE (S) MOUTH EVERY DAY FOR HEART RHYTHM APIXABAN 2.5MG TAB TAKE ONE TABLET BY [...] MULTIVIT/OPHTH AREDS2/LUTE/ZEAX CAP/TAB TAKE 1 CAP/TAB BY ACTIVE (S) MOUTH TWICE A DAY FOR EYE HEALTH NEEDLE,PEN 31G,5MM USE 1 NEEDLE UNDER THE SKIN DIRECTED ACTIVE *DISPOSE OF IN A HARD-PLASTIC CONTAINER WITH A SCREW-ON LID [facility]CT [facility] FOR PROPER DISPOSAL ROSUVASTATIN CA 20MG TAB TAKE ONE-HALF TABLET BY MOUTH ACTIVE EVERY DAY FOR CHOLESTEROL (DO NOT CONVERT/APPROVED 04/2013) Non-VA CHOLECALCIF 25MCG (D3-1,000UNIT) TAB 1000UNIT MOUTH ACTIVE EVERY DAY Over the Counter/Herbal Medications: The patient denies taking any outside medications or herbals. Homelessness/Food Insecurity Screen: In the past 2 months, have you been living in stable housing that you own, rent, or stay in as part of a household? Yes - Living in stable housing. Are you worried or concerned that in the next 2 months you may NOT have stable housing that you own, rent, or stay in as part of a household? No - Not worried about housing near future The reports the following: Within the past 12 months, you worried whether your food would run out before you got money to buy more. Never true Within the past 12 months, the food you bought just didn't last and you didn't have money to get more. Never true Food Insecurity Resources /es/ JOANN ABDI JANITOR CLEANER Signed: 06/18/2023 10:38 JOANN ABDI [facility]
--- OUTSIDE RECORDS SUMMARY | 2023-10-11 23:52 | XMS_ITS | Encounter Summary ---
Author Name [facility] Organization [facility] Address [address] [place] [address] Support Name Relationship Address Phone JOHN STOCKTONINE Next of Kin [address] [place] [address] [place] [id number] JUDE STOCKTON Emergency Contact [id number] [address] JUDE STOCKTON Next of Kin [address] [place] [phone] JUDE STOCKTON Emergency Contact [address] [address] Insurance Providers: All historical and [...] MEDICARE SUPPLEGANESH MAHAN IDU Jul 08, 2016 [id number] [phone] KRISTOFER STOCKTON PATIENT MEDICARE (WNR) MEDICARE (M) PART B Jun 07, 2007 PART B [id number] [phone] KRISTOFER STOCKTON PATIENT MEDICARE (WNR) MEDICARE (M) PART B Jun 07, 2007 PART B [id number] [phone] KRISTOFER STOCKTON PATIENT MEDICARE (WNR) MEDICARE (M) PART B Jun 07, 2007 PART B [id number] [phone] KRISTOFER STOCKTON PATIENT MEDICARE (WNR) MEDICARE (M) PART B Jun 07, 2007 PART B [id number] [phone] KRISTOFER STOCKTON PATIENT MEDICARE (WNR) MEDICARE (M) PART A Mar 08, 2007 PART A [id number] KRISTOFER STOCKTON PATIENT MEDICARE (WNR) MEDICARE (M) PART A Mar 08, 2007 PART A [id number] KRISTOFER STOCKTON PATIENT MEDICARE (WNR) MEDICARE (M) PART A Mar 08, 2007 PART A [id number] KRISTOFER STOCKTON PATIENT MEDICARE (WNR) MEDICARE (M) PART A Mar 08, 2007 PART A [id number] KRISTOFER STOCKTON PATIENT Selected Encounter This section includes the information on record at [place] for the Encounter. Date/Time Encounter Type Encounter Description Reason Provider Source Jun 20, 2023 01:21 PM Outpatient Encounter DERMATOLOGY ICD-10-CM L30.9 Dermatitis, unspecified ARIA,JIMMIE LIZABETH E Encounter Template Text not used by [place] Assessments - Encounter Diagnoses This section includes the primary and secondary diagnoses documented for the Encounter. Date/Time Primary/Secondary Diagnosis Diagnosis Name Provider Source Jun 20, 2023 01:34 PM PRIMARY Dermatitis, unspecified ARIA,JIMMIE LIZABETH [facility] Plan of Treatment: Future Appointments (+ 6 months) and Future Tests (+/- 45 days) The Plan of Treatment section includes future care activities for the patient from all [place] [facility]. This section includes future appointments and [...] 01:00 PM AMBULATORY - SURGERY [facility] Oct 11, 2023 06:45 AM AMBULATORY - NONE [facility] Oct 11, 2023 07:15 AM AMBULATORY - MEDICINE [facility] Oct 11, 2023 07:30 AM AMBULATORY - MEDICINE [facility] Oct 11, 2023 08:00 AM AMBULATORY - MEDICINE [facility] Oct 11, 2023 03:00 PM AMBULATORY - NONE [facility] Oct 11, 2023 03:10 PM AMBULATORY - MEDICINE [facility] Oct 28, 2023 02:15 [facility], [facility] 03[facility]30 [facility] November 18, 2023 12:40 [facility] 28, [facility]23 09:20 [facility] Dec 16, 2023 01:00 PM [facility]ERY [facility] Dec 16, 2023 02:00 PM AMBULATORY - SURGERY [facility] Social History: Smoking Status (Most current) and Tobacco Use (All prior to encounter date) This section includes the most current, and the historical, smoking and tobacco- related health factors from the [place] facility where the Encounter took place. Current Smoking Status This section includes the most current smoking, or tobacco-related health factor, from the [place] facility where the Encounter took place. Date/Time Current Smoking Status Comment Facil ity Jan 02, 2023 01:15 PM VA-TOBACCO FORMER USER [facility] Tobacco Use History This section includes a history of the smoking, or tobacco-related health factors, that were collected on or before the date of the Encounter. The data comes from the [place] facility where the Encounter took place. Date/Time Smoking Status/Tobacco Use Comment F acility Jan 02, 2023 01:15 PM VA-TOBACCO QUIT 15 YRS OR MORE [facility] Oct 24, 2021 08:45 AM VA-TOBACCO FORMER USER [facility] Oct 24, 2021 08:45 AM VA-TOBACCO QUIT 15 YRS OR MORE [facility] Apr 27, 2020 03:00 PM VA-TOBACCO FORMER USER [facility] Apr 27, 2020 03:00 PM VA-TOBACCO QUIT 15 YRS OR MORE [facility] Apr 23, 2019 05:29 PM INPT NO TOBACCO USE IN LAST 30 D AYS [facility] Oct 15, 2018 09:08 AM VA-TOBACCO FORMER USER [facility] Oct 15, 2018 09:08 AM VA-TOBACCO QUIT 15 YRS OR MORE [facility] November 13, 2017 09:05 AM FORMER TOBACCO USER 7Y OR GREATE R [facility] November 22, 2016 03:15 PM FORMER TOBACCO USER 7Y OR GREATE R [facility] Oct 21, 2015 08:37 AM FORMER TOBACCO USER 7Y OR GREATE R [facility] Oct 21, 2014 01:32 PM FORMER TOBACCO USER 7Y OR GREATE R [facility] Oct 29, 2013 08:29 AM FORMER TOBACCO USER 7Y OR DIONISIO Hunter [facility] Mar 11, 2007 08:07 AM FORMER TOBACCO USER 7Y OR DIONISIO Hunter [facility] Encounter Notes: All associated encounter notes This section contains the clinical notes associated to the Encounter. Date/Time Encounter Note(s) Provider Source Jun 20, 2023 01:22 PM TELEIMAGING REPORT : LOCAL TITLE: TELEDERMATOLOGY IMAGING REPORT CONSULT STANDARD TITLE: TELEIMAGING REPORT DATE OF NOTE: JUN 20, 2023@13:22 ENTRY DATE: JUN 20, 2023@13:22:05 AUTHOR: JIMMIE KNAPP EXP COSIGNER: URGENCY: STATUS: COMPLETED HISTORY: Images: The images were acquired in clinic through traditional TeleDermatology Image acquisition. HISTORY: Prior skin history: None reported Have you had a skin cancer before? Basal Cell Carcinoma (BCC), Squamous Cell Carcinoma (SCC) Patient reports no family history of melanoma. Taking new med/supplements: None reported Immunosuppression history: None reported Other significant history: None reported Chief Complaint: onset actually 4-6 months ago. Started on gabapentin endof December 2022, however had been on it 15 years ago and doesn't recallreaction. Started back of neck then spread to both shoulders, then hisback, inner thighs, lower R leg. Bilateral arms, anterior thighs, chest,and feet are spared from pruritis. Oscillates between low and highintensitity of pruritis. Gets relief with very hot shower. Triedvanicream without much relief. Of note, wakes up with phlegm in throatfor the last 2 months as well. Hx BCC or SCC scalp. No melanoma. PROBLEM A LOCATION(S): upper back and shoulders DURATION: 4-6 months SYMPTOMS: itch CHANGES: per pt seems to be spreading, nothing visible today other than excoriated areas TREATMENT: Yes Details: vanicream, didn't help BIOPSY: No Wall Insulation Sprayer's comments: Pt will be in [place] for only about a week, pls mail any RX to his address in [place] OVERALL CONSULT/IMAGE QUALITY: Fully satisfactory EXAM: Shoulders including upper back and midline lower back. Multiple excoriations in various stages of healing. No clear primary lesions identified. IMPRESSION BASED ON IMAGES AND INFORMATION REVIEWED: PROBLEM A: Diagnosis: Wide DDx as only secondary changes noted today. DDx includes xerosis, paraspinal folliculitis, allergic contact dermatitis(from either simply for itch or a hair wash Product), triamcinolone 0.1% cream, use twice daily- RECOMMENDATIONS FOR REFERRING PROVIDER: PROBLEM A: Medication: For at least 2 weeks but no more than 1 month, then 454 g, 1 refill Skin Care recommendations: Recommend trial of switching to hypoallergenic shampoo and conditioner if used recommend Free and clear-shampoo. This is made by the Vanicream brand Other recommendations: Stop all other topicals. Can use cool compresses as needed for itch relief RECOMMENDED FOLLOW-UP: Consult to Dermatology clinic for follow up LOIS: t+2m Cumulative time of review and management: 5 minutes or more # # # # # # # # # # # # # # # # # # # # # # # # # # # # # # # # # # # # Diagnosis: There is a wide option causing your symptoms. This includes background dry skin(very common to cause itching in this distribution), pityriasis form folliculitis or even allergic contact dermatitis to a wash off product that you have used in your hair. Treatment: Recommend switching your shampoo and conditioner to Camryn and clear which is a Vanicream product that you can obtain [id number]. You will be receiving a new prescription for triamcinolone 0.1% cream recommend using this twice daily for at least 2 weeks but no more than 1 month. can use cool compresses as needed for itch relief Follow up: If the above is not adequately treating your symptoms recommend follow-up with dermatology. As you are going to [place] please reach out to your primary care provider to schedule this appointment /es/ JIMMIE KNAPP MD STAFF PHYSICIAN Signed: 06/20/2023 13:34 JIMMIE KNAPP [facility]
--- OUTSIDE RECORDS SUMMARY | 2023-10-11 23:53 | XMS_ITS | Encounter Summary ---
Author Name [facility] of Veter[facility] Affairs Organization [facility] Address [address] [place] [address] Support Name Relationship Address Phone JOHN STOCKTONINE Next of Kin [address] [place] [phone] JUDE STOCKTON Emergency Contact [phone] [place] [address] JUDE STOCKTON Next of Kin [address] [place] [phone] JUDE STOCKTON Emergency Contact [phone] [place] [address] Insurance Providers: All historical and [...] MEDICARE SUPPLEGANESH MAHAN IDU Jul 08, 2016 [id number] [phone] KRISTOFER STOCKTON PATIENT MEDICARE (WNR) MEDICARE (M) PART B Jun 07, 2007 PART B [id number] KRISTOFER STOCKTON PATIENT MEDICARE (WNR) MEDICARE (M) PART B Jun 07, 2007 PART B [id number] [phone] KRISTOFER STOCKTON PATIENT MEDICARE (WNR) MEDICARE (M) PART B Jun 07, 2007 PART B [id number] KRISTOFER STOCKTON PATIENT MEDICARE (WNR) MEDICARE (M) PART B Jun 07, 2007 PART B [id number] KRISTOFER STOCKTON PATIENT MEDICARE (WNR) MEDICARE (M) PART A Mar 08, 2007 PART A [id number] KRISTOFER STOCKTON PATIENT MEDICARE (WNR) MEDICARE (M) PART A Mar 08, 2007 PART A [id number] [phone] KRISTOFER STOCKTON PATIENT MEDICARE (WNR) MEDICARE (M) PART A Mar 08, 2007 PART A [id number] KRISTOFER STOCKTON PATIENT MEDICARE (WNR) MEDICARE (M) PART A Mar 08, 2007 PART A [id number] KRISTOFER STOCKTON PATIENT Selected Encounter This section includes the information on record at OR for the Encounter. Date/Time Encounter Type Encounter Description Reason Pro vider Source Oct 07, 2023 10:52 AM Outpatient Encounter [facility]ICAL [facility]ARMACY [facility] Encounter Template Text not used by OR Plan of Treatment: Future Appointments (+ 6 months) and Future Tests (+/- 45 days) The Plan of Treatment section includes future care activities for the patient from all OR treatmentfacilities. This section includes future appointments and future orders which are active, pending or scheduled. Future Appointments This section includes appointments that were scheduled to occur 6 months from the date of the Encounter, up to a maximum of 20 appointments. The data comes from all OR treatment facilities. Appointment Date/Time Appointment Type Appointme nt Facility Name Oct 08, 2023 01:00 PM AMBULATORY - SURGERY [facility] Oct 11, 2023 06:45 AM AMBULATORY - NONE [facility] Oct 11, 2023 07:15 AM [facility] Oct 11, 2023 07:30 AM [facility] Oct 11, 2023 08:00 AM [facility]IC[facility] Oct 11, 2023 03:00 PM [facility]ORY - NONE [facility] Oct 11, 2023 03:10 PM [facility] Oct 28, 2023 02:15 PM [facility] Oct 28, 2023 03:30 PM [facility] November 18, 2023 12:40 PM AMBULATORY - SURGERY [facility] November 28, 2023 09:20 AM AMBULATORY - [place]ICINE [place] [facility] Dec 16, 2023 01:00 PM AMBULATORY - SURGERY [facility] Dec 16, 2023 02:00 PM AMBULATORY - SURGERY [facility] Active, Pending, and Scheduled Orders This section includes a listing of several types of active, pending, and scheduled orders, including clinic medications orders, diagnostic test orders, procedure orders and consult orders; where the start date of the order is 45 days before the date of the Encounter or 45 days after the date of theEncounter. The data comes from all [facility]. Test Date/Time Test Type Test Details Facility Name Sep 15, 2023 12:00 AM Laboratory - Chemi stry Order ELECTROLYTES/ANION GAP PLASMA [facility] Sep 15, 2023 12:00 AM Laboratory - Chemi stry Order UREA NITROGEN PLASMA [facility] Sep 15, 2023 12:00 AM Laboratory - Chemi stry Order CALCIUM PLASMA [facility] Sep 15, 2023 12:00 AM Laboratory - Chemi stry Order PHOSPHORUS PLASMA [facility] Sep 15, 2023 12:00 AM Laboratory - Chemi stry Order CREATININE(INCLUDES EGFR) PLASMA [facility] Sep 15, 2023 12:00 AM Laboratory - Chemi stry Order ALBUMIN PLASMA [facility] Sep 15, 2023 12:00 AM Laboratory - Chemi stry Order CBC BLOOD [facility] Sep 15, 2023 12:00 AM Laboratory - Chemi stry Order PTH-N-TACT PLASMA [facility] Sep 15, 2023 12:00 AM Laboratory - Chemi stry Order GLUCOSE PLASMA [facility] Oct 11, 2023 12:00 AM Laboratory - Blood Bank Order ABO/RH - LAB BLOOD [facility] Oct 11, 2023 06:45 AM Laboratory - Blood Bank Order TYPE & SCREEN - LAB BLOOD [facility] Lab Results: +/- 30 days of the encounter This section includes the Chemistry and Hematology Lab Results on record with OR for the patient. Radiology Reports and Pathology Reports are provided separately, in subsequent sections. Lab Results This section contains the Chemistry/Hematology Results that were resulted 30 days before or 30 daysafter the date of the Encounter. Date/Time Source Result Type Result - Unit Interpretation Reference Range Comment Oct 11, 2023 12:27 PM [facility] POC ACT Specimen Type: BLOOD No comment entered. Ordering Provider: LORETO HONG Report Released Date/Time: Oct 11, 2023 12:32 PM Reporting Lab: [facility] [phone] Performing Lab: [facility] [address] POC ACT 199 H 84-139 Oct 11, 2023 12:13 PM [facility] POC ACT Specimen Type: BLOOD No comment entered. Ordering Provider: LORETO HONG Report Released Date/Time: Oct 11, 2023 12:20 PM Reporting Lab: [facility] [address] Performing Lab: [facility] [address] POC ACT 384 H 84-139 Oct 11, 2023 11:50 AM [facility] POC ACT Specimen Type: BLOOD No comment entered. Ordering Provider: LORETO HONG Report Released Date/Time: Oct 11, 2023 12:00 PM Reporting Lab: [facility] [address] Performing Lab: [facility] [address] POC ACT 407 H 84-139 Oct 11, 2023 11:50 AM [facility] FINGERSTICK GLUCOSE Specimen Type: BLOOD No comment entered. Ordering Provider: LORETO HONG Report Released Date/Time: Oct 11, 2023 01:30 PM Reporting Lab: [facility] [address] Performing Lab: [facility] [address] [place] GLUCOSE 161 H 70-100 Oct 11, 2023 11:32 AM [facility] POC ACT Specimen Type: BLOOD No comment entered. Ordering Provider: LORETO HONG Report Released Date/Time: Oct 11, 2023 11:47 AM Reporting Lab: [facility] [address] Performing Lab: [facility] [address] POC ACT 345 H 84-139 Oct 11, 2023 11:11 AM [facility] POC ACT Specimen Type: BLOOD No comment entered. Ordering Provider: LORETO HONG Report Released Date/Time: Oct 11, 2023 11:20 AM Reporting Lab: [facility] [phone] Performing Lab: [facility] [address] POC ACT 334 H 84-139 Oct 11, 2023 11:11 AM [facility] [place] GLUCOSE Specimen Type: BLOOD No comment entered. Ordering Provider: LORETO HONG Report Released Date/Time: Oct 11, 2023 01:30 PM Reporting Lab: [facility] [address] Performing Lab: [facility] [address] [place] GLUCOSE 167 H 70-100 Oct 11, 2023 10:56 AM [facility] POC ACT Specimen Type: BLOOD No comment entered. Ordering Provider: LORETO HONG Report Released Date/Time: Oct 11, 2023 11:04 AM Reporting Lab: [facility] [address] Performing Lab: [facility] [address] POC ACT 310 H 84-139 Oct 11, 2023 10:40 AM [facility] POC ABG/ELECTROLYTES Specimen Type: ARTERIAL BLOOD Comment: FIO2 = 55% Patient Temp: 35.5 C Sample Type = ARTERIAL Ordering Provider: LORETO HONG Report Released Date/Time: Oct 11, 2023 01:20 PM Reporting Lab: [facility] [address] Performing Lab: [facility] [address] POC PH 7.396 7.35-7.45 POC PCO2 36.1 [...] H 80.0-105.0 Oct 11, 2023 10:37 AM [facility] [place] GLUCOSE Specimen Type: BLOOD No comment entered. Ordering Provider: LORETO HONG Report Released Date/Time: Oct 11, 2023 01:30 PM Reporting Lab: [facility] [address] Performing Lab: [facility] [address] [place] GLUCOSE 163 H 70-100 Oct 11, 2023 10:36 AM [facility] POC ACT Specimen Type: BLOOD No comment entered. Ordering Provider: LORETO HONG Report Released Date/Time: Oct 11, 2023 10:41 AM Reporting Lab: [facility] [address] Performing Lab: [facility] [address] POC ACT 255 H 84-139 Oct 11, 2023 09:16 AM [facility] POC ABG/ELECTROLYTES Specimen Type: ARTERIAL BLOOD Comment: FIO2 = 56% Patient Temp: 35.2 C Sample Type = ARTERIAL Ordering Provider: LORETO HONG Report Released Date/Time: Oct 11, 2023 01:20 PM Reporting Lab: [facility] [address] Performing Lab: [facility] [address] POC PH 7.374 7.35-7.45 POC PCO2 38.9 [...] H 80.0-105.0 Oct 11, 2023 09:15 AM [facility] [place] GLUCOSE Specimen Type: BLOOD No comment entered. Ordering Provider: LORETO HONG Report Released Date/Time: Oct 11, 2023 01:30 PM Reporting Lab: [facility] [address] Performing Lab: [facility] [address] [place] GLUCOSE 170 H 70-100 Oct 11, 2023 09:10 AM [facility] POC ACT Specimen Type: BLOOD No comment entered. Ordering Provider: LORETO HONG Report Released Date/Time: Oct 11, 2023 09:16 AM Reporting Lab: [facility] [address] Performing Lab: [facility] [address] POC ACT 147 H 84-139 Oct 11, 2023 06:35 AM [facility] ACT PART THROMBO TIME Specimen Type: PLASMA No comment entered. Ordering Provider: RONALDO MAS Report Released Date/Time: Apr 16, 2023 01:48 PM Reporting Lab: [facility] [address] Performing Lab: [facility] [address] APTT 29.9 25.1-36.5 Oct 11, 2023 06:35 AM [facility] PROTHROMBIN TIME/INR Specimen Type: PLASMA No comment entered. Ordering Provider: RONALDO MAS Report Released Date/Time: Apr 16, 2023 01:48 PM Reporting Lab: [facility] [address] Performing Lab: [facility] [address] .INR 1.0 0.8-1.1 .PT 11.9 9.4-12.5 Oct 11, 2023 06:35 AM [facility] BASIC METABOLIC PANEL+MG Specimen Type: PLASMA No comment entered. Ordering Provider: RONALDO MAS Report Released Date/Time: Apr 16, 2023 01:48 PM Reporting Lab: [facility] [address] Performing Lab: [facility] [address] CREATININE 3.0 H 0.7-1.2 UREA NITROGEN 38 H 8-26 GLUCOSE 151 H 70-100 SODIUM 142 136-145 POTASSIUM 4.9 3.5-5.1 CHLORIDE 108 H 98-107 CO2 27 22-29 CALCIUM 8.8 8.4-10.2 MAGNESIUM 2.0 1.6-2.6 ANION GAP 7 5-15 .CREAT EGFR(CKD-EPI) 20 L >60 Oct 11, 2023 06:35 AM [facility] CBC Specimen Type: BLOOD No comment entered. Ordering Provider: RONALDO MAS Report Released Date/Time: Apr 16, 2023 01:48 PM Reporting Lab: [facility] [address] Performing Lab: [facility] [address] WBC 6.09 4.0-11.0 RBC 4.07 L 4.6-6.2 HGB 12.6 L 13.5-17.9 HCT 37.7 L 41-54 MCV 92.6 80-100 MCH 31.0 27-33 MCHC 33.4 32.0-37.5 PLT 144 L 150-400 MPV 10.7 H 7.4-10.4 RDW 13.2 11.5-14.5 Social History: Smoking Status (Most current) and Tobacco Use (All prior to encounter date) This section includes the most current, and the historical, smoking and tobacco- related health factors from the OR facility where the Encounter took place. Current Smoking Status This section includes the most current smoking, or tobacco-related health factor, from the OR facility where the Encounter took place. Date/Time Current Smoking Status Comment Facil ity Jan 02, 2023 01:15 PM VA-TOBACCO FORMER USER [facility] Tobacco Use History This section includes a history of the smoking, or tobacco-related health factors, that were collected on or before the date of the Encounter. The data comes from the OR facility where the Encounter took place. Date/Time Smoking Status/Tobacco Use Comment F acility Jan 02, 2023 01:15 PM VA-TOBACCO QUIT 15 YRS OR MORE [facility] Oct 24, 2021 08:45 AM VA-TOBACCO FORMER USER [facility] Oct 24, 2021 08:45 AM VA-TOBACCO QUIT 15 YRS OR MORE [facility] Apr 27, 2020 03:00 PM VA-TOBACCO FORMER USER [facility] Apr 27, 2020 03:00 PM VA-TOBACCO QUIT 15 YRS OR MORE [facility] Apr 23, 2019 05:29 PM INPT NO TOBACCO USE IN LAST 30 D AYS [facility] Oct 15, 2018 09:08 AM VA-TOBACCO FORMER USER [facility] Oct 15, 2018 09:08 AM VA-TOBACCO QUIT 15 YRS OR MORE [facility] November 13, 2017 09:05 AM FORMER TOBACCO USER 7Y OR GREATE R [facility] November 22, 2016 03:15 PM FORMER TOBACCO USER 7Y OR GREATE R [facility] Oct 21, 2015 08:37 AM FORMER TOBACCO USER 7Y OR JOHNE R [facility] Oct 21, 2014 01:32 PM FORMER TOBACCO USER 7Y OR JOHNE R [facility] Oct 29, 2013 08:29 AM FORMER TOBACCO USER 7Y OR JOHNE R [facility] Mar 11, 2007 08:07 AM FORMER TOBACCO USER 7Y OR JOHNE R [facility] Encounter Notes: All associated encounter notes This section contains the clinical notes associated to the Encounter. Date/Time Encounter Note(s) Provider Source Oct 07, 2023 10:52 AM PHARMACY MEDICATIO N MGT NOTE: LOCAL TITLE: DRUG RECONCILIATION ON ADMIT STANDARD TITLE: PHARMACY MEDICATION MGT NOTE DATE OF NOTE: OCT 07, 2023@10:52 ENTRY DATE: OCT 07, 2023@10:52:17 AUTHOR: PEREZ SNIDER COSIGNER: URGENCY: STATUS: COMPLETED PHARMACY MEDICATION HISTORY NOTE == Medication & allergy history was compiled by pharmacy to assist providers ordering inpatient medications. Essential med list includes active local & remote VA rxs, non-VA meds, recently rxs within last 180 days, recently discontinued rxs within last 90 days, clinic med orders, pending med orders, & inpatient med orders. Current active & pending inpatient med orders will be reviewed to complete medication reconciliation. With the exception of allergies, if a category is not listed below, there were no relevant meds for the patient. Seasonal Influenza Immunization: refused INTERVIEW Patient and/or caregiver has been INTERVIEWED by pharmacy. Allergies: FACILITY ALLERGY/ADR -------- [facility] NO KNOWN ALLERGIES [facility] NO KN[place] ALLERGIES [facility] ATORVASTATIN [facility] CLINDAMYCIN [facility] HYDROXYCHLOROQUINE [facility] METOPROLOL [facility] SIMVASTATIN See Anticoagulation note for indication, INR goal, and dose plan: Facility/Date of note: LOCAL TITLE: PHARMACY ANTICOAGULATION CLINIC F/U STANDARD TITLE: PHARMACY OUTPATIENT MEDICATION MGT NOTE DATE OF NOTE: APR 23, 2023@09:45 Tobacco use within the last 30 days No Medications given in clinic: no clinic meds Recently discontinued prescriptions: Not applicable 10/04/2023 09:38 [place] [id number] Source of Info: [facility] Drug Last Refills Qty Filled Remaining ---- --- ------ --------- AMIODARONE HCL (PACERONE) 200MG TAB 90 10/05/2023 (1) ONE QDAY FOR HEART RHYTHM (am) APIXABAN 2.5MG TAB 180 11/19/2023 (0) ONE Q12H TO PREVENT STROKES (am,hs) DICLOFENAC NA 1% TOP GEL 300 05/13/2023 (0) APPLY 4 GRAMS QID PRN FOR PAIN -USE DOSE CARD IN BOX TO MEASURE DOSE -MAXIMUM OF 32 TOTAL GRAMS PER DAY. no recent use GABAPENTIN 100MG CAP 60 09/20/2023 (2) ONE BID FOR ESSENTIAL TREMOR no longer using caused itching GLUCOSE SENSOR FREESTYLE CARMELA 2 2 09/14/2023 (5) USE 1 SENSOR EVERY 14 DAYS TO MONITOR GLUCOSE due to change / INSULIN,GLARGINE-YFGN 100UNIT/ML PEN 3 5 07/16/2023 (0) INJECT 9 UNITS SQ QDAY FOR DIABETES qam verified ISOSORBIDE MONONITRATE 60MG SA TAB 90 10/22/2023 (0) ONE QDAY FOR CHEST PAIN (am) LIRAGLUTIDE (VICTOZA) 6MG/ML INJ PEN 3 3 11/17/2023 (1) INJECT 0.6 MG SQ QDAY FOR DIABETES (am) LORATADINE 10MG TAB 30 07/30/2023 (7) ONE QDAY FOR ALLERGIES no recent use seasonal MULTIVIT/OPHTH AREDS2/LUTE/ZEAX CAP/TA 240 10/05/2023 (1) 1 CAP/TAB BID FOR EYE HEALTH (am,hs) ROSUVASTATIN CA 20MG TAB 45 09/23/2023 (1) ONE-HALF QDAY FOR CHOLESTEROL (am) The following prescriptions have CAMPHOR 0.5/MENTHOL 0.5% LOTION 225 06/18/2023 (0) APPLY THIN LAYER TOPICALLY QID PRN FOR ITCHING : 07/18/2023 about twice a month The following are Non-VA medications CHOLECALCIF 25MCG (D3-1,000UNIT) TAB 1000UNIT EVERY DAY(am) PENDIN G ORDERS -------- No pending orders for this patient! /igor/ PEREZ SNIDER CYANIDE POT TENDER Signed: 10/07/2023 10:54 PEREZ SNIDER [facility]
--- OUTSIDE RECORDS SUMMARY | 2023-10-11 23:53 | XMS_ITS | Encounter Summary ---
Author Name [facility] of [facility] Organization [facility] Address [address] [place] [address] Support Name Relationship Address Phone JUDE STOCKTON Next of Kin [address] [facility] [place] [phone] JUDE STOCKTON Emergency Contact [phone] [address] JUDE STOCKTON Next of Kin [address] [facility] [place] [phone] JUDE STOCKTON Emergency Contact [phone] [place] [address] Insurance Providers: All historical and [...] CENTER MEDICARE SUPPLEGANESH GERONIMO Jul 08, 2016 [id number] [phone] KRISTOFER STOCKTON PATIENT MEDICARE (WNR) MEDICARE (M) PART B Jun 07, 2007 PART B [id number] KRISTOFER STOCKTON PATIENT MEDICARE (WNR) MEDICARE (M) PART B Jun 07, 2007 PART B [id number] KRISTOFER STOCKTON PATIENT MEDICARE (WNR) MEDICARE (M) PART B Jun 07, 2007 PART B [id number] [id number] KRISTOFER STOCKTON PATIENT MEDICARE (WNR) MEDICARE (M) PART B Jun 07, 2007 PART B [id number] KRISTOFER STOCKTON PATIENT MEDICARE (WNR) MEDICARE (M) PART A Mar 08, 2007 PART A [id number] KRISTOFER STOCKTON PATIENT MEDICARE (WNR) MEDICARE (M) PART A Mar 08, 2007 PART A [id number] KRISTOFER STOCKTON PATIENT MEDICARE (WNR) MEDICARE (M) PART A Mar 08, 2007 PART A [id number] KRISTOFER STOCKTON PATIENT MEDICARE (WNR) MEDICARE (M) PART A Mar 08, 2007 PART A [id number] KRISTOFER STOCKTON PATIENT Selected Encounter This section includes the information on record at [place] for the Encounter. Date/Time Encounter Type Encounter Description Reason Provider Source Oct 08, 2023 01:00 PM OFFICE O/P EST HI 40 MIN OPHTHALMOLOGY ICD-10-CM 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, right eye, with actv chrdl neovas [employer] Judah Encounter Template Text not used by [place] Assessments - Encounter Diagnoses This section includes the primary and secondary diagnoses documented for the Encounter. Date/Time Primary/Secondary Diagnosis Diagnosis Name Provider Source Oct 08, 2023 03:52 PM PRIMARY Exdtve age-rel mclr degn, right eye, with actv chrdl neoPORTER Aceves [facility] Oct 08, 2023 03:52 PM SECONDARY Age-related nuclear cataract, bilateral [employer] [facility] Oct 08, 2023 03:52 PM SECONDARY Nexdtve age-related mclr degn, left eye, intermed dry stage [facility] Plan of Treatment: Future Appointments (+ 6 months) and Future Tests (+/- 45 days) The Plan of Treatment section includes future care activities for the patient from all [place] treatmentfacilities. This section includes future appointments and future orders which are active, pending or scheduled. Future Appointments This section includes appointments that were scheduled to occur 6 months from the date of the Encounter, up to a maximum of 20 appointments. The data comes from all [place] treatment facilities. Appointment Date/Time Appointment Type Appointme nt Facility Name Oct 11, 2023 06:45 AM AMBULATORY - NONE [facility] Oct 11, 2023 07:15 AM AMBULATORY - MEDICINE [facility] Oct 11, 2023 07:30 AM AMBULATORY - [place]ICINE [place] [facility] Oct 11, 2023 08:00 AM AMBULATORY - [place]IC[place] [facility] Oct 11, 2023 03:00 PM AMBULATORY - NONE [place] [facility] Oct 11, 2023 03:10 PM AMBULATORY - [place]IC[place] [facility] Oct 28, 2023 02:15 PM AMBULATORY - MEDICINE [place] [facility] Oct 28, 2023 03:30 PM AMBULATORY - [place]IC[place] [facility] November 18, 2023 12:40 PM AMBULATORY - SURGERY [facility] November 28, 2023 09:20 AM AMBULATORY - [place]ICINE [place] [facility] Dec 16, 2023 01:00 PM AMBULATORY - SURGERY [facility] Dec 16, 2023 02:00 PM AMBULATORY - SURGERY [facility] Active, Pending, and Scheduled Orders This section includes a listing of several types of active, pending, and scheduled orders, including clinic medications orders, diagnostic test orders, procedure orders and consult orders; where the start date of the order is 45 days before the date of the Encounter or 45 days after the date of theEncounter. The data comes from all [place] treatment facilities. Test Date/Time Test Type Test Details Facility Name Sep 15, 2023 12:00 AM Laboratory - Chemi stry Order ELECTROLYTES/ANION GAP PLASMA [facility] Sep 15, 2023 12:00 AM Laboratory - Chemi stry Order UREA NITROGEN PLASMA [facility] Sep 15, 2023 12:00 AM Laboratory - Chemi stry Order CALCIUM PLASMA [facility] Sep 15, 2023 12:00 AM Laboratory - Chemi stry Order PHOSPHORUS PLASMA [facility] Sep 15, 2023 12:00 AM Laboratory - Chemi stry Order CREATININE(INCLUDES EGFR) PLASMA [facility] Sep 15, 2023 12:00 AM Laboratory - Chemi stry Order ALBUMIN PLASMA [facility] Sep 15, 2023 12:00 AM Laboratory - Chemi stry Order CBC BLOOD [facility] Sep 15, 2023 12:00 AM Laboratory - Chemi stry Order PTH-N-TACT PLASMA [facility] Sep 15, 2023 12:00 AM Laboratory - Chemi stry Order GLUCOSE PLASMA [facility] Oct 11, 2023 12:00 AM Laboratory - Blood Bank Order ABO/RH - LAB BLOOD WC [facility] Oct 11, 2023 06:45 AM Laboratory - Blood Bank Order TYPE & SCREEN - LAB BLOOD SP [facility] Lab Results: +/- 30 days of the encounter This section includes the Chemistry and Hematology Lab Results on record with [place] for the patient. Radiology Reports and Pathology Reports are provided separately, in subsequent sections. Lab Results This section contains the Chemistry/Hematology Results that were resulted 30 days before or 30 daysafter the date of the Encounter. Date/Time Source Result Type Result - Unit Interpretation Reference Range Comment Oct 11, 2023 12:27 PM [facility] POC ACT Specimen Type: BLOOD No comment entered. Ordering Provider: LORETO HONG Report Released Date/Time: Oct 11, 2023 12:32 PM Reporting Lab: [facility] [id number] Performing Lab: [facility] [address] POC ACT 199 H 84-139 Oct 11, 2023 12:13 PM [facility] POC ACT Specimen Type: BLOOD No comment entered. Ordering Provider: LORETO HONG Report Released Date/Time: Oct 11, 2023 12:20 PM Reporting Lab: [facility] [address] Performing Lab: [facility] [phone] POC ACT 384 H 84-139 Oct 11, 2023 11:50 AM [facility] POC ACT Specimen Type: BLOOD No comment entered. Ordering Provider: LORETO HONG Report Released Date/Time: Oct 11, 2023 12:00 PM Reporting Lab: [facility] [phone] Performing Lab: [facility] [address] POC ACT 407 H 84-139 Oct 11, 2023 11:50 AM [facility] FING[place] GLUCOSE Specimen Type: BLOOD No comment entered. Ordering Provider: LORETO HONG Report Released Date/Time: Oct 11, 2023 01:30 PM Reporting Lab: [facility] [phone] Performing Lab: [facility] [address] [place] GLUCOSE 161 H 70-100 Oct 11, 2023 11:32 AM [facility] POC ACT Specimen Type: BLOOD No comment entered. Ordering Provider: LORETO HONG Report Released Date/Time: Oct 11, 2023 11:47 AM Reporting Lab: [facility] [address] Performing Lab: [facility] [phone] POC ACT 345 H 84-139 Oct 11, 2023 11:11 AM [facility] POC ACT Specimen Type: BLOOD No comment entered. Ordering Provider: LORETO HONG Report Released Date/Time: Oct 11, 2023 11:20 AM Reporting Lab: [facility] [address] Performing Lab: [facility] [address] POC ACT 334 H 84-139 Oct 11, 2023 11:11 AM [facility] [place] GLUCOSE Specimen Type: BLOOD No comment entered. Ordering Provider: LORETO HONG Report Released Date/Time: Oct 11, 2023 01:30 PM Reporting Lab: [facility] [address] Performing Lab: [facility] [address] [place] GLUCOSE 167 H 70-100 Oct 11, 2023 10:56 AM [facility] POC ACT Specimen Type: BLOOD No comment entered. Ordering Provider: LORETO HONG Report Released Date/Time: Oct 11, 2023 11:04 AM Reporting Lab: [facility] [address] Performing Lab: [facility] [address] POC ACT 310 H 84-139 Oct 11, 2023 10:40 AM [facility] POC ABG/ELECTROLYTES Specimen Type: ARTERIAL BLOOD Comment: FIO2 = 55% Patient Temp: 35.5 C Sample Type = ARTERIAL Ordering Provider: LORETO HONG Report Released Date/Time: Oct 11, 2023 01:20 PM Reporting Lab: [facility] [address] Performing Lab: [facility] [address] POC PH 7.396 7.35-7.45 POC PCO2 36.1 [...] H 80.0-105.0 Oct 11, 2023 10:37 AM [facility] [place] GLUCOSE Specimen Type: BLOOD No comment entered. Ordering Provider: LORETO HONG Report Released Date/Time: Oct 11, 2023 01:30 PM Reporting Lab: [facility] [address] Performing Lab: [facility] [address] [place] GLUCOSE 163 H 70-100 Oct 11, 2023 10:36 AM [facility] POC ACT Specimen Type: BLOOD No comment entered. Ordering Provider: LORETO HONG Report Released Date/Time: Oct 11, 2023 10:41 AM Reporting Lab: [facility] [address] Performing Lab: [facility] [address] POC ACT 255 H 84-139 Oct 11, 2023 09:16 AM [facility] POC ABG/ELECTROLYTES Specimen Type: ARTERIAL BLOOD Comment: FIO2 = 56% Patient Temp: 35.2 C Sample Type = ARTERIAL Ordering Provider: LORETO HONG Report Released Date/Time: Oct 11, 2023 01:20 PM Reporting Lab: [facility] [address] Performing Lab: [facility] [address] POC PH 7.374 7.35-7.45 POC PCO2 38.9 [...] H 80.0-105.0 Oct 11, 2023 09:15 AM [facility] F[place] GLUCOSE Specimen Type: BLOOD No comment entered. Ordering Provider: LORETO HONG Report Released Date/Time: Oct 11, 2023 01:30 PM Reporting Lab: [facility] [address] Performing Lab: [facility] [address] [place] GLUCOSE 170 H 70-100 Oct 11, 2023 09:10 AM [facility] POC ACT Specimen Type: BLOOD No comment entered. Ordering Provider: LORETO HONG Report Released Date/Time: Oct 11, 2023 09:16 AM Reporting Lab: [facility] [address] Performing Lab: [facility] [address] POC ACT 147 H 84-139 Oct 11, 2023 06:35 AM [facility] ACT PART THROMBO TIME Specimen Type: PLASMA No comment entered. Ordering Provider: RONALDO MAS Report Released Date/Time: Apr 16, 2023 01:48 PM Reporting Lab: [facility] [address] Performing Lab: [facility] [address] APTT 29.9 25.1-36.5 Oct 11, 2023 06:35 AM [facility] PROTHROMBIN TIME/INR Specimen Type: PLASMA No comment entered. Ordering Provider: RONALDO MAS Report Released Date/Time: Apr 16, 2023 01:48 PM Reporting Lab: [facility] [address] Performing Lab: [facility] [address] .INR 1.0 0.8-1.1 .PT 11.9 9.4-12.5 Oct 11, 2023 06:35 AM [facility] BASIC METABOLIC PANEL+MG Specimen Type: PLASMA No comment entered. Ordering Provider: RONALDO MAS Report Released Date/Time: Apr 16, 2023 01:48 PM Reporting Lab: [facility] [address] Performing Lab: [facility] [address] CREATININE 3.0 H 0.7-1.2 UREA NITROGEN 38 H 8-26 GLUCOSE 151 H 70-100 SODIUM 142 136-145 POTASSIUM 4.9 3.5-5.1 CHLORIDE 108 H 98-107 CO2 27 22-29 CALCIUM 8.8 8.4-10.2 MAGNESIUM 2.0 1.6-2.6 ANION GAP 7 5-15 .CREAT EGFR(CKD-EPI) 20 L >60 Oct 11, 2023 06:35 AM [facility] CBC Specimen Type: BLOOD No comment entered. Ordering Provider: RONALDO MAS Report Released Date/Time: Apr 16, 2023 01:48 PM Reporting Lab: [facility] [address] Performing Lab: [facility] [address] WBC 6.09 4.0-11.0 RBC 4.07 L 4.6-6.2 [...] and tobacco- related health factors from the [place] facility where the Encounter took place. Current Smoking Status This section includes the most current smoking, or tobacco-related health factor, from the [place] facility where the Encounter took place. Date/Time Current Smoking Status Comment Dany simon Jan 02, 2023 01:15 PM VA-TOBACCO FORMER USER [facility] Tobacco Use History This section includes a history of the smoking, or tobacco-related health factors, that were collected on or before the date of the Encounter. The data comes from the [place] facility where the Encounter took place. Date/Time Smoking Status/Tobacco Use Comment Edu jacome Jan 02, 2023 01:15 PM VA-TOBACCO QUIT 15 YRS OR MORE [facility] Oct 24, 2021 08:45 AM VA-TOBACCO FORMER USER [facility] Oct 24, 2021 08:45 AM VA-TOBACCO QUIT 15 YRS OR MORE [facility] Apr 27, 2020 03:00 PM VA-TOBACCO FORMER USER [facility] Apr 27, 2020 03:00 PM VA-TOBACCO QUIT 15 YRS OR MORE [facility] Apr 23, 2019 05:29 PM INPT NO TOBACCO USE IN LAST 30 D AYS [facility] Oct 15, 2018 09:08 AM VA-TOBACCO FORMER USER [facility] Oct 15, 2018 09:08 AM VA-TOBACCO QUIT 15 YRS OR MORE [facility] November 13, 2017 09:05 AM FORMER TOBACCO USER 7Y OR GREATE R [facility] November 22, 2016 03:15 PM FORMER TOBACCO USER 7Y OR GREATE R [facility] Oct 21, 2015 08:37 AM FORMER TOBACCO USER 7Y OR GREATE R [facility] Oct 21, 2014 01:32 PM FORMER TOBACCO USER 7Y OR GREATE R [facility] Oct 29, 2013 08:29 AM FORMER TOBACCO USER 7Y OR GREATE R [facility] Mar 11, 2007 08:07 AM FORMER TOBACCO USER 7Y OR GREATE R [facility] Encounter Notes: All associated encounter notes This section contains the clinical notes associated to the Encounter. Date/Time Encounter Note(s) Provider Source Oct 08, 2023 03:44 PM AUTO TIRE RECAPPER NOTE: LOCAL TITLE: AUTO TIRE RECAPPER NOTE STANDARD TITLE: AUTO TIRE RECAPPER NOTE DATE OF NOTE: OCT 08, 2023@15:44:11 ENTRY DATE: OCT 08, 2023@15:44:12 AUTHOR: MERCEDES SANDERS EXP COSIGNER: URGENCY: STATUS: COMPLETED Performed OCT MAC and Optos FAF photos and uploaded images for review. Optos attempted after requested BAF was not possible. /igor/ MERCEDES SANDERS OPTHTHALMIC ARCADE GAME TECHNICIAN Signed: 10/08/2023 15:45 MERCEDES SANDERS [facility] Oct 08, 2023 03:21 PM OPHTHALMOLOGY CONSULT: LOCAL TITLE: OPHTHALMOLOGY IMAGING MSP OUTPT CONSULT STANDARD TITLE: OPHTHALMOLOGY CONSULT DATE OF NOTE: OCT 08, 2023@15:21 ENTRY DATE: OCT 08, 2023@15:21:49 AUTHOR: MAXIME LEWIS EXP COSIGNER: URGENCY: STATUS: COMPLETED Requested test(s) done, OCT-A done OD BAF attempted - media issue results uploaded to room service server for review. /igor/ MELANY PRIETO CRA Flying Teacher Signed: 10/08/2023 15:22 MAXIME LEWIS [facility] Oct 08, 2023 01:19 PM AUTO TIRE RECAPPER NOTE: LOCAL TITLE: AUTO TIRE RECAPPER NOTE STANDARD TITLE: AUTO TIRE RECAPPER NOTE DATE OF NOTE: OCT 08, 2023@13:19 ENTRY DATE: OCT 08, 2023@13:19:44 AUTHOR: OSVALDO GRAVES COSIGNER: URGENCY: STATUS: COMPLETED Eye Start Exam Patient: KRISTOFER STOCKTON Sex: MALE SSN: [id number] Birthdate: [birth year] Chief complaint: here for retina follow up. night vision is getting more troublesome. was said that he might need to have his lenses replaced Active problems - Computerized Problem List is the source for the followin. 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 Hyperlipidemia (SNOMED CT 49514526) 3. Coronary artery disease (SNOMED CT 22660590) 4. Benign hypertension (SNOMED CT 12569821) 5. Atrial fibrillation (SNOMED CT 42312144) 6. Long-term current use of anticoagulant (SNOMED CT 338040477) 7. Obstructive sleep apnea syndrome 8. Gout 9. Rheumatoid arthritis (SNOMED CT 94831294) 10. Chronic kidney disease (SNOMED CT 225875663) 11. Type 2 diabetes mellitus well controlled 12. 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 Steatosis of liver 14. 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 jail methotrexate user 17. Essential tremor 18. Exposure to potentially hazardous substance (SCT [id number]) - Entered through [facility]/VISN23 [facility] Documentation Initiative Surgeries: SURGERIES - NONE FOUND Follow Up Exam Eye Medications Patient denies eye medication use. Allergies: ATORVASTATIN (May 15, 2007) SIMVASTATIN (Mar 13, 2012) METOPROLOL (May 01, 2019) CLINDAMYCIN (Oct 05, 2020) HYDROXYCHLOROQUINE (November 20, 2022) No new Allergies. Vision: OD:CC(with glasses) OD: 20/70+1 Pinhole: 20/No Improvement Near: 20/ Vision: OS:CC(with glasses) 0S: 20/60-1 Pinhole: 20/60 Near: 20/ Refraction: Manifest: YES Automated: NO OD:-1.00 +2.00X30 20/60-1+2 OS:-1.00 +2.11L015 20/60-1 Add: +2.50 Near vision: OU 20/20 Pupils: Right: Round Left: Round Size: Right: 4 Left: 4 React to light: Right: Yes Left: Yes Afferent pupil defect: Right:No Grade: Left: No Grade: Note: Intra-ocular pressure (IOP): OD: 14 OS: 15 iCare Dilation: mydriacyl 1% and neosynephrine OU Oct@13:30 /igor/ OSVALDO GRAVES OIL WELL CABLE TOOL OPERATOR Signed: 10/08/2023 13:30 OSVALDO GRAVES [facility] Oct 08, 2023 12:55 PM OPHTHALMOLOGY ATTENDING NOTE: LOCAL TITLE: OPHTHALMOLOGY CLINIC NOTE STANDARD TITLE: OPHTHALMOLOGY ATTENDING NOTE DATE OF NOTE: OCT 08, 2023@12:55 ENTRY DATE: OCT 08, 2023@12:55:08 AUTHOR: [employer] COSIGNER: URGENCY: STATUS: COMPLETED Eye Clinic Progress Note HPI: 83 yo M here for 6 mo AMD f/u. Patient reports progressive vision loss OU, still feels comfortable driving but would like to schedule CEIOL. Has not been monitoring vision with Amsler grid; denies missing sports in vision and denies metamorphopsia. POH: See Impression Tech exam today: Vision: OD:CC(with glasses) 20/70+1 Pinhole: 20/No Improvement Vision: OS:CC(with glasses) 20/60-1 Pinhole: 20/60 Refraction: Manifest: YES OD:-1.00 +2.00X30 20/60-1+2 OS:-1.00 +2.45D988 20/60-1 Add: +2.50 Near vision: OU 20/20 Intra-ocular pressure (IOP): OD: 14 OS: 15 iCare Pupils: see tech exam. I have reviewed the tar processing technician's note and agree with their findings. Patient is alert and oriented x 3. SLE, both eyes: lids/lashes: no abnormality conjunctiva/sclera: white and quiet cornea: whorl keratopathy anterior chamber: deep and quiet iris: round and flat, no NVI lens: 3+ brunescent NSC anterior vitreous: clear DFE, both eyes: vitreous: clear optic nerve: 0.2/0.3 cup/disc, pink and healthy, no NVD macula: diffuse pigmentary changes, patch of SRH inferonasally OD no heme OS vessels: normal caliber and distribution periphery: normal without holes or tears OU, no diabetic retinopathy OD, single DBH sup OS, flat choroidal nevus inferiorly OD Mac OCT 10.08.23: OD: drusen, reticular pseduodrusen, broad central PED with new associated hyperreflective subretinal material and new SRF OS: drusen, reticular pseduodrusen, broad central PED without IRF/SRF; retinal thinning 11/2021 -> 10/2023 1 year injection consent, signed 10/08/2023, when patient reported agreement with the following statement: I understand this consent will hold true for all subsequent injections, which may be monthly or bimonthly, in this eye for 1 year from this date. I also understand that I may withdraw this consent at any time. Eylea OD: 10/08/23 Impression/Plan: 1. Exudative AMD OD, diagnosed 10/2023. - Recommend anti-VEGF injection OD today; R/B/A discussed with pt - [place] #1 OD today 2. Non-exudative AMD, intermediate stage OS. - Again recommend that pt start AREDS2 bid - Again recommend that pt start monocular Amsler grid monitoring 3. Age-related nuclear sclerotic cataract OU, visually significant. - Schedule CEIOL consultation with resident or staff surgeon in 2 months - Has essential tremor 4. Diabetes mellitus, most recent HbA1c 7.5 (03/2023). - No diabetic retinopathy - BP/BG/lipids control - Yearly dilated eye exams 5. Hydroxychloroquine use with retinopathy OU. Evidence of [...] OS: parafoveal scotoma - Continue off HCQ RTC injection clinic in 1 month and 2 months, V/T/mac OCT/dilate OD/Eylea OD ans surg consult clinic for CEIOL consultion in 2 months, sooner with changes I spent a total of 45 minutes today reviewing the medical record, personally obtaining the history, examining the patient, reviewing test results, counseling the patient, and documenting the visit. The patient needs glasses to read medicine bottles. The patient is photophobic and may require tinted glasses. Procedure Note: Eylea intravitreal injection, right eye Informed consent was obtained, including risk of infection, retinal detachment, and trauma to lens if present. Patient understands and wishes to proceed. Informed consent was obtained and form signed as noted above. A 2-provider time out was performed prior to procedure to verify patient name, , laterality, and procedure. Topical proparacaine was applied to the ocular surface of the operative eye. Betadine 5% x3 was applied to the ocular surface. 0.2 ml of 1% lidocaine was injected subconjunctivally with a 30 gauge needle. After 2-5 minutes, the eyelid speculum was inserted and calipers were used to measure 3.5/4.0 mm posterior to the limbus in the inferotemporal quadrant. Betadine 5% x3 was applied to the ocular surface. Eylea 2 mg (0.05 mL) was injected intravitreally through the pars plana using a 30g needle. The eyelid speculum was removed. VA post injection was at least CF. There were no complications. Lot number: [id number] Exp date: 09/2024 /igor/ [employer]TER [employer] MD STAFF SURGEON, OPHTHALMOLOGY Signed: 10/08/2023 15:[address] [facility]
--- OUTSIDE RECORDS SUMMARY | 2023-10-11 23:54 | XMS_ITS | Encounter Summary ---
Author Name [employer] [facility] [employer] Organization [facility] [employer] Address [address] [place] [address] Support Name Relationship Address Phone JOHN STOCKTONINE Next of Kin [address] [facility] LESLIE LOCKWOOD [phone] JUDE STOCKTON Emergency Contact [phone] [address] JUDE STOCKTON Next of Kin [address] [facility] [place] [phone] JUDE STOCKTON Emergency Contact [phone] [place] [address] Insurance Providers: All historical and [...] MEDICARE SUPPLEGANESH MAHAN IDU Jul 08, 2016 [id number] [phone] KRISTOFER STOCKTON PATIENT MEDICARE (WNR) MEDICARE (M) PART B Jun 07, 2007 PART B [id number] KIRSTOFER STOCKTON PATIENT MEDICARE (WNR) MEDICARE (M) PART B Jun 07, 2007 PART B [id number] KRISTOFER STOCKTON PATIENT MEDICARE (WNR) MEDICARE (M) PART B Jun 07, 2007 PART B [id number] KRISTOFER STOCKTON PATIENT MEDICARE (WNR) MEDICARE (M) PART B Jun 07, 2007 PART B [id number] KRISTOFER STOCKTON PATIENT MEDICARE (WNR) MEDICARE (M) PART A Mar 08, 2007 PART A [id number] KRISTOFER STOCKTON PATIENT MEDICARE (WNR) MEDICARE (M) PART A Mar 08, 2007 PART A [id number] KRISTOFER STOCKTON PATIENT MEDICARE (WNR) MEDICARE (M) PART A Mar 08, 2007 PART A [id number] KRISTOFER STOCKTON PATIENT MEDICARE (WNR) MEDICARE (M) PART A Mar 08, 2007 PART A [id number] KRISTOFER STOCKTON PATIENT Selected Encounter This section includes the information on record at [facility] for the Encounter. Date/Time Encounter Type Encounter Description Reason Pro vider Source Oct 08, 2023 03:31 PM Outpatient Encounter EVENT (HISTORICAL) IHE Encounter Template Text not used by [facility] Plan of Treatment: Future Appointments (+ 6 months) and Future Tests (+/- 45 days) The Plan of Treatment section includes future care activities for the patient from all [place] treatmentfacilities. This section includes future appointments and [...] 11, 2023 06:45 [facility] Oct 11, 2023 07:15 AM [facility] Oct 11, 2023 07:30 [facility] Oct 11, 2023 08:00 AM [place] [place] [facility] Oct 11, 2023 03:00 PM [facility] Oct 11, 2023 03:10 PM [place] [facility] Oct 28, 2023 02:15 PM [place] [facility] Oct 28, 2023 03:30 PM [place] [facility] November 18, 2023 12:40 PM AMBULATORY - SURGERY [facility] November 28, 2023 09:20 AM [facility] Dec 16, 2023 01:00 PM AMBULATORY - SURGERY [facility] Dec 16, 2023 02:00 PM AMBULATORY - SURGERY [facility] Active, Pending, and Scheduled Orders This section includes a listing of several types of active, pending, and scheduled orders, including clinic medications orders, diagnostic test orders, procedure orders and consult orders; where the start date of the order is 45 days before the date of the Encounter or 45 days after the date of theEncounter. The data comes from all [facility] facilities. Test Date/Time Test Type Test Details Facility Name Sep 15, 2023 12:00 AM Laboratory - Chemi stry Order ELECTROLYTES/ANION GAP [facility]ASMA [facility] Sep 15, 2023 12:00 AM Laboratory - Chemi stry Order UREA NITROGEN [facility] Sep 15, 2023 12:00 AM Laboratory - Chemi stry Order CREATININE(INCLUDES EGFR) PLASMA [facility] Sep 15, 2023 12:00 AM Laboratory - Chemi stry Order PHOSPHORUS PLASMA [facility] Sep 15, 2023 12:00 AM Laboratory - Chemi stry Order CALCIUM PLASMA [facility] Sep 15, 2023 12:00 AM Laboratory - Chemi stry Order ALBUMIN PLASMA [facility] Sep 15, 2023 12:00 AM Laboratory - Chemi stry Order CBC BLOOD [facility] Sep 15, 2023 12:00 AM Laboratory - Chemi stry Order PTH-N-TACT PLASMA [facility] Sep 15, 2023 12:00 AM Laboratory - Chemi stry Order GLUCOSE PLASMA [facility] Oct 11, 2023 12:00 AM Laboratory - Blood Bank Order ABO/RH - LAB BLOOD [facility] Oct 11, 2023 06:45 AM Laboratory - Blood Bank Order TYPE & SCREEN - LAB BLOOD [facility] Lab Results: +/- 30 days of the encounter This section includes the Chemistry and Hematology Lab Results on record with MI for the patient. Radiology Reports and Pathology Reports are provided separately, in subsequent sections. Lab Results This section contains the Chemistry/Hematology Results that were resulted 30 days before or 30 daysafter the date of the Encounter. Date/Time Source Result Type Result - Unit Interpretation Reference Range Comment Oct 11, 2023 12:27 PM [facility] POC ACT Specimen Type: BLOOD No comment entered. Ordering Provider: LORETO HONG Report Released Date/Time: Oct 11, 2023 12:32 PM Reporting Lab: [facility] [phone] Performing Lab: [facility] [phone] POC ACT 199 H 84-139 Oct 11, 2023 12:13 PM [facility] POC ACT Specimen Type: BLOOD No comment entered. Ordering Provider: LORETO HONG Report Released Date/Time: Oct 11, 2023 12:20 PM Reporting Lab: [facility] [phone] Performing Lab: [facility] [address] POC ACT 384 H 84-139 Oct 11, 2023 11:50 AM [facility] POC ACT Specimen Type: BLOOD No comment entered. Ordering Provider: LORETO HONG Report Released Date/Time: Oct 11, 2023 12:00 PM Reporting Lab: [facility] [phone] Performing Lab: [facility] [phone] POC ACT 407 H 84-139 Oct 11, 2023 11:50 AM [facility] [place] GLUCOSE Specimen Type: BLOOD No comment entered. Ordering Provider: LORETO HONG Report Released Date/Time: Oct 11, 2023 01:30 PM Reporting Lab: [facility] [phone] Performing Lab: [facility] [address] [place] GLUCOSE 161 H 70-100 Oct 11, 2023 11:32 AM [facility] POC ACT Specimen Type: BLOOD No comment entered. Ordering Provider: LORETO HONG Report Released Date/Time: Oct 11, 2023 11:47 AM Reporting Lab: [facility] [phone] Performing Lab: [facility] [address] POC ACT 345 H 84-139 Oct 11, 2023 11:11 AM [facility] POC ACT Specimen Type: BLOOD No comment entered. Ordering Provider: LORETO HONG Report Released Date/Time: Oct 11, 2023 11:20 AM Reporting Lab: [facility] [phone] Performing Lab: [facility] [phone] POC ACT 334 H 84-139 Oct 11, 2023 11:11 AM [facility] [place] GLUCOSE Specimen Type: BLOOD No comment entered. Ordering Provider: LORETO HONG Report Released Date/Time: Oct 11, 2023 01:30 PM Reporting Lab: [facility] [phone] Performing Lab: [facility] [address] [place] GLUCOSE 167 H 70-100 Oct 11, 2023 10:56 AM [facility] POC ACT Specimen Type: BLOOD No comment entered. Ordering Provider: LORETO HONG Report Released Date/Time: Oct 11, 2023 11:04 AM Reporting Lab: [facility] [phone] Performing Lab: [facility] [address] POC ACT 310 H 84-139 Oct 11, 2023 10:40 AM [facility] POC ABG/ELECTROLYTES Specimen Type: ARTERIAL BLOOD Comment: FIO2 = 55% Patient Temp: 35.5 C Sample Type = ARTERIAL Ordering Provider: LORETO HONG Report Released Date/Time: Oct 11, 2023 01:20 PM Reporting Lab: [facility] [address] Performing Lab: [facility] [address] POC PH 7.396 7.35-7.45 POC PCO2 36.1 [...] H 80.0-105.0 Oct 11, 2023 10:37 AM [facility] [place] GLUCOSE Specimen Type: BLOOD No comment entered. Ordering Provider: LORETO HONG Report Released Date/Time: Oct 11, 2023 01:30 PM Reporting Lab: [facility] [phone] Performing Lab: [facility] [address] [place] GLUCOSE 163 H 70-100 Oct 11, 2023 10:36 AM [facility] POC ACT Specimen Type: BLOOD No comment entered. Ordering Provider: LORETO HONG Report Released Date/Time: Oct 11, 2023 10:41 AM Reporting Lab: [facility] [address] Performing Lab: [facility] [address] POC ACT 255 H 84-139 Oct 11, 2023 09:16 AM [facility] POC ABG/ELECTROLYTES Specimen Type: ARTERIAL BLOOD Comment: FIO2 = 56% Patient Temp: 35.2 C Sample Type = ARTERIAL Ordering Provider: LORETO HONG Report Released Date/Time: Oct 11, 2023 01:20 PM Reporting Lab: [facility] [phone] Performing Lab: [facility] [address] POC PH 7.374 7.35-7.45 POC PCO2 38.9 [...] H 80.0-105.0 Oct 11, 2023 09:15 AM [facility] [place] GLUCOSE Specimen Type: BLOOD No comment entered. Ordering Provider: LORETO HONG Report Released Date/Time: Oct 11, 2023 01:30 PM Reporting Lab: [facility] [address] Performing Lab: [facility] [address] [place] GLUCOSE 170 H 70-100 Oct 11, 2023 09:10 AM [facility] POC ACT Specimen Type: BLOOD No comment entered. Ordering Provider: LORETO HONG Report Released Date/Time: Oct 11, 2023 09:16 AM Reporting Lab: [facility] [phone] Performing Lab: [facility] [address] POC ACT 147 H 84-139 Oct 11, 2023 06:35 AM [facility] ACT PART THROMBO TIME Specimen Type: PLASMA No comment entered. Ordering Provider: RONALDO MAS Report Released Date/Time: Apr 16, 2023 01:48 PM Reporting Lab: [facility] [address] Performing Lab: [facility] [address] APTT 29.9 25.1-36.5 Oct 11, 2023 06:35 AM [facility] PROTHROMBIN TIME/INR Specimen Type: PLASMA No comment entered. Ordering Provider: RONALDO MAS Report Released Date/Time: Apr 16, 2023 01:48 PM Reporting Lab: [facility] [address] Performing Lab: [facility] [address] .INR 1.0 0.8-1.1 .PT 11.9 9.4-12.5 Oct 11, 2023 06:35 AM [facility] BASIC METABOLIC PANEL+MG Specimen Type: PLASMA No comment entered. Ordering Provider: RONALDO MAS Report Released Date/Time: Apr 16, 2023 01:48 PM Reporting Lab: [facility] [phone] Performing Lab: [facility] [phone] CREATININE 3.0 H 0.7-1.2 UREA NITROGEN 38 H 8-26 GLUCOSE 151 H 70-100 SODIUM 142 136-145 POTASSIUM 4.9 3.5-5.1 CHLORIDE 108 H 98-107 CO2 27 22-29 CALCIUM 8.8 8.4-10.2 MAGNESIUM 2.0 1.6-2.6 ANION GAP 7 5-15 .CREAT EGFR(CKD-EPI) 20 L >60 Oct 11, 2023 06:35 AM [facility] CBC Specimen Type: BLOOD No comment entered. Ordering Provider: RONALDO MAS Report Released Date/Time: Apr 16, 2023 01:48 PM Reporting Lab: [facility] [phone] Performing Lab: [facility] [address] WBC 6.09 4.0-11.0 RBC 4.07 L 4.6-6.2 [...] and tobacco- related health factors from the [place] facility where the Encounter took place. Current Smoking Status This section includes the most current smoking, or tobacco-related health factor, from the [place] facility where the Encounter took place. Date/Time Current Smoking Status Comment Facil ity Jan 02, 2023 01:15 PM VA-TOBACCO QUIT 15 YRS OR MORE [facility] Tobacco Use History This section includes a history of the smoking, or tobacco-related health factors, that were collected on or before the date of the Encounter. The data comes from the [place] facility where the Encounter took place. Date/Time Smoking Status/Tobacco Use Comment F acility Jan 02, 2023 01:15 PM VA-TOBACCO QUIT 15 YRS OR MORE [facility] Oct 24, 2021 08:45 AM VA-TOBACCO FORMER USER [facility] Oct 24, 2021 08:45 AM VA-TOBACCO QUIT 15 YRS OR MORE [facility] Apr 27, 2020 03:00 PM VA-TOBACCO FORMER USER [facility] Apr 27, 2020 03:00 PM VA-TOBACCO QUIT 15 YRS OR MORE [facility] Apr 23, 2019 05:29 PM INPT NO TOBACCO USE IN LAST 30 D AYS [facility] Oct 15, 2018 09:08 AM VA-TOBACCO FORMER USER [facility] Oct 15, 2018 09:08 AM VA-TOBACCO QUIT 15 YRS OR MORE [facility] November 13, 2017 09:05 AM FORMER TOBACCO USER 7Y OR GREATE R [facility] November 22, 2016 03:15 PM FORMER TOBACCO USER 7Y OR GREATE R [facility] Oct 21, 2015 08:37 AM [facility] Oct 21, 2014 01:32 PM FORMER TOBACCO USER 7Y OR [facility] Oct 29, 2013 08:29 AM FORMER TOBACCO USER 7Y OR [facility] Mar 11, 2007 08:07 AM FORMER TOBACCO USER 7Y OR [facility]
--- OUTSIDE RECORDS SUMMARY | 2023-10-11 23:55 | XMS_ITS | Encounter Summary ---
Author Name [facility] of [facility] Organization [facility] Address [address] [place] [address] Support Name Relationship Address Phone JOHN STOCKTONINE Next of Kin [address] [place] [phone] JUDE STOCKTON Emergency Contact [id number] [place] [address] JUDE STOCKTON Next of Kin [address] [place] [phone] JUDE STOCKTON Emergency Contact [address] [address] Insurance Providers: All historical and [...] MEDICARE SUPPLEGANESH MAHAN IDU Jul 08, 2016 [id number] KRISTOFER STOCKTON PATIENT MEDICARE (WNR) MEDICARE (M) PART B Jun 07, 2007 PART B [id number] [phone] KRISTOFER STOCKTON PATIENT MEDICARE (WNR) MEDICARE (M) PART B Jun 07, 2007 PART B [id number] [phone] KRISTOFER STOCKTON PATIENT MEDICARE (WNR) MEDICARE (M) PART B Jun 07, 2007 PART B [id number] [phone] KRISTOFER STOCKTON PATIENT MEDICARE (WNR) MEDICARE (M) PART B Jun 07, 2007 PART B [id number] KRISTOFER STOCKTON PATIENT MEDICARE (WNR) MEDICARE (M) PART A Mar 08, 2007 PART A [id number] KRISTOFER STOCKTON PATIENT MEDICARE (WNR) MEDICARE (M) PART A Mar 08, 2007 PART A [id number] KRISTOFER STOCKTON PATIENT MEDICARE (WNR) MEDICARE (M) PART A Mar 08, 2007 PART A [id number] [phone] KRISTOFER STOCKTON PATIENT MEDICARE (WNR) MEDICARE (M) PART A Mar 08, 2007 PART A [id number] KRISTOFER STOCKTON PATIENT Selected Encounter This section includes the information on record at [place] for the Encounter. Date/Time Encounter Type Encounter Description Reason Pro vider Source Oct 09, 2023 12:11 PM Outpatient Encounter TELEPHONE/DIALYSIS IHE Encounter Template Text not used by [place] Plan of Treatment: Future Appointments (+ 6 months) and Future Tests (+/- 45 days) The Plan of Treatment section includes future care activities for the patient from all [place] treatmentfacilities. This section includes future appointments and future orders which are active, pending or scheduled. Future Appointments This section includes appointments that were scheduled to occur 6 months from the date of the Encounter, up to a maximum of 20 appointments. The data comes from all [place] treatment facilities. Appointment Date/Time Appointment Type Appointme nt Facility Name Oct 11, 2023 06:45 AM AM[facility]ATORY - NONE [place] [facility] Oct 11, 2023 07:15 AM AMBULATORY [place]ICINE [place] [facility] Oct 11, 2023 07:30 AM [place]ORY - [place]IC[place] [facility] Oct 11, 2023 08:00 AM AMBULATORY - [place]IC[place] [facility] Oct 11, 2023 03:00 PM AMBULATORY - NONE [place] [facility] Oct 11, 2023 03:10 PM [place]ATORY - [place]ICINE [place] [facility] Oct 28, 2023 02:15 PM AMBULATORY - [place]ICINE [place] [facility] Oct 28, 2023 03:30 PM [place]ATORY - [place]ICINE [place] [facility] November 18, 2023 12:40 PM AMBULATORY - SURGERY [place] [facility] November 28, 2023 09:20 AM AMBULATORY - MEDICINE [place] [facility] Dec 16, 2023 01:00 PM AM[facility]ULATORY - [facility] Dec 16, 2023 02:00 PM [facility]ORY - SURG[facility] [place] [facility] Active, Pending, and Scheduled Orders This section includes a listing of several types of active, pending, and scheduled orders, including clinic medications orders, diagnostic test orders, procedure orders and consult orders; where the start date of the order is 45 days before the date of the Encounter or 45 days after the date of theEncounter. The data comes from all [place] treatment facilities. Test Date/Time Test Type Test Details Facility Name Sep 15, 2023 12:00 AM Laboratory - Chemi stry Order ELECTROLYTES/ANION GAP PLASMA [facility] Sep 15, 2023 12:00 AM Laboratory - Chemi stry Order UREA NITROGEN PLASMA [facility] Sep 15, 2023 12:00 AM Laboratory - Chemi stry Order CREATININE(INCLUDES EGFR) PLASMA [facility] Sep 15, 2023 12:00 AM Laboratory - Chemi stry Order CALCIUM PLASMA [facility] Sep 15, 2023 12:00 AM Laboratory - Chemi stry Order PHOSPHORUS PLASMA [facility] Sep 15, 2023 12:00 AM Laboratory - Chemi stry Order ALBUMIN PLASMA [facility] Sep 15, 2023 12:00 AM Laboratory - Chemi stry Order CBC BLOOD [facility] Sep 15, 2023 12:00 AM Laboratory - Chemi stry Order PTH-N-TACT PLASMA [facility] Sep 15, 2023 12:00 AM Laboratory - Chemi stry Order GLUCOSE PLASMA [facility] Oct 11, 2023 12:00 AM Laboratory - Blood Bank Order ABO/RH - LAB BLOOD [facility] Oct 11, 2023 06:45 AM Laboratory - Blood Bank Order TYPE & SCREEN - LAB BLOOD [facility] Lab Results: +/- 30 days of [...] Range Comment Oct 11, 2023 12:27 PM [facility] POC ACT Specimen Type: BLOOD No comment entered. Ordering Provider: LORETO HONG Report Released Date/Time: Oct 11, 2023 12:32 PM Reporting Lab: [facility] [phone] Performing Lab: [facility] [address] POC ACT 199 H 84-139 Oct 11, 2023 12:13 PM [facility] POC ACT Specimen Type: BLOOD No comment entered. Ordering Provider: LORETO HONG Report Released Date/Time: Oct 11, 2023 12:20 PM Reporting Lab: [facility] [phone] Performing Lab: [facility] [address] POC ACT 384 H 84-139 Oct 11, 2023 11:50 AM [facility] POC ACT Specimen Type: BLOOD No comment entered. Ordering Provider: LORETO HONG Report Released Date/Time: Oct 11, 2023 12:00 PM Reporting Lab: [facility] [address] Performing Lab: [facility] [address] POC ACT 407 H 84-139 Oct 11, 2023 11:50 AM [facility] FINGERSTICK GLUCOSE Specimen Type: BLOOD No comment entered. Ordering Provider: LORETO HONG Report Released Date/Time: Oct 11, 2023 01:30 PM Reporting Lab: [facility] [phone] Performing Lab: [facility] [address] FINGERSTICK GLUCOSE 161 H 70-100 Oct 11, 2023 11:32 AM [facility] POC ACT Specimen Type: BLOOD No comment entered. Ordering Provider: LORETO HONG Report Released Date/Time: Oct 11, 2023 11:47 AM Reporting Lab: [facility] [phone] Performing Lab: [facility] [address] POC ACT 345 H 84-139 Oct 11, 2023 11:11 AM [facility] POC ACT Specimen Type: BLOOD No comment entered. Ordering Provider: LORETO HONG Report Released Date/Time: Oct 11, 2023 11:20 AM Reporting Lab: [facility] [phone] Performing Lab: [facility] [address] POC ACT 334 H 84-139 Oct 11, 2023 11:11 AM [facility] FINGERSTICK GLUCOSE Specimen Type: BLOOD No comment entered. Ordering Provider: LORETO HONG Report Released Date/Time: Oct 11, 2023 01:30 PM Reporting Lab: [facility] [address] Performing Lab: [facility] [address] FINGERSTICK GLUCOSE 167 H 70-100 Oct 11, 2023 10:56 AM [facility] POC ACT Specimen Type: BLOOD No comment entered. Ordering Provider: LORETO HONG Report Released Date/Time: Oct 11, 2023 11:04 AM Reporting Lab: [facility] [phone] Performing Lab: [facility] [address] POC ACT 310 H 84-139 Oct 11, 2023 10:40 AM [facility] POC ABG/ELECTROLYTES Specimen Type: ARTERIAL BLOOD Comment: FIO2 = 55% Patient Temp: 35.5 C Sample Type = ARTERIAL Ordering Provider: LORETO HONG Report Released Date/Time: Oct 11, 2023 01:20 PM Reporting Lab: [facility] [address] Performing Lab: [facility] [address] POC PH 7.396 7.35-7.45 POC PCO2 36.1 [...] H 80.0-105.0 Oct 11, 2023 10:37 AM [facility] FINGERSTICK GLUCOSE Specimen Type: BLOOD No comment entered. Ordering Provider: LORETO HONG Report Released Date/Time: Oct 11, 2023 01:30 PM Reporting Lab: [facility] [address] Performing Lab: [facility] [address] FINGERSTICK GLUCOSE 163 H 70-100 Oct 11, 2023 10:36 AM [facility] POC ACT Specimen Type: BLOOD No comment entered. Ordering Provider: LORETO HONG Report Released Date/Time: Oct 11, 2023 10:41 AM Reporting Lab: [facility] [address] Performing Lab: [facility] [address] POC ACT 255 H 84-139 Oct 11, 2023 09:16 AM [facility] POC ABG/ELECTROLYTES Specimen Type: ARTERIAL BLOOD Comment: FIO2 = 56% Patient Temp: 35.2 C Sample Type = ARTERIAL Ordering Provider: LORETO HONG Report Released Date/Time: Oct 11, 2023 01:20 PM Reporting Lab: [facility] [address] Performing Lab: [facility] [address] POC PH 7.374 7.35-7.45 POC PCO2 38.9 [...] H 80.0-105.0 Oct 11, 2023 09:15 AM [facility] FINGERSTICK GLUCOSE Specimen Type: BLOOD No comment entered. Ordering Provider: LORETO HONG Report Released Date/Time: Oct 11, 2023 01:30 PM Reporting Lab: [facility] [address] Performing Lab: [facility] [address] FINGERSTICK GLUCOSE 170 H 70-100 Oct 11, 2023 09:10 AM [facility] POC ACT Specimen Type: BLOOD No comment entered. Ordering Provider: LORETO HONG Report Released Date/Time: Oct 11, 2023 09:16 AM Reporting Lab: [facility] [address] Performing Lab: [facility] [address] POC ACT 147 H 84-139 Oct 11, 2023 06:35 AM [facility] ACT PART THROMBO TIME Specimen Type: PLASMA No comment entered. Ordering Provider: RONALDO MAS Report Released Date/Time: Apr 16, 2023 01:48 PM Reporting Lab: [facility] [address] Performing Lab: [facility] [address] APTT 29.9 25.1-36.5 Oct 11, 2023 06:35 AM [facility] PROTHROMBIN TIME/INR Specimen Type: PLASMA No comment entered. Ordering Provider: RONALDO MAS Report Released Date/Time: Apr 16, 2023 01:48 PM Reporting Lab: [facility] [address] Performing Lab: [facility] [address] .INR 1.0 0.8-1.1 .PT 11.9 9.4-12.5 Oct 11, 2023 06:35 AM [facility] BASIC METABOLIC PANEL+MG Specimen Type: PLASMA No comment entered. Ordering Provider: RONALDO MAS Report Released Date/Time: Apr 16, 2023 01:48 PM Reporting Lab: [facility] [address] Performing Lab: [facility] [address] CREATININE 3.0 H 0.7-1.2 UREA NITROGEN 38 H 8-26 GLUCOSE 151 H 70-100 SODIUM 142 136-145 POTASSIUM 4.9 3.5-5.1 CHLORIDE 108 H 98-107 CO2 27 22-29 CALCIUM 8.8 8.4-10.2 MAGNESIUM 2.0 1.6-2.6 ANION GAP 7 5-15 .CREAT EGFR(CKD-EPI) 20 L >60 Oct 11, 2023 06:35 AM [facility] CBC Specimen Type: BLOOD No comment entered. Ordering Provider: KATTEL,HIGGINS B Report Released Date/Time: Apr 16, 2023 01:48 PM Reporting Lab: [facility] [address] Performing Lab: [facility] [address] WBC 6.09 4.0-11.0 RBC 4.07 L 4.6-6.2 [...] PM VA-TOBACCO QUIT 15 YRS OR MORE [facility] Tobacco Use History This section includes a history of the smoking, or tobacco-related health factors, that were collected on or before the date of the Encounter. The data comes from the [place] facility where the Encounter took place. Date/Time Smoking Status/Tobacco Use Comment F acility Jan 02, 2023 01:15 PM VA-TOBACCO QUIT 15 YRS OR MORE [facility] Oct 24, 2021 08:45 AM VA-TOBACCO FORMER USER [facility] Oct 24, 2021 08:45 AM VA-TOBACCO QUIT 15 YRS OR MORE [facility] Apr 27, 2020 03:00 PM VA-TOBACCO FORMER USER [facility] Apr 27, 2020 03:00 PM VA-TOBACCO QUIT 15 YRS OR MORE [facility] Apr 23, 2019 05:29 PM INPT NO TOBACCO USE IN LAST 30 D AYS [facility] Oct 15, 2018 09:08 AM VA-TOBACCO FORMER USER [facility] Oct 15, 2018 09:08 AM VA-TOBACCO QUIT 15 YRS OR MORE [facility] November 13, 2017 09:05 AM FORMER TOBACCO USER 7Y OR GREATE R [facility] November 22, 2016 03:15 PM FORMER TOBACCO USER 7Y OR GREATE R [facility] Oct 21, 2015 08:37 AM FORMER TOBACCO USER 7Y OR GREATE R [facility] Oct 21, 2014 01:32 PM FORMER TOBACCO USER 7Y OR GREATE R [facility] Oct 29, 2013 08:29 AM FORMER TOBACCO USER 7Y OR GREATE R [facility] Mar 11, 2007 08:07 AM FORMER TOBACCO USER 7Y OR GREATE R [facility] Encounter Notes: All associated encounter notes This section contains the clinical notes associated to the Encounter. Date/Time Encounter Note(s) Provider Source Oct 09, 2023 12:11 PM DIALYSIS NOTE: LOCAL TITLE: DIALYSIS HOME PROGRAM STANDARD TITLE: DIALYSIS NOTE DATE OF NOTE: OCT 09, 2023@12:11 ENTRY DATE: OCT 09, 2023@12:11:48 AUTHOR: ARIAN KENNEDY EXP COSIGNER: URGENCY: STATUS: COMPLETED Dialysis Home Program Screening Provider, KRISTOFER STOCKTON meets screening criteria for CKD Education. We will plan to contact the [facility] to assess interest in participation, review chronic kidney disease education, and introduce renal replacement options. If interested, the [facility] will be scheduled for formal CKD Education. SILVA Mcknight RN Dialysis Home Car Wrecker Juan Arenas MD NephrologistDialysis Home Program Screening Left Generic VM regarding CKD Education class. Contact information left. Stonemason Helper will await call back. /igor/ ARIAN KENNEDY ADVANCED MSA Signed: 10/09/2023 12:12 ARIAN KENNEDY [facility]
--- OUTSIDE RECORDS SUMMARY | 2023-10-11 23:56 | XMS_ITS | Encounter Summary ---
Author Name [facility] [employer] Organization [facility] Address [address] [place] [address] Support Name Relationship Address Phone JOHN STOCKTONINE Next of Kin [address] [facility] LESLIE LOCKWOOD [phone] JUDE STOCKTON Emergency Contact [id number] [address] JUDE STOCKTON Next of Kin [address] [facility] [place] [phone] JUDE STOCKTON Emergency Contact [address] [place] [address] Insurance Providers: All historical and [...] MEDICARE SUPPLEGANESH MAHAN IDU Jul 08, 2016 [id number] [phone] KRISTOFER STOCKTON PATIENT MEDICARE (WNR) MEDICARE (M) PART B Jun 07, 2007 PART B [id number] KRISTOFER STOCKTON PATIENT MEDICARE (WNR) MEDICARE (M) PART B Jun 07, 2007 PART B [id number] KRISTOFER STOCKTON PATIENT MEDICARE (WNR) MEDICARE (M) PART B Jun 07, 2007 PART B [id number] KRISTOFER STOCKTON PATIENT MEDICARE (WNR) MEDICARE (M) PART B Jun 07, 2007 PART B [id number] KRISTOFER STOCKTON PATIENT MEDICARE (WNR) MEDICARE (M) PART A Mar 08, 2007 PART A [id number] KRISTOFER STOCKTON PATIENT MEDICARE (WNR) MEDICARE (M) PART A Mar 08, 2007 PART A [id number] KRISTOFER STOCKTON PATIENT MEDICARE (WNR) MEDICARE (M) PART A Mar 08, 2007 PART A [id number] KRISTOFER STOCKTON PATIENT MEDICARE (WNR) MEDICARE (M) PART A Mar 08, 2007 PART A [id number] KRISTOFER STOCKTON PATIENT Selected Encounter This section includes the information on record at [place] for the Encounter. Date/Time Encounter Type Encounter Description Reason Pro vider Source Oct 11, 2023 08:19 AM Outpatient Encounter EVENT (HISTORICAL) IHE Encounter Template Text not used by [place] Plan of Treatment: Future Appointments (+ 6 months) and Future Tests (+/- 45 days) The Plan of Treatment section includes future care activities for the [facility] [place] [facility] This section includes future appointments and future orders which are active, pending or scheduled. Future Appointments This section includes appointments that were scheduled to occur 6 months from the date of the Encounter, up to a maximum of 20 appointments. The data comes from all [facility]. Appointment Date/Time Appointment Type Appointme nt Facility Name Oct 28, 2023 02:15 PM AMBULATORY - MEDICINE [facility] Oct 28, 2023 03:30 PM AMBULATORY - MEDICINE [facility] November 18, 2023 12:40 PM AMBULATORY - SURGERY [facility] November 28, 2023 09:20 AM AMBULATORY - MEDICINE [facility] Dec 16, 2023 01:00 PM AMBULATORY - SURGERY [facility] Dec 16, 2023 02:00 PM AMBULATORY - SURGERY [facility] Active, Pending, and Scheduled Orders This section includes a listing of several types of active, pending, and scheduled orders, including clinic medications orders, diagnostic test orders, procedure orders and consult orders; where the start date of the order is 45 days before the date of the Encounter or 45 days after the date of theEncounter. The data comes from all [facility]. Test Date/Time Test Type Test Details Facility Name Sep 15, 2023 12:00 AM Laboratory - Chemi stry Order UREA NITROGEN PLASMA SP ONCE [facility] Sep 15, 2023 12:00 AM Laboratory - Chemi stry Order CREATININE(INCLUDES EGFR) PLASMA SP [facility] Sep 15, 2023 12:00 AM Laboratory - Chemi stry Order ELECTROLYTES/ANION GAP PLASMA SP [facility] Sep 15, 2023 12:00 AM Laboratory - Chemi stry Order CALCIUM PLASMA SP [facility] Sep 15, 2023 12:00 AM Laboratory - Chemi stry Order ALBUMIN PLASMA SP [facility] Sep 15, 2023 12:00 AM Laboratory - Chemi stry Order PHOSPHORUS PLASMA SP [facility] Sep 15, 2023 12:00 AM Laboratory - Chemi stry Order CBC BLOOD SP [facility] Sep 15, 2023 12:00 AM Laboratory - Chemi stry Order PTH-N-TACT PLASMA [facility] Sep 15, 2023 12:00 AM Laboratory - Chemi stry Order GLUCOSE PLASMA [facility] Oct 11, 2023 12:00 AM Laboratory - Blood Bank Order ABO/RH - LAB BLOOD [facility] Oct 11, 2023 06:45 AM Laboratory - Blood Bank Order TYPE & SCREEN - LAB BLOOD [facility] Lab Results: +/- 30 days [...] Range Comment Oct 11, 2023 12:27 PM [facility] POC ACT Specimen Type: BLOOD No comment entered. Ordering Provider: LORETO HONG Report Released Date/Time: Oct 11, 2023 12:32 PM Reporting Lab: [facility] [phone] Performing Lab: [facility] [phone] POC ACT 199 H 84-139 Oct 11, 2023 12:13 PM [facility] POC ACT Specimen Type: BLOOD No comment entered. Ordering Provider: LORETO HONG Report Released Date/Time: Oct 11, 2023 12:20 PM Reporting Lab: [facility] [phone] Performing Lab: [facility] [address] POC ACT 384 H 84-139 Oct 11, 2023 11:50 AM [facility] POC ACT Specimen Type: BLOOD No comment entered. Ordering Provider: LORETO HONG Report Released Date/Time: Oct 11, 2023 12:00 PM Reporting Lab: [facility] [address] Performing Lab: [facility] [phone] POC ACT 407 H 84-139 Oct 11, 2023 11:50 AM [facility] FINGERSTICK GLUCOSE Specimen Type: BLOOD No comment entered. Ordering Provider: LORETO HONG Report Released Date/Time: Oct 11, 2023 01:30 PM Reporting Lab: [facility] [phone] Performing Lab: [facility] [phone] FINGERSTICK GLUCOSE 161 H 70-100 Oct 11, 2023 11:32 AM [facility] POC ACT Specimen Type: BLOOD No comment entered. Ordering Provider: LORETO HONG Report Released Date/Time: Oct 11, 2023 11:47 AM Reporting Lab: [facility] [phone] Performing Lab: [facility] [address] POC ACT 345 H 84-139 Oct 11, 2023 11:11 AM [facility] POC ACT Specimen Type: BLOOD No comment entered. Ordering Provider: LORETO HONG Report Released Date/Time: Oct 11, 2023 11:20 AM Reporting Lab: [facility] [phone] Performing Lab: [facility] [address] POC ACT 334 H 84-139 Oct 11, 2023 11:11 AM [facility] FINGERSTICK GLUCOSE Specimen Type: BLOOD No comment entered. Ordering Provider: LORETO HONG Report Released Date/Time: Oct 11, 2023 01:30 PM Reporting Lab: [facility] [phone] Performing Lab: [facility] [address] [place] GLUCOSE 167 H 70-100 Oct 11, 2023 10:56 AM [facility] POC ACT Specimen Type: BLOOD No comment entered. Ordering Provider: LORETO HONG Report Released Date/Time: Oct 11, 2023 11:04 AM Reporting Lab: [facility] [phone] Performing Lab: [facility] [phone] POC ACT 310 H 84-139 Oct 11, 2023 10:40 AM [facility] POC ABG/ELECTROLYTES Specimen Type: ARTERIAL BLOOD Comment: FIO2 = 55% Patient Temp: 35.5 C Sample Type = ARTERIAL Ordering Provider: LORETO HONG Report Released Date/Time: Oct 11, 2023 01:20 PM Reporting Lab: [facility] [phone] Performing Lab: [facility] [address] POC PH 7.396 7.35-7.45 POC PCO2 36.1 [...] H 80.0-105.0 Oct 11, 2023 10:37 AM [facility] FINGERSTICK GLUCOSE Specimen Type: BLOOD No comment entered. Ordering Provider: LORETO HONG Report Released Date/Time: Oct 11, 2023 01:30 PM Reporting Lab: [facility] [address] Performing Lab: [facility] [address] [place] GLUCOSE 163 H 70-100 Oct 11, 2023 10:36 AM [facility] POC ACT Specimen Type: BLOOD No comment entered. Ordering Provider: LORETO HONG Report Released Date/Time: Oct 11, 2023 10:41 AM Reporting Lab: [facility] [address] Performing Lab: [facility] [address] POC ACT 255 H 84-139 Oct 11, 2023 09:16 AM [facility] POC ABG/ELECTROLYTES Specimen Type: ARTERIAL BLOOD Comment: FIO2 = 56% Patient Temp: 35.2 C Sample Type = ARTERIAL Ordering Provider: LORETO HONG Report Released Date/Time: Oct 11, 2023 01:20 PM Reporting Lab: [facility] [address] Performing Lab: [facility] [address] POC PH 7.374 7.35-7.45 POC PCO2 38.9 [...] H 80.0-105.0 Oct 11, 2023 09:15 AM [facility] FINGERSTICK GLUCOSE Specimen Type: BLOOD No comment entered. Ordering Provider: LORETO HONG Report Released Date/Time: Oct 11, 2023 01:30 PM Reporting Lab: [facility] [address] Performing Lab: [facility] [address] [place] GLUCOSE 170 H 70-100 Oct 11, 2023 09:10 AM [facility] POC ACT Specimen Type: BLOOD No comment entered. Ordering Provider: LORETO HONG Report Released Date/Time: Oct 11, 2023 09:16 AM Reporting Lab: [facility] [address] Performing Lab: [facility] [address] POC ACT 147 H 84-139 Oct 11, 2023 06:35 AM [facility] PROTHROMBIN TIME/INR Specimen Type: PLASMA No comment entered. Ordering Provider: RONALDO MAS Report Released Date/Time: Apr 16, 2023 01:48 PM Reporting Lab: [facility] [address] Performing Lab: [facility] [address] .INR 1.0 0.8-1.1 .PT 11.9 9.4-12.5 Oct 11, 2023 06:35 AM [facility] ACT PART THROMBO TIME Specimen Type: PLASMA No comment entered. Ordering Provider: RONALDO MAS Report Released Date/Time: Apr 16, 2023 01:48 PM Reporting Lab: [facility] [address] Performing Lab: [facility] [address] APTT 29.9 25.1-36.5 Oct 11, 2023 06:35 AM [facility] CBC Specimen Type: BLOOD No comment entered. Ordering Provider: RONALDO MAS Report Released Date/Time: Apr 16, 2023 01:48 PM Reporting Lab: [facility] [address] Performing Lab: [facility] [address] WBC 6.09 4.0-11.0 RBC 4.07 L 4.6-6.2 HGB 12.6 L 13.5-17.9 HCT 37.7 L 41-54 MCV 92.6 80-100 MCH 31.0 27-33 MCHC 33.4 32.0-37.5 PLT 144 L 150-400 MPV 10.7 H 7.4-10.4 RDW 13.2 11.5-14.5 Oct 11, 2023 06:35 AM [facility] BASIC METABOLIC PANEL+MG Specimen Type: PLASMA No comment entered. Ordering Provider: RONALDO MAS Report Released Date/Time: Apr 16, 2023 01:48 PM Reporting Lab: [facility] [address] Performing Lab: [facility] [address] CREATININE 3.0 H 0.7-1.2 UREA NITROGEN 38 [...] 11, 2023 03:15 PM 58 126/61 96 [facility] Oct 11, 2023 03:00 PM 58 118/56 95 [facility] Oct 11, 2023 02:45 PM 60 118/62 97 [facility] Oct 11, 2023 02:44 PM 97.5 59 117/61 18 97 0 [facility] Social History: Smoking Status (Most current) and Tobacco Use (All prior to encounter date) This section includes the most current, and the historical, smoking and tobacco- related health factors from the [place] facility where the Encounter took place. Current Smoking Status This section includes the most current smoking, or tobacco-related health factor, from the [place] facility where the Encounter took place. Date/Time Current Smoking Status Comment Facil ity Jan 02, 2023 01:15 PM VA-TOBACCO FORMER USER [facility] Tobacco Use History This section includes a history of the smoking, or tobacco-related health factors, that were collected on or before the date of the Encounter. The data comes from the [place] facility where the Encounter took place. Date/Time Smoking Status/Tobacco Use Comment F acility Jan 02, 2023 01:15 PM VA-TOBACCO QUIT 15 YRS OR MORE [facility] Oct 24, 2021 08:45 AM VA-TOBACCO FORMER USER [facility] Oct 24, 2021 08:45 AM VA-TOBACCO QUIT 15 YRS OR MORE [facility] Apr 27, 2020 03:00 PM VA-TOBACCO FORMER USER [facility] Apr 27, 2020 03:00 PM VA-TOBACCO QUIT 15 YRS OR MORE [facility] Apr 23, 2019 05:29 PM INPT NO TOBACCO USE IN LAST 30 D AYS [facility] Oct 15, 2018 09:08 AM VA-TOBACCO FORMER USER [facility] Oct 15, 2018 09:08 AM VA-TOBACCO QUIT 15 YRS OR MORE [facility] November 13, 2017 09:05 AM FORMER TOBACCO USER 7Y OR GREATE R [facility] November 22, 2016 03:15 PM FORMER TOBACCO USER 7Y OR [facility] Oct 21, 2015 08:37 AM FORMER TOBACCO USER 7Y OR [facility] Oct 21, 2014 01:32 PM FORMER TOBACCO USER 7Y OR [facility] Oct 29, 2013 08:29 AM FORMER TOBACCO USER 7Y OR [facility] Mar 11, 2007 08:07 AM FORMER TOBACCO USER 7Y OR [facility]
--- OUTSIDE RECORDS SUMMARY | 2023-10-11 23:56 | XMS_ITS | Encounter Summary ---
Author Name [facility] of [facility] Organization [facility] Address [address] [place] [address] Support Name Relationship Address Phone JUDE STOCKTON Next of Kin [address] [facility] L[place]LIE LOCK[place] [phone] JUDE STOCKTON Emergency Contact [phone] [address] JUDE STOCKTON Next of Kin [address] [facility] [place] [phone] JUDE STOCKTON Emergency Contact [phone] [place] [address] Insurance Providers: All historical and [...] Dinero's Name Patient's Relationship to Policy Dinero [facility] MED[facility] SUPPLEGANESH GERONIMO Jul 08, 2016 [id number] [phone] KRISTOFER STOCKTON PATIENT MEDICARE (WNR) MEDICARE (M) PART B Jun 07, 2007 PART B [id number] KRISTOFER STOCKTON PATIENT MEDICARE (WNR) MEDICARE (M) PART B Jun 07, 2007 PART B [id number] [phone] KRISTOFER STOCKTON PATIENT MEDICARE (WNR) MEDICARE (M) PART B Jun 07, 2007 PART B [id number] [phone] KRISTOFER STOCKTON PATIENT MEDICARE (WNR) MEDICARE (M) PART B Jun 07, 2007 PART B [id number] KRISTOFER STOCKTON PATIENT MEDICARE (WNR) MEDICARE (M) PART A Mar 08, 2007 PART A [id number] KRISTOFER STOCKTON PATIENT MEDICARE (WNR) MEDICARE (M) PART A Mar 08, 2007 PART A [id number] KRISTOFER STOCKTON PATIENT MEDICARE (WNR) MEDICARE (M) PART A Mar 08, 2007 PART A [id number] [phone] KRISTOFER STOCKTON PATIENT MEDICARE (WNR) MEDICARE (M) PART A Mar 08, 2007 PART A [id number] KRISTOFER STOCKTON PATIENT Selected Encounter This section includes the information on record at [place] for the Encounter. Date/Time Encounter Type Encounter Description Reason Provider Source Oct 11, 2023 08:06 AM OFFICE O/P NEW LOW 30 MIN ANESTHESIA PRE/POST-OP CONSULT ICD-10-CM Z01.818 Encounter for other preprocedural examination MELIDA CUEVAS [facility] Encounter Template Text not used by [place] Assessments - Encounter Diagnoses This section includes the primary and secondary diagnoses documented for the Encounter. Date/Time Primary/Secondary Diagnosis Diagnosis Name Provider Source Oct 11, 2023 08:06 AM PRIMARY Encounter for other preprocedural examination MELIDA CUEVAS [facility] Plan of Treatment: Future Appointments (+ 6 months) and Future Tests (+/- 45 days) The Plan of Treatment section includes future care activities for the [facility] [place] [facility] This section includes future appointments and future orders which are active, pending or scheduled. Future Appointments This section includes appointments that were scheduled to occur 6 months from the date of the Encounter, up to a maximum of 20 appointments. The data comes from all [place] treatment facilities. Appointment Date/Time Appointment Type Appointme nt Facility Name Oct 28, 2023 02:15 PM AMBULATORY - MEDICINE [facility] Oct 28, 2023 03:30 PM AMBULATORY - MEDICINE [facility] November 18, 2023 12:40 PM AMBULATORY - SURGERY [facility] November 28, 2023 09:20 AM AMBULATORY - MEDICINE [facility] Dec 16, 2023 01:00 PM AMBULATORY - SURGERY [facility] Dec 16, 2023 02:00 PM AMBULATORY - SURGERY [facility] Active, Pending, and Scheduled Orders This section includes a listing of several types of active, pending, and scheduled orders, including clinic medications orders, diagnostic test orders, procedure orders and consult orders; where the start date of the order is 45 days before the date of the Encounter or 45 days after the date of theEncounter. The data comes from all [facility]. Test Date/Time Test Type Test Details Facility Name Sep 15, 2023 12:00 AM Laboratory - Chemi stry Order ELECTROLYTES/ANION GAP PLASMA [facility] Sep 15, 2023 12:00 AM Laboratory - Chemi stry Order UREA NITROGEN PLASMA [facility] Sep 15, 2023 12:00 AM Laboratory - Chemi stry Order PHOSPHORUS PLASMA [facility] Sep 15, 2023 12:00 AM Laboratory - Chemi stry Order CALCIUM PLASMA [facility] Sep 15, 2023 12:00 AM Laboratory - Chemi stry Order CREATININE(INCLUDES EGFR) PLASMA [facility] Sep 15, 2023 12:00 AM Laboratory - Chemi stry Order ALBUMIN PLASMA [facility] Sep 15, 2023 12:00 AM Laboratory - Chemi stry Order CBC BLOOD [facility] Sep 15, 2023 12:00 AM Laboratory - Chemi stry Order PTH-N-TACT PLASMA [facility] Sep 15, 2023 12:00 AM Laboratory - Chemi stry Order GLUCOSE PLASMA [facility] Oct 11, 2023 12:00 AM Laboratory - Blood Bank Order ABO/RH - LAB BLOOD [facility] Oct 11, 2023 06:45 AM Laboratory - Blood Bank Order TYPE & SCREEN - LAB BLOOD [facility] Lab Results: +/- 30 days of the encounter This section includes the Chemistry and Hematology Lab Results on record with [place] for the patient. Radiology Reports and Pathology [...] Oct 11, 2023 12:32 PM Reporting Lab: [facility] [id number] Performing Lab: [facility] [address] POC ACT 199 H 84-139 Oct 11, 2023 12:13 PM [facility] POC ACT Specimen Type: BLOOD No comment entered. Ordering Provider: LORETO HONG Report Released Date/Time: Oct 11, 2023 12:20 PM Reporting Lab: [facility] [address] Performing Lab: [facility] [address] POC ACT 384 H 84-139 Oct 11, 2023 11:50 AM [facility] POC ACT Specimen Type: BLOOD No comment entered. Ordering Provider: LORETO HONG Report Released Date/Time: Oct 11, 2023 12:00 PM Reporting Lab: [facility] [address] Performing Lab: [facility] [address] POC ACT 407 H 84-139 Oct 11, 2023 11:50 AM [facility] FINGERSTICK GLUCOSE Specimen Type: BLOOD No comment entered. Ordering Provider: LORETO HONG Report Released Date/Time: Oct 11, 2023 01:30 PM Reporting Lab: [facility] [phone] Performing Lab: [facility] [address] [place] GLUCOSE 161 H 70-100 Oct 11, 2023 11:32 AM [facility] POC ACT Specimen Type: BLOOD No comment entered. Ordering Provider: LORETO HONG Report Released Date/Time: Oct 11, 2023 11:47 AM Reporting Lab: [facility] [address] Performing Lab: [facility] [address] POC ACT 345 H 84-139 Oct 11, 2023 11:11 AM [facility] POC ACT Specimen Type: BLOOD No comment entered. Ordering Provider: LORETO HONG Report Released Date/Time: Oct 11, 2023 11:20 AM Reporting Lab: [facility] [address] Performing Lab: [facility] [address] POC ACT 334 H 84-139 Oct 11, 2023 11:11 AM [facility] FINGERSTICK GLUCOSE Specimen Type: BLOOD No comment entered. Ordering Provider: LORETO HONG Report Released Date/Time: Oct 11, 2023 01:30 PM Reporting Lab: [facility] [address] Performing Lab: [facility] [address] [place] GLUCOSE 167 H 70-100 Oct 11, 2023 10:56 AM [facility] POC ACT Specimen Type: BLOOD No comment entered. Ordering Provider: LORETO HONG Report Released Date/Time: Oct 11, 2023 11:04 AM Reporting Lab: [facility] [address] Performing Lab: [facility] [address] POC ACT 310 H 84-139 Oct 11, 2023 10:40 AM [facility] POC ABG/ELECTROLYTES Specimen Type: ARTERIAL BLOOD Comment: FIO2 = 55% Patient Temp: 35.5 C Sample Type = ARTERIAL Ordering Provider: LORETO HONG Report Released Date/Time: Oct 11, 2023 01:20 PM Reporting Lab: [facility] [address] Performing Lab: [facility] [address] POC PH 7.396 7.35-7.45 POC PCO2 36.1 [...] Oct 11, 2023 01:30 PM Reporting Lab: [facility] [address] Performing Lab: [facility] [address] [place] GLUCOSE 163 H 70-100 Oct 11, 2023 10:36 AM [facility] POC ACT Specimen Type: BLOOD No comment entered. Ordering Provider: LORETO HONG Report Released Date/Time: Oct 11, 2023 10:41 AM Reporting Lab: [facility] [address] Performing Lab: [facility] [address] POC ACT 255 H 84-139 Oct 11, 2023 09:16 AM [facility] POC ABG/ELECTROLYTES Specimen Type: ARTERIAL BLOOD Comment: FIO2 = 56% Patient Temp: 35.2 C Sample Type = ARTERIAL Ordering Provider: LORETO HONG Report Released Date/Time: Oct 11, 2023 01:20 PM Reporting Lab: [facility] [address] Performing Lab: [facility] [address] POC PH 7.374 7.35-7.45 POC PCO2 38.9 [...] Oct 11, 2023 01:30 PM Reporting Lab: [facility] [address] Performing Lab: [facility] [address] [place] GLUCOSE 170 H 70-100 Oct 11, 2023 09:10 AM [facility] POC ACT Specimen Type: BLOOD No comment entered. Ordering Provider: LORETO HONG Report Released Date/Time: Oct 11, 2023 09:16 AM Reporting Lab: [facility] [address] Performing Lab: [facility] [address] POC ACT 147 H 84-139 Oct 11, 2023 06:35 AM [facility] ACT PART THROMBO TIME Specimen Type: PLASMA No comment entered. Ordering Provider: RONALDO MAS Report Released Date/Time: Apr 16, 2023 01:48 PM Reporting Lab: [facility] [address] Performing Lab: [facility] [address] APTT 29.9 25.1-36.5 Oct 11, 2023 06:35 AM [facility] PROTHROMBIN TIME/INR Specimen Type: PLASMA No comment entered. Ordering Provider: RONALDO MAS Report Released Date/Time: Apr 16, 2023 01:48 PM Reporting Lab: [facility] [address] Performing Lab: [facility] [address] .INR 1.0 0.8-1.1 .PT 11.9 9.4-12.5 Oct 11, 2023 06:35 AM [facility] BASIC METABOLIC PANEL+MG Specimen Type: PLASMA No comment entered. Ordering Provider: RONALDO MAS Report Released Date/Time: Apr 16, 2023 01:48 PM Reporting Lab: [facility] [address] Performing Lab: [facility] [address] CREATININE 3.0 H 0.7-1.2 UREA NITROGEN 38 [...] Apr 16, 2023 01:48 PM Reporting Lab: [facility] [address] Performing Lab: [facility] [address] WBC 6.09 4.0-11.0 RBC 4.07 L 4.6-6.2 [...] 11, 2023 03:15 PM 58 126/61 96 [facility] Oct 11, 2023 03:00 PM 58 118/56 95 [facility] Oct 11, 2023 02:45 PM 60 118/62 97 [facility] Oct 11, 2023 02:44 PM 97.5 59 117/61 18 97 0 [facility] Social History: Smoking Status (Most current) and Tobacco Use (All prior to encounter date) This section includes the most current, and the historical, smoking and tobacco- related health factors from the [place] facility where the Encounter took place. Current Smoking Status This section includes the most current smoking, or tobacco-related health factor, from the [place] facility where the Encounter took place. Date/Time Current Smoking Status Comment Facil [place] Jan 02, 2023 01:15 PM VA-TOBACCO FORMER USER [facility] Tobacco Use History This section includes a history of the smoking, or tobacco-related health factors, that were collected on or before the date of the Encounter. The data comes from the [place] facility where the Encounter took place. Date/Time Smoking Status/Tobacco Use Comment F ayaz Jan 02, 2023 01:15 PM VA-TOBACCO QUIT [...] GREATE R [facility] Oct 29, 2013 08:29 AM FORMER TOBACCO USER 7Y OR GREATE R [facility] Mar 11, 2007 08:07 AM FORMER TOBACCO USER 7Y OR GREATE R [facility] Encounter Notes: All associated encounter notes This section contains the clinical notes associated to the Encounter. Date/Time Encounter Note(s) Provider Source Oct 11, 2023 01:51 PM ANESTHESIOLOGY NOT E: LOCAL TITLE: ANESTHESIA POST-ANESTHESIA EVALUATION STANDARD TITLE: ANESTHESIOLOGY NOTE DATE OF NOTE: OCT 11, 2023@13:51 ENTRY DATE: OCT 11, 2023@13:51:25 AUTHOR: MELIDA CUEVAS EXP COSIGNER: URGENCY: STATUS: COMPLETED POST-ANESTHESIA EVALUATION PACU PATIENT MET DISCHARGE CRITERIA Deepali score of > or = 8 ANESTHESIA TYPE --------- General VITAL SIGNS Vital signs stable NORMAL PHYSIOLOGIC SYSTEMS ASSESSMENT Neuro/Mental Health: appropriate mentation or preoperative baseline Airway/Respiratory: normal respiratory status Cardiovascular: appropriate blood pressure, heart rate and rhythm Pain: comfortable, well controlled Postop nausea/vomiting: none STATUS AT SIGNOUT stable DISPOSITION luis /igor/ MELIDA CUEVAS MDA ANESTHESIOLOGIST Signed: 10/11/2023 13:51 MELIDA CUEVAS [facility] Oct 11, 2023 08:06 AM ANESTHESIOLOGY NOT E: LOCAL TITLE: ANESTHESIA PRE-INDUCTION NOTE STANDARD TITLE: ANESTHESIOLOGY NOTE DATE OF NOTE: OCT 11, 2023@08:06 ENTRY DATE: OCT 11, 2023@08:06:43 AUTHOR: MELIDA CUEVAS EXP COSIGNER: URGENCY: STATUS: COMPLETED ANESTHESIA PREINDUCTION NOTE Patient identified by name and either date of or full social security. Scheduled procedure: PVI PREOPERATIVE ASSESSMENT ------- ASA status: III Patient's preoperative assessment reviewed------- There are no significant changes, new conditions, or additions from the patient's anesthesia preoperative assessment 12 point review of systems negative unless otherwise noted. No personal or family history of anesthesia complications NPO status Met ASA guidelines (>2 hrs clear liquids, >6 hrs light meal, >8 hrs heavy meal) Gastroesophogeal Reflux Disease: No Functional Capacity in Measure of Exercise Tolerance before surgery (METS): <4 Obstructive sleep apnea: Yes ----SOCIAL HISTORY -- Tobacco: No Remote ex-smoker Alcohol: No Substance use: No Naltrexone: No Buprenorphine: No Medications taken today: Poor historian re: meds except states he took ones he was supposed to, cannot recall which ones, believes LD Apixaban two days ago and LD Liraglutide yesterday Physical Exam HT: 71 in [180.3 cm] (11/21/2022 10:21) WT: 209.3 lb [94.94 kg] (06/18/2023 10:32) BMI: 29.3 Vital signs stable Airway Exam: Mallampati Class: II MP II, 3FB MO, no loose teeth, 6cm TMD, nl atlanto-occipital joint extension Mouth opening: full Neck: full range of motion Thyromental distance: >6cm Cardiac System: Cardiovascular exam normal: regular rhythm and rate, no murmur Respiratory: Clear to auscultation, normal respiratory rate and effort Mental/Neuro exam: Alert, oriented, calm, cooperative Labs HGB 12.6 L (10/11/23) HGB-POC: No data available PLT 144 L (10/11/23) POTASSIUM 4.9 (10/11/23) Potassium-POC: No data available SODIUM 142 (10/11/23) No data available for: POC SODIUM CREATININE 3.0 H (10/11/23) Creatinine-POC: Collection DT Specimen Test Name Result Units Ref Range 02/16/2015 07:38 BLOOD POC CREATININE 2.1 H mg/dL 0.6 - 1.3 GLUCOSE 151 H (10/11/23) Glucose-POC: No data available INR 1.0 (10/11/23) Collection DT Specimen Test Name Result Units Ref Range 09/28/2019 09:55 BLOOD !! POC INR(COAGUCHEK 1.7 INR 09/21/2019 13:42 BLOOD !! POC INR(COAGUCHEK 1.1 INR 05/20/2019 09:09 BLOOD !! POC INR(COAGUCHEK 2.0 INR 03/03/2019 09:53 BLOOD !! POC INR(COAGUCHEK 2.2 INR 02/02/2019 10:33 BLOOD !! POC INR(COAGUCHEK 3.7 INR 11/04/2018 09:31 BLOOD !! POC INR(COAGUCHEK 2.5 INR 06/18/2018 09:46 BLOOD !! POC INR(COAGUCHEK 3.6 INR 05/21/2018 10:06 BLOOD !! POC INR(COAGUCHEK 1.8 INR 04/23/2018 09:50 BLOOD !! POC INR(COAGUCHEK 1.9 INR 03/26/2018 09:47 BLOOD !! POC INR(COAGUCHEK 2.3 INR 03/12/2018 09:43 BLOOD !! POC INR(COAGUCHEK >4.5 INR 01/14/2018 09:50 BLOOD !! POC INR(COAGUCHEK 2.7 INR 04/03/2017 09:59 BLOOD !! POC INR(COAGUCHEK 2.7 INR 02/08/2017 09:37 BLOOD !! POC INR(COAGUCHEK 3.0 INR 10/11/2023 06:35 PLASMA .INR 1.0 0.8 - 1.1 04/03/2021 08:31 PLASMA .INR 1.7 H 0.8 - 1.1 10/05/2020 15:10 PLASMA .INR 1.3 02/08/2020 07:08 PLASMA .INR 1.0 04/24/2019 05:30 PLASMA .INR 2.25 04/23/2019 14:22 PLASMA!! .INR 2.43 04/16/2019 08:51 PLASMA .INR 2.08 12/29/2018 10:20 PLASMA .INR 2.67 11/25/2018 10:01 PLASMA .INR 2.78 10/08/2018 09:18 PLASMA .INR 3.40 03/12/2018 09:44 PLASMA .INR 4.01 02/12/2018 09:15 PLASMA .INR 3.30 01/02/2018 13:17 PLASMA .INR 1.82 12/17/2017 09:17 PLASMA .INR 2.59 11/26/2017 08:48 PLASMA .INR 3.71 11/13/2017 07:13 PLASMA .INR 1.09 10/23/2017 09:03 PLASMA .INR 2.47 04/24/2017 10:07 PLASMA .INR 2.51 03/06/2017 09:14 PLASMA .INR 2.49 12/14/2016 10:15 PLASMA .INR 2.63 12/05/2016 10:43 PLASMA .INR 1.64 11/28/2016 06:59 PLASMA .INR 1.03 10/30/2016 11:59 PLASMA .INR 2.52 06/18/2016 13:02 PLASMA .INR 1.81 05/14/2016 13:14 PLASMA .INR 2.53 04/19/2016 08:44 PLASMA .INR 2.84 03/30/2016 07:42 PLASMA .INR 1.16 03/19/2016 09:44 PLASMA .INR 3.60 02/20/2016 09:45 PLASMA .INR 3.22 01/16/2016 11:43 PLASMA .INR 2.82 12/27/2015 07:47 PLASMA .INR 4.07 11/30/2015 07:46 PLASMA .INR 2.12 11/01/2015 11:14 PLASMA .INR 2.40 10/26/2015 13:44 PLASMA .INR 4.45 10/21/2015 07:22 PLASMA .INR 4.34 04/27/2015 08:16 PLASMA .INR 2.19 04/07/2015 09:45 PLASMA .INR 2.50 03/01/2015 09:33 PLASMA .INR 1.79 02/07/2015 10:57 PLASMA .INR 1.22 12/27/2014 08:45 PLASMA .INR 2.54 11/22/2014 09:49 PLASMA .INR 2.87 10/20/2014 08:49 PLASMA .INR 2.64 10/11/2014 10:58 PLASMA .INR 1.81 04/21/2014 08:35 PLASMA .INR 2.59 03/30/2014 07:49 PLASMA .INR 1.61 02/25/2014 08:57 PLASMA .INR 1.91 01/28/2014 07:23 PLASMA .INR 2.40 12/30/2013 09:29 PLASMA .INR 2.09 11/25/2013 08:48 PLASMA .INR 2.59 10/21/2013 08:21 PLASMA .INR 2.67 04/22/2013 08:04 PLASMA .INR 1.30 03/16/2013 11:39 PLASMA .INR 2.79 02/13/2013 09:12 PLASMA .INR 2.81 01/13/2013 07:19 PLASMA .INR 2.53 12/26/2012 11:47 PLASMA .INR 3.05 11/28/2012 11:48 PLASMA .INR 2.23 11/13/2012 09:04 PLASMA .INR 1.78 10/14/2012 07:46 PLASMA .INR 2.37 04/10/2012 09:19 PLASMA .INR 1.44 03/13/2012 08:55 PLASMA .INR 2.86 02/25/2012 07:39 PLASMA .INR 2.36 02/11/2012 09:10 PLASMA .INR 1.43 02/04/2012 10:52 PLASMA .INR 2.48 01/31/2012 07:53 PLASMA .INR 3.74 12/27/2011 07:57 PLASMA .INR 2.64 11/26/2011 11:57 PLASMA!! .INR 2.75 10/25/2011 09:21 PLASMA .INR 2.42 04/30/2011 08:28 PLASMA .INR 2.22 04/02/2011 09:19 PLASMA .INR 2.40 03/05/2011 08:25 PLASMA .INR 1.99 01/31/2011 07:46 PLASMA .INR 2.35 12/27/2010 07:45 PLASMA .INR 2.15 11/30/2010 09:25 PLASMA .INR 2.85 11/06/2010 08:15 PLASMA .INR 2.50 10/16/2010 08:04 PLASMA .INR 1.66 05/01/2010 08:18 PLASMA .INR 2.75 04/03/2010 06:47 PLASMA .INR 2.26 03/02/2010 08:30 PLASMA .INR 3.05 01/31/2010 06:42 PLASMA .INR 2.94 12/28/2009 10:30 PLASMA .INR 2.36 11/29/2009 11:37 PLASMA .INR 2.72 10/25/2009 07:19 PLASMA .INR 3.45 05/03/2009 07:05 PLASMA .INR 2.18 04/19/2009 08:15 PLASMA .INR 3.09 04/11/2009 07:15 PLASMA .INR 2.93 04/04/2009 11:50 PLASMA .INR 1.51 03/30/2009 06:31 PLASMA .INR 1.01 !! Indicates COMMENTS AVAILABLE...Refer to Interim Lab Report. [place] INR: TP INR - NONE FOUND PT 11.9 (10/11/23) Anesthetic technique --------- General Anesthesia Airway Endotracheal tube: oral, video laryngoscope Induction: propofol Maintenance: balanced Monitors/Equipment: Standard montitors Non-invasive: 2nd IV, BiSpectral index (BIS) Invasive monitors: arterial line, transesophegeal echocardiogram Preoperative therapies: Acetaminophen Pain management Multimodal analgesia: Postop nausea/vomiting prophylaxis Ondansetron, Dexamethasone Patient/customer success representative verbally consents to blood products Informed consent discussion of anesthesia plan The anesthetic plan has been discussed with the patient and/or responsible customer success representative. The patient/customer success representative has been encouraged to ask questions and any concerns have been addressed. The risks, benefits, side effects, and alternative options of the plan were discussed. The patient/customer success representative endorses understanding of the information disclosed. The patient/customer success representative voluntarily elects to move forward with the anesthetic plan. Planned destination Phase I PACU LIFE SUSTAINING TREATMENT (LST) - Risks, benefits, and alternatives to life sustaining treatments were discussed with the patient. Patient consents to the following: Full Resuscitation A: 84y/o male with paroxysmal a-fib on Apixaban (LD two days ago) for PVI. PMHx also notable for 2-3 METs exercise tolerance (limited by leg weakness/fatigue), LVEF 55-60% with mild RV systolic dysfxn (per 05/02/21 TTE), CAD s/p remote PCI/stenting (per 03/06/2020 [facility], 40% ISR LAD stent, patent RCA stent, continued medical mgmt), chronic angina, HTN, HLD, PAD (B JAYY 1.8cm aneurysms), overweight (BMI 29), MILVIA (no CPAP), remote ex-smoker (quit age 27), hepatic steatosis, CKD IV, IDDM (03/18/23 HbA1c 7.5), RA (at times on hydroxychloroquine, MTX), s/p C4-C5 fusion (without cervical radiculopathy), gout, peripheral neuropathy, vertigo, essential tremor, thrombocytopenia. Available PSHx, anesthetic hx, labs, diagnostic imaging/tests reviewed, I/R/B/A anesthesia d/w pt, pt consented to anesthesia plan. Desired periop LST FC/FC confirmed with pt. P: GETA with RSI/VL (Victoza SQ QD with LD yesterday, does not believe took today), preferably 1-2 larger-bore PIVs, a-line, +/- CVC (EP staff to place prn), MARIA ELENA, standard ASA monitors, +/- BIS, periop glucose monitoring/tx prn, PONV prophylaxis, acetaminophen /es/ MELIDA CUEVAS MDA ANESTHESIOLOGIST Signed: 10/11/2023 08:10 MELIDA CUEVAS [facility]
--- OUTSIDE RECORDS SUMMARY | 2023-10-11 23:56 | XMS_ITS | Encounter Summary ---
Author Name [facility] Organization [facility] Address [address] [place] [address] Support Name Relationship Address Phone JOHN STOCKTONINE Next of Kin [address] [place] [phone] JUDE STOCKTON Emergency Contact [address] [address] JUDE STOCKTON Next of Kin [address] [place] [phone] JUDE STOCKTON Emergency Contact [address] [address] Insurance Providers: All historical and [...] MEDICARE SUPPLEGANESH MAHAN IDU Jul 08, 2016 [id number] KRISTOFER STOCKTON PATIENT MEDICARE (WNR) MEDICARE (M) PART B Jun 07, 2007 PART B [id number] KRISTOFER STOCKTON PATIENT MEDICARE (WNR) MEDICARE (M) PART B Jun 07, 2007 PART B [id number] KRISTOFER STOCKTON PATIENT MEDICARE (WNR) MEDICARE (M) PART B Jun 07, 2007 PART B [id number] KRISTOFER STOCKTON PATIENT MEDICARE (WNR) MEDICARE (M) PART B Jun 07, 2007 PART B [id number] KRISTOFER STOCKTON PATIENT MEDICARE (WNR) MEDICARE (M) PART A Mar 08, 2007 PART A [id number] KRISTOFER STOCKTON PATIENT MEDICARE (WNR) MEDICARE (M) PART A Mar 08, 2007 PART A [id number] [phone] KRISTOFER STOCKTON PATIENT MEDICARE (WNR) MEDICARE (M) PART A Mar 08, 2007 PART A [id number] KRISTOFER STOCKTON PATIENT MEDICARE (WNR) MEDICARE (M) PART A Mar 08, 2007 PART A [id number] KRISTOFER STOCKTON PATIENT Selected Encounter This section includes the information on record at [place] for the Encounter. Date/Time Encounter Type Encounter Description Reason Provider Source Oct 11, 2023 07:15 AM ELECTROCARDIOGRAM REPORT EKG ICD-10-CM Z13.6 Encounter for screening for cardiovascular disorders MELODIE SNEED Encounter Template Text not used by [place] Assessments - Encounter Diagnoses This section includes the primary and secondary diagnoses documented for the Encounter. Date/Time Primary/Secondary Diagnosis Diagnosis Name Provider Source Oct 11, 2023 07:19 AM PRIMARY Encounter for screening for cardiovascular disorders AMEENA SUN [facility] Plan of Treatment: Future Appointments (+ 6 months) and Future Tests (+/- 45 days) The Plan of Treatment section includes future care activities for the patient [facility] This section includes future appointments and future orders which are active, pending or scheduled. Future Appointments This section includes appointments that were scheduled to occur 6 months from the date of the Encounter, up to a maximum of 20 appointments. The data comes from all [place] treatment facilities. Appointment Date/Time Appointment Type Appointme nt Facility Name Oct 28, 2023 02:15 PM AMBULATORY - MEDICINE [facility] Oct 28, 2023 03:30 PM AMBULATORY - MEDICINE [facility] November 18, 2023 12:40 PM AMBULATORY - SURGERY [facility] November 28, 2023 09:20 AM AMBULATORY - MEDICINE [facility] Dec 16, 2023 01:00 PM AMBULATORY - SURGERY [facility] Dec 16, 2023 02:00 PM AMBULATORY - SURGERY [facility] Active, Pending, and Scheduled Orders This section includes a listing of several types of active, pending, and scheduled orders, including clinic medications orders, diagnostic test orders, procedure orders and consult orders; where the start date of the order is 45 days before the date of the Encounter or 45 days after the date of theEncounter. The data comes from all [facility]. Test Date/Time Test Type Test Details Facility Name Sep 15, 2023 12:00 AM Laboratory - Chemi stry Order UREA NITROGEN PLASMA [facility] Sep 15, 2023 12:00 AM Laboratory - Chemi stry Order CREATININE(INCLUDES EGFR) PLASMA [facility] Sep 15, 2023 12:00 AM Laboratory - Chemi stry Order ELECTROLYTES/ANION GAP PLASMA [facility] Sep 15, 2023 12:00 AM Laboratory - Chemi stry Order CALCIUM PLASMA [facility] Sep 15, 2023 12:00 AM Laboratory - Chemi stry Order PHOSPHORUS PLASMA [facility] Sep 15, 2023 12:00 AM Laboratory - Chemi stry Order ALBUMIN PLASMA [facility] Sep 15, 2023 12:00 AM Laboratory - Chemi stry Order CBC BLOOD [facility] Sep 15, 2023 12:00 AM Laboratory - Chemi stry Order PTH-N-TACT PLASMA [facility] Sep 15, 2023 12:00 AM Laboratory - Chemi stry Order GLUCOSE PLASMA [facility] Oct 11, 2023 12:00 AM Laboratory - Blood Bank Order ABO/RH - LAB BLOOD [facility] Oct 11, 2023 06:45 AM Laboratory - Blood Bank Order TYPE & SCREEN - LAB BLOOD [facility] Lab Results: +/- 30 days of the encounter This section includes the Chemistry and Hematology Lab Results on record with [place] for the patient. Radiology Reports and Pathology Reports are provided separately, in subsequent sections. Lab Results This section contains the Chemistry/Hematology Results that were resulted 30 days before or 30 daysafter the date of the Encounter. Date/Time Source Result Type Result - Unit Interpretation Reference Range Comment Oct 11, 2023 12:27 PM [facility] POC ACT Specimen Type: BLOOD No comment entered. Ordering Provider: LORETO HONG Report Released Date/Time: Oct 11, 2023 12:32 PM Reporting Lab: [facility] [phone] Performing Lab: [facility] [address] POC ACT 199 H 84-139 Oct 11, 2023 12:13 PM [facility] POC ACT Specimen Type: BLOOD No comment entered. Ordering Provider: LORETO HONG Report Released Date/Time: Oct 11, 2023 12:20 PM Reporting Lab: [facility] [phone] Performing Lab: [facility] [address] POC ACT 384 H 84-139 Oct 11, 2023 11:50 AM [facility] POC ACT Specimen Type: BLOOD No comment entered. Ordering Provider: LORETO HONG Report Released Date/Time: Oct 11, 2023 12:00 PM Reporting Lab: [facility] [phone] Performing Lab: [facility] [address] POC ACT 407 H 84-139 Oct 11, 2023 11:50 AM [facility] FINGERSTICK GLUCOSE Specimen Type: BLOOD No comment entered. Ordering Provider: LORETO HONG Report Released Date/Time: Oct 11, 2023 01:30 PM Reporting Lab: [facility] [phone] Performing Lab: [facility] [address] FINGERSTICK GLUCOSE 161 H 70-100 Oct 11, 2023 11:32 AM [facility] POC ACT Specimen Type: BLOOD No comment entered. Ordering Provider: LORETO HONG Report Released Date/Time: Oct 11, 2023 11:47 AM Reporting Lab: [facility] [phone] Performing Lab: [facility] [address] POC ACT 345 H 84-139 Oct 11, 2023 11:11 AM [facility] POC ACT Specimen Type: BLOOD No comment entered. Ordering Provider: LORETO HONG Report Released Date/Time: Oct 11, 2023 11:20 AM Reporting Lab: [facility] [phone] Performing Lab: [facility] [address] POC ACT 334 H 84-139 Oct 11, 2023 11:11 AM [facility] FINGERSTICK GLUCOSE Specimen Type: BLOOD No comment entered. Ordering Provider: LORETO HONG Report Released Date/Time: Oct 11, 2023 01:30 PM Reporting Lab: [facility] [phone] Performing Lab: [facility] [address] FINGERSTICK GLUCOSE 167 H 70-100 Oct 11, 2023 10:56 AM [facility] POC ACT Specimen Type: BLOOD No comment entered. Ordering Provider: LORETO HONG Report Released Date/Time: Oct 11, 2023 11:04 AM Reporting Lab: [facility] [address] Performing Lab: [facility] [address] POC ACT 310 H 84-139 Oct 11, 2023 10:40 AM [facility] POC ABG/ELECTROLYTES Specimen Type: ARTERIAL BLOOD Comment: FIO2 = 55% Patient Temp: 35.5 C Sample Type = ARTERIAL Ordering Provider: LORETO HONG Report Released Date/Time: Oct 11, 2023 01:20 PM Reporting Lab: [facility] [address] Performing Lab: [facility] [address] POC PH 7.396 7.35-7.45 POC PCO2 36.1 [...] H 80.0-105.0 Oct 11, 2023 10:37 AM [facility] FINGERSTICK GLUCOSE Specimen Type: BLOOD No comment entered. Ordering Provider: LORETO HONG Report Released Date/Time: Oct 11, 2023 01:30 PM Reporting Lab: [facility] [address] Performing Lab: [facility] [address] FINGERSTICK GLUCOSE 163 H 70-100 Oct 11, 2023 10:36 AM [facility] POC ACT Specimen Type: BLOOD No comment entered. Ordering Provider: LORETO HONG Report Released Date/Time: Oct 11, 2023 10:41 AM Reporting Lab: [facility] [address] Performing Lab: [facility] [address] POC ACT 255 H 84-139 Oct 11, 2023 09:16 AM [facility] POC ABG/ELECTROLYTES Specimen Type: ARTERIAL BLOOD Comment: FIO2 = 56% Patient Temp: 35.2 C Sample Type = ARTERIAL Ordering Provider: LORETO HONG Report Released Date/Time: Oct 11, 2023 01:20 PM Reporting Lab: [facility] [address] Performing Lab: [facility] [address] POC PH 7.374 7.35-7.45 POC PCO2 38.9 [...] H 80.0-105.0 Oct 11, 2023 09:15 AM [facility] FINGERSTICK GLUCOSE Specimen Type: BLOOD No comment entered. Ordering Provider: LORETO HONG Report Released Date/Time: Oct 11, 2023 01:30 PM Reporting Lab: [facility] [address] Performing Lab: [facility] [address] FINGERSTICK GLUCOSE 170 H 70-100 Oct 11, 2023 09:10 AM [facility] POC ACT Specimen Type: BLOOD No comment entered. Ordering Provider: LORETO HONG Report Released Date/Time: Oct 11, 2023 09:16 AM Reporting Lab: [facility] [address] Performing Lab: [facility] [address] POC ACT 147 H 84-139 Oct 11, 2023 06:35 AM [facility] PROTHROMBIN TIME/INR Specimen Type: PLASMA No comment entered. Ordering Provider: RONALDO MAS Report Released Date/Time: Apr 16, 2023 01:48 PM Reporting Lab: [facility] [address] Performing Lab: [facility] [address] .INR 1.0 0.8-1.1 .PT 11.9 9.4-12.5 Oct 11, 2023 06:35 AM [facility] ACT PART THROMBO TIME Specimen Type: PLASMA No comment entered. Ordering Provider: RONALDO MAS Report Released Date/Time: Apr 16, 2023 01:48 PM Reporting Lab: [facility] [address] Performing Lab: [facility] [address] APTT 29.9 25.1-36.5 Oct 11, 2023 06:35 AM [facility] BASIC METABOLIC PANEL+MG Specimen Type: PLASMA No comment entered. Ordering Provider: RONALDO MAS Report Released Date/Time: Apr 16, 2023 01:48 PM Reporting Lab: [facility] [address] Performing Lab: [facility] [address] CREATININE 3.0 H 0.7-1.2 UREA NITROGEN 38 H 8-26 GLUCOSE 151 H 70-100 SODIUM 142 136-145 POTASSIUM 4.9 3.5-5.1 CHLORIDE 108 H 98-107 CO2 27 22-29 CALCIUM 8.8 8.4-10.2 MAGNESIUM 2.0 1.6-2.6 ANION GAP 7 5-15 .CREAT EGFR(CKD-EPI) 20 L >60 Oct 11, 2023 06:35 AM [facility] CBC Specimen Type: BLOOD No comment entered. Ordering Provider: RONALDO MAS Report Released Date/Time: Apr 16, 2023 01:48 PM Reporting Lab: [facility] [address] Performing Lab: [facility] [address] WBC 6.09 4.0-11.0 RBC 4.07 L 4.6-6.2 [...] 2023 03:15 PM 58 126/[address] [facility] Oct 11, 2023 03:00 PM 58 118/[address] [facility] Oct 11, 2023 02:45 PM 60 118/[address] [facility] Oct 11, 2023 02:44 PM 97.5 59 117/[address] [facility] Social History: Smoking Status (Most current) and Tobacco Use (All prior to encounter date) This section includes the most current, and the historical, smoking and tobacco- related health factors from the [place] facility where the Encounter took place. Current Smoking Status This section includes the most current smoking, or tobacco-related health factor, from the [place] facility where the Encounter took place. Date/Time Current Smoking Status Comment Dany simon Jan 02, 2023 01:15 PM VA-TOBACCO FORMER USER [facility] Tobacco Use History This section includes a history of the smoking, or tobacco-related health factors, that were collected on or before the date of the Encounter. The data comes from the [place] facility where the Encounter took place. Date/Time Smoking Status/Tobacco Use Comment F acjamila Jan 02, 2023 01:15 PM VA-TOBACCO QUIT 15 YRS OR MORE [facility] Oct 24, 2021 08:45 AM VA-TOBACCO FORMER USER [facility] Oct 24, 2021 08:45 AM VA-TOBACCO QUIT 15 YRS OR MORE [facility] Apr 27, 2020 03:00 PM VA-TOBACCO FORMER USER [facility] Apr 27, 2020 03:00 PM VA-TOBACCO QUIT 15 YRS OR MORE [facility] Apr 23, 2019 05:29 PM INPT NO TOBACCO USE IN LAST 30 D AYS [facility] Oct 15, 2018 09:08 AM VA-TOBACCO FORMER USER [facility] Oct 15, 2018 09:08 AM RI-TOBACCO QUIT 15 YRS OR MORE [facility] November 13, 2017 09:05 AM FORMER TOBACCO USER 7Y OR GREATE R [facility] November 22, 2016 03:15 PM FORMER TOBACCO USER 7Y OR GREATE R [facility] Oct 21, 2015 08:37 AM FORMER TOBACCO USER 7Y OR GREATE R [facility] Oct 21, 2014 01:32 PM FORMER TOBACCO USER 7Y OR GREATE R [facility] Oct 29, 2013 08:29 AM FORMER TOBACCO USER 7Y OR GREATE R [facility] Mar 11, 2007 08:07 AM FORMER TOBACCO USER 7Y OR GREATE R [facility]
--- OUTSIDE RECORDS SUMMARY | 2023-10-11 23:58 | XMS_ITS | Encounter Summary ---
Author Name [facility] of [facility]a Affairs Organization [facility] Address [address] [place] [address] Support Name Relationship Address Phone JOHN STOCKTONINE Next of Kin [address] [place] [phone] JUDE STOCKTON Emergency Contact [phone] [address] JUDE STOCKTON Next of Kin [address] [place] [phone] JUDE STOCKTON Emergency Contact [phone] [address] [address] Insurance Providers: All historical [...] MEDICARE SUPPLEGANESH MAHAN IDU Jul 08, 2016 [id number] [phone] KRISTOFER STOCKTON PATIENT MEDICARE (WNR) MEDICARE (M) PART B Jun 07, 2007 PART B [id number] KRISTOFER STOCKTON PATIENT MEDICARE (WNR) MEDICARE (M) PART B Jun 07, 2007 PART B [id number] KRISTOFER STOCKTON PATIENT MEDICARE (WNR) MEDICARE (M) PART B Jun 07, 2007 PART B [id number] [phone] KRISTOFER STOCKTON PATIENT MEDICARE (WNR) MEDICARE (M) PART B Jun 07, 2007 PART B [id number] KRISTOFER STOCKTON PATIENT MEDICARE (WNR) MEDICARE (M) PART A Mar 08, 2007 PART A [id number] KRISTOFER STOCKTON PATIENT MEDICARE (WNR) MEDICARE (M) PART A Mar 08, 2007 PART A [id number] KRISTOFER STOCKTON PATIENT MEDICARE (WNR) MEDICARE (M) PART A Mar 08, 2007 PART A [id number] KRISTOFER STOCKTON PATIENT MEDICARE (WNR) MEDICARE (M) PART A Mar 08, 2007 PART A [id number] KRISTOFER STOCKTON PATIENT Selected Encounter This section includes the information on record at [facility] for the Encounter. Date/Time Encounter Type Encounter Description Reason Pro vider Source Oct 11, 2023 08:00 AM Outpatient Encounter CARDIAC ECHO IHE Encounter Template Text not used by MS Plan of Treatment: Future Appointments (+ 6 months) and Future Tests (+/- 45 days) The Plan of Treatment section includes future care activities for the patient [facility] This section includes future appointments and future orders which are active, pending or scheduled. Future Appointments This section includes appointments that were scheduled to occur 6 months from the date of the Encounter, up to a maximum of 20 appointments. The data comes from all [facility]. Appointment Date/Time Appointment Type Appointme nt Facility Name Oct 28, 2023 02:15 PM AMBULATORY - MEDICINE [facility] Oct 28, 2023 03:30 PM AMBULATORY - MEDICINE [facility] November 18, 2023 12:40 PM AMBULATORY - SURGERY [facility] November 28, 2023 09:20 AM AMBULATORY - MEDICINE [facility] Dec 16, 2023 01:00 PM AMBULATORY - SURGERY [facility] Dec 16, 2023 02:00 PM AMBULATORY - SURGERY [facility] Active, Pending, and Scheduled Orders This section includes a listing of several types of active, pending, and scheduled orders, including clinic medications orders, diagnostic test orders, procedure orders and consult orders; where the start date of the order is 45 days before the date of the Encounter or 45 days after the date of theEncounter. The data comes from all [facility]. Test Date/Time Test Type Test Details Facility Name Sep 15, 2023 12:00 AM Laboratory - Chemi stry Order ELECTROLYTES/ANION GAP PLASMA SP ONCE [facility] Sep 15, 2023 12:00 AM Laboratory - Chemi stry Order CREATININE(INCLUDES EGFR) PLASMA [facility] Sep 15, 2023 12:00 AM Laboratory - Chemi stry Order CALCIUM PLASMA [facility] Sep 15, 2023 12:00 AM Laboratory - Chemi stry Order UREA NITROGEN PLASMA SP [facility] Sep 15, 2023 12:00 AM Laboratory - Chemi stry Order PHOSPHORUS PLASMA [facility] Sep 15, 2023 12:00 AM Laboratory - Chemi stry Order ALBUMIN PLASMA [facility] Sep 15, 2023 12:00 AM Laboratory - Chemi stry Order CBC BLOOD [facility] Sep 15, 2023 12:00 AM Laboratory - Chemi stry Order PTH-N-TACT PLASMA [facility] Sep 15, 2023 12:00 AM Laboratory - Chemi stry Order GLUCOSE PLASMA [facility] Oct 11, 2023 12:00 AM Laboratory - Blood Bank Order ABO/RH - LAB BLOOD [facility] Oct 11, 2023 06:45 AM Laboratory - Blood Bank Order TYPE & SCREEN - LAB BLOOD [facility] Lab Results: +/- 30 days of the encounter This section includes the Chemistry and Hematology Lab Results on record with [facility] for the patient. Radiology Reports and Pathology Reports are provided separately, in subsequent sections. Lab Results This section contains the Chemistry/Hematology Results that were resulted 30 days before or 30 daysafter the date of the Encounter. Date/Time Source Result Type Result - Unit Interpretation Reference Range Comment Oct 11, 2023 12:27 PM [facility] POC ACT Specimen Type: BLOOD No comment entered. Ordering Provider: LORETO HONG Report Released Date/Time: Oct 11, 2023 12:32 PM Reporting Lab: [facility] [phone] Performing Lab: [facility] [phone] POC ACT 199 H 84-139 Oct 11, 2023 12:13 PM [facility] POC ACT Specimen Type: BLOOD No comment entered. Ordering Provider: LORETO HONG Report Released Date/Time: Oct 11, 2023 12:20 PM Reporting Lab: [facility] [phone] Performing Lab: [facility] [phone] POC ACT 384 H 84-139 Oct 11, 2023 11:50 AM [facility] POC ACT Specimen Type: BLOOD No comment entered. Ordering Provider: LORETO HONG Report Released Date/Time: Oct 11, 2023 12:00 PM Reporting Lab: [facility] [phone] Performing Lab: [facility] [address] POC ACT 407 H 84-139 Oct 11, 2023 11:50 AM [facility] FINGERSTICK GLUCOSE Specimen Type: BLOOD No comment entered. Ordering Provider: LORETO HONG Report Released Date/Time: Oct 11, 2023 01:30 PM Reporting Lab: [facility] [phone] Performing Lab: [facility] [phone] FINGERSTICK GLUCOSE 161 H 70-100 Oct 11, 2023 11:32 AM [facility] POC ACT Specimen Type: BLOOD No comment entered. Ordering Provider: LORETO HONG Report Released Date/Time: Oct 11, 2023 11:47 AM Reporting Lab: [facility] [phone] Performing Lab: [facility] [address] POC ACT 345 H 84-139 Oct 11, 2023 11:11 AM [facility] POC ACT Specimen Type: BLOOD No comment entered. Ordering Provider: LORETO HONG Report Released Date/Time: Oct 11, 2023 11:20 AM Reporting Lab: [facility] [phone] Performing Lab: [facility] [address] POC ACT 334 H 84-139 Oct 11, 2023 11:11 AM [facility] FINGERSTICK GLUCOSE Specimen Type: BLOOD No comment entered. Ordering Provider: LORETO HONG Report Released Date/Time: Oct 11, 2023 01:30 PM Reporting Lab: [facility] [phone] Performing Lab: [facility] [address] FINGERSTICK GLUCOSE 167 H 70-100 Oct 11, 2023 10:56 AM [facility] POC ACT Specimen Type: BLOOD No comment entered. Ordering Provider: LORETO HONG Report Released Date/Time: Oct 11, 2023 11:04 AM Reporting Lab: [facility] [phone] Performing Lab: [facility] [address] POC ACT 310 H 84-139 Oct 11, 2023 10:40 AM [facility] POC ABG/ELECTROLYTES Specimen Type: ARTERIAL BLOOD Comment: FIO2 = 55% Patient Temp: 35.5 C Sample Type = ARTERIAL Ordering Provider: LORETO HONG Report Released Date/Time: Oct 11, 2023 01:20 PM Reporting Lab: [facility] [phone] Performing Lab: [facility] [address] POC PH 7.396 7.35-7.45 POC PCO2 36.1 [...] H 80.0-105.0 Oct 11, 2023 10:37 AM [facility] FINGERSTICK GLUCOSE Specimen Type: BLOOD No comment entered. Ordering Provider: LORETO HONG Report Released Date/Time: Oct 11, 2023 01:30 PM Reporting Lab: [facility] [address] Performing Lab: [facility] [address] FINGERSTICK GLUCOSE 163 H 70-100 Oct 11, 2023 10:36 AM [facility] POC ACT Specimen Type: BLOOD No comment entered. Ordering Provider: LORETO HONG Report Released Date/Time: Oct 11, 2023 10:41 AM Reporting Lab: [facility] [phone] Performing Lab: [facility] [address] POC ACT 255 H 84-139 Oct 11, 2023 09:16 AM [facility] POC ABG/ELECTROLYTES Specimen Type: ARTERIAL BLOOD Comment: FIO2 = 56% Patient Temp: 35.2 C Sample Type = ARTERIAL Ordering Provider: LORETO HONG Report Released Date/Time: Oct 11, 2023 01:20 PM Reporting Lab: [facility] [address] Performing Lab: [facility] [address] POC PH 7.374 7.35-7.45 POC PCO2 38.9 [...] H 80.0-105.0 Oct 11, 2023 09:15 AM [facility] FINGERSTICK GLUCOSE Specimen Type: BLOOD No comment entered. Ordering Provider: LORETO HONG Report Released Date/Time: Oct 11, 2023 01:30 PM Reporting Lab: [facility] [address] Performing Lab: [facility] [address] FINGERSTICK GLUCOSE 170 H 70-100 Oct 11, 2023 09:10 AM [facility] POC ACT Specimen Type: BLOOD No comment entered. Ordering Provider: LORETO HONG Report Released Date/Time: Oct 11, 2023 09:16 AM Reporting Lab: [facility] [address] Performing Lab: [facility] [address] POC ACT 147 H 84-139 Oct 11, 2023 06:35 AM [facility] ACT PART THROMBO TIME Specimen Type: PLASMA No comment entered. Ordering Provider: RONALDO MAS Report Released Date/Time: Apr 16, 2023 01:48 PM Reporting Lab: [facility] [phone] Performing Lab: [facility] [address] APTT 29.9 25.1-36.5 Oct 11, 2023 06:35 AM [facility] PROTHROMBIN TIME/INR Specimen Type: PLASMA No comment entered. Ordering Provider: RONALDO MAS Report Released Date/Time: Apr 16, 2023 01:48 PM Reporting Lab: [facility] [address] Performing Lab: [facility] [address] .INR 1.0 0.8-1.1 .PT 11.9 9.4-12.5 Oct 11, 2023 06:35 AM [facility] CBC Specimen Type: BLOOD No comment entered. Ordering Provider: RONALDO MAS Report Released Date/Time: Apr 16, 2023 01:48 PM Reporting Lab: [facility] [address] Performing Lab: [facility] [address] WBC 6.09 4.0-11.0 RBC 4.07 L 4.6-6.2 HGB 12.6 L 13.5-17.9 HCT 37.7 L 41-54 MCV 92.6 80-100 MCH 31.0 27-33 MCHC 33.4 32.0-37.5 PLT 144 L 150-400 MPV 10.7 H 7.4-10.4 RDW 13.2 11.5-14.5 Oct 11, 2023 06:35 AM [facility] BASIC METABOLIC PANEL+MG Specimen Type: PLASMA No comment entered. Ordering Provider: RONALDO MAS Report Released Date/Time: Apr 16, 2023 01:48 PM Reporting Lab: [facility] [address] Performing Lab: [facility] [address] CREATININE 3.0 H 0.7-1.2 UREA NITROGEN 38 [...] 11, 2023 03:15 PM 58 126/61 96 [facility] Oct 11, 2023 03:00 PM 58 118/56 95 [facility] Oct 11, 2023 02:45 PM 60 118/62 97 [facility] Oct 11, 2023 02:44 PM 97.5 59 117/61 18 97 0 [facility] Social History: Smoking Status (Most current) and Tobacco Use (All prior to encounter date) This section includes the most current, and the historical, smoking and tobacco- related health factors from the [place] facility where the Encounter took place. Current Smoking Status This section includes the most current smoking, or tobacco-related health factor, from the [facility] facility where the Encounter took place. Date/Time Current Smoking Status Comment Facil ity Jan 02, 2023 01:15 PM VA-TOBACCO FORMER USER [facility] Tobacco Use History This section includes a history of the smoking, or tobacco-related health factors, that were collected on or before the date of the Encounter. The data comes from the [place] facility where the Encounter took place. Date/Time Smoking Status/Tobacco Use Comment F acility Jan 02, 2023 01:15 PM VA-TOBACCO QUIT 15 YRS OR MORE [facility] Oct 24, 2021 08:45 AM VA-TOBACCO FORMER USER [facility] Oct 24, 2021 08:45 AM VA-TOBACCO QUIT 15 YRS OR MORE [facility] Apr 27, 2020 03:00 PM VA-TOBACCO FORMER USER [facility] Apr 27, 2020 03:00 PM VA-TOBACCO QUIT 15 YRS OR MORE [facility] Apr 23, 2019 05:29 PM INPT NO TOBACCO USE IN LAST 30 D AYS [facility] Oct 15, 2018 09:08 AM VA-TOBACCO FORMER USER [facility] Oct 15, 2018 09:08 AM VA-TOBACCO QUIT 15 YRS OR MORE [facility] November 13, 2017 09:05 AM FORMER TOBACCO USER 7Y OR GREATE R [facility] November 22, 2016 03:15 PM FORMER TOBACCO USER 7Y OR GREATE R [facility] Oct 21, 2015 08:37 AM FORMER TOBACCO USER 7Y OR JOHNE R [facility] Oct 21, 2014 01:32 PM FORMER TOBACCO USER 7Y OR JOHNE R [facility] Oct 29, 2013 08:29 AM FORMER TOBACCO USER 7Y OR JOHNE R [facility] Mar 11, 2007 08:07 AM FORMER TOBACCO USER 7Y OR DIONISIO Hunter [facility] Encounter Notes: All associated encounter notes This section contains the clinical notes associated to the Encounter. Date/Time Encounter Note(s) Provider Source Oct 11, 2023 11:53 AM CARDIOLOGY PROCEDU RE NOTE: LOCAL TITLE: ECHOCARDIOGRAM PROCEDURE STANDARD TITLE: CARDIOLOGY PROCEDURE NOTE DATE OF NOTE: OCT 11, 2023@11:53:19 ENTRY DATE: OCT 11, 2023@11:53:19 AUTHOR: CLINICAL,DEVICE PRO EXP COSIGNER: URGENCY: STATUS: COMPLETED PROCEDURE SUMMARY CODE: Machine Resulted DATE/TIME PERFORMED: OCT 11, 2023@09:52:2 DOCUMENT IN [facility] SEE FULL REPORT IN [facility] SIGNATURE NOT REQUIRED SEE SIGNATURE IN [facility] ([facility] MARIA ELENA OUTPT) AUTO-INSTRUMENT DIAGNOSIS Procedure: M_TEE MARIA ELENA Release Status: Released Off-Line Verified Date Verified: Oct 11, 2023@11:52:58 Study ID: [id number] [address] + + [place], [place] + + [facility] [address] [place] Transesophageal Echocardiogram Report + + :Name: KRISTOFER STOCKTON Study Date: 10/11/2023 : : Patient Location: [facility] ECHO PROCEDURE : :: 1940 Gender: Male : :Age: 83 yrs : :CP Order Number: [id number] : :Reason For Study: R/O FLEX thrombus : + + :Industry Consultant: Rudy Townsend RDCS : + + :Referring Physician: RONALDO MAS : + + Interpretation Summary The left atrium is mild to moderately dilated. Left atrial appendage velocities are reduced. No thrombus or spontaneous echo contrast seen in the left atrial appendage. The left ventricular wall thickness is mild to moderately increased. The visually estimated ejection fraction is 65%. The right atrium is mildly dilated. A prominent Eustachian valve is noted. Chiari network (normal variant) is noted. Findings discussed with the EP team. Procedure Informed consent for transesophageal echocardiogram, and use of a contrast agent as needed, was obtained prior to the procedure. A 2D transesophageal echocardiogram (14030) was performed. 3D imaging with reconstruction on echo cart ([id number]). Left Ventricle The left ventricle is normal in size. The left ventricular wall thickness is mild to moderately increased. The left ventricular ejection fraction is normal. The visually estimated ejection fraction is 65%. No regional wall motion abnormalities were noted. Left Atrium The left atrium is mild to moderately dilated. Left atrial appendage velocities are reduced. No thrombus or spontaneous echo contrast seen in the left atrial appendage. No PFO or ASD. Right Ventricle The right ventricle is normal size. The right ventricular systolic function is normal. Right Atrium The right atrium is mildly dilated. Chiari network (normal variant) is noted. A prominent Eustachian valve is noted. Mitral Valve The mitral valve is normal in structure and function. There is trivial mitral valve regurgitation. There is no evidence of mitral valve prolapse. No mitral valve stenosis. Tricuspid Valve Anatomically normal tricuspid valve. No evidence of tricuspid regurgitation. Aortic Valve The aortic valve is trileaflet. There is mild aortic valve thickening. No aortic valvular regurgitation. There is no aortic valvular vegetation. Aorta The aortic root is normal in size. Pulmonic Valve No evidence of stenosis. Pericardium/Pleural There is no pericardial effusion. Pulmonary Veins/Inferior Vena Cava/Hepatic Veins The pumonary veins appear normal and return normally to the left atrium. MMode/2D Measurements \T\ Calculations LVLd ap4: 7.4 cm SV(MOD-sp4): 39.5 ml EDV(MOD-sp4): 61.7 ml LVLs ap4: 6.1 cm ESV(MOD-sp4): 22.2 ml EF(MOD-sp4): 64.0 % Reading Physician:11:52 AM Administrative Closure: 10/11/2023 by: CLINICAL,DEVICE PROXY SERVICE CLINICAL,DEVICE PROXY SERVICE [facility]
--- OUTSIDE RECORDS SUMMARY | 2023-10-11 23:58 | XMS_ITS | Encounter Summary ---
Author Name [facility] Organization [facility] Address [address] [place] [address] Support Name Relationship Address Phone JUDE STOCKTON Next of Kin [address] [facility] L[place] [phone] JUDE STOCKTON Emergency Contact [id number] [place] [address] JUDE STOCKTON Next of Kin [address] [facility] [place] [phone] JUDE STOCKTON Emergency Contact [phone] [place] [address] Insurance Providers: All historical and [...] Dinero's Name Patient's Relationship to Policy Dinero [facility] MEDICARE SUPPLEGANESH GERONIMO Jul 08, 2016 [id number] [phone] KRISTOFER STOCKTON PATIENT MEDICARE (WNR) MEDICARE (M) PART B Jun 07, 2007 PART B [id number] [phone] KRISTOFER STOCKTON PATIENT MEDICARE (WNR) MEDICARE (M) PART B Jun 07, 2007 PART B [id number] [phone] KRISTOFER STOCKTON PATIENT MEDICARE (WNR) MEDICARE (M) PART B Jun 07, 2007 PART B [id number] KRISTOFER STOCKTON PATIENT MEDICARE (WNR) MEDICARE (M) PART B Jun 07, 2007 PART B [id number] KRISTOFER STOCKTON PATIENT MEDICARE (WNR) MEDICARE (M) PART A Mar 08, 2007 PART A [id number] [phone] KRISTOFER STOCKTON PATIENT MEDICARE (WNR) MEDICARE (M) PART A Mar 08, 2007 PART A [id number] KRISTOFER STOCKTON PATIENT MEDICARE (WNR) MEDICARE (M) PART A Mar 08, 2007 PART A [id number] KRISTOFER STOCKTON PATIENT MEDICARE (WNR) MEDICARE (M) PART A Mar 08, 2007 PART A [id number] KRISTOFER STOCKTON PATIENT Selected Encounter This section includes the information on record at AL for the Encounter. 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 This section includes future appointments and future orders which are active, pending or scheduled. Future Appointments This section includes appointments that were scheduled to occur 6 months from the date of the Encounter, up to a maximum of 20 appointments. The data comes from all AL treatment facilities. Appointment Date/Time Appointment Type Appointme nt Facility Name Oct 28, 2023 02:15 PM AMBULATORY - MEDICINE [facility] Oct 28, 2023 03:30 PM AMBULATORY - MEDICINE [facility] November 18, 2023 12:40 PM AMBULATORY - SURGERY [facility] November 28, 2023 09:20 AM AMBULATORY - MEDICINE [facility] Dec 16, 2023 01:00 PM AMBULATORY - SURGERY [facility] Dec 16, 2023 02:00 PM AMBULATORY - SURGERY [facility] Active, Pending, and Scheduled Orders This section includes a listing of several types of active, pending, and scheduled orders, including clinic medications orders, diagnostic test orders, procedure orders and consult orders; where the start date of the order is 45 days before the date of the Encounter or 45 days after the date of theEncounter. The data comes from all AL treatment facilities. Test Date/Time Test Type Test Details Facility Name Sep 15, 2023 12:00 AM Laboratory - Chemi stry Order ELECTROLYTES/ANION GAP PLASMA [facility][1] Sep 15, 2023 12:00 AM Laboratory - Chemi stry Order CREATININE(INCLUDES EGFR) PLASMA [facility] Sep 15, 2023 12:00 AM Laboratory - Chemi stry Order UREA NITROGEN PLASMA [facility][1] Sep 15, 2023 12:00 AM Laboratory - Chemi stry Order CALCIUM PLASMA [facility] Sep 15, 2023 12:00 AM Laboratory - Chemi stry Order PHOSPHORUS PLASMA [facility] Sep 15, 2023 12:00 AM Laboratory - Chemi stry Order CBC BLOOD [facility] Sep 15, 2023 12:00 AM Laboratory - Chemi stry Order PTH-N-TACT PLASMA [facility] Sep 15, 2023 12:00 AM Laboratory - Chemi stry Order ALBUMIN PLASMA [facility] Sep 15, 2023 12:00 AM Laboratory - Chemi stry Order GLUCOSE PLASMA [facility] Oct 11, 2023 12:00 AM Laboratory - Blood Bank Order ABO/RH - LAB BLOOD [facility] Oct 11, 2023 06:45 AM Laboratory - Blood Bank Order TYPE & SCREEN - LAB BLOOD [facility] Lab Results: +/- 30 days of the encounter This section includes the Chemistry and Hematology Lab Results on record with AL for the patient. Radiology Reports and Pathology [...] Oct 11, 2023 12:32 PM Reporting Lab: [facility] [phone] Performing Lab: [facility] [address] POC ACT 199 H 84-139 Oct 11, 2023 12:13 PM [facility] POC ACT Specimen Type: BLOOD No comment entered. Ordering Provider: LORETO HONG Report Released Date/Time: Oct 11, 2023 12:20 PM Reporting Lab: [facility] [phone] Performing Lab: [facility] [address] POC ACT 384 H 84-139 Oct 11, 2023 11:50 AM [facility] POC ACT Specimen Type: BLOOD No comment entered. Ordering Provider: LORETO HONG Report Released Date/Time: Oct 11, 2023 12:00 PM Reporting Lab: [facility] [phone] Performing Lab: [facility] [address] POC ACT 407 H 84-139 Oct 11, 2023 11:50 AM [facility] FINGERSTICK GLUCOSE Specimen Type: BLOOD No comment entered. Ordering Provider: LORETO HONG Report Released Date/Time: Oct 11, 2023 01:30 PM Reporting Lab: [facility] [address] Performing Lab: [facility] [address] FINGERSTICK GLUCOSE 161 H 70-100 Oct 11, 2023 11:32 AM [facility] POC ACT Specimen Type: BLOOD No comment entered. Ordering Provider: LORETO HONG Report Released Date/Time: Oct 11, 2023 11:47 AM Reporting Lab: [facility] [phone] Performing Lab: [facility] [address] POC ACT 345 H 84-139 Oct 11, 2023 11:11 AM [facility] POC ACT Specimen Type: BLOOD No comment entered. Ordering Provider: LORETO HONG Report Released Date/Time: Oct 11, 2023 11:20 AM Reporting Lab: [facility] [address] Performing Lab: [facility] [address] POC ACT 334 H 84-139 Oct 11, 2023 11:11 AM [facility] FINGERSTICK GLUCOSE Specimen Type: BLOOD No comment entered. Ordering Provider: LORETO HONG Report Released Date/Time: Oct 11, 2023 01:30 PM Reporting Lab: [facility] [address] Performing Lab: [facility] [address] FINGERSTICK GLUCOSE 167 H 70-100 Oct 11, 2023 10:56 AM [facility] POC ACT Specimen Type: BLOOD No comment entered. Ordering Provider: LORETO HONG Report Released Date/Time: Oct 11, 2023 11:04 AM Reporting Lab: [facility] [phone] Performing Lab: [facility] [address] POC ACT 310 H 84-139 Oct 11, 2023 10:40 AM [facility] POC ABG/ELECTROLYTES Specimen Type: ARTERIAL BLOOD Comment: FIO2 = 55% Patient Temp: 35.5 C Sample Type = ARTERIAL Ordering Provider: LORETO HONG Report Released Date/Time: Oct 11, 2023 01:20 PM Reporting Lab: [facility] [address] Performing Lab: [facility] [address] POC PH 7.396 7.35-7.45 POC PCO2 36.1 [...] Oct 11, 2023 01:30 PM Reporting Lab: [facility] [address] Performing Lab: [facility] [address] FINGERSTICK GLUCOSE 163 H 70-100 Oct 11, 2023 10:36 AM [facility] POC ACT Specimen Type: BLOOD No comment entered. Ordering Provider: LORETO HONG Report Released Date/Time: Oct 11, 2023 10:41 AM Reporting Lab: [facility] [address] Performing Lab: [facility] [address] POC ACT 255 H 84-139 Oct 11, 2023 09:16 AM [facility] POC ABG/ELECTROLYTES Specimen Type: ARTERIAL BLOOD Comment: FIO2 = 56% Patient Temp: 35.2 C Sample Type = ARTERIAL Ordering Provider: LORETO HONG Report Released Date/Time: Oct 11, 2023 01:20 PM Reporting Lab: [facility] [address] Performing Lab: [facility] [address] POC PH 7.374 7.35-7.45 POC PCO2 38.9 [...] Oct 11, 2023 01:30 PM Reporting Lab: [facility] [address] Performing Lab: [facility] [address] FINGERSTICK GLUCOSE 170 H 70-100 Oct 11, 2023 09:10 AM [facility] POC ACT Specimen Type: BLOOD No comment entered. Ordering Provider: LORETO HONG Report Released Date/Time: Oct 11, 2023 09:16 AM Reporting Lab: [facility] [address] Performing Lab: [facility] [address] POC ACT 147 H 84-139 Oct 11, 2023 06:35 AM [facility] ACT PART THROMBO TIME Specimen Type: PLASMA No comment entered. Ordering Provider: RONALDO MAS Report Released Date/Time: Apr 16, 2023 01:48 PM Reporting Lab: [facility] [address] Performing Lab: [facility] [address] APTT 29.9 25.1-36.5 Oct 11, 2023 06:35 AM [facility] PROTHROMBIN TIME/INR Specimen Type: PLASMA No comment entered. Ordering Provider: RONALDO MAS Report Released Date/Time: Apr 16, 2023 01:48 PM Reporting Lab: [facility] [address] Performing Lab: [facility] [address] .INR 1.0 0.8-1.1 .PT 11.9 9.4-12.5 Oct 11, 2023 06:35 AM [facility] BASIC METABOLIC PANEL+MG Specimen Type: PLASMA No comment entered. Ordering Provider: RONALDO MAS Report Released Date/Time: Apr 16, 2023 01:48 PM Reporting Lab: [facility] [address] Performing Lab: [facility] [address] CREATININE 3.0 H 0.7-1.2 UREA NITROGEN 38 [...] Apr 16, 2023 01:48 PM Reporting Lab: [facility] [address] Performing Lab: [facility] [address] WBC 6.09 4.0-11.0 RBC 4.07 L 4.6-6.2 [...] 11, 2023 03:15 PM 58 126/61 96 [facility] Oct 11, 2023 03:00 PM 58 118/56 95 [facility] Oct 11, 2023 02:45 PM 60 118/62 97 [facility] Oct 11, 2023 02:44 PM 97.5 59 117/61 18 97 0 [facility] Social History: Smoking Status (Most current) and Tobacco Use (All prior to encounter date) This section includes the most current, and the historical, smoking and tobacco- related health factors from the AL facility where the Encounter took place. Current Smoking Status This section includes the most current smoking, or tobacco-related health factor, from the AL facility where the Encounter took place. Date/Time Current Smoking Status Comment Dany simon Jan 02, 2023 01:15 PM VA-TOBACCO QUIT 15 YRS OR MORE [facility] Tobacco Use History This section includes a history of the smoking, or tobacco-related health factors, that were collected on or before the date of the Encounter. The data comes from the AL facility where the Encounter took place. Date/Time [...] [facility] Apr 27, 2020 03:00 PM AL-TOBACCO QUIT 15 YRS OR MORE [facility] Apr 23, 2019 05:29 PM INPT NO TOBACCO USE IN LAST 30 D AYS [facility] Oct 15, 2018 09:08 AM VA-TOBACCO FORMER USER [facility] Oct 15, 2018 09:08 AM AL-TOBACCO QUIT 15 YRS OR MORE [facility] [...] Encounter Note(s) Provider Source Oct 11, 2023 10:29 AM ANESTHESIOLOGY PRO CEDURE NOTE: LOCAL TITLE: ANESTHESIA PROCEDURE NOTE STANDARD TITLE: ANESTHESIOLOGY PROCEDURE NOTE DATE OF NOTE: OCT 11, 2023@10:29 ENTRY DATE: OCT 11, 2023@10:29:42 AUTHOR: HYACINTH CUEVAS COSIGNER: URGENCY: STATUS: COMPLETED ANESTHESIA ARTERIAL LINE PLACEMENT PROCEDURE Procedure time: 1290-8933 Preinduction: Yes Placement Location: Preoperative area. Performed by Inna (ISA), supervised by Jeannie (SHANICE). Anesthesia: 1% lidocaine UNIVERSAL PROTOCOL A. Pre-procedure verification complete. Yes 1-relevant information / documentation available, reviewed and properly matched to the patient; 2-consent accurate and complete; 3-equipment and supplies available. B. Site marking complete. NA Site marked if not in continuous attendance with patient. C. TIME OUT completed. Yes Time Out was conducted just prior to starting procedure to verify the eight required elements: 1-patient identity, 2-consent accurate and complete, 3-position, 4-correct side/site marked (if applicable), 5-procedure, 6-relevant images / results properly labeled and displayed (if applicable), 7-antibiotics / irrigation fluids (if applicable), 8-safety precautions. The procedure, benefits, risks, and alternatives were explained to the patient. The patient voiced understanding of the information and agreed to proceed with the procedure. The skin overlying the right radial artery was prepped with Chloraprep and draped in the usual fashion. 1% lidocaine was infiltrated locally overlying artery site. A 20 gauge needle was advanced into the artery, excellent pulsatile flow obtained, a 0.025 guidewire was passed through the 20g needle into the artery easily without resistance, the needle removed, a 20 gauge (5) catheter was advanced over the wire via Seldinger technique, the guidewire was removed, and the catheter secured with a sterile pressure dressing. No evident complications. Hyacinth Cuevas M.D. Department of Anesthesiology, [facility] // HYACINTH CUEVAS MDA ANESTHESIOLOGIST Signed: 10/11/2023 10:31 HYACINTH CUEVAS [facility]
--- OUTSIDE RECORDS SUMMARY | 2023-10-11 23:59 | XMS_ITS | Encounter Summary ---
Author Name [facility] [employer] Organization [facility] Address [address] [place] [address] Support Name Relationship Address Phone JOHN STOCKTONINE Next of Kin [address] [place] [phone] JUDE STOCKTON Emergency Contact [id number] [place] [address] JUDE STOCKTON Next of Kin [address] [facility] [address] [place] [phone] JUDE STOCKTON Emergency Contact [phone] [address] Insurance Providers: All historical and [...] MEDICARE SUPPLEGANESH MAHAN IDU Jul 08, 2016 [id number] KRISTOFER STOCKTON PATIENT MEDICARE (WNR) MEDICARE (M) PART B Jun 07, 2007 PART B [id number] KRISTOFER STOCKTON PATIENT MEDICARE (WNR) MEDICARE (M) PART B Jun 07, 2007 PART B [id number] KRISTOFER STOCKTON PATIENT MEDICARE (WNR) MEDICARE (M) PART B Jun 07, 2007 PART B [id number] KRISTOFER STOCKTON PATIENT MEDICARE (WNR) MEDICARE (M) PART B Jun 07, 2007 PART B [id number] [phone] KRISTOFER STOCKTON PATIENT MEDICARE (WNR) MEDICARE (M) PART A Mar 08, 2007 PART A [id number] KRISTOFER STOCKTON PATIENT MEDICARE (WNR) MEDICARE (M) PART A Mar 08, 2007 PART A [id number] KRISTOFER STOCKTON PATIENT MEDICARE (WNR) MEDICARE (M) PART A Mar 08, 2007 PART A [id number] KRISTOFER STOCKTON PATIENT MEDICARE (WNR) MEDICARE (M) PART A Mar 08, 2007 PART A [id number] KRISTOFER STOCKTON PATIENT Selected Encounter This section includes the information on record at [place] for the Encounter. Date/Time Encounter Type Encounter Description Reason Provider Source Oct 11, 2023 12:40 PM CLOSURE DEV, VASC CARDIAC CATHETERIZATION ICD-10-CM I48.91 Unspecified atrial fibrillation RONALDO MAS Judah Encounter Template Text not used by [place] Assessments - Encounter Diagnoses This section includes the primary and secondary diagnoses documented for the Encounter. 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 RONALDO MAS [facility] Oct 11, 2023 01:07 PM SECONDARY Chronic kidney disease, stage 4 (severe) RONALDO MAS [facility] Oct 11, 2023 01:07 PM SECONDARY prison (current) use of anticoagulants RONALDO MAS [facility] Oct 11, 2023 01:07 PM SECONDARY Rheumatoid arthritis, unspecified RONALDO MAS [facility] Oct 11, 2023 01:07 PM SECONDARY Type 2 diabetes mellitus without complications RONALDO MAS [facility] Plan of Treatment: Future Appointments (+ 6 months) and Future Tests (+/- 45 days) The Plan of Treatment section includes future care activities for the patient from all [place] treatmentfacilities. This section includes future appointments and future orders which are active, pending or scheduled. Future Appointments This section includes appointments that were scheduled to occur 6 months from the date of the Encounter, up to a maximum of 20 appointments. The data comes from all [place] treatment facilities. Appointment Date/Time Appointment Type Appointme nt Facility Name Oct 28, 2023 02:15 PM AMBULATORY - MEDICINE [facility] Oct 28, 2023 03:30 PM AMBULATORY - MEDICINE [facility] November 18, 2023 12:40 PM AMBULATORY - SURGERY [facility] November 28, 2023 09:20 AM AMBULATORY - MEDICINE [facility] Dec 16, 2023 01:00 PM AMBULATORY - SURGERY [facility] Dec 16, 2023 02:00 PM AMBULATORY - SURGERY [facility] Active, Pending, and Scheduled Orders This section includes a listing of several types of active, pending, and scheduled orders, including clinic medications orders, diagnostic test orders, procedure orders and consult orders; where the start date of the order is 45 days before the date of the Encounter or 45 days after the date of theEncounter. The data comes from all [facility]. Test Date/Time Test Type Test Details Facility Name Sep 15, 2023 12:00 AM Laboratory - Chemi stry Order ELECTROLYTES/ANION GAP PLASMA [facility] Sep 15, 2023 12:00 AM Laboratory - Chemi stry Order UREA NITROGEN PLASMA [facility] Sep 15, 2023 12:00 AM Laboratory - Chemi stry Order CALCIUM PLASMA [facility] Sep 15, 2023 12:00 AM Laboratory - Chemi stry Order PHOSPHORUS PLASMA [facility] Sep 15, 2023 12:00 AM Laboratory - Chemi stry Order CREATININE(INCLUDES EGFR) PLASMA [facility] Sep 15, 2023 12:00 AM Laboratory - Chemi stry Order ALBUMIN PLASMA [facility] Sep 15, 2023 12:00 AM Laboratory - Chemi stry Order CBC BLOOD [facility] Sep 15, 2023 12:00 AM Laboratory - Chemi stry Order PTH-N-TACT PLASMA [facility] Sep 15, 2023 12:00 AM Laboratory - Chemi stry Order GLUCOSE PLASMA [facility] Oct 11, 2023 12:00 AM Laboratory - Blood Bank Order ABO/RH - LAB BLOOD [facility] Oct 11, 2023 06:45 AM Laboratory - Blood Bank Order TYPE & SCREEN - LAB BLOOD [facility] Lab Results: +/- 30 days of [...] Range Comment Oct 11, 2023 12:27 PM [facility] POC ACT Specimen Type: BLOOD No comment entered. Ordering Provider: LORETO HONG Report Released Date/Time: Oct 11, 2023 12:32 PM Reporting Lab: [facility] [address] Performing Lab: [facility] [address] POC ACT 199 H 84-139 Oct 11, 2023 12:13 PM [facility] POC ACT Specimen Type: BLOOD No comment entered. Ordering Provider: LORETO HONG Report Released Date/Time: Oct 11, 2023 12:20 PM Reporting Lab: [facility] [address] Performing Lab: [facility] [address] POC ACT 384 H 84-139 Oct 11, 2023 11:50 AM [facility] POC ACT Specimen Type: BLOOD No comment entered. Ordering Provider: LORETO HONG Report Released Date/Time: Oct 11, 2023 12:00 PM Reporting Lab: [facility] [address] Performing Lab: [facility] [address] POC ACT 407 H 84-139 Oct 11, 2023 11:50 AM [facility] FINGER[place]ICK GLUCOSE Specimen Type: BLOOD No comment entered. Ordering Provider: LORETO HONG Report Released Date/Time: Oct 11, 2023 01:30 PM Reporting Lab: [facility] [address] Performing Lab: [facility] [address] [place] GLUCOSE 161 H 70-100 Oct 11, 2023 11:32 AM [facility] POC ACT Specimen Type: BLOOD No comment entered. Ordering Provider: LORETO HONG Report Released Date/Time: Oct 11, 2023 11:47 AM Reporting Lab: [facility] [address] Performing Lab: [facility] [address] POC ACT 345 H 84-139 Oct 11, 2023 11:11 AM [facility] POC ACT Specimen Type: BLOOD No comment entered. Ordering Provider: LORETO HONG Report Released Date/Time: Oct 11, 2023 11:20 AM Reporting Lab: [facility] [address] Performing Lab: [facility] [address] POC ACT 334 H 84-139 Oct 11, 2023 11:11 AM [facility] [place] GLUCOSE Specimen Type: BLOOD No comment entered. Ordering Provider: LORETO HONG Report Released Date/Time: Oct 11, 2023 01:30 PM Reporting Lab: [facility] [address] Performing Lab: [facility] [address] [place] GLUCOSE 167 H 70-100 Oct 11, 2023 10:56 AM [facility] POC ACT Specimen Type: BLOOD No comment entered. Ordering Provider: LORETO HONG Report Released Date/Time: Oct 11, 2023 11:04 AM Reporting Lab: [facility] [address] Performing Lab: [facility] [address] POC ACT 310 H 84-139 Oct 11, 2023 10:40 AM [facility] POC ABG/ELECTROLYTES Specimen Type: ARTERIAL BLOOD Comment: FIO2 = 55% Patient Temp: 35.5 C Sample Type = ARTERIAL Ordering Provider: LORETO HONG Report Released Date/Time: Oct 11, 2023 01:20 PM Reporting Lab: [facility] [address] Performing Lab: [facility] [address] POC PH 7.396 7.35-7.45 POC PCO2 36.1 [...] H 80.0-105.0 Oct 11, 2023 10:37 AM [facility] [place] GLUCOSE Specimen Type: BLOOD No comment entered. Ordering Provider: LORETO HONG Report Released Date/Time: Oct 11, 2023 01:30 PM Reporting Lab: [facility] [address] Performing Lab: [facility] [address] [place] GLUCOSE 163 H 70-100 Oct 11, 2023 10:36 AM [facility] POC ACT Specimen Type: BLOOD No comment entered. Ordering Provider: LORETO HONG Report Released Date/Time: Oct 11, 2023 10:41 AM Reporting Lab: [facility] [address] Performing Lab: [facility] [address] POC ACT 255 H 84-139 Oct 11, 2023 09:16 AM [facility] POC ABG/ELECTROLYTES Specimen Type: ARTERIAL BLOOD Comment: FIO2 = 56% Patient Temp: 35.2 C Sample Type = ARTERIAL Ordering Provider: LORETO HONG Report Released Date/Time: Oct 11, 2023 01:20 PM Reporting Lab: [facility] [address] Performing Lab: [facility] [address] POC PH 7.374 7.35-7.45 POC PCO2 38.9 [...] H 80.0-105.0 Oct 11, 2023 09:15 AM [facility] [place] GLUCOSE Specimen Type: BLOOD No comment entered. Ordering Provider: LORETO HONG Report Released Date/Time: Oct 11, 2023 01:30 PM Reporting Lab: [facility] [address] Performing Lab: [facility] [address] [place] GLUCOSE 170 H 70-100 Oct 11, 2023 09:10 AM [facility] POC ACT Specimen Type: BLOOD No comment entered. Ordering Provider: LORETO HONG Report Released Date/Time: Oct 11, 2023 09:16 AM Reporting Lab: [facility] [address] Performing Lab: [facility] [address] POC ACT 147 H 84-139 Oct 11, 2023 06:35 AM [facility] ACT PART THROMBO TIME Specimen Type: PLASMA No comment entered. Ordering Provider: RONALDO MAS Report Released Date/Time: Apr 16, 2023 01:48 PM Reporting Lab: [facility] [address] Performing Lab: [facility] [address] APTT 29.9 25.1-36.5 Oct 11, 2023 06:35 AM [facility] PROTHROMBIN TIME/INR Specimen Type: PLASMA No comment entered. Ordering Provider: RONALDO MAS Report Released Date/Time: Apr 16, 2023 01:48 PM Reporting Lab: [facility] [address] Performing Lab: [facility] [address] .INR 1.0 0.8-1.1 .PT 11.9 9.4-12.5 Oct 11, 2023 06:35 AM [facility] BASIC METABOLIC PANEL+MG Specimen Type: PLASMA No comment entered. Ordering Provider: RONALDO MAS Report Released Date/Time: Apr 16, 2023 01:48 PM Reporting Lab: [facility] [address] Performing Lab: [facility] [address] CREATININE 3.0 H 0.7-1.2 UREA NITROGEN 38 H 8-26 GLUCOSE 151 H 70-100 SODIUM 142 136-145 POTASSIUM 4.9 3.5-5.1 CHLORIDE 108 H 98-107 CO2 27 22-29 CALCIUM 8.8 8.4-10.2 MAGNESIUM 2.0 1.6-2.6 ANION GAP 7 5-15 .CREAT EGFR(CKD-EPI) 20 L >60 Oct 11, 2023 06:35 AM [facility] CBC Specimen Type: BLOOD No comment entered. Ordering Provider: RONALDO MAS Report Released Date/Time: Apr 16, 2023 01:48 PM Reporting Lab: [facility] [address] Performing Lab: [facility] [address] WBC 6.09 4.0-11.0 RBC 4.07 L 4.6-6.2 [...] 11, 2023 03:15 PM 58 126/61 96 [facility] Oct 11, 2023 03:00 PM 58 118/56 95 [facility] Oct 11, 2023 02:45 PM 60 118/62 97 [facility] Oct 11, 2023 02:44 PM 97.5 59 117/61 18 97 0 [facility] Social History: Smoking Status (Most current) and Tobacco Use (All prior to encounter date) This section includes the most current, and the historical, smoking and tobacco- related health factors from the [place] facility where the Encounter took place. Current Smoking Status This section includes the most current smoking, or tobacco-related health factor, from the [place] facility where the Encounter took place. Date/Time Current Smoking Status Comment Dany simon Jan 02, 2023 01:15 PM VA-TOBACCO FORMER USER [facility] Tobacco Use History This section includes a history of the smoking, or tobacco-related health factors, that were collected on or before the date of the Encounter. The data comes from the [place] facility where the Encounter took place. Date/Time Smoking Status/Tobacco Use Comment F acility Jan 02, 2023 01:15 PM VA-TOBACCO QUIT 15 YRS OR MORE [facility] Oct 24, 2021 08:45 AM VA-TOBACCO FORMER USER [facility] Oct 24, 2021 08:45 AM VA-TOBACCO QUIT 15 YRS OR MORE [facility] Apr 27, 2020 03:00 PM VA-TOBACCO FORMER USER [facility] Apr 27, 2020 03:00 PM VA-TOBACCO QUIT 15 YRS OR MORE [facility] Apr 23, 2019 05:29 PM INPT NO TOBACCO USE IN LAST 30 D AYS [facility] Oct 15, 2018 09:08 AM VA-TOBACCO FORMER USER [facility] Oct 15, 2018 09:08 AM VA-TOBACCO QUIT 15 YRS OR MORE [facility] November 13, 2017 09:05 AM FORMER TOBACCO USER 7Y OR GREATE R [facility] November 22, 2016 03:15 PM FORMER TOBACCO USER 7Y OR GREATE R [facility] Oct 21, 2015 08:37 AM FORMER TOBACCO USER 7Y OR GREATE R [facility] Oct 21, 2014 01:32 PM FORMER TOBACCO USER 7Y OR GREATE R [facility] Oct 29, 2013 08:29 AM FORMER TOBACCO USER 7Y OR GREATE R [facility] Mar 11, 2007 08:07 AM FORMER TOBACCO USER 7Y OR GREATE R [facility] Encounter Notes: All associated encounter notes This section contains the clinical notes associated to the Encounter. Date/Time Encounter Note(s) Provider Source Oct 11, 2023 01:05 PM CARDIOLOGY PROCEDU RE NOTE: LOCAL TITLE: CARDIOLOGY ELECTROPHYSIOLOGY PROCEDURE NOTE STANDARD TITLE: CARDIOLOGY PROCEDURE NOTE DATE OF NOTE: OCT 11, 2023@13:05 ENTRY DATE: OCT 11, 2023@13:05:23 AUTHOR: RONALDO MAS EXP COSIGNER: URGENCY: STATUS: COMPLETED [place] CART Program for Clinical Assessment, Reporting, and Tracking ELECTROPHYSIOLOGY DIAGNOSTIC AND THERAPEUTIC PROCEDURE REPORT Patient: KRISTOFER STOCKTON SSN: [id number] : 1940 AGE: 83 Procedure Date: 10/11/2023 Associated Assessment: EP (10/11/2023) Procedure Status: Elective outpatient procedure Attending: RONALDO MAS Assisting: RONALDO MAS PROCEDURE INDICATIONS Symptoms: Fatigue Dyspnea Dyspnea on Exertion Indications: Atrial Fibrillation (AF) PROCEDURES PERFORMED Diagnostic Procedures: Induction of arrhythmia Left atrial pacing/recording Drug infusion Therapeutic Procedures: Atrial fibrillation ablation Adjunctive Procedures: Ultrasound guidance for vascular access Intracardiac Echocardiography 3D electroanatomic mapping Transseptal catheterization Other Procedures: Vascular closure (Vascade x4, bilateral femoral veins) TIME-OUT A time-out was performed addressing all safety requirements relevant to the procedure. Type of procedure, site, and patient ID were verified with the patient. The attending has assessed or re-assessed the patient and there are no changes to the pre-procedure assessment. PROCEDURE DETAILS The risks and benefits of the procedure were explained to the patient in full. The risks include, but are not limited to: pain, bleeding, blood transfusion reactions, arrhythmia, dissection of vessels, cardiac perforation, pericardial effusion, stroke, and . Informed Consent was obtained. The patient was brought to the EP lab in a fasting and hemodynamically stable condition. Preablation transesophageal echocardiogram was performed by our noninvasive upstream biomanufacturing technician, no FLEX thrombus was present. No pericardial effusion was noted. LV function is normal. Full report to follow. The patient was then prepped and draped in a sterile fashion. This procedure was done under general anesthesia provided by anesthesia team. Sheaths and Catheters: After local anesthesia with 2% lidocaine, vascular access was obtained using the modified Seldinger technique for the following access points: Right Femoral Vein: - 7Fr Locking Sheath: A decapolar catheter was positioned into the coronary sinus. - 9Fr Sheath: Exchanged for Agilius sheath for trans-septal through which mapping and ablation catheter was placed into the LA. Left Femoral Vein: - 9 Fr Sheath - an ICE catheter was placed into the RA/RV. - 6 Fr Sheath was used as a central line EAM System: CARTO EAM using QDOT ablation catheter and OctaRay mapping catheter. EP study results (in milliseconds): Pre-ablation: In Sinus, PP/RR: 1198,IL: 168, QRS:93, QT:480 Post-ablation: In Sinus, PP/RR: 952, IL:183, QRS:82 QT: 466 AERP: 500/230 RF application: 35 W on Anterior LA, aiming for ablation index of 550 25W on posterior LA aiming for ablation index of 450 or Very high power short duration with 90 W for 4 seconds (QMode +). Max esophageal temp. reached during RF application: 35.8 Procedure Description: After the above sheaths were in place, the catheters were positioned under fluoroscopic guidance. The ICE catheter was placed into the RA. No pericardial effusion noted on pre-procedure ICE images. A temperature probe was placed in the esophagus. A Heparin bolus and drip were started, with serial monitoring of ACTs to keep ACT around 350-400. Transeptal Catheterization: A Long J-wire was advanced to SVC under fluoroscopic guidance through which Agilis sheath/dilator were advanced into the RA. The transeptal system was dragged down to engage fossa ovalis and using both the CAMPOS and SAMI projections. Tenting of the interatrial septum was observed with ICE. RF application was then performed and dilator was advanced into the LA. There was difficulty in advancing sheath so we exchanged to Pro-tract wire. Then dilator and the sheath were advanced though the septum into the LA. The pro- tract wire was then withdrawn from the dilator. The dilator was removed, and the sheath was then flushed. Mean left atrial pressure was 15 mmHg. With the OctaRay, LA/pulmonary veins and LA appendage EAM/FAM was performed using Carto system. There were 4 pulmonary veins, 2 on each side. The activation and voltage map of the left atrium was created in sinus rhythm. The voltage on the posterior wall, and anterior wall were relatively normal with no significant abnormal complex fractionated atrial electrograms. Once electroanatomic map of the left atrium was obtained, wide antral circumferential ablation of the right and left-sided pulmonary veins were performed. We started with the left-sided pulmonary veins, after initial set of RF application, left-sided pulmonary veins were isolated. Entrance and exit block were confirmed with differential pacing. The vein remained blocked suggesting no dormant conduction even after bolus of IV adenosine challenge. We then moved to the right-sided pulmonary veins. After initial set of RF application, right-sided pulmonary veins remain connected. Activation map suggested posteroseptal carinal region where abnormal fractionated electrograms were noted. After series of RF application along the carinal line, right-sided pulmonary veins were isolated. Entrance and exit block were confirmed with differential pacing. The veins remained blocked suggesting no dormant conduction even after bolus of IV adenosine challenge. As the posterior wall voltage was relatively normal, we felt no need for posterior wall box isolation. We then performed a series of atrial extrastimuli up to atrial ERP with no induction of atrial arrhythmia. We then challenged with Isuprel up to 20 mcg/min with no induction of atrial arrhythmias. At the end of the procedure, the sheaths were then pulled out of the left atrium into the RA. ICE images were obtained confirming same no pericardial effusion which was present prior to the start of the procedure. Heparin was stopped and 50mg IV protamine was given, after a test dose had revealed no reaction. The catheters were withdrawn, and venous access sites were closed with per-closure devices (Vascade x4) on 4 sheaths with good hemostasis. The patient was extubated and then transported to a monitored bed. IN-LAB MEDICATIONS Adenosine Multiple boluses of 6 or 12 mg each IV Isoproterenol Up to 20 mcg/min IV Summary Data: Total Fluoroscopy Time: 2.52 min Radiation DAP: 1.45 Gy-cm2 Estimated Blood Loss: 10 mL PERIPROCEDURAL COMPLICATIONS No Major Adverse Events or Complications The attending was present throughout the procedure. PROCEDURE SUMMARY -Successful isolation of pulmonary veins for symptomatic paroxysmal atrial fibrillation. -Ablation of complex fractionated atrial electrograms along the right pulmonary veins posteroseptal and carinal region. RECOMMENDATIONS -Bedrest for 2 hours. Can be discharged home later today in the afternoon if hemodynamically stable and going access site shows no bleeding/hematoma. -Resume anticoagulation-Eliquis, starting tonight without interruption. -Resume rest of his home medications. -Protonix 40 mg daily for 1 month. -Follow-up in EP clinic in 8-12 weeks. PROCEDURE CODING Coding Procedure 15037 Induction of arrhythmia 09595-23 Left atrial pacing/recording N/A Drug infusion 13101 Atrial fibrillation ablation 05882 Ultrasound guidance for vascular access 46435 Intracardiac Echocardiography 36177 3D electroanatomic mapping 06807 Transseptal catheterization [address] [facility][id number] 001 10/11/2023 /igor/ RONALDO MAS MD PHD STAFF PHYSICIAN-CLINICAL CARDIAC ELECTROPHYSIOLOGY Signed: 10/11/2023 13:07 RONALDO MAS [facility]
--- OUTSIDE RECORDS SUMMARY | 2023-10-11 23:59 | XMS_ITS | Encounter Summary ---
Author Name [facility] [employer] Organization [facility] Address [address] [place] [address] Support Name Relationship Address Phone JOHN STOCKTONINE Next of Kin [address] [facility] LESLIE LOCKWOOD [phone] JUDE STOCKTON Emergency Contact [address] [address] JUDE STOCKTON Next of Kin [address] [place] [phone] JUDE STOCKTON Emergency Contact [phone] [place] [address] Insurance Providers: All historical and [...] MEDICARE SUPPLEGANESH MAHAN IDU Jul 08, 2016 [id number] [phone] KRISTOFER STOCKTON PATIENT MEDICARE (WNR) MEDICARE (M) PART B Jun 07, 2007 PART B [id number] KRISTOFER STOCKTON PATIENT MEDICARE (WNR) MEDICARE (M) PART B Jun 07, 2007 PART B [id number] KRISTOFER STOCKTON PATIENT MEDICARE (WNR) MEDICARE (M) PART B Jun 07, 2007 PART B [id number] KRISTOFER STOCKTON PATIENT MEDICARE (WNR) MEDICARE (M) PART B Jun 07, 2007 PART B [id number] KRISTOFER STOCKTON PATIENT MEDICARE (WNR) MEDICARE (M) PART A Mar 08, 2007 PART A [id number] KRISTOFER STOCKTON PATIENT MEDICARE (WNR) MEDICARE (M) PART A Mar 08, 2007 PART A [id number] KRISTOFER STOCKTON PATIENT MEDICARE (WNR) MEDICARE (M) PART A Mar 08, 2007 PART A [id number] KRISTOFER STOCKTON PATIENT MEDICARE (WNR) MEDICARE (M) PART A Mar 08, 2007 PART A [id number] KRISTOFER STOCKTON PATIENT Selected Encounter This section includes the information on record at [place] for the Encounter. Date/Time Encounter Type Encounter Description Reason Pro vider Source Oct 11, 2023 12:00 AM Outpatient Encounter EVENT (HISTORICAL) IHE Encounter Template Text not used by [place] Plan of Treatment: Future Appointments (+ 6 months) and Future Tests (+/- 45 days) The Plan of Treatment section includes future care activities for the patient [facility] [place] [facility] This section includes future appointments and future orders which are active, pending or scheduled. Future Appointments This section includes appointments that were scheduled to occur 6 months from the date of the Encounter, up to a maximum of 20 appointments. The data comes from all [facility]. Appointment Date/Time Appointment Type Appointme nt Facility Name Oct 28, 2023 02:15 PM AMBULATORY - MEDICINE [facility] Oct 28, 2023 03:30 PM AMBULATORY - MEDICINE [facility] November 18, 2023 12:40 PM AMBULATORY - SURGERY [facility] November 28, 2023 09:20 AM AMBULATORY - MEDICINE [facility] Dec 16, 2023 01:00 PM AMBULATORY - SURGERY [facility] Dec 16, 2023 02:00 PM AMBULATORY - SURGERY [facility] Active, Pending, and Scheduled Orders This section includes a listing of several types of active, pending, and scheduled orders, including clinic medications orders, diagnostic test orders, procedure orders and consult orders; where the start date of the order is 45 days before the date of the Encounter or 45 days after the date of theEncounter. The data comes from all [facility]. Test Date/Time Test Type Test Details Facility Name Sep 15, 2023 12:00 AM Laboratory - Chemi stry Order ELECTROLYTES/ANION GAP PLASMA SP ONCE [facility] Sep 15, 2023 12:00 AM Laboratory - Chemi stry Order CREATININE(INCLUDES EGFR) PLASMA [facility] Sep 15, 2023 12:00 AM Laboratory - Chemi stry Order PHOSPHORUS PLASMA [facility] Sep 15, 2023 12:00 AM Laboratory - Chemi stry Order ALBUMIN PLASMA [facility] Sep 15, 2023 12:00 AM Laboratory - Chemi stry Order UREA NITROGEN PLASMA SP ONCE [facility] Sep 15, 2023 12:00 AM Laboratory - Chemi stry Order CALCIUM PLASMA SP [facility] Sep 15, 2023 12:00 AM Laboratory - Chemi stry Order CBC BLOOD [facility] Sep 15, 2023 12:00 AM Laboratory - Chemi stry Order PTH-N-TACT PLASMA [facility] Sep 15, 2023 12:00 AM Laboratory - Chemi stry Order GLUCOSE PLASMA [facility] Oct 11, 2023 12:00 AM Laboratory - Blood Bank Order ABO/RH - LAB BLOOD [facility] Oct 11, 2023 06:45 AM Laboratory - Blood Bank Order TYPE & SCREEN - LAB BLOOD [facility] Lab Results: +/- 30 days [...] Range Comment Oct 11, 2023 12:27 PM [facility] POC ACT Specimen Type: BLOOD No comment entered. Ordering Provider: LORETO HONG Report Released Date/Time: Oct 11, 2023 12:32 PM Reporting Lab: [facility] [phone] Performing Lab: [facility] [address] POC ACT 199 H 84-139 Oct 11, 2023 12:13 PM [facility] POC ACT Specimen Type: BLOOD No comment entered. Ordering Provider: LORETO HONG Report Released Date/Time: Oct 11, 2023 12:20 PM Reporting Lab: [facility] [phone] Performing Lab: [facility] [address] POC ACT 384 H 84-139 Oct 11, 2023 11:50 AM [facility] POC ACT Specimen Type: BLOOD No comment entered. Ordering Provider: LORETO HONG Report Released Date/Time: Oct 11, 2023 12:00 PM Reporting Lab: [facility] [address] Performing Lab: [facility] [address] POC ACT 407 H 84-139 Oct 11, 2023 11:50 AM [facility] [place] GLUCOSE Specimen Type: BLOOD No comment entered. Ordering Provider: LORETO HONG Report Released Date/Time: Oct 11, 2023 01:30 PM Reporting Lab: [facility] [address] Performing Lab: [facility] [address] [place] GLUCOSE 161 H 70-100 Oct 11, 2023 11:32 AM [facility] POC ACT Specimen Type: BLOOD No comment entered. Ordering Provider: LORETO HONG Report Released Date/Time: Oct 11, 2023 11:47 AM Reporting Lab: [facility] [phone] Performing Lab: [facility] [address] POC ACT 345 H 84-139 Oct 11, 2023 11:11 AM [facility] POC ACT Specimen Type: BLOOD No comment entered. Ordering Provider: LORETO HONG Report Released Date/Time: Oct 11, 2023 11:20 AM Reporting Lab: [facility] [phone] Performing Lab: [facility] [address] POC ACT 334 H 84-139 Oct 11, 2023 11:11 AM [facility] [place] GLUCOSE Specimen Type: BLOOD No comment entered. Ordering Provider: LORETO HONG Report Released Date/Time: Oct 11, 2023 01:30 PM Reporting Lab: [facility] [address] Performing Lab: [facility] [address] [place] GLUCOSE 167 H 70-100 Oct 11, 2023 10:56 AM [facility] POC ACT Specimen Type: BLOOD No comment entered. Ordering Provider: LORETO HONG Report Released Date/Time: Oct 11, 2023 11:04 AM Reporting Lab: [facility] [address] Performing Lab: [facility] [address] POC ACT 310 H 84-139 Oct 11, 2023 10:40 AM [facility] POC ABG/ELECTROLYTES Specimen Type: ARTERIAL BLOOD Comment: FIO2 = 55% Patient Temp: 35.5 C Sample Type = ARTERIAL Ordering Provider: LORETO HONG Report Released Date/Time: Oct 11, 2023 01:20 PM Reporting Lab: [facility] [address] Performing Lab: [facility] [address] POC PH 7.396 7.35-7.45 POC PCO2 36.1 [...] H 80.0-105.0 Oct 11, 2023 10:37 AM [facility] [place] GLUCOSE Specimen Type: BLOOD No comment entered. Ordering Provider: LORETO HONG Report Released Date/Time: Oct 11, 2023 01:30 PM Reporting Lab: [facility] [address] Performing Lab: [facility] [address] [place] GLUCOSE 163 H 70-100 Oct 11, 2023 10:36 AM [facility] POC ACT Specimen Type: BLOOD No comment entered. Ordering Provider: LORETO HONG Report Released Date/Time: Oct 11, 2023 10:41 AM Reporting Lab: [facility] [address] Performing Lab: [facility] [address] POC ACT 255 H 84-139 Oct 11, 2023 09:16 AM [facility] POC ABG/ELECTROLYTES Specimen Type: ARTERIAL BLOOD Comment: FIO2 = 56% Patient Temp: 35.2 C Sample Type = ARTERIAL Ordering Provider: LORETO HONG Report Released Date/Time: Oct 11, 2023 01:20 PM Reporting Lab: [facility] [address] Performing Lab: [facility] [address] POC PH 7.374 7.35-7.45 POC PCO2 38.9 [...] H 80.0-105.0 Oct 11, 2023 09:15 AM [facility] [place] GLUCOSE Specimen Type: BLOOD No comment entered. Ordering Provider: LORETO HONG Report Released Date/Time: Oct 11, 2023 01:30 PM Reporting Lab: [facility] [address] Performing Lab: [facility] [address] [place] GLUCOSE 170 H 70-100 Oct 11, 2023 09:10 AM [facility] POC ACT Specimen Type: BLOOD No comment entered. Ordering Provider: LORETO HONG Report Released Date/Time: Oct 11, 2023 09:16 AM Reporting Lab: [facility] [address] Performing Lab: [facility] [address] POC ACT 147 H 84-139 Oct 11, 2023 06:35 AM [facility] ACT PART THROMBO TIME Specimen Type: PLASMA No comment entered. Ordering Provider: RONALDO MAS Report Released Date/Time: Apr 16, 2023 01:48 PM Reporting Lab: [facility] [address] Performing Lab: [facility] [address] APTT 29.9 25.1-36.5 Oct 11, 2023 06:35 AM [facility] PROTHROMBIN TIME/INR Specimen Type: PLASMA No comment entered. Ordering Provider: RONALDO MAS Report Released Date/Time: Apr 16, 2023 01:48 PM Reporting Lab: [facility] [address] Performing Lab: [facility] [address] .INR 1.0 0.8-1.1 .PT 11.9 9.4-12.5 Oct 11, 2023 06:35 AM [facility] BASIC METABOLIC PANEL+MG Specimen Type: PLASMA No comment entered. Ordering Provider: RONALDO MAS Report Released Date/Time: Apr 16, 2023 01:48 PM Reporting Lab: [facility] [address] Performing Lab: [facility] [address] CREATININE 3.0 H 0.7-1.2 UREA NITROGEN 38 H 8-26 GLUCOSE 151 H 70-100 SODIUM 142 136-145 POTASSIUM 4.9 3.5-5.1 CHLORIDE 108 H 98-107 CO2 27 22-29 CALCIUM 8.8 8.4-10.2 MAGNESIUM 2.0 1.6-2.6 ANION GAP 7 5-15 .CREAT EGFR(CKD-EPI) 20 L >60 Oct 11, 2023 06:35 AM [facility] CBC Specimen Type: BLOOD No comment entered. Ordering Provider: RONALDO MAS Report Released Date/Time: Apr 16, 2023 01:48 PM Reporting Lab: [facility] [address] Performing Lab: [facility] [address] WBC 6.09 4.0-11.0 RBC 4.07 L 4.6-6.2 [...] 2023 03:15 PM 58 126/[address] [facility] Oct 11, 2023 03:00 PM 58 118/[address] [facility] Oct 11, 2023 02:45 PM 60 118/[address] [facility] Oct 11, 2023 02:44 PM 97.5 59 117/[address] [facility] Social History: Smoking Status (Most current) and Tobacco Use (All prior to encounter date) This section includes the most current, and the historical, smoking and tobacco- related health factors from the [place] facility where the Encounter took place. Current Smoking Status This section includes the most current smoking, or tobacco-related health factor, from the [place] facility where the Encounter took place. Date/Time Current Smoking Status Comment Facil ity Jan 02, 2023 01:15 PM VA-TOBACCO FORMER USER [facility] Tobacco Use History This section includes a history of the smoking, or tobacco-related health factors, that were collected on or before the date of the Encounter. The data comes from the [place] facility where the Encounter took place. Date/Time Smoking Status/Tobacco Use Comment F acility Jan 02, 2023 01:15 PM VA-TOBACCO QUIT 15 YRS OR MORE [facility] Oct 24, 2021 08:45 AM VA-TOBACCO FORMER USER [facility] Oct 24, 2021 08:45 AM VA-TOBACCO QUIT 15 YRS OR MORE [facility] Apr 27, 2020 03:00 PM VA-TOBACCO FORMER USER [facility] Apr 27, 2020 03:00 PM VA-TOBACCO QUIT 15 YRS OR MORE [facility] Apr 23, 2019 05:29 PM INPT NO TOBACCO USE IN LAST 30 D AYS [facility] Oct 15, 2018 09:08 AM VA-TOBACCO FORMER USER [facility] Oct 15, 2018 09:08 AM VA-TOBACCO QUIT 15 YRS OR MORE [facility] November 13, 2017 09:05 AM FORMER TOBACCO USER 7Y OR GREATE R [facility] November 22, 2016 03:15 PM FORMER TOBACCO USER 7Y OR [facility] Oct 21, 2015 08:37 AM FORMER TOBACCO USER 7Y OR [facility] Oct 21, 2014 01:32 PM FORMER TOBACCO USER 7Y OR [facility] Oct 29, 2013 08:29 AM FORMER TOBACCO USER 7Y OR [facility] Mar 11, 2007 08:07 AM FORMER TOBACCO USER 7Y OR [facility]
--- OUTSIDE RECORDS SUMMARY | 2023-10-12 | XMS_ITS ---
NON-OR ANESTHESIA PROCEDURES [facility] Encounter Summary Created on: October 11, 2023 KRISTOFER STOCKTON : 1940 Sex: Male Author Name [employer] Organization [employer] Address [address] [place] [address] Support Name Relationship Address Phone [place]OCK[place] JUDE Next of Kin [address] [facility] [place] [phone] JUDE STOCKTON Emergency Contact [phone] [address] JUDE STOCKTON Next of Kin [address] [facility] [place] [phone] JUDE STOCKTON Emergency Contact [phone] [place] [address] Insurance Providers: All historical and [...] Dinero's Name Patient's Relationship to Policy Dinero [facility] MEDICARE SUPPLEGANESH MAHAN IDU Jul 08, 2016 [id number] [phone] KRISTOFER STOCKTON PATIENT MEDICARE (WNR) MEDICARE (M) PART B Jun 07, 2007 PART B [id number] [phone] KRISTOFER STOCKTON PATIENT MEDICARE (WNR) MEDICARE (M) PART B Jun 07, 2007 PART B [id number] [phone] KRISTOFER STOCKTON PATIENT MEDICARE (WNR) MEDICARE (M) PART B Jun 07, 2007 PART B [id number] KRISTOFER STOCKTON PATIENT MEDICARE (WNR) MEDICARE (M) PART B Jun 07, 2007 PART B [id number] [phone] KRISTOFER STOCKTON PATIENT MEDICARE (WNR) MEDICARE (M) PART A Mar 08, 2007 PART A [id number] KRISTOFER STOCKTON PATIENT MEDICARE (WNR) MEDICARE (M) PART A Mar 08, 2007 PART A [id number] [phone] KRISTOFER STOCKTON PATIENT MEDICARE (WNR) MEDICARE (M) PART A Mar 08, 2007 PART A [id number] KRISTOFER STOCKTON PATIENT MEDICARE (WNR) MEDICARE (M) PART A Mar 08, 2007 PART A [id number] KRISTOFER STOCKTON PATIENT Selected Encounter This section includes the information on record at [place] for the Encounter. Date/Time Encounter Type Encounter Description Reason Provider Source Oct 11, 2023 01:29 PM ANESTH CARDIAC ELECTROPHYS NON-OR ANESTHESIA PROCEDURES ICD-10-CM I48.91 Unspecified atrial fibrillation MELIDA CUEVAS Judah Encounter Template Text not used by [place] Assessments - Encounter Diagnoses This section includes the primary and secondary diagnoses documented for the Encounter. Date/Time Primary/Secondary Diagnosis Diagnosis Name Provider Source Oct 11, 2023 01:32 PM PRIMARY Unspecified atrial fibrillation [facility] Oct 11, 2023 01:32 PM SECONDARY Athscl heart disease of [place] cor art w unsp ang pctrs [facility] Plan of Treatment: Future Appointments (+ 6 months) and Future Tests (+/- 45 days) The Plan of Treatment section includes future care activities for the patient from all [place] treatmentfacilities. This section includes future appointments and [...] 11, 2023 06:45 AM AMBULATORY - NONE [facility] Oct 11, 2023 07:15 AM AMBULATORY - MEDICINE [facility] Oct 11, 2023 07:30 AM [facility] Oct 11, 2023 08:00 AM [facility] Oct 11, 2023 03:00 PM AMBULATORY - NONE [facility] Oct 11, 2023 03:10 PM AMBULATORY - MEDICINE [facility] Oct 28, 2023 02:15 PM AMBULATORY - MEDICINE [facility] Oct 28, 2023 03:30 PM AMBULATORY - MEDICINE [facility] November 18, 2023 12:40 PM AMBULATORY - SURGERY [facility] November 28, 2023 09:20 AM AMBULATORY - MEDICINE [facility] Dec 16, 2023 01:00 PM AMBULATORY - SURGERY [facility] Dec 16, 2023 02:00 PM AMBULATORY - SURGERY [facility] Active, Pending, and Scheduled Orders This section includes a listing of several types of active, pending, and scheduled orders, including clinic medications orders, diagnostic test orders, procedure orders and consult orders; where the start date of the order is 45 days before the date of the Encounter or 45 days after the date of theEncounter. The data comes from all [facility]. Test Date/Time Test Type Test Details Facility Name Sep 15, 2023 12:00 AM Laboratory - Chemi stry Order ELECTROLYTES/ANION GAP PLASMA [facility] Sep 15, 2023 12:00 AM Laboratory - Chemi stry Order UREA NITROGEN PLASMA [facility] Sep 15, 2023 12:00 AM Laboratory - Chemi stry Order CALCIUM PLASMA [facility] Sep 15, 2023 12:00 AM Laboratory - Chemi stry Order PHOSPHORUS PLASMA [facility] Sep 15, 2023 12:00 AM Laboratory - Chemi stry Order CREATININE(INCLUDES EGFR) PLASMA [facility] Sep 15, 2023 12:00 AM Laboratory - Chemi stry Order ALBUMIN PLASMA [facility] Sep 15, 2023 12:00 AM Laboratory - Chemi stry Order PTH-N-TACT PLASMA [facility] Sep 15, 2023 12:00 AM Laboratory - Chemi stry Order CBC BLOOD [facility] Sep 15, 2023 12:00 AM Laboratory - Chemi stry Order GLUCOSE PLASMA [facility] Oct 11, 2023 12:00 AM Laboratory - Blood Bank Order ABO/RH - LAB BLOOD [facility] Oct 11, 2023 06:45 AM Laboratory - Blood Bank Order TYPE & SCREEN - LAB BLOOD [facility] Lab Results: +/- 30 days of [...] Range Comment Oct 11, 2023 12:27 PM [facility] POC ACT Specimen Type: BLOOD No comment entered. Ordering Provider: LORETO HONG Report Released Date/Time: Oct 11, 2023 12:32 PM Reporting Lab: [facility] [address] Performing Lab: [facility] [address] POC ACT 199 H 84-139 Oct 11, 2023 12:13 PM [facility] POC ACT Specimen Type: BLOOD No comment entered. Ordering Provider: LORETO HONG Report Released Date/Time: Oct 11, 2023 12:20 PM Reporting Lab: [facility] [address] Performing Lab: [facility] [address] POC ACT 384 H 84-139 Oct 11, 2023 11:50 AM [facility] POC ACT Specimen Type: BLOOD No comment entered. Ordering Provider: LORETO HONG Report Released Date/Time: Oct 11, 2023 12:00 PM Reporting Lab: [facility] [address] Performing Lab: [facility] [address] POC ACT 407 H 84-139 Oct 11, 2023 11:50 AM [facility] FINGERSTICK GLUCOSE Specimen Type: BLOOD No comment entered. Ordering Provider: LORETO HONG Report Released Date/Time: Oct 11, 2023 01:30 PM Reporting Lab: [facility] [address] Performing Lab: [facility] [address] [place] GLUCOSE 161 H 70-100 Oct 11, 2023 11:32 AM [facility] POC ACT Specimen Type: BLOOD No comment entered. Ordering Provider: LORETO HONG Report Released Date/Time: Oct 11, 2023 11:47 AM Reporting Lab: [facility] [address] Performing Lab: [facility] [address] POC ACT 345 H 84-139 Oct 11, 2023 11:11 AM [facility] POC ACT Specimen Type: BLOOD No comment entered. Ordering Provider: LORETO HONG Report Released Date/Time: Oct 11, 2023 11:20 AM Reporting Lab: [facility] [address] Performing Lab: [facility] [address] POC ACT 334 H 84-139 Oct 11, 2023 11:11 AM [facility] [place] GLUCOSE Specimen Type: BLOOD No comment entered. Ordering Provider: LORETO HONG Report Released Date/Time: Oct 11, 2023 01:30 PM Reporting Lab: [facility] [address] Performing Lab: [facility] [address] [place] GLUCOSE 167 H 70-100 Oct 11, 2023 10:56 AM [facility] POC ACT Specimen Type: BLOOD No comment entered. Ordering Provider: LORETO HONG Report Released Date/Time: Oct 11, 2023 11:04 AM Reporting Lab: [facility] [address] Performing Lab: [facility] [address] POC ACT 310 H 84-139 Oct 11, 2023 10:40 AM [facility] POC ABG/ELECTROLYTES Specimen Type: ARTERIAL BLOOD Comment: FIO2 = 55% Patient Temp: 35.5 C Sample Type = ARTERIAL Ordering Provider: LORETO HONG Report Released Date/Time: Oct 11, 2023 01:20 PM Reporting Lab: [facility] [address] Performing Lab: [facility] [address] POC PH 7.396 7.35-7.45 POC PCO2 36.1 [...] H 80.0-105.0 Oct 11, 2023 10:37 AM [facility] [place] GLUCOSE Specimen Type: BLOOD No comment entered. Ordering Provider: LORETO HONG Report Released Date/Time: Oct 11, 2023 01:30 PM Reporting Lab: [facility] [address] Performing Lab: [facility] [address] [place] GLUCOSE 163 H 70-100 Oct 11, 2023 10:36 AM [facility] POC ACT Specimen Type: BLOOD No comment entered. Ordering Provider: LORETO HONG Report Released Date/Time: Oct 11, 2023 10:41 AM Reporting Lab: [facility] [address] Performing Lab: [facility] [address] POC ACT 255 H 84-139 Oct 11, 2023 09:16 AM [facility] POC ABG/ELECTROLYTES Specimen Type: ARTERIAL BLOOD Comment: FIO2 = 56% Patient Temp: 35.2 C Sample Type = ARTERIAL Ordering Provider: LORETO HONG Report Released Date/Time: Oct 11, 2023 01:20 PM Reporting Lab: [facility] [address] Performing Lab: [facility] [address] POC PH 7.374 7.35-7.45 POC PCO2 38.9 [...] H 80.0-105.0 Oct 11, 2023 09:15 AM [facility] F[place] GLUCOSE Specimen Type: BLOOD No comment entered. Ordering Provider: LORETO HONG Report Released Date/Time: Oct 11, 2023 01:30 PM Reporting Lab: [facility] [address] Performing Lab: [facility] [address] [place] GLUCOSE 170 H 70-100 Oct 11, 2023 09:10 AM [facility] POC ACT Specimen Type: BLOOD No comment entered. Ordering Provider: LORETO HONG Report Released Date/Time: Oct 11, 2023 09:16 AM Reporting Lab: [facility] [address] Performing Lab: [facility] [address] POC ACT 147 H 84-139 Oct 11, 2023 06:35 AM [facility] ACT PART THROMBO TIME Specimen Type: PLASMA No comment entered. Ordering Provider: RONALDO MAS Report Released Date/Time: Apr 16, 2023 01:48 PM Reporting Lab: [facility] [address] Performing Lab: [facility] [address] APTT 29.9 25.1-36.5 Oct 11, 2023 06:35 AM [facility] PROTHROMBIN TIME/INR Specimen Type: PLASMA No comment entered. Ordering Provider: RONALDO MAS Report Released Date/Time: Apr 16, 2023 01:48 PM Reporting Lab: [facility] [address] Performing Lab: [facility] [address] .INR 1.0 0.8-1.1 .PT 11.9 9.4-12.5 Oct 11, 2023 06:35 AM [facility] BASIC METABOLIC PANEL+MG Specimen Type: PLASMA No comment entered. Ordering Provider: RONALDO MAS Report Released Date/Time: Apr 16, 2023 01:48 PM Reporting Lab: [facility] [address] Performing Lab: [facility] [address] CREATININE 3.0 H 0.7-1.2 UREA NITROGEN 38 H 8-26 GLUCOSE 151 H 70-100 SODIUM 142 136-145 POTASSIUM 4.9 3.5-5.1 CHLORIDE 108 H 98-107 CO2 27 22-29 CALCIUM 8.8 8.4-10.2 MAGNESIUM 2.0 1.6-2.6 ANION GAP 7 5-15 .CREAT EGFR(CKD-EPI) 20 L >60 Oct 11, 2023 06:35 AM [facility] CBC Specimen Type: BLOOD No comment entered. Ordering Provider: RONALDO MAS Report Released Date/Time: Apr 16, 2023 01:48 PM Reporting Lab: [facility] [address] Performing Lab: [facility] [address] WBC 6.09 4.0-11.0 RBC 4.07 L 4.6-6.2 [...] 11, 2023 03:15 PM 58 126/61 96 [facility] Oct 11, 2023 03:00 PM 58 118/56 95 [facility] Oct 11, 2023 02:45 PM 60 118/62 97 [facility] Oct 11, 2023 02:44 PM 97.5 59 117/61 18 97 0 [facility] Social History: Smoking Status (Most current) and Tobacco Use (All prior to encounter date) This section includes the most current, and the historical, smoking and tobacco- related health factors from the [facility] where the Encounter took place. Current Smoking Status This section includes the most current smoking, or tobacco-related health factor, from the [place] facility where the Encounter took place. Date/Time Current Smoking Status Comment Dany simon Jan 02, 2023 01:15 PM VA-TOBACCO FORMER USER [facility] Tobacco Use History This section includes a history of the smoking, or tobacco-related health factors, that were collected on or before the date of the Encounter. The data comes from the [place] facility where the Encounter took place. Date/Time Smoking Status/Tobacco Use Comment F acility Jan 02, 2023 01:15 PM VA-TOBACCO QUIT 15 YRS OR MORE [facility] Oct 24, 2021 08:45 AM VA-TOBACCO FORMER USER [facility] Oct 24, 2021 08:45 AM VA-TOBACCO QUIT 15 YRS OR MORE [facility] Apr 27, 2020 03:00 PM VA-TOBACCO FORMER USER [facility] Apr 27, 2020 03:00 PM VA-TOBACCO QUIT 15 YRS OR MORE [facility] Apr 23, 2019 05:29 PM INPT NO TOBACCO USE IN LAST 30 D AYS [facility] Oct 15, 2018 09:08 AM VA-TOBACCO FORMER USER [facility] Oct 15, 2018 09:08 AM VA-TOBACCO QUIT 15 YRS OR MORE [facility] November 13, 2017 09:05 AM FORMER TOBACCO USER 7Y OR GREATE R [facility] November 22, 2016 03:15 PM FORMER TOBACCO USER 7Y OR GREATE R [facility] Oct 21, 2015 08:37 AM FORMER TOBACCO USER 7Y OR GREATE R [facility] Oct 21, 2014 01:32 PM FORMER TOBACCO USER 7Y OR GREATE R [facility] Oct 29, 2013 08:29 AM FORMER TOBACCO USER 7Y OR GREATE R [facility] Mar 11, 2007 08:07 AM FORMER TOBACCO USER 7Y OR GREATE R [facility] Encounter Notes: All associated encounter notes This section contains the clinical notes associated to the Encounter. Date/Time Encounter Note(s) Provider Source Oct 11, 2023 01:49 PM NURSING TRANSFER SUMMARIZATION NOTE: LOCAL TITLE: JENNIFER PACU TRANSFER NOTE STANDARD TITLE: NURSING TRANSFER SUMMARIZATION NOTE DATE OF NOTE: OCT 11, 2023@13:49 ENTRY DATE: OCT 11, 2023@13:49:39 AUTHOR: SVETA ABEL COSIGNER: URGENCY: STATUS: COMPLETED PACU Transfer Note Status Post: Diagnostic Procedures: Induction of arrhythmia Left atrial pacing/recording Drug infusion Therapeutic Procedures: Atrial fibrillation ablation Adjunctive Procedures: Ultrasound guidance for vascular access Intracardiac Echocardiography 3D electroanatomic mapping Transseptal catheterization Other Procedures: Vascular closure (Vascade x4, bilateral femoral veins) Code Status: Full Code n/a Patient's Infection Control Status: standard Pertinent History: DM, HTN, MILVIA - does not wear cpap, Afib, tremor, CKD stage 4, RA, CAD Anesthesia Type: General If block used estimated time to wear off: Hrs. Estimated Blood Loss: Crystalloid (OR/PACU): 1480 Colloid (OR/PACU): Medications Given in OR: Zofran 4 mg Fentanyl 100 mcg Other: Lasix 10mg @ 1145 Last dose of Acetaminophen (Tylenol) 1000 mg at 1315. Next dose of Acetaminophen may given 6 hours from charted time. Discharging Anesthesiologist: FAITH MONTEZ Current Vital Signs: Temperature: 36.9 C BP: 120/57, HR: 59 Respiratory Rate: 14 Room Air Oxygen Saturation: 94% Heart Rhythm: SR/SB -- no ectopy Pain: none, Tylenol given after arrival to PACU Neuro: intact, alert and oriented. very SAMISH- has hearing aides. drowsy but awakens easily. BROOKE, no numbness or tingling. neuros intact. CV: NHT. 18g SL and 16g SL bilat hands. Sun d/c'd L wrist. 2+ pedal and post-tib pulses bilat. Respiratory: LS clear bilat. GI: no nausea : Amount:cc at Urine Output (OR/PACU): 870 cc Urine Source: Justin Dressings: gauze and tegaderm bilat groin sites, C/D/I. LFV 9fr and 11fr with vascade closure, RFV 6fr and 9 fr closed with vascade closure. BEDREST UNTIL 1430. Drains: none Integrative Therapies: warm blankets Skin: intact Pertinent labs: FS 157 in pacu. 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 /igor/ SVETA ABEL RN Signed: 10/11/2023 13:57 [facility]A [facility] Oct 11, 2023 01:29 PM ANESTHESIOLOGY NOT E: LOCAL TITLE: ANESTHESIA NON OR PROCEDURE NOTE STANDARD TITLE: ANESTHESIOLOGY NOTE DATE OF NOTE: OCT 11, 2023@13:29 ENTRY DATE: OCT 11, 2023@13:29:38 AUTHOR: JEANNE KEITH COSIGNER: URGENCY: STATUS: COMPLETED Prinicipal Procedure: PVI Location of Procedure: [employer] [facility] Date: October 11, 2023 Anesthesia start time: 08 Procedure start time: Procedure end time: Anesthesia end time: 1301 Principal salvager: Jeanne Keith Anesthesiologist: Isabelle Cuevas Student: No Anesthesia technique: General Anesthesia /es/ JEANNE KEITH CRNA CERTIFIED REGISTERED NURSE LINEMAN A CLASS Signed: 10/11/2023 13:31 JEANNE KEITH [facility]
--- OUTSIDE RECORDS SUMMARY | 2023-10-12 00:01 | XMS_ITS | Encounter Summary ---
Author Name [employer] [facility] [employer] Organization [facility] Address [address] [place] [address] Support Name Relationship Address Phone JOHN STOCKTONINE Next of Kin [address] [facility] LESLIE LOCKWOOD [phone] JUDE STOCKTON Emergency Contact [id number] [address] JUDE STOCKTON Next of Kin [address] [place] [phone] JUDE STOCKTON Emergency Contact [phone] [place] [address] Insurance Providers: All historical and [...] MEDICARE SUPPLEGANESH MAHAN IDU Jul 08, 2016 [id number] [phone] KRISTOFER STOCKTON PATIENT MEDICARE (WNR) MEDICARE (M) PART B Jun 07, 2007 PART B [id number] KRISTOFER STOCKTON PATIENT MEDICARE (WNR) MEDICARE (M) PART B Jun 07, 2007 PART B [id number] KRISTOFER STOCKTON PATIENT MEDICARE (WNR) MEDICARE (M) PART B Jun 07, 2007 PART B [id number] KRISTOFER STOCKTON PATIENT MEDICARE (WNR) MEDICARE (M) PART B Jun 07, 2007 PART B [id number] KRISTOFER STOCKTON PATIENT MEDICARE (WNR) MEDICARE (M) PART A Mar 08, 2007 PART A [id number] KRISTOFER STOCKTON PATIENT MEDICARE (WNR) MEDICARE (M) PART A Mar 08, 2007 PART A [id number] KRISTOFER STOCKTON PATIENT MEDICARE (WNR) MEDICARE (M) PART A Mar 08, 2007 PART A [id number] [phone] KRISTOFER STOCKTON PATIENT MEDICARE (WNR) MEDICARE (M) PART A Mar 08, 2007 PART A [id number] KRISTOFER STOCKTON PATIENT Selected Encounter This section includes the information on record at [place] for the Encounter. Date/Time Encounter Type Encounter Description Reason Pro vider Source Oct 11, 2023 01:53 PM Outpatient Encounter EVENT (HISTORICAL) IHE Encounter Template Text not used by [place] Plan of Treatment: Future Appointments (+ 6 months) and Future Tests (+/- 45 days) The Plan of Treatment section includes future care activities for the [facility] This section includes future appointments and future orders which are active, pending or scheduled. Future Appointments This section includes appointments that were scheduled to occur 6 months from the date of the Encounter, up to a maximum of 20 appointments. The data comes from all [facility]. Appointment Date/Time Appointment Type Appointme nt Facility Name Oct 28, 2023 02:15 PM AMBULATORY - MEDICINE [facility] Oct 28, 2023 03:30 PM AMBULATORY - MEDICINE [facility] November 18, 2023 12:40 PM AMBULATORY - SURGERY [facility] November 28, 2023 09:20 AM AMBULATORY - MEDICINE [facility] Dec 16, 2023 01:00 PM [...] of theEncounter. The data comes from all [facility]. Test Date/Time Test Type Test Details Facility Name Sep 15, 2023 12:00 AM Laboratory - Chemi stry Order UREA NITROGEN PLASMA SP ONCE [facility] Sep 15, 2023 12:00 AM Laboratory - Chemi stry Order CREATININE(INCLUDES EGFR) PLASMA SP [facility] Sep 15, 2023 12:00 AM Laboratory - Chemi stry Order ELECTROLYTES/ANION GAP PLASMA SP [facility] Sep 15, 2023 12:00 AM Laboratory - Chemi stry Order CALCIUM PLASMA SP [facility] Sep 15, 2023 12:00 AM Laboratory - Chemi stry Order PHOSPHORUS PLASMA SP [facility] Sep 15, 2023 12:00 AM Laboratory - Chemi stry Order ALBUMIN PLASMA [facility] Sep 15, 2023 12:00 AM Laboratory - Chemi stry Order CBC BLOOD SP [facility] Sep 15, 2023 12:00 AM Laboratory - Chemi stry Order PTH-N-TACT PLASMA [facility] Sep 15, 2023 12:00 AM Laboratory - Chemi stry Order GLUCOSE PLASMA [facility] Oct 11, 2023 12:00 AM Laboratory - Blood Bank Order ABO/RH - LAB BLOOD [facility] Oct 11, 2023 06:45 AM Laboratory - Blood Bank Order TYPE & SCREEN - LAB BLOOD [facility] Lab Results: +/- 30 days of the encounter This section includes the Chemistry and Hematology Lab Results on record with [place] for the patient. Radiology Reports and Pathology Reports are provided separately, in subsequent sections. Lab Results This section contains the Chemistry/Hematology Results that were resulted 30 days before or 30 daysafter the date of the Encounter. Date/Time Source Result Type Result - Unit Interpretation Reference Range Comment Oct 11, 2023 12:27 PM [facility] POC ACT Specimen Type: BLOOD No comment entered. Ordering Provider: LORETO HONG Report Released Date/Time: Oct 11, 2023 12:32 PM Reporting Lab: [facility] [phone] Performing Lab: [facility] [phone] POC ACT 199 H 84-139 Oct 11, 2023 12:13 PM [facility] POC ACT Specimen Type: BLOOD No comment entered. Ordering Provider: LORETO HONG Report Released Date/Time: Oct 11, 2023 12:20 PM Reporting Lab: [facility] [phone] Performing Lab: [facility] [address] POC ACT 384 H 84-139 Oct 11, 2023 11:50 AM [facility] POC ACT Specimen Type: BLOOD No comment entered. Ordering Provider: LORETO HONG Report Released Date/Time: Oct 11, 2023 12:00 PM Reporting Lab: [facility] [phone] Performing Lab: [facility] [address] POC ACT 407 H 84-139 Oct 11, 2023 11:50 AM [facility] FINGERSTICK GLUCOSE Specimen Type: BLOOD No comment entered. Ordering Provider: LORETO HONG Report Released Date/Time: Oct 11, 2023 01:30 PM Reporting Lab: [facility] [phone] Performing Lab: [facility] [address] FINGERSTICK GLUCOSE 161 H 70-100 Oct 11, 2023 11:32 AM [facility] POC ACT Specimen Type: BLOOD No comment entered. Ordering Provider: LORETO HONG Report Released Date/Time: Oct 11, 2023 11:47 AM Reporting Lab: [facility] [address] Performing Lab: [facility] [address] POC ACT 345 H 84-139 Oct 11, 2023 11:11 AM [facility] POC ACT Specimen Type: BLOOD No comment entered. Ordering Provider: LORETO HONG Report Released Date/Time: Oct 11, 2023 11:20 AM Reporting Lab: [facility] [phone] Performing Lab: [facility] [address] POC ACT 334 H 84-139 Oct 11, 2023 11:11 AM [facility] FINGERSTICK GLUCOSE Specimen Type: BLOOD No comment entered. Ordering Provider: LORETO HONG Report Released Date/Time: Oct 11, 2023 01:30 PM Reporting Lab: [facility] [phone] Performing Lab: [facility] [address] [place] GLUCOSE 167 H 70-100 Oct 11, 2023 10:56 AM [facility] POC ACT Specimen Type: BLOOD No comment entered. Ordering Provider: LORETO HONG Report Released Date/Time: Oct 11, 2023 11:04 AM Reporting Lab: [facility] [address] Performing Lab: [facility] [address] POC ACT 310 H 84-139 Oct 11, 2023 10:40 AM [facility] POC ABG/ELECTROLYTES Specimen Type: ARTERIAL BLOOD Comment: FIO2 = 55% Patient Temp: 35.5 C Sample Type = ARTERIAL Ordering Provider: LORETO HONG Report Released Date/Time: Oct 11, 2023 01:20 PM Reporting Lab: [facility] [address] Performing Lab: [facility] [address] POC PH 7.396 7.35-7.45 POC PCO2 36.1 [...] H 80.0-105.0 Oct 11, 2023 10:37 AM [facility] FINGERSTICK GLUCOSE Specimen Type: BLOOD No comment entered. Ordering Provider: LORETO HONG Report Released Date/Time: Oct 11, 2023 01:30 PM Reporting Lab: [facility] [address] Performing Lab: [facility] [address] [place] GLUCOSE 163 H 70-100 Oct 11, 2023 10:36 AM [facility] POC ACT Specimen Type: BLOOD No comment entered. Ordering Provider: LORETO HONG Report Released Date/Time: Oct 11, 2023 10:41 AM Reporting Lab: [facility] [phone] Performing Lab: [facility] [address] POC ACT 255 H 84-139 Oct 11, 2023 09:16 AM [facility] POC ABG/ELECTROLYTES Specimen Type: ARTERIAL BLOOD Comment: FIO2 = 56% Patient Temp: 35.2 C Sample Type = ARTERIAL Ordering Provider: LORETO HONG Report Released Date/Time: Oct 11, 2023 01:20 PM Reporting Lab: [facility] [address] Performing Lab: [facility] [address] POC PH 7.374 7.35-7.45 POC PCO2 38.9 [...] H 80.0-105.0 Oct 11, 2023 09:15 AM [facility] FINGERSTICK GLUCOSE Specimen Type: BLOOD No comment entered. Ordering Provider: LORETO HONG Report Released Date/Time: Oct 11, 2023 01:30 PM Reporting Lab: [facility] [address] Performing Lab: [facility] [address] F[place]ER[place] GLUCOSE 170 H 70-100 Oct 11, 2023 09:10 AM [facility] POC ACT Specimen Type: BLOOD No comment entered. Ordering Provider: LORETO HONG Report Released Date/Time: Oct 11, 2023 09:16 AM Reporting Lab: [facility] [address] Performing Lab: [facility] [address] POC ACT 147 H 84-139 Oct 11, 2023 06:35 AM [facility] ACT PART THROMBO TIME Specimen Type: PLASMA No comment entered. Ordering Provider: RONALDO MAS Report Released Date/Time: Apr 16, 2023 01:48 PM Reporting Lab: [facility] [address] Performing Lab: [facility] [address] APTT 29.9 25.1-36.5 Oct 11, 2023 06:35 AM [facility] PROTHROMBIN TIME/INR Specimen Type: PLASMA No comment entered. Ordering Provider: RONALDO MAS Report Released Date/Time: Apr 16, 2023 01:48 PM Reporting Lab: [facility] [address] Performing Lab: [facility] [address] .INR 1.0 0.8-1.1 .PT 11.9 9.4-12.5 Oct 11, 2023 06:35 AM [facility] CBC Specimen Type: BLOOD No comment entered. Ordering Provider: RONALDO MAS Report Released Date/Time: Apr 16, 2023 01:48 PM Reporting Lab: [facility] [address] Performing Lab: [facility] [address] WBC 6.09 4.0-11.0 RBC 4.07 L 4.6-6.2 HGB 12.6 L 13.5-17.9 HCT 37.7 L 41-54 MCV 92.6 80-100 MCH 31.0 27-33 MCHC 33.4 32.0-37.5 PLT 144 L 150-400 MPV 10.7 H 7.4-10.4 RDW 13.2 11.5-14.5 Oct 11, 2023 06:35 AM [facility] BASIC METABOLIC PANEL+MG Specimen Type: PLASMA No comment entered. Ordering Provider: RONALDO MAS Report Released Date/Time: Apr 16, 2023 01:48 PM Reporting Lab: [facility] [address] Performing Lab: [facility] [address] CREATININE 3.0 H 0.7-1.2 UREA NITROGEN 38 [...] 11, 2023 03:15 PM 58 126/61 96 [facility] Oct 11, 2023 03:00 PM 58 118/56 95 [facility] Oct 11, 2023 02:45 PM 60 118/62 97 [facility] Oct 11, 2023 02:44 PM 97.5 59 117/61 18 97 0 [facility] Social History: Smoking Status (Most [...] 02, 2023 01:15 PM VA-TOBACCO FORMER USER [facility] Tobacco Use History This section includes a history of the smoking, or tobacco-related health factors, that were collected on or before the date of the Encounter. The data comes from the [place] facility where the Encounter took place. Date/Time Smoking Status/Tobacco Use Comment F acility Jan 02, 2023 01:15 PM VA-TOBACCO QUIT 15 YRS OR MORE [facility] Oct 24, 2021 08:45 AM VA-TOBACCO FORMER USER [facility] Oct 24, 2021 08:45 AM VA-TOBACCO QUIT 15 YRS OR MORE [facility] Apr 27, 2020 03:00 PM VA-TOBACCO FORMER USER [facility] Apr 27, 2020 03:00 PM VA-TOBACCO QUIT 15 YRS OR MORE [facility] Apr 23, 2019 05:29 PM INPT NO TOBACCO USE IN LAST 30 D AYS [facility] Oct 15, 2018 09:08 AM VA-TOBACCO FORMER USER [facility] Oct 15, 2018 09:08 AM VA-TOBACCO QUIT 15 YRS OR MORE [facility] November 13, 2017 09:05 AM FORMER TOBACCO USER 7Y OR GREATE R [facility] November 22, 2016 03:15 PM FORMER TOBACCO USER 7Y OR JOHNE R [facility] Oct 21, 2015 08:37 AM FORMER TOBACCO USER 7Y OR JOHNE R [facility] Oct 21, 2014 01:32 PM FORMER TOBACCO USER 7Y OR JOHNE R [facility] Oct 29, 2013 08:29 AM FORMER TOBACCO USER 7Y OR JOHNE R [facility] Mar 11, 2007 08:07 AM FORMER TOBACCO USER 7Y OR [facility] R [facility] Encounter Notes: All associated encounter notes This section contains the clinical notes associated to the Encounter. Date/Time Encounter Note(s) Provider Source Oct 11, 2023 01:14 PM ANESTHESIOLOGY OPE RATIVE NOTE: LOCAL TITLE: [facility] ANESTHESIA RECORD STANDARD TITLE: ANESTHESIOLOGY OPERATIVE NOTE DATE OF NOTE: OCT 11, 2023@13:14 ENTRY DATE: OCT 11, 2023@13:53:01 AUTHOR: MELIDA CUEVAS EXP COSIGNER: URGENCY: STATUS: COMPLETED See [facility] for Full Anesthesia Record /igor/ MELIDA CUEVAS MDA ANESTHESIOLOGIST Signed: 10/11/2023 13:53 MELIDA CUEVAS [facility]
--- OUTSIDE RECORDS SUMMARY | 2023-10-12 00:01 | XMS_ITS | Encounter Summary ---
Author Name [facility] Organization [facility] Address [address] [place] [address] Support Name Relationship Address Phone JOHN STOCKTONINE Next of Kin [address] [place] [id number] JUDE STOCKTON Emergency Contact [address] [address] JUDE STOCKTON Next of Kin [address] [place] [phone] JUDE STOCKTON Emergency Contact [address] [address] Insurance Providers: All historical and [...] MEDICARE SUPPLEGANESH MAHAN IDU Jul 08, 2016 [id number] [phone] KRISTOFER STOCKTON PATIENT MEDICARE (WNR) MEDICARE (M) PART B Jun 07, 2007 PART B [id number] [phone] KRISTOFER STOCKTON PATIENT MEDICARE (WNR) MEDICARE (M) PART B Jun 07, 2007 PART B [id number] [phone] KRISTOFER STOCKTON PATIENT MEDICARE (WNR) MEDICARE (M) PART B Jun 07, 2007 PART B [id number] [phone] KRISTOFER STOCKTON PATIENT MEDICARE (WNR) MEDICARE (M) PART B Jun 07, 2007 PART B [id number] [phone] KRISTOFER STOCKTON PATIENT MEDICARE (WNR) MEDICARE (M) PART A Mar 08, 2007 PART A [id number] KRISTOFER STOCKTON PATIENT MEDICARE (WNR) MEDICARE (M) PART A Mar 08, 2007 PART A [id number] [phone] KRISTOFER STOCKTON PATIENT MEDICARE (WNR) MEDICARE (M) PART A Mar 08, 2007 PART A [id number] [phone] KRISTOFER STOCKTON PATIENT MEDICARE (WNR) MEDICARE (M) PART A Mar 08, 2007 PART A [id number] KRISTOFER STOCKTON PATIENT Selected Encounter This section includes the information on record at PA for the Encounter. Date/Time Encounter Type Encounter Description Reason Provider Source Oct 11, 2023 08:08 AM Outpatient Encounter AMBULATORY MELIDA CUEVAS Encounter Template Text not used by PA Plan of Treatment: Future Appointments (+ 6 months) and Future Tests (+/- 45 days) The Plan of Treatment section includes future care activities for the [facility] This section includes future appointments and future orders which are active, pending or scheduled. Future Appointments This section includes appointments that were scheduled to occur 6 months from the date of the Encounter, up to a maximum of 20 appointments. The data comes from all [facility]. Appointment Date/Time Appointment Type Appointme nt Facility Name Oct 28, 2023 02:15 PM AMBULATORY - MEDICINE [facility] Oct 28, 2023 03:30 PM AMBULATORY - MEDICINE [facility] November 18, 2023 12:40 PM AMBULATORY - SURGERY [facility] November 28, 2023 09:20 AM AMBULATORY - MEDICINE [facility] Dec 16, 2023 01:00 PM AMBULATORY - SURGERY [facility] Dec 16, 2023 02:00 PM AMBULATORY - SURGERY [facility] Active, Pending, and Scheduled Orders This section includes a listing of several types of active, pending, and scheduled orders, including clinic medications orders, diagnostic test orders, procedure orders and consult orders; where the start date of the order is 45 days before the date of the Encounter or 45 days after the date of theEncounter. The data comes from all [facility]. Test Date/Time Test Type Test Details Facility Name Sep 15, 2023 12:00 AM Laboratory - Chemi stry Order ELECTROLYTES/ANION GAP PLASMA SP ONCE [facility] Sep 15, 2023 12:00 AM Laboratory - Chemi stry Order CREATININE(INCLUDES EGFR) PLASMA [facility] Sep 15, 2023 12:00 AM Laboratory - Chemi stry Order CALCIUM PLASMA [facility] Sep 15, 2023 12:00 AM Laboratory - Chemi stry Order PHOSPHORUS PLASMA [facility] Sep 15, 2023 12:00 AM Laboratory - Chemi stry Order UREA NITROGEN PLASMA SP ONCE [facility] Sep 15, 2023 12:00 AM Laboratory - Chemi stry Order ALBUMIN PLASMA [facility] Sep 15, 2023 12:00 AM Laboratory - Chemi stry Order CBC BLOOD [facility] Sep 15, 2023 12:00 AM Laboratory - Chemi stry Order PTH-N-TACT PLASMA [facility] Sep 15, 2023 12:00 AM Laboratory - Chemi stry Order GLUCOSE PLASMA [facility] Oct 11, 2023 12:00 AM Laboratory - Blood Bank Order ABO/RH - LAB BLOOD [facility] Oct 11, 2023 06:45 AM Laboratory - Blood Bank Order TYPE & SCREEN - LAB BLOOD [facility] Lab Results: +/- 30 days of the encounter This section includes the Chemistry and Hematology Lab Results on record with PA for the patient. Radiology Reports and Pathology Reports are provided separately, in subsequent sections. Lab Results This section contains the Chemistry/Hematology Results that were resulted 30 days before or 30 daysafter the date of the Encounter. Date/Time Source Result Type Result - Unit Interpretation Reference Range Comment Oct 11, 2023 12:27 PM [facility] POC ACT Specimen Type: BLOOD No comment entered. Ordering Provider: LORETO HONG Report Released Date/Time: Oct 11, 2023 12:32 PM Reporting Lab: [facility] [phone] Performing Lab: [facility] [phone] POC ACT 199 H 84-139 Oct 11, 2023 12:13 PM [facility] POC ACT Specimen Type: BLOOD No comment entered. Ordering Provider: LORETO HONG Report Released Date/Time: Oct 11, 2023 12:20 PM Reporting Lab: [facility] [phone] Performing Lab: [facility] [address] POC ACT 384 H 84-139 Oct 11, 2023 11:50 AM [facility] POC ACT Specimen Type: BLOOD No comment entered. Ordering Provider: LORETO HONG Report Released Date/Time: Oct 11, 2023 12:00 PM Reporting Lab: [facility] [phone] Performing Lab: [facility] [address] POC ACT 407 H 84-139 Oct 11, 2023 11:50 AM [facility] FINGERSTICK GLUCOSE Specimen Type: BLOOD No comment entered. Ordering Provider: LORETO HONG Report Released Date/Time: Oct 11, 2023 01:30 PM Reporting Lab: [facility] [phone] Performing Lab: [facility] [address] FINGERSTICK GLUCOSE 161 H 70-100 Oct 11, 2023 11:32 AM [facility] POC ACT Specimen Type: BLOOD No comment entered. Ordering Provider: LORETO HONG Report Released Date/Time: Oct 11, 2023 11:47 AM Reporting Lab: [facility] [address] Performing Lab: [facility] [address] POC ACT 345 H 84-139 Oct 11, 2023 11:11 AM [facility] POC ACT Specimen Type: BLOOD No comment entered. Ordering Provider: LORETO HONG Report Released Date/Time: Oct 11, 2023 11:20 AM Reporting Lab: [facility] [address] Performing Lab: [facility] [address] POC ACT 334 H 84-139 Oct 11, 2023 11:11 AM [facility] FINGERSTICK GLUCOSE Specimen Type: BLOOD No comment entered. Ordering Provider: LORETO HONG Report Released Date/Time: Oct 11, 2023 01:30 PM Reporting Lab: [facility] [phone] Performing Lab: [facility] [phone] FINGERSTICK GLUCOSE 167 H 70-100 Oct 11, 2023 10:56 AM [facility] POC ACT Specimen Type: BLOOD No comment entered. Ordering Provider: LORETO HONG Report Released Date/Time: Oct 11, 2023 11:04 AM Reporting Lab: [facility] [address] Performing Lab: [facility] [address] POC ACT 310 H 84-139 Oct 11, 2023 10:40 AM [facility] POC ABG/ELECTROLYTES Specimen Type: ARTERIAL BLOOD Comment: FIO2 = 55% Patient Temp: 35.5 C Sample Type = ARTERIAL Ordering Provider: LORETO HONG Report Released Date/Time: Oct 11, 2023 01:20 PM Reporting Lab: [facility] [address] Performing Lab: [facility] [address] POC PH 7.396 7.35-7.45 POC PCO2 36.1 [...] H 80.0-105.0 Oct 11, 2023 10:37 AM [facility] FINGERSTICK GLUCOSE Specimen Type: BLOOD No comment entered. Ordering Provider: LORETO HONG Report Released Date/Time: Oct 11, 2023 01:30 PM Reporting Lab: [facility] [address] Performing Lab: [facility] [address] FINGERSTICK GLUCOSE 163 H 70-100 Oct 11, 2023 10:36 AM [facility] POC ACT Specimen Type: BLOOD No comment entered. Ordering Provider: LORETO HONG Report Released Date/Time: Oct 11, 2023 10:41 AM Reporting Lab: [facility] [phone] Performing Lab: [facility] [address] POC ACT 255 H 84-139 Oct 11, 2023 09:16 AM [facility] POC ABG/ELECTROLYTES Specimen Type: ARTERIAL BLOOD Comment: FIO2 = 56% Patient Temp: 35.2 C Sample Type = ARTERIAL Ordering Provider: LORETO HONG Report Released Date/Time: Oct 11, 2023 01:20 PM Reporting Lab: [facility] [address] Performing Lab: [facility] [address] POC PH 7.374 7.35-7.45 POC PCO2 38.9 [...] H 80.0-105.0 Oct 11, 2023 09:15 AM [facility] FINGERSTICK GLUCOSE Specimen Type: BLOOD No comment entered. Ordering Provider: LORETO HONG Report Released Date/Time: Oct 11, 2023 01:30 PM Reporting Lab: [facility] [address] Performing Lab: [facility] [address] FINGERSTICK GLUCOSE 170 H 70-100 Oct 11, 2023 09:10 AM [facility] POC ACT Specimen Type: BLOOD No comment entered. Ordering Provider: LORETO HONG Report Released Date/Time: Oct 11, 2023 09:16 AM Reporting Lab: [facility] [phone] Performing Lab: [facility] [address] POC ACT 147 H 84-139 Oct 11, 2023 06:35 AM [facility] ACT PART THROMBO TIME Specimen Type: PLASMA No comment entered. Ordering Provider: RONALDO MAS Report Released Date/Time: Apr 16, 2023 01:48 PM Reporting Lab: [facility] [address] Performing Lab: [facility] [address] APTT 29.9 25.1-36.5 Oct 11, 2023 06:35 AM [facility] PROTHROMBIN TIME/INR Specimen Type: PLASMA No comment entered. Ordering Provider: RONALDO MAS Report Released Date/Time: Apr 16, 2023 01:48 PM Reporting Lab: [facility] [address] Performing Lab: [facility] [address] .INR 1.0 0.8-1.1 .PT 11.9 9.4-12.5 Oct 11, 2023 06:35 AM [facility] BASIC METABOLIC PANEL+MG Specimen Type: PLASMA No comment entered. Ordering Provider: RONALDO MAS Report Released Date/Time: Apr 16, 2023 01:48 PM Reporting Lab: [facility] [address] Performing Lab: [facility] [address] CREATININE 3.0 H 0.7-1.2 UREA NITROGEN 38 H 8-26 GLUCOSE 151 H 70-100 SODIUM 142 136-145 POTASSIUM 4.9 3.5-5.1 CHLORIDE 108 H 98-107 CO2 27 22-29 CALCIUM 8.8 8.4-10.2 MAGNESIUM 2.0 1.6-2.6 ANION GAP 7 5-15 .CREAT EGFR(CKD-EPI) 20 L >60 Oct 11, 2023 06:35 AM [facility] CBC Specimen Type: BLOOD No comment entered. Ordering Provider: RONALDO MAS Report Released Date/Time: Apr 16, 2023 01:48 PM Reporting Lab: [facility] [address] Performing Lab: [facility] [address] WBC 6.09 4.0-11.0 RBC 4.07 L 4.6-6.2 [...] 11, 2023 03:15 PM 58 126/61 96 [facility] Oct 11, 2023 03:00 PM 58 118/56 95 [facility] Oct 11, 2023 02:45 PM 60 118/62 97 [facility] Oct 11, 2023 02:44 PM 97.5 59 117/61 18 97 0 [facility] Social History: Smoking Status [...] 02, 2023 01:15 PM VA-TOBACCO FORMER USER [facility] Tobacco Use History This section includes a history of the smoking, or tobacco-related health factors, that were collected on or before the date of the Encounter. The data comes from the PA facility where the Encounter took place. Date/Time Smoking Status/Tobacco Use Comment F acility Jan 02, 2023 01:15 PM VA-TOBACCO QUIT 15 YRS OR MORE [facility] Oct 24, 2021 08:45 AM VA-TOBACCO FORMER USER [facility] Oct 24, 2021 08:45 AM VA-TOBACCO QUIT 15 YRS OR MORE [facility] Apr 27, 2020 03:00 PM VA-TOBACCO FORMER USER [facility] Apr 27, 2020 03:00 PM VA-TOBACCO QUIT 15 YRS OR MORE [facility] Apr 23, 2019 05:29 PM INPT NO TOBACCO USE IN LAST 30 D AYS [facility] Oct 15, 2018 09:08 AM VA-TOBACCO FORMER USER [facility] Oct 15, 2018 09:08 AM VA-TOBACCO QUIT 15 YRS OR MORE [facility] November 13, 2017 09:05 AM FORMER TOBACCO USER 7Y OR GREATE R [facility] November 22, 2016 03:15 PM FORMER TOBACCO USER 7Y OR [facility] Oct 21, 2015 08:37 AM FORMER TOBACCO USER 7Y OR [facility] Oct 21, 2014 01:32 PM FORMER TOBACCO USER 7Y OR [facility] Oct 29, 2013 08:29 AM FORMER TOBACCO USER 7Y OR [facility] Mar 11, 2007 08:07 AM FORMER TOBACCO USER 7Y OR [facility]
[2023-10-12 00:02] VITALS: BP 148/65; PULSE 60; RESP 16; O2SAT 95
[2023-10-12 00:17] VITALS: BP 143/63; PULSE 61; O2SAT 97
[2023-10-12 00:32] VITALS: BP 140/63; PULSE 62; O2SAT 97
[2023-10-12 00:46] VITALS: BP 141/63; PULSE 61; O2SAT 94
== END 2023-10-12 01:20 | disposition home or self-care (01) ==
PROVIDERS: Emergency Provider Family Medicine
DX: L76.22 Postprocedural hemorrhage of skin and subcutaneous tissue following other procedure (principal)
CPT/HCPCS: 36415; 85025; 93005; 93926; 94761; 99284; 99285